=== PATIENT | female | born 1935 | race Caucasian/White ===

== ENCOUNTER → 2020-06-22 09:41 | Outpatient (BNVA) | payer MEDICARE, SELFPAY | PROVIDERS: PCP Internal Medicine; Referring Provider Internal Medicine; Visit Provider Internal Medicine Endocrinology, Diabetes & Metabolism | DX: E10.65 Type 1 diabetes mellitus with hyperglycemia (principal); E10.21 Type 1 diabetes mellitus with diabetic nephropathy; E10.44 Type 1 diabetes mellitus with diabetic amyotrophy; E11.3599 Type 2 diabetes mellitus with proliferative diabetic retinopathy without macular edema, unspecified eye; I10 Essential (primary) hypertension; E78.5 Hyperlipidemia, unspecified | CPT/HCPCS: Q3014 ==

== ENCOUNTER → 2020-06-29 13:36 | Outpatient (BNVA) | payer MEDICARE, SELFPAY | PROVIDERS: PCP Internal Medicine; Visit Provider Urology | DX: N81.4 Uterovaginal prolapse, unspecified (principal) | CPT/HCPCS: 99212 ==

== ENCOUNTER → 2020-08-03 10:18 | Outpatient (BNVA) | payer MEDICARE, SELFPAY | PROVIDERS: PCP Internal Medicine; Visit Provider Internal Medicine Endocrinology, Diabetes & Metabolism | DX: E10.65 Type 1 diabetes mellitus with hyperglycemia (principal); E10.21 Type 1 diabetes mellitus with diabetic nephropathy; E10.42 Type 1 diabetes mellitus with diabetic polyneuropathy; E11.3599 Type 2 diabetes mellitus with proliferative diabetic retinopathy without macular edema, unspecified eye; I10 Essential (primary) hypertension; E78.5 Hyperlipidemia, unspecified | CPT/HCPCS: 82947; 99212 ==

== ENCOUNTER → 2020-08-23 07:46 | Outpatient (BNVA) | payer MEDICARE, SELFPAY | PROVIDERS: PCP Internal Medicine; Visit Provider Internal Medicine Endocrinology, Diabetes & Metabolism | CPT/HCPCS: Q3014 ==

== ENCOUNTER → 2020-09-06 13:33 | Outpatient (BNVA) | payer MEDICARE, SELFPAY | PROVIDERS: PCP Internal Medicine; Visit Provider Nurse Practitioner Gerontology | DX: E10.65 Type 1 diabetes mellitus with hyperglycemia (principal) | CPT/HCPCS: 82947; 99212 ==

== ENCOUNTER 2020-11-12 21:40 | Emergency (ER) | payer MEDICARE, SELFPAY ==
--- NOTE | ~2020-11-12 | XR_ITS ---
EXAMINATION: XR HAND, LEFT CLINICAL INFORMATION: Pain after fall COMPARISON: Left wrist x-rays September 25, 2017 TECHNIQUE: PA, lateral, and oblique views of the left hand. FINDINGS: Diffuse osteopenia. Visualized portion of the distal radius and ulna demonstrate no fracture. Carpal rows are well-maintained without carpal bone fracture. No metacarpal or phalangeal fracture. No significant degenerative changes of the left hand. XR/XR hand LT 2V IMPRESSION: No acute fracture of the right hand.
--- NOTE | ~2020-11-12 | CT_ITS ---
EXAMINATION: CT HEAD WITHOUT CONTRAST CLINICAL INFORMATION: Status post fall COMPARISON: 10/03/2017 TECHNIQUE: Contiguous axial imaging was performed from the skull base to vertex without intravenous administration of contrast. This CT examination was performed using dose optimization techniques as appropriate, variously including the following: *Automated exposure control *Adjustment of mA and/or kV according to patient size (this includes techniques or standardized protocols for targeted exams where dose is matched to indication/reason for exam; i.e. extremities or head) *Use of iterative reconstruction technique DLP: 620 mGy-cm FINDINGS: There is no evidence of acute intracranial hemorrhage or territorial infarction. No abnormal mass effect or midline shift is seen. [place] to white matter differentiation is well preserved. No extra-axial fluid collections are identified. The ventricles are normal in size. There is mild periventricular white matter hypoattenuation consistent with chronic small vessel ischemic disease. Mild volume loss is noted. The osseous structures and soft tissues are normal. The mastoid air cells and visualized portions of the paranasal sinuses are well aerated. CT/CT head/brain wo con IMPRESSION: No acute intracranial pathology.
[2020-11-12 21:45] VITALS: BP 134/72; BP 142/60; PULSE 86; PULSE 90; RESP 16; TEMP 36.9; O2SAT 100; O2SAT 99; BMI 27.4
[2020-11-12 21:50] VITALS: BP 142/60; PULSE 86; RESP 16; TEMP 36.9; O2SAT 99
[2020-11-12 21:57] LABS: Glucose, Whole Blood 257 mg/dL (60-115)
--- NOTE | 2020-11-12 22:22 | ED_ITS ---
HPI - General Adult General Chief complaint: General Medical Stated complaint: hypoglycemia Time Seen by Provider: 11/12/20 22:22 Source: family Mode of arrival: EMS Limitations: no limitations History of Present Illness HPI narrative: Patient history of dementia diabetic daughter takes care of her patient blood sugar was 90 at 17:00 her daughter give her 10 units of Humalog but patient did not eat much at 21:00 when daughter went to see her in her room she found her on the floor in the bathroom with superficial abrasion to the left forehead POC was 52. patient was confused mumbling improved after D50 was given by EMS blood sugar improved to 273 and patient was back to baseline patient complaining of pain in the left hand no other injuries Related Data Home Medications Medication Instructions Recorded Confirmed furosemide 20 mg tablet 20 mg PO DAILY 07/17/20 09/06/20 Previous Rx's Medication Instructions Recorded pen needle, diabetic 32 gauge x #400 ea 03/28/20 valsartan 160 mg tablet 160 mg PO DAILY #90 tab 04/13/20 lancets #150 ea 04/20/20 amlodipine 5 mg tablet 5 mg PO DAILY #90 tab 05/25/20 insulin glargine U-300 conc 300 6 unit SUBCUT BEDTIME 90 Days #4.5 06/22/20 unit/mL (1.5 mL) subcutaneous pen ml flash glucose scanning reader #1 ea 08/23/20 flash glucose sensor #2 ea 08/23/20 lovastatin 40 mg tablet 40 mg PO QPM 90 Days #90 tab 08/29/20 insulin lispro 100 unit/mL See Rx Instructions SUBCUT .4 10/11/20 subcutaneous pen times a day 30 Days #15 ml polyethylene glycol 3350 17 17 g PO DAILY #510 g 10/15/20 gram/dose oral powder miscellaneous medical supply See Rx Instructions MISCELLANEOUS 10/19/20 .COMPLEX #1 ea meloxicam 7.5 mg tablet 7.5 mg PO DAILY #60 tab 11/12/20 Allergies Allergy/AdvReac Type Severity Reaction Status Date / Time brimonidine [From ALPHAGAN P] Allergy Unknown UNKNOWN Verified 09/21/20 10:50 alphagan Allergy Unknown allergy Uncoded 12/08/19 00:00 reaction Fluoxetine Allergy Unknown Unknown Uncoded 06/22/20 09:42 Review of Systems Review of Systems: Yes all other systems are reviewed and are negative PMFSH Past Medical History Medical History Diabetes mellitus Diabetes type 1, uncontrolled Diabetic nephropathy associated with type 1 diabetes mellitus Diabetic polyneuropathy associated with type 1 diabetes mellitus Dyslipidemia Hypertension Proliferative diabetic retinopathy Uterine prolapse Surgical History Hx of breast biopsy Hx of colonoscopy Family History Family History Daughter Diabetes Social History Social History Household Members: None Alcohol intake: never Patient Tobacco Use Status: Never used Tobacco Use of substances other than those prescribed or required for medical reasons: No Advance Directives: No Physical Exam Vital Signs: Vital Signs: Last Vital Signs Temp 98.4 F 11/12/20 21:50 Pulse 89 11/13/20 00:00 Resp 18 11/13/20 00:00 BP 140/60 H 11/13/20 00:00 Pulse Ox 99 11/13/20 00:00 Body Mass Index 27.4 Appearance: Alert. Oriented X2 No acute distress. Eyes: PERRLA, No Nystagmus ENT: Pharynx normal. Oral Mucosa moist Neck: Normal inspection. Neck supple. CVS: Normal heart rate and rhythm. Pulses normal. Respiratory: No respiratory distress. Equal air entry bilateral, no wheezing/rales/rhonchi Abdomen: Soft and nontender. Bowel sounds are present, no mass palpable, no CVA tenderness Skin: Skin warm and dry. Normal skin color. Normal skin turgor. Extremities: No lower extremity edema. No calf tenderness Neuro: Oriented X 2. No motor deficit. No sensory deficit.No cerebellar signs , cranial nerves II-XII intact Medical Decision Making MDM Narrative Medical decision making narrative: Patient's hypoglycemia secondary to insulin and not eating. Head CT is negative left hand is also negative for fracture. Blood sugar stays stable in the ER after dextrose blood sugar was 230 at time of discharge family aware of giving patient insulin after she eats meals as most of the time she does not want to eat meal after insulin given and is a high chance patient to go to hypoglycemia Lab Data Lab results reviewed: Yes I reviewed the patient's lab results. Labs: Lab Results 11/12/20 Range/Units 21:52 POC Glucose 257 H (60-115) mg/dL Discharge Plan Discharge Clinical Impression: Hypoglycemia associated with diabetes Patient Disposition: Home, Self-Care Instructions: Hypoglycemia in a Person with Diabetes (ED) Additional Instructions: Care as advised Give insulin after patient finish her meals , not before meals Prescriptions: No Action (DME) pen needle, diabetic [BD Pinky 2nd Gen Pen Needle] 32 gauge x 5/32 needle See Rx Instructions .MEDSUPPLY Qty: 400 RF: 4 valsartan 160 mg tablet 160 mg PO DAILY Qty: 90 RF: 8 (DME) lancets [Accu-Chek Fastclix Lancet Drum] Misc See Rx Instructions .ROUTE .MEDSUPPLY Qty: 150 RF: 6 amlodipine 5 mg tablet 5 mg PO DAILY Qty: 90 RF: 8 furosemide 20 mg tablet 20 mg PO DAILY RF: 0 lovastatin 40 mg tablet 40 mg PO QPM 90 Days Qty: 90 RF: 1 insulin lispro [Humalog KwikPen Insulin] 100 unit/mL insulin pen See Rx Instructions subcut .4 times a day 30 Days Qty: 15 RF: 6 polyethylene glycol 3350 [Gavilax] 17 gram/dose powder 17 g PO DAILY Qty: 510 RF: 5 miscellaneous medical supply Misc See Rx Instructions miscellaneous .COMPLEX Qty: 1 RF: 12 meloxicam 7.5 mg tablet 7.5 mg PO DAILY Qty: 60 RF: 5 Toujeo SoloStar U-300 Insulin 300 unit/mL (1.5 mL) insulin pen 6 unit subcut BEDTIME 90 Days Qty: 4.5 RF: 2 (DME) FreeStyle Aditya 2 [place] Misc See Rx Instructions .ROUTE .MEDSUPPLY Qty: 1 RF: 0 (DME) FreeStyle Aditya 2 Sensor Kit See Rx Instructions .ROUTE .MEDSUPPLY Qty: 2 RF: 11 Interventions: ED Discharge Assessment Last Done: 11/13/20 00:32 Discharge Date/Time: 11/13/20 00:56
[2020-11-13] VITALS: BP 140/60; PULSE 89; RESP 18; O2SAT 99
[2020-11-13 01:11] LABS: Glucose, Whole Blood 230 mg/dL (60-115)
== END 2020-11-13 00:56 | disposition home or self-care (01) ==
PROVIDERS: Emergency Provider Internal Medicine; PCP Internal Medicine
DX: E10.649 Type 1 diabetes mellitus with hypoglycemia without coma (principal); I10 Essential (primary) hypertension; M79.642 Pain in left hand; Z79.899 Other long term (current) drug therapy; Z91.81 History of falling
CPT/HCPCS: 70450; 73120; 82947; 99284

== ENCOUNTER 2020-11-29 07:59 | Outpatient (REF) | payer MEDICARE, MEDICAID, SELFPAY ==
[2020-11-29 10:31] LABS: Estimated Average Glucose 183 mg/dL
[2020-11-29 10:47] LABS: Creatinine Urine 33.24 mg/dL; Microalbum/Creatinine Ratio Ur 93.2 ug/mg cr
[2020-11-29 11:06] LABS: Alanine Aminotransferase 13 U/L (0-31); Albumin Level 4.3 g/dL (3.5-5.0); Alkaline Phosphatase 138 U/L (39-117); Anion Gap 11 (12-20); Aspartate Amino Transferase 20 U/L (5-31); Bilirubin Total 0.4 mg/dL (0.0-1.0); Blood Urea Nitrogen 20 mg/dL (9-16); Calcium 9.8 mg/dL (8.4-10.2); Carbon Dioxide 29 mmol/L (22-29); Chloride 102 mmol/L (96-108); Cholesterol 154 mg/dL; Estimated Glomerular Filt Rate 53; Glucose Fasting 213 mg/dL (60-99); HDL Cholesterol 59 mg/dL; LDL Cholesterol Calculated 76 mg/dl; Potassium 4.4 mmol/L (3.3-5.1); Sodium 138 mmol/L (135-145); Total Protein 7.2 g/dL (6.5-8.0); Triglycerides 97 mg/dL
[2020-11-29 11:27] LABS: Vitamin B12 835 pg/mL (200-900)
[2020-11-29 11:29] LABS: Free T4 (Free Thyroxine) 0.95 ng/dL (0.71-1.85); Thyroid Stimulating Hormone 3.78 uIU/mL (0.32-4.0)
[2020-11-30 06:57] LABS: LDL Cholesterol Direct 68 mg/dL (<100)
== END 2020-11-29 08:00 | disposition home or self-care (01) ==
LOC: HO.LAB 07:59
PROVIDERS: PCP Internal Medicine; Visit Provider Internal Medicine Endocrinology, Diabetes & Metabolism
DX: E10.65 Type 1 diabetes mellitus with hyperglycemia (principal)
CPT/HCPCS: 36415; 80053; 80061; 82043; 82607; 82947; 83036; 83721; 84439; 84443; 99212

== ENCOUNTER 2021-02-22 17:33 | Emergency (ER) | payer MEDICARE, MEDICAID, SELFPAY ==
--- NOTE | ~2021-02-22 | CT_ITS ---
EXAMINATION: CT ABDOMEN AND PELVIS WITHOUT CONTRAST CLINICAL INFORMATION: Upper abdominal pain. COMPARISON: CT scan abdomen pelvis December 30, 2019. Renal ultrasound January 30, 2020 TECHNIQUE: Multidetector volumetric imaging was performed from the superior aspect of the liver through the pubic symphysis. Sagittal and coronal reformatted images were obtained on the technologist's workstation. This CT examination was performed using dose optimization techniques as appropriate, variously including the following: *Automated exposure control *Adjustment of mA and/or kV according to patient size (this includes techniques or standardized protocols for targeted exams where dose is matched to indication/reason for exam; i.e. extremities or head) *Use of iterative reconstruction technique DLP: 420 mGy-cm FINDINGS: LUNG BASES: The visualized lung bases are unremarkable. LIVER, GALLBLADDER, AND BILIARY TREE: The liver is normal in size, shape, and attenuation. No focal hepatic lesion or biliary ductal dilatation is present. The gallbladder is unremarkable with no evidence of radiopaque gallstones, gallbladder wall thickening, or obvious pericholecystic inflammatory changes. PANCREAS: Unremarkable. SPLEEN: Unremarkable. ADRENAL GLANDS: Unremarkable. KIDNEYS AND URETERS: The kidneys are normal in size, shape, and attenuation. No hydronephrosis, hydroureter, or calculi seen. No perinephric stranding. There are multiple bilateral renal cysts. No follow-up imaging is recommended for simple renal cyst. BLADDER: Unremarkable. GASTROINTESTINAL TRACT: The small and large bowel are unremarkable. The appendix is unremarkable. MESENTERY: No free air or free fluid. No inflammation. No change of the cyst adjacent to the hepatic flexure at the left upper quadrant of the abdomen measuring 2.8 x 2.4 x 2 cm in size. ABDOMINAL WALL: No significant hernia is appreciated. LYMPH NODES: Normal. VASCULAR: Atherosclerotic vascular calcifications. No aneurysm of aorta. PELVIC VISCERA: Unremarkable. OSSEOUS STRUCTURES: Multilevel degenerative spondylosis spine. CT/CT abdomen pelvis wo con IMPRESSION: No acute abnormality CT scan abdomen pelvis.
[2021-02-22 19:30] VITALS: BP 180/80; PULSE 71; RESP 16; TEMP 36.6; O2SAT 98; BMI 23.8
[2021-02-22 19:55] LABS: MANUAL DIFF FLAG NO
[2021-02-22 20:01] LABS: Basophils Percent Auto 0.3 % (0-2); Eosinophils Absolute Auto 0.1 X10*3/uL (0.0-0.4); Eosinophils Percent Auto 0.5 % (0-4); Hematocrit 41.6 % (37-47); Hemoglobin 13.9 g/dl (12.0-16.0); Imm Gran Abs Auto 0.04 X10*3/uL (0.00-0.03); Imm Gran Pct Auto 0.3 % (0.0-0.4); Lymphocytes Absolute Auto 2.5 X10*3/uL (1.2-4.9); Lymphocytes Percent Auto 21.9 % (20-40); Mean Corpuscular HGB Conc 33.4 g/dl (31.0-35.0); Mean Corpuscular Hemoglobin 29.8 pg (27.0-33.0); Mean Corpuscular Volume 89.1 fL (80-98); Mean Platelet Volume 10.2 fL (9.4-12.3); Monocytes Absolute Auto 0.8 X10*3/uL (0.1-1.2); Monocytes Percent Auto 6.9 % (2-11); Neutrophils Absolute Auto 8.1 X10*3/uL (2.0-8.3); Neutrophils Percent Auto 70.1 % (45-73); Platelet Count 191 X10*3/uL (160-400); Red Blood Count 4.67 X10*6/uL (4.20-5.50); Red Cell Distribution Width 12.6 % (11.0-16.0); White Blood Count 11.6 X10*3/uL (4.8-10.8)
[2021-02-22 20:02] LABS: Appearance Urine CLEAR; Color Urine YELLOW; Glucose Urine UA NEG (NEG); Leukocyte Esterase Urine 1+ (NEG); Nitrite Urine NEG (NEG); UACC Culture Trigger YES; Urine Blood TRACE (NEG); Urine Ketones NEG (NEG); Urine Protein NEG (NEG-TRACE)
[2021-02-22 20:12] LABS: Alanine Aminotransferase 21 U/L (0-31); Albumin Level 4.6 g/dL (3.5-5.0); Alkaline Phosphatase 136 U/L (39-117); Anion Gap 15 (12-20); Aspartate Amino Transferase 28 U/L (5-31); Bilirubin Direct 0.2 mg/dL (0.0-0.5); Bilirubin Total 0.6 mg/dL (0.0-1.0); Blood Urea Nitrogen 21 mg/dL (9-16); Calcium 10.3 mg/dL (8.4-10.2); Carbon Dioxide 27 mmol/L (22-29); Chloride 98 mmol/L (96-108); Creatinine Clr Calc Pharmacy 29.5; Estimated Glomerular Filt Rate 46; Glucose Random 159 mg/dL (60-115); Lipase 35 U/L (8-78); Sodium 136 mmol/L (135-145); Total Protein 7.6 g/dL (6.5-8.0)
[2021-02-22 20:21] LABS: Squamous Epithelial Cell Urine TRACE /LPF
[2021-02-22 20:22] LABS: Bacteria Urine TRACE /LPF; WBC Clumps Urine NOTED
[2021-02-22 20:23] VITALS: BP 194/84; PULSE 69; RESP 16; O2SAT 100
--- NOTE | 2021-02-22 21:45 | ED.ABDPAIN ---
HPI - Abdominal Pain General Chief Complaint: Abdominal Pain Stated Complaint: upper abd pain Time Seen by Provider: 02/22/21 21:45 Source: patient Mode of arrival: ambulatory Limitations: no limitations History of Present Illness HPI narrative: Patient with diffuse abdominal pain off and on for last 3 weeks with nausea no vomiting no diarrhea no fever or chills no relation with food no urinary complaints patient unable to see PCP hence came to the ER ,Pt does have a history of constipation had normal bowel movements lately last bm was 2 days ago also patient complaining of heartburn taking Prilosec [id number] Related Data Previous Rx's Medication Instructions Recorded pen needle, diabetic 32 gauge x #400 ea 03/28/20 (BD Pinky 2nd Gen Pen Needle) valsartan 160 mg tablet 160 mg PO DAILY #90 tab 04/13/20 lancets (Accu-Chek Fastclix Lancet #150 ea 04/20/20 Drum) amlodipine 5 mg tablet 5 mg PO DAILY #90 tab 05/25/20 flash glucose scanning reader #1 ea 08/23/20 (FreeStyle Aditya 2 [place]) flash glucose sensor (FreeStyle #2 ea 08/23/20 Aditya 2 Sensor) polyethylene glycol 3350 17 17 g PO DAILY #510 g 10/15/20 gram/dose oral powder (Gavilax) miscellaneous medical supply See Rx Instructions MISCELLANEOUS 10/19/20 .COMPLEX #1 ea meloxicam 7.5 mg tablet 7.5 mg PO DAILY #60 tab 11/12/20 insulin glargine U-300 conc 300 8 unit SUBCUT BEDTIME 90 Days #4.5 11/29/20 unit/mL (1.5 mL) subcutaneous pen ml (Toujeo SoloStar U-300 Insulin) insulin lispro 100 unit/mL See Rx Instructions SUBCUT .4 11/29/20 subcutaneous pen (Humalog KwikPen times a day 90 Days #45 ml (U-100) Insulin) lovastatin 40 mg tablet 40 mg PO QPM #90 tab 12/03/20 furosemide 20 mg tablet 20 mg PO DAILY #90 tab 12/21/20 Accu-Chek Shamika Plus test strp #300 ea NS 01/22/21 (blood sugar diagnostic) omeprazole 40 mg capsule,delayed 40 mg PO DAILY #30 cap 02/22/21 release sucralfate 1 gram tablet 1 g PO BID #60 tab 02/22/21 Allergies Allergy/AdvReac Type Severity Reaction Status Date / Time brimonidine [From ALPHAGAN P] Allergy Unknown UNKNOWN Verified 12/21/20 13:33 alphagan Allergy Unknown allergy Uncoded 12/08/19 00:00 reaction Fluoxetine Allergy Unknown Unknown Uncoded 06/22/20 09:42 Review of Systems Review of Systems Yes all other systems are reviewed and are negative Physical Exam Vital Signs: Vital Signs: Last Vital Signs Temp 97.8 F 02/22/21 19:30 Pulse 69 02/22/21 20:23 Resp 16 02/22/21 20:23 BP 194/84 H 02/22/21 20:23 Pulse Ox 100 02/22/21 20:23 Body Mass Index 23.8 Appearance: Alert. Oriented X3. No acute distress. Eyes: No pallor or icterus ENT: Pharynx normal. Oral Mucosa moist Neck: Normal inspection. Neck supple. CVS: Normal heart rate and rhythm. Pulses normal. Respiratory: No respiratory distress. Equal air entry bilateral, no wheezing/rales/rhonchi Abdomen: Soft and mild upper abdominal tenderness no rebound tenderness or guarding Bowel sounds are present, no mass palpable, no CVA tenderness Skin: Skin warm and dry. Normal skin color. Normal skin turgor. Extremities: No lower extremity edema. No calf tenderness Neuro: Oriented X 3. No motor deficit. MDM - Abdominal Pain MDM Narrative Medical decision making narrative: Patient's CT scan abdomen is negative labs are stable denies any urinary complaints has some acid reflux will discharge patient on Prilosec Lab Data Attestation: I reviewed the patient's lab results. Result diagrams: 02/22/21 19:38 02/22/21 19:38 Labs: Lab Results 02/22/21 02/22/21 02/22/21 Range/Units 19:38 19:38 19:44 WBC 11.6 H (4.8-10.8) X10*3/uL RBC 4.67 (4.20-5.50) X10*6/uL Hgb 13.9 (12.0-16.0) g/dl Hct 41.6 (37-47) % MCV 89.1 (80-98) fL MCH 29.8 (27.0-33.0) pg MCHC 33.4 (31.0-35.0) g/dl RDW 12.6 (11.0-16.0) % Plt Count 191 (160-400) X10*3/uL MPV 10.2 (9.4-12.3) fL Immature Gran % (Auto) 0.3 (0.0-0.4) % Neut % (Auto) 70.1 (45-73) % Lymph % (Auto) 21.9 (20-40) % [place]yler % (Auto) 6.9 (2-11) % Eos % (Auto) 0.5 (0-4) % Baso % (Auto) 0.3 (0-2) % Lymph # (Auto) 2.5 (1.2-4.9) X10*3/uL [place] # (Auto) 0.8 (0.1-1.2) X10*3/uL Eos # (Auto) 0.1 (0.0-0.4) X10*3/uL Baso # (Auto) 0.0 (0.0-0.2) X10*3/uL Abs Immat Gran (auto) 0.04 H (0.00-0.03) X10*3/uL Absolute Neuts (auto) 8.1 (2.0-8.3) X10*3/uL Absolute Nucleated RBC 0.000 (0.0-0.012) X10*3/uL Nucleated RBC % (auto) 0.0 (0.0-0.2) /100WBC Sodium 136 (135-145) mmol/L Potassium 4.0 (3.3-5.1) mmol/L Chloride 98 (96-108) mmol/L Carbon Dioxide 27 (22-29) mmol/L Anion Gap 15 (12-20) BUN 21 H (9-16) mg/dL Creatinine 1.12 (0.5-1.4) mg/dL Estim Creat Clear Calc 29.5 Estimated GFR 46 Random Glucose 159 H (60-115) mg/dL Calcium 10.3 H (8.4-10.2) mg/dL Total Bilirubin 0.6 (0.0-1.0) mg/dL Direct Bilirubin 0.2 (0.0-0.5) mg/dL AST 28 (5-31) U/L ALT 21 (0-31) U/L Alkaline Phosphatase 136 H (39-117) U/L Total Protein 7.6 (6.5-8.0) g/dL Albumin 4.6 (3.5-5.0) g/dL Lipase 35 (8-78) U/L Urine Color YELLOW Urine Appearance CLEAR Urine pH 7.0 (5.0-8.0) Ur Specific [place] 1.010 (1.005-1.025) Urine Protein NEG (NEG-TRACE) MG/DL Urine Glucose (UA) NEG (NEG) MG/DL Urine Ketones NEG (NEG) MG/DL Urine Blood TRACE (NEG) Urine Nitrite NEG (NEG) Ur Leukocyte Esterase 1+ H (NEG) Urine RBC 10-14 H (0) /HPF Urine WBC 5-9 H (0-4) /HPF Urine WBC Clumps NOTED Ur Squamous Epith Cells TRACE /LPF Urine Bacteria TRACE /LPF Discharge Plan Discharge Clinical Impression: Abdominal pain Qualifiers: Abdominal location: epigastric Qualified Code(s): R10.13 - Epigastric pain Gastroesophageal reflux disease Qualifiers: Esophagitis presence: without esophagitis Qualified Code(s): K21.9 - Gastro-esophageal reflux disease without esophagitis Patient Disposition: Home, Self-Care Instructions: Gastroesophageal Reflux Disease (ED) Additional Instructions: Drink plenty of fluids avoid fried or spicy foods Medication for acid reflux as advised Prescriptions: New omeprazole 40 mg capsule,delayed release(DR/EC) 40 mg PO DAILY Qty: 30 RF: 0 sucralfate 1 gram tablet 1 g PO BID Qty: 60 RF: 0 No Action (DME) pen needle, diabetic [BD Pinky 2nd Gen Pen Needle] 32 gauge x 5/32 needle See Rx Instructions .MEDSUPPLY Qty: 400 RF: 4 valsartan 160 mg tablet 160 mg PO DAILY Qty: 90 RF: 8 (DME) lancets [Accu-Chek Fastclix Lancet Drum] Misc See Rx Instructions .ROUTE .MEDSUPPLY Qty: 150 RF: 6 amlodipine 5 mg tablet 5 mg PO DAILY Qty: 90 RF: 8 polyethylene glycol 3350 [Gavilax] 17 gram/dose powder 17 g PO DAILY Qty: 510 RF: 5 miscellaneous medical supply Misc See Rx Instructions miscellaneous .COMPLEX Qty: 1 RF: 12 meloxicam 7.5 mg tablet 7.5 mg PO DAILY Qty: 60 RF: 5 lovastatin 40 mg tablet 40 mg PO QPM Qty: 90 RF: 1 (DME) Accu-Chek Shamika Plus test strp Strip See Rx Instructions .MEDSUPPLY Qty: 300 RF: 2 furosemide 20 mg tablet 20 mg PO DAILY Qty: 90 RF: 8 (DME) FreeStyle Aditya 2 [place] Misc See Rx Instructions .ROUTE .MEDSUPPLY Qty: 1 RF: 0 (DME) FreeStyle Aditya 2 Sensor Kit See Rx Instructions .ROUTE .MEDSUPPLY Qty: 2 RF: 11 Toujeo SoloStar U-300 Insulin 300 unit/mL (1.5 mL) insulin pen 8 unit subcut BEDTIME 90 Days Qty: 4.5 RF: 2 insulin lispro [Humalog KwikPen Insulin] 100 unit/mL insulin pen See Rx Instructions subcut .4 times a day 90 Days Qty: 45 RF: 2 Interventions: ED Discharge Assessment Last Done: 02/23/21 00:29 Discharge Date/Time: 02/23/21 00:29 PENDING SALE TO [facility] Past Medical History Medical History Diabetes mellitus Diabetes type 1, uncontrolled Diabetic nephropathy associated with type 1 diabetes mellitus Diabetic polyneuropathy associated with type 1 diabetes mellitus Dyslipidemia Hypertension Proliferative diabetic retinopathy Uterine prolapse Surgical History Hx of breast biopsy Hx of colonoscopy Family History Family History Daughter Diabetes Social History Social History Household Members: None Housing: House Housing Other:: With Daughter. Alcohol intake: never Patient Tobacco Use Status: Never used Tobacco e-Cigarette/Vaping Use: Never Used Second Hand Smoke Exposure: No Use of substances other than those prescribed or required for medical reasons: No Advance Directives: No Advance Directives Information Provided: No service: No Current occupational status: disabled
== END 2021-02-23 00:29 | disposition home or self-care (01) ==
PROVIDERS: Emergency Provider Internal Medicine; PCP Internal Medicine
DX: K21.9 Gastro-esophageal reflux disease without esophagitis (principal); R10.13 Epigastric pain; Z79.899 Other long term (current) drug therapy
CPT/HCPCS: 36415; 74176; 80053; 81001; 81003; 82248; 83690; 85025; 87086; 99284

== ENCOUNTER → 2021-03-07 10:47 | Outpatient (BNVA) | payer MEDICARE, MEDICAID, SELFPAY | PROVIDERS: PCP Internal Medicine; Visit Provider Nurse Practitioner Gerontology | DX: E10.65 Type 1 diabetes mellitus with hyperglycemia (principal); E10.21 Type 1 diabetes mellitus with diabetic nephropathy; E10.42 Type 1 diabetes mellitus with diabetic polyneuropathy; E11.3599 Type 2 diabetes mellitus with proliferative diabetic retinopathy without macular edema, unspecified eye; I10 Essential (primary) hypertension; E78.5 Hyperlipidemia, unspecified | CPT/HCPCS: 82947; 83036; 99212 ==

== ENCOUNTER 2021-05-10 09:20 | Outpatient (REF) | payer MEDICARE, MEDICAID, SELFPAY ==
[2021-05-10 09:58] LABS: Basophils Percent Auto 0.3 % (0-2); Eosinophils Absolute Auto 0.1 X10*3/uL (0.0-0.4); Hematocrit 38.8 % (37.0-47.0); Hemoglobin 12.6 g/dl (12.0-16.0); Imm Gran Abs Auto 0.02 X10*3/uL (0.00-0.03); Imm Gran Pct Auto 0.3 % (0.0-0.4); Lymphocytes Absolute Auto 2.6 X10*3/uL (1.2-4.9); Lymphocytes Percent Auto 36.1 % (20-40); MANUAL DIFF FLAG NO; Mean Corpuscular HGB Conc 32.5 g/dl (31.0-35.0); Mean Corpuscular Hemoglobin 29.4 pg (27.0-33.0); Mean Corpuscular Volume 90.7 fL (80.0-98.0); Monocytes Absolute Auto 0.6 X10*3/uL (0.1-1.2); Monocytes Percent Auto 8.4 % (2-11); Neutrophils Absolute Auto 3.9 x10*3/uL (2.0-8.3); Neutrophils Percent Auto 53.9 % (45-73); Platelet Count 189 X10*3/uL (160-400); Red Blood Count 4.28 X10*6/uL (4.20-5.50); Red Cell Distribution Width 12.7 % (11.0-16.0); White Blood Count 7.2 X10*3/uL (4.8-10.8)
[2021-05-10 11:14] LABS: Anion Gap 14 (12-20); Blood Urea Nitrogen 22 mg/dL (9-16); Calcium 9.6 mg/dL (8.4-10.2); Carbon Dioxide 27 mmol/L (22-29); Chloride 102 mmol/L (96-108); Estimated Glomerular Filt Rate 41; Glucose Random 180 mg/dL (60-115); Potassium 4.5 mmol/L (3.3-5.1); Sodium 138 mmol/L (135-145)
== END 2021-05-10 09:21 | disposition home or self-care (01) ==
LOC: HO.LAB 09:20
PROVIDERS: PCP Internal Medicine; Visit Provider Internal Medicine
DX: Z00.00 Encounter for general adult medical examination without abnormal findings (principal); R51.9 Headache, unspecified
CPT/HCPCS: 36415; 80048; 85025

== ENCOUNTER 2021-06-11 11:48 | Outpatient (REF) | payer MEDICARE, MEDICAID, SELFPAY ==
[2021-06-11 14:34] LABS: C Reactive Protein 0.09 mg/dL (< or = 0.50)
[2021-06-14 06:57] LABS: Transglutaminase Ab IgG <1.0 U/mL; Transglutaminase IgA <1.0 U/mL
[2021-06-17 10:42] LABS: Vitamin D 25-OH, D2 <4 ng/mL; Vitamin D 25-OH, D3 32 ng/mL; Vitamin D 25-OH, Total 32 ng/mL (30-100)
== END 2021-06-11 11:49 | disposition home or self-care (01) ==
LOC: HO.LAB 11:48
PROVIDERS: PCP Internal Medicine; Referring Provider Internal Medicine; Visit Provider Nurse Practitioner Family
DX: R10.11 Right upper quadrant pain (principal); K58.1 Irritable bowel syndrome with constipation; K59.04 Chronic idiopathic constipation; R14.0 Abdominal distension (gaseous); K21.9 Gastro-esophageal reflux disease without esophagitis; I10 Essential (primary) hypertension; E11.40 Type 2 diabetes mellitus with diabetic neuropathy, unspecified; E78.5 Hyperlipidemia, unspecified; E55.9 Vitamin D deficiency, unspecified
CPT/HCPCS: 36415; 82306; 86140; 86364; 99202

== ENCOUNTER 2021-06-13 11:41 | Outpatient (REF) | payer MEDICARE, MEDICAID, SELFPAY ==
[2021-06-13 12:09] LABS: Appearance Urine CLEAR; Color Urine YELLOW; Glucose Urine UA NEG (NEG); Leukocyte Esterase Urine 3+ (NEG); Nitrite Urine NEG (NEG); Specific Gravity - Urine 1.015 (1.005-1.025); UACC Culture Trigger YES; Urine Blood TRACE (NEG); Urine Ketones NEG (NEG); Urine Protein NEG (NEG-TRACE)
[2021-06-13 12:28] LABS: Bacteria Urine 1+ /LPF; RBC Urine 0-2 /HPF (0); Renal Epithelial Cells Urine TRACE /LPF; Squamous Epithelial Cell Urine 1+ /LPF
== END 2021-06-13 11:42 | disposition home or self-care (01) ==
LOC: HO.LNP 11:41
PROVIDERS: Visit Provider Nurse Practitioner Family
DX: R10.9 Unspecified abdominal pain (principal)
CPT/HCPCS: 81001; 81003; 87086

== ENCOUNTER → 2021-07-17 09:10 | Outpatient (BNVA) | payer MEDICARE, MEDICAID, SELFPAY | PROVIDERS: PCP Internal Medicine; Visit Provider Nurse Practitioner Gerontology | DX: E10.65 Type 1 diabetes mellitus with hyperglycemia (principal); E10.21 Type 1 diabetes mellitus with diabetic nephropathy; E10.42 Type 1 diabetes mellitus with diabetic polyneuropathy; E11.3599 Type 2 diabetes mellitus with proliferative diabetic retinopathy without macular edema, unspecified eye; E78.5 Hyperlipidemia, unspecified; I10 Essential (primary) hypertension | CPT/HCPCS: Q3014 ==

== ENCOUNTER → 2021-07-22 10:52 | Outpatient (BNVA) | payer MEDICARE, MEDICAID, SELFPAY | PROVIDERS: PCP Internal Medicine; Referring Provider Internal Medicine; Visit Provider Nurse Practitioner Family | DX: Z13.89 Encounter for screening for other disorder (principal) ==

== ENCOUNTER 2021-07-22 12:19 | Outpatient (REF) | payer MEDICARE, MEDICAID, SELFPAY ==
[2021-07-22 14:13] LABS: Estimated Average Glucose 258 mg/dL; Hemoglobin A1c % 10.6 %
[2021-07-22 14:26] LABS: Blood Urea Nitrogen 19 mg/dL (9-16); Estimated Glomerular Filt Rate 46; Lipase 23 U/L (8-78)
[2021-07-22 14:49] LABS: TSH reflex Free T4 2.32 uIU/mL (0.32-4.0)
== END 2021-07-22 12:20 | disposition home or self-care (01) ==
LOC: HO.10HDL 12:19
PROVIDERS: Absent Provider Nurse Practitioner Gerontology; Visit Provider Nurse Practitioner Family
DX: R10.11 Right upper quadrant pain (principal); R19.7 Diarrhea, unspecified; E10.65 Type 1 diabetes mellitus with hyperglycemia
CPT/HCPCS: 36415; 82565; 83036; 83690; 84443; 84520

== ENCOUNTER 2021-08-14 11:38 | Outpatient (REF) | payer MEDICARE, MEDICAID, SELFPAY ==
[2021-08-14 13:37] LABS: Blood Urea Nitrogen 23 mg/dL (9-16); Estimated Glomerular Filt Rate 49
== END 2021-08-14 11:39 | disposition home or self-care (01) ==
LOC: HO.LAB 11:38
PROVIDERS: PCP Internal Medicine; Visit Provider Nurse Practitioner Family
DX: R10.32 Left lower quadrant pain (principal); R14.0 Abdominal distension (gaseous)
CPT/HCPCS: 36415; 82565; 84520

== ENCOUNTER 2021-08-16 09:47 | Outpatient (REF) | payer MEDICARE, MEDICAID, SELFPAY ==
--- NOTE | ~2021-08-16 | CT_ITS ---
EXAMINATION: CT ABDOMEN AND PELVIS WITH CONTRAST CLINICAL INFORMATION: Abdominal pain COMPARISON: Previous report from CT of the abdomen and pelvis December 2020. Images not available at this time. TECHNIQUE: Multidetector volumetric images were obtained from the superior aspect of the liver through the pubic symphysis following administration 85 mL of Omnipaque 350 intravenous contrast. Sagittal and coronal reformatted images were obtained on the technologist's workstation. Oral contrast: Yes This CT examination was performed using dose optimization techniques as appropriate, variously including the following: *Automated exposure control *Adjustment of mA and/or kV according to patient size (this includes techniques or standardized protocols for targeted exams where dose is matched to indication/reason for exam; i.e. extremities or head) *Use of iterative reconstruction technique DLP: 274 mGy-cm FINDINGS: LUNG BASES: The visualized lung bases are unremarkable. LIVER, GALLBLADDER, AND BILIARY TREE: The liver is normal in size, shape, and attenuation. No focal hepatic lesion. The gallbladder is unremarkable with no evidence of radiopaque gallstones, gallbladder wall thickening, or obvious pericholecystic inflammatory changes. There is no intrahepatic biliary duct dilatation. The common bile duct is dilated down to the head of the pancreas. The common bile duct measures up to 1.2 cm. There are duodenal direct to Kristen adjacent to the head of the pancreas. It is uncertain that this could be causing the common bile duct obstruction. PANCREAS: Pancreas is normal-appearing. The main pancreatic duct does not appear dilated. SPLEEN: Unremarkable. ADRENAL GLANDS: Unremarkable. KIDNEYS AND URETERS: There are bilateral renal simple cysts. No imaging follow-up is indicated. Kidneys are otherwise unremarkable. BLADDER: Unremarkable. GASTROINTESTINAL TRACT: There is stool throughout the colon suggestive of constipation. There is a stable 1 x 3 cm cystic structure adjacent to the splenic flexure The small and large bowel are otherwise unremarkable. The appendix is unremarkable. There may be a small esophageal hernia. ABDOMINAL WALL: No significant hernia is appreciated. LYMPH NODES: Normal. VASCULAR: Unremarkable. PELVIC VISCERA: Unremarkable. OSSEOUS STRUCTURES: There are degenerative changes of the spine. CT/CT abdomen pelvis w con IMPRESSION: Dilated common bile duct down to the head of the pancreas. No stone seen. There are duodenal diverticuli adjacent to the head of the pancreas and it is uncertain whether the bile duct obstruction could be related to this. Normal-appearing pancreas. No pancreatic duct dilatation seen. Constipation. 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 Bilateral renal cysts. Fleischner guidelines were followed.
[2021-08-16] MEDS: iohexoL 350 MG/ML 100 ML INFUS..BTL 85 ML IV (12:31)
== END 2021-08-16 09:48 | disposition home or self-care (01) ==
LOC: HO.CT 09:47
PROVIDERS: PCP Internal Medicine; Visit Provider Nurse Practitioner Family
DX: R10.9 Unspecified abdominal pain (principal); R10.32 Left lower quadrant pain; R14.0 Abdominal distension (gaseous); K21.9 Gastro-esophageal reflux disease without esophagitis; K59.04 Chronic idiopathic constipation
CPT/HCPCS: 74177; 99212; Q9967

== ENCOUNTER 2021-08-26 12:04 | Outpatient (REF) | payer MEDICARE, MEDICAID, SELFPAY ==
[2021-08-26 14:36] LABS: Alanine Aminotransferase 23 U/L (0-31); Albumin Level 4.5 g/dL (3.5-5.0); Alkaline Phosphatase 117 U/L (39-117); Aspartate Amino Transferase 27 U/L (5-31); Bilirubin Direct 0.3 mg/dL (0.0-0.5); Bilirubin Total 0.8 mg/dL (0.0-1.0); C Reactive Protein 0.12 mg/dL (< or = 0.50); Lipase 24 U/L (8-78); Total Protein 7.8 g/dL (6.5-8.0)
== END 2021-08-26 12:05 | disposition home or self-care (01) ==
LOC: HO.LAB 12:04
PROVIDERS: PCP Internal Medicine; Referring Provider Internal Medicine; Visit Provider Nurse Practitioner Family
DX: R10.10 Upper abdominal pain, unspecified (principal); K59.04 Chronic idiopathic constipation; K21.9 Gastro-esophageal reflux disease without esophagitis; R14.0 Abdominal distension (gaseous); K83.8 Other specified diseases of biliary tract; Z79.899 Other long term (current) drug therapy
CPT/HCPCS: 36415; 80076; 83690; 86140; 99212

== ENCOUNTER 2021-08-30 08:28 | Outpatient (REF) | payer MEDICARE, MEDICAID, SELFPAY ==
--- NOTE | ~2021-08-30 | MR_ITS ---
EXAMINATION: MR ABDOMEN WITHOUT CONTRAST CLINICAL INFORMATION: Other specified diseases of biliary tract. COMPARISON: Previous CT of the abdomen and pelvis most recent 08/16/2021 TECHNIQUE: MR abdomen is performed without gadolinium contrast. MRCP sequences were performed. FINDINGS: LUNG BASES: The visualized lung bases are unremarkable. LIVER, GALLBLADDER, AND BILIARY TREE: The liver is normal in size, smooth in contour, and normal in signal. No focal hepatic lesion or intrahepatic biliary ductal dilatation is present. The gallbladder is unremarkable with no evidence of gallbladder wall thickening, or obvious pericholecystic inflammatory changes. There is mild focal dilatation of the distal common bile duct measuring up to 1 cm. No common bile duct stone is seen. PANCREAS: Unremarkable. SPLEEN: Unremarkable. ADRENAL GLANDS: Unremarkable. KIDNEYS AND URETERS: There are bilateral renal cysts. The kidneys are normal in size and shape. No hydronephrosis. No perinephric stranding. GASTROINTESTINAL TRACT: There is a small left upper quadrant cyst under the left hemidiaphragm. This measures 1.5 x 2.3 cm. This abuts the hepatic flexure. This may represent an area of loculated ascitic fluid versus cyst. 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 There are duodenal diverticula. The visualized bowel is otherwise unremarkable. ABDOMINAL WALL: No significant hernia is appreciated. LYMPH NODES: No lymphadenopathy. VASCULAR: Unremarkable. OSSEOUS STRUCTURES: Marrow signal normal. MR/MR MRCP IMPRESSION: Mild dilatation of the distal common bile duct measuring up to 1 cm. No stone seen. Normal-appearing gallbladder. Bilateral renal cysts. Duodenal diverticula adjacent to the head of the pancreas. 1.5 x 2.3 cm cyst under the left hemidiaphragm. 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 Differential would include loculated ascitic fluid.
== END 2021-08-30 08:29 | disposition home or self-care (01) ==
LOC: HO.MRI 08:28
PROVIDERS: PCP Internal Medicine; Visit Provider Nurse Practitioner Family
DX: R10.9 Unspecified abdominal pain (principal); K83.8 Other specified diseases of biliary tract
CPT/HCPCS: 74181

== ENCOUNTER 2021-09-05 16:14 | Outpatient (REF) | payer MEDICARE, MEDICAID, SELFPAY ==
[2021-09-11 14:26] LABS: Pancreatic Elastase-1 329 mcg/g
== END 2021-09-05 16:15 | disposition home or self-care (01) ==
LOC: HO.LNP 16:14
PROVIDERS: Visit Provider Nurse Practitioner Family
DX: R10.10 Upper abdominal pain, unspecified (principal)
CPT/HCPCS: 82656

== ENCOUNTER → 2021-10-07 11:46 | Outpatient (BNVA) | payer MEDICARE, MEDICAID, SELFPAY | PROVIDERS: PCP Internal Medicine; Referring Provider Internal Medicine; Visit Provider Nurse Practitioner Family | DX: R10.10 Upper abdominal pain, unspecified (principal); K59.04 Chronic idiopathic constipation; R14.0 Abdominal distension (gaseous); R00.2 Palpitations; K21.9 Gastro-esophageal reflux disease without esophagitis; Z79.899 Other long term (current) drug therapy | CPT/HCPCS: 99212 ==

== ENCOUNTER → 2021-10-25 12:29 | Outpatient (BNVA) | payer MEDICARE, MEDICAID, SELFPAY | PROVIDERS: PCP Internal Medicine; Visit Provider Nurse Practitioner Gerontology | DX: E10.65 Type 1 diabetes mellitus with hyperglycemia (principal); E10.21 Type 1 diabetes mellitus with diabetic nephropathy; E10.42 Type 1 diabetes mellitus with diabetic polyneuropathy; E78.5 Hyperlipidemia, unspecified; E11.3599 Type 2 diabetes mellitus with proliferative diabetic retinopathy without macular edema, unspecified eye; I10 Essential (primary) hypertension; Z79.4 Long term (current) use of insulin | CPT/HCPCS: Q3014 ==

== ENCOUNTER 2021-11-26 14:44 | Outpatient (REF) | payer OTHER, SELFPAY ==
--- NOTE | ~2021-11-26 | XR_ITS ---
EXAMINATION: XR CHEST CLINICAL INFORMATION: Dyspnea COMPARISON: Previous chest x-ray September 2018 TECHNIQUE: 2 views of the chest were obtained. FINDINGS: The cardiac and mediastinal contours are stable. The lungs are clear. There is no pleural effusion or pneumothorax. There are degenerative changes of the spine. XR/XR chest 2V IMPRESSION: No evidence for acute disease in the chest.
[2021-11-26 14:58] LABS: MANUAL DIFF FLAG NO
--- NOTE | 2021-11-26 14:58 | ECG_ITS ---
Test Reason : HTN Blood Pressure : / mmHG Vent. Rate : 078 BPM Atrial Rate : 078 BPM P-R Int : 152 ms QRS Dur : 090 ms QT Int : 386 ms P-R-T Axes : 054 015 073 degrees QTc Int : 440 ms Normal sinus rhythm Normal ECG When compared with ECG of 23-SEP-2018 10:43, No significant change was found Referred By: Mateusz Ealm Electronically Signed By:DWAYNE AL MD
[2021-11-26 15:09] LABS: Basophils Percent Auto 0.4 % (0-2); Eosinophils Percent Auto 0.5 % (0-4); Hematocrit 39.7 % (37.0-47.0); Hemoglobin 12.8 g/dl (12.0-16.0); Imm Gran Abs Auto 0.02 X10*3/uL (0.00-0.03); Imm Gran Pct Auto 0.2 % (0.0-0.4); Lymphocytes Absolute Auto 2.3 X10*3/uL (1.2-4.9); Lymphocytes Percent Auto 28.3 % (20-40); Mean Corpuscular HGB Conc 32.2 g/dl (31.0-35.0); Mean Corpuscular Hemoglobin 28.6 pg (27.0-33.0); Mean Corpuscular Volume 88.8 fL (80.0-98.0); Mean Platelet Volume 9.8 fL (9.4-12.3); Monocytes Absolute Auto 0.6 X10*3/uL (0.1-1.2); Monocytes Percent Auto 7.3 % (2-11); Neutrophils Absolute Auto 5.2 x10*3/uL (2.0-8.3); Neutrophils Percent Auto 63.3 % (45-73); Platelet Count 208 X10*3/uL (160-400); Red Blood Count 4.47 X10*6/uL (4.20-5.50); Red Cell Distribution Width 12.4 % (11.0-16.0); White Blood Count 8.2 X10*3/uL (4.8-10.8)
[2021-11-26 16:16] LABS: Anion Gap 12 (12-20); Blood Urea Nitrogen 18 mg/dL (9-16); Calcium 9.9 mg/dL (8.4-10.2); Carbon Dioxide 28 mmol/L (22-29); Chloride 102 mmol/L (96-108); Estimated Glomerular Filt Rate 41; Glucose Random 172 mg/dL (60-115); Potassium 4.5 mmol/L (3.3-5.1); Sodium 137 mmol/L (135-145)
== END 2021-11-26 14:45 | disposition home or self-care (01) ==
LOC: HO.XRAY 14:44
PROVIDERS: Absent Provider Nurse Practitioner Gerontology; PCP Internal Medicine; Visit Provider Internal Medicine
DX: Z13.0 Encounter for screening for diseases of the blood and blood-forming organs and certain disorders involving the immune mechanism (principal); Z13.9 Encounter for screening, unspecified; R06.00 Dyspnea, unspecified; R51.9 Headache, unspecified
CPT/HCPCS: 36415; 71046; 80048; 85025; 93005

== ENCOUNTER 2022-05-03 11:30 | Emergency (ER) | payer OTHER, SELFPAY ==
--- NOTE | ~2022-05-03 | XR_ITS ---
EXAMINATION: XR FOOT, RIGHT CLINICAL INFORMATION: great toe pain/ nail discoloration, unknown injury COMPARISON: None TECHNIQUE: AP, lateral, and oblique views of the right foot. FINDINGS: Bones are osteopenic. No fracture or malalignment. Mild soft tissue swelling of the forefoot and midfoot. No subcutaneous gas. No focal osteolysis is identified. Moderate sized enthesopathic spur is present at the Achilles tendon insertion on the calcaneus. XR/XR foot RT min 3V IMPRESSION: Soft tissue swelling in the right foot. No acute osseous findings. No radiographic findings of osteomyelitis.
[2022-05-03 11:34] VITALS: BP 174/66; PULSE 62; RESP 18; TEMP 36.9; O2SAT 100; BMI 25.4
--- NOTE | 2022-05-03 11:35 | ED.EXTPRO ---
HPI - Extremity Problem General Chief complaint: Extremity Problem <Vivian Najera CNP - Last Filed: 05/03/22 11:39> Stated complaint: L great toe black and bleeding <Vivian Najera CNP - Last Filed: 05/03/22 11:39> Time Seen by Provider: 05/03/22 13:16 <Vivian Najera CNP - Last Filed: 05/03/22 11:39> Source: patient and family <RAUDEL Brito - Last Filed: 05/03/22 13:52> Mode of arrival: ambulatory <RAUDEL Brito Last Filed: 05/03/22 13:52> Limitations: no limitations <RAUDEL Brito Last Filed: 05/03/22 13:52> History of Present Illness HPI Narrative: 86-year-old female with history of diabetes, HTN, polyneuropathy, GERD who presents to the ER for evaluation of right great toe nail discoloration. Patient's daughter helps provide history. She noticed her mom's right great toe was black and in color under the toenail an at the proximal portion of the nail bed. She noticed it was swollen. The patient denied any injury to the area. She was denying any pain and is ambulating normally. Patient's daughter was worried about possible infection. There has been no redness, drainage, or pain of the area. Patient does have a history of diabetic neuropathy. <RAUDEL Brito - Last Filed: 05/03/22 13:52> MD Complaint: extremity swelling <RAUDEL Brito Last Filed: 05/03/22 13:52> Onset (ago): unknown <RAUDEL Brito Last Filed: 05/03/22 13:52> Pain Consistency: constant <RAUDEL Brito Last Filed: 05/03/22 13:52> Location: right and toe <RAUDEL Brito Last Filed: 05/03/22 13:52> Radiation: none <RAUDEL Brito Last Filed: 05/03/22 13:52> Relieving factors: nothing <RAUDEL Brito Last Filed: 05/03/22 13:52> Exacerbating factors: nothing <RAUDEL Brito - Last Filed: 05/03/22 13:52> Associated symptoms: denies other symptoms <RAUDEL Brito - Last Filed: 05/03/22 13:52> Related Data Home medications: Home Medications Medication Instructions Recorded Confirmed bimatoprost 0.01 % eye drops 0 drp ophthalmic (eye) 04/26/21 04/28/22 (Lumigan) timolol maleate 0.5 % eye drops 0 drp ophthalmic (eye) 04/26/21 04/28/22 Previous Rx's Medication Instructions Recorded lancets (Accu-Chek Fastclix Lancet #150 ea 04/20/20 Drum) flash glucose scanning reader #1 ea 08/23/20 (FreeStyle Aditya 2 [place]) flash glucose sensor (FreeStyle #2 ea 08/23/20 Aditya 2 Sensor kit) Accu-Chek Shamika Plus test strp #300 ea 01/22/21 (blood sugar diagnostic) valsartan 160 mg tablet 160 mg PO DAILY #90 tabs 04/18/21 pen needle, diabetic 32 gauge x #400 ea 05/29/21 5/32 (BD Pinky 2nd Gen Pen Needle) bisacodyl 5 mg tablet 10 mg PO BEDTIME #180 tabs 08/26/21 famotidine 40 mg tablet 40 mg PO BEDTIME #30 tabs 08/26/21 pantoprazole 40 mg tablet,delayed 40 mg PO DAILY #30 tabs 08/26/21 release simethicone 180 mg capsule (Gas 180 mg PO BID PRN abdominal 08/26/21 Relief (simethicone)) distention #60 caps linaclotide 145 mcg capsule 145 mcg PO DAILY #30 caps 10/07/21 (Linzess) kgjtkv-fmfrpkfk-risimjw 1 cap PO .qid ac #120 caps 10/07/21 6,000-19,000-30,000 unit capsule,delayed rel (Creon) insulin glargine U-300 conc 300 13 unit (0.0433 mL) subcut BEDTIME 10/25/21 unit/mL (1.5 mL) subcutaneous pen #4.5 mL (Toujeo SoloStar U-300 Insulin) insulin lispro 100 unit/mL See Rx Instructions subcut .4 10/25/21 subcutaneous pen (Humalog KwikPen times a day 90 days #45 mL (U-100) Insulin) polyethylene glycol 3350 17 17 g PO DAILY #510 grams 11/01/21 gram/dose oral powder (Gavilax) meloxicam 7.5 mg tablet 7.5 mg PO DAILY #60 tabs 11/21/21 atenolol 50 mg tablet 50 mg PO DAILY #30 tabs 11/28/21 lovastatin 40 mg tablet 40 mg PO QPM #90 tabs 12/02/21 furosemide 20 mg tablet 20 mg PO DAILY #90 tabs 01/13/22 walker #1 ea 04/28/22 <Vivian Najera CNP - Last Filed: 05/03/22 11:39> Allergies/Adverse reactions: Allergies Allergy/AdvReac Type Severity Reaction Status Date / Time brimonidine [From ALPHAGAN P] Allergy Unknown UNKNOWN Verified 04/28/22 10:52 alphagan Allergy Unknown allergy Uncoded 04/28/22 10:52 reaction Fluoxetine Allergy Unknown Unknown Uncoded 04/28/22 10:52 <Vivian Najera CNP - Last Filed: 05/03/22 11:39> Review of Systems Review of Systems: Constitutional: No Fever, No Chills Eyes: No vision changes Cardiovascular: No Chest Pain, No SOB Gastrointestinal: No Nausea, No Vomiting Musculoskeletal: No joint pain, No Myalgias, +Joint swelling Skin: No Skin Lesions, No rash Neuro: No Weakness, +Numbness Heme/Lymph: +Bruising, No Lymphadenopathy <RAUDEL Brito - Last Filed: 05/03/22 13:52> [facility] Past Medical History Medical History: Medical History Diabetes mellitus Diabetes type 1, uncontrolled Diabetic nephropathy associated with type 1 diabetes mellitus Diabetic polyneuropathy associated with type 1 diabetes mellitus Dyslipidemia Hypertension Proliferative diabetic retinopathy Uterine prolapse <Vivian Najera CNP - Last Filed: 05/03/22 11:39> Surgical History: Surgical History History of surgery Hx of breast biopsy Hx of colonoscopy <Vivian Najera CNP - Last Filed: 05/03/22 11:39> Family History Family History: Family History Daughter Diabetes <Vivian NajeraJEN - Last Filed: 05/03/22 11:39> Social History Social History: Social History Household Members: None Housing: House Housing Other:: With Daughter. Alcohol intake: never Patient Tobacco Use Status: Never used Tobacco e-Cigarette/Vaping Use: Never Used Second Hand Smoke Exposure: No Advance Directives: Yes Advance Directives Information Provided: No Advance Directives on File: No service: No Current occupational status: retired and disabled Cognitive needs: Yes (cane/walker) Hearing needs: No Vision needs: Yes (glasses) <Vivian NajeraJEN - Last Filed: 05/03/22 11:39> Physical Exam Vital Signs: Vital Signs: Last Vital Signs Temp 96.6 F L 05/03/22 13:34 Pulse 53 05/03/22 13:34 Resp 16 05/03/22 13:34 BP 189/85 H 05/03/22 13:34 Pulse Ox 98 05/03/22 13:34 O2 Del Method 05/03/22 13:34 BMI result Body Mass Index 25.4 <Vivian NajeraJEN - Last Filed: 05/03/22 11:39> Vital Signs: Last Vital Signs Temp 96.6 F L 05/03/22 13:34 Pulse 53 05/03/22 13:34 Resp 16 05/03/22 13:34 BP 189/85 H 05/03/22 13:34 Pulse Ox 98 05/03/22 13:34 O2 Del Method 05/03/22 13:34 BMI result Body Mass Index 25.4 <RAUDEL Brito - Last Filed: 05/03/22 13:52> Appearance: Alert. Oriented X3. No acute distress. HEENT: normal inspection CVS: Normal heart rate and rhythm. Pulses normal. Respiratory: No respiratory distress. Skin: Skin warm and dry. Normal skin color. Normal skin turgor. No rashes. Extremities: Right great toe with ecchymosis of the nail bed with palpable separation of the nail from the nail bed. The entire great toe is nontender, no erythema or warmth. No open wounds. Neuro: Oriented X 3. No motor deficit. No sensory deficit. Ambulates with steady gait and using a cane <RAUDEL Brito - Last Filed: 05/03/22 13:52> Course Course Course Narrative: RME: Patient is an 86-year-old female with pmhx diabetes, glaucoma, HTN who presents emergency department for evaluation of right great toe pain. Onset of pain approximately 2 weeks ago. No known injury, patient can be forgetful at times. Yesterday noted black discoloration to the base of the great toe. denies any numbness or tingling. PE: Right great toe nail bed appears erythematous, swollen, purulent drainage, blackened discoloration beneath the nail. Plan: XR to exclude fracture/ dislocation, presentation also concerning for mild paronychia <Vivian Najera CNP - Last Filed: 05/03/22 11:39> RME: Patient is an 86-year-old female with pmhx diabetes, glaucoma, HTN who presents emergency department for evaluation of right great toe pain. Onset of pain approximately 2 weeks ago. No known injury, patient can be forgetful at times. Yesterday noted black discoloration to the base of the great toe. denies any numbness or tingling. PE: Right great toe nail bed appears erythematous, swollen, blackened discoloration beneath the nail. Plan: XR to exclude fracture/ dislocation, presentation also concerning for ? paronychia <RAUDEL Brito - Last Filed: 05/03/22 13:52> Reevaluation(s) Reevaluation #1: X-ray is showing soft tissue swelling in the right foot without any osseous findings. Examination is not consistent with infection but rather ecchymosis and nail avulsion, unknown trauma. There is no evidence of infection requiring antibiotics today. She will follow-up with her PCP. Will refer to a training generalist given she is diabetic. Patient is stable for discharge. <RAUDEL Brito - Last Filed: 05/03/22 13:52> Discharge Plan Discharge Clinical Impression: Injury of nail bed of toe <Vivian Najera CNP - Last Filed: 05/03/22 11:39> Patient Disposition: Home, Self-Care <Vivian NajeraJEN - Last Filed: 05/03/22 11:39> Instructions: Nail Avulsion (ED) <Vivian Najera JEN - Last Filed: 05/03/22 11:39> Additional Instructions: Your x-ray today showed some mild soft tissue swelling but no abnormalities of any of the bones. On examination your nail has from the nail bed, most likely from some trauma. This will grow out eventually. You may end up losing her toenail. Recommend following up with training generalist - name & number below. Call for an appointment. Follow-up with primary care doctor as well. Your blood pressure was elevated today. Make sure you taking your blood pressure medication. Try to cut out salt from your diet. Monitor blood pressure at home. If you develop new or worsening symptoms call 911 or come back to the ER for further evaluation. <Vivian NajeraJEN - Last Filed: 05/03/22 11:39> Prescriptions: No Action (DME) lancets [Accu-Chek Fastclix Lancet Drum] Misc See Rx Instructions .ROUTE .MEDSUPPLY Qty: 150 6RF Rx Instructions: 4 times a day (DME) Accu-Chek Shamika Plus test strp Strip See Rx Instructions .MEDSUPPLY Qty: 300 2RF Rx Instructions: 3 times a day valsartan 160 mg tablet 160 mg PO DAILY Qty: 90 8RF (DME) pen needle, diabetic [BD Pinky 2nd Gen Pen Needle] 32 gauge x 5/32 needle See Rx Instructions .MEDSUPPLY Qty: 400 4RF Rx Instructions: 5 times a day polyethylene glycol 3350 [Gavilax] 17 gram/dose powder 17 g PO DAILY Qty: 510 5RF meloxicam 7.5 mg tablet 7.5 mg PO DAILY Qty: 60 5RF atenolol 50 mg tablet 50 mg PO DAILY Qty: 30 6RF lovastatin 40 mg tablet 40 mg PO QPM Qty: 90 1RF furosemide 20 mg tablet 20 mg PO DAILY Qty: 90 8RF (DME) walker Misc See Rx Instructions .Route Qty: 1 0RF Rx Instructions: As directed timolol maleate 0.5 % drops 0 drp ophthalmic (eye) Lumigan 0.01 % drops 0 drp ophthalmic (eye) (DME) FreeStyle Aditya 2 [place] Misc See Rx Instructions .ROUTE .MEDSUPPLY Qty: 1 0RF Rx Instructions: As directed (DME) FreeStyle Aditya 2 Sensor Kit See Rx Instructions .ROUTE .MEDSUPPLY Qty: 2 11RF Rx Instructions: Every 14 days Toujeo SoloStar U-300 Insulin 300 unit/mL (1.5 mL) insulin pen 13 unit subcut BEDTIME Qty: 4.5 2RF insulin lispro [Humalog KwikPen Insulin] 100 unit/mL insulin pen See Rx Instructions subcut .4 times a day 90 Days Qty: 45 1RF Rx Instructions: 6 units with breakfast , 6 units lunch lunch, 6-8 units with dinner and 2 units with snacks subcut .4 times a day; famotidine 40 mg tablet 40 mg PO BEDTIME Qty: 30 3RF pantoprazole 40 mg tablet,delayed release (DR/EC) 40 mg PO DAILY Qty: 30 2RF Rx Instructions: take one tablet half an hour before breakfast simethicone [Gas Relief (simethicone)] 180 mg capsule 180 mg PO BID PRN (Reason: abdominal distention) Qty: 60 1RF bisacodyl 5 mg tablet 10 mg PO BEDTIME Qty: 180 1RF Creon 6,000-19,000 -30,000 unit capsule,delayed release(DR/EC) 1 cap PO .qid ac Qty: 120 0RF Rx Instructions: do not exceed 10,000 unit/kg lipase per 24 hrs Linzess 145 mcg capsule 145 mcg PO DAILY Qty: 30 4RF <Vivian Najera CNP - Last Filed: 05/03/22 11:39> Referrals: Mateusz Elam MD [Primary Care Provider] - Girma Foster MD [Physician] - <Vivian Najera CNP - Last Filed: 05/03/22 11:39> Print Language: Bahraini <Vivian Najera CNP - Last Filed: 05/03/22 11:39>
[2022-05-03 13:34] VITALS: BP 189/85; PULSE 53; RESP 16; TEMP 35.9; O2SAT 98
== END 2022-05-03 14:21 | disposition home or self-care (01) ==
PROVIDERS: Emergency Provider Emergency Medicine; PCP Internal Medicine
DX: S99.921A Unspecified injury of right foot, initial encounter (principal); X58.XXXA Exposure to other specified factors, initial encounter; E10.9 Type 1 diabetes mellitus without complications; I10 Essential (primary) hypertension; E78.5 Hyperlipidemia, unspecified; Y93.9 Activity, unspecified; Y92.9 Unspecified place or not applicable; Y99.9 Unspecified external cause status; Z79.4 Long term (current) use of insulin
CPT/HCPCS: 73630; 99283

== ENCOUNTER 2022-05-06 09:37 | Outpatient (REF) | payer OTHER, SELFPAY ==
[2022-05-06 11:20] LABS: Thyroid Stimulating Hormone 3.77 uIU/mL (0.32-4.0)
[2022-05-06 11:24] LABS: Cholesterol 146 mg/dL; Glucose Fasting 156 mg/dL (60-99); HDL Cholesterol 52 mg/dL; LDL Cholesterol Calculated 79 mg/dl; Triglycerides 79 mg/dL
[2022-05-06 13:13] LABS: Estimated Average Glucose 214 mg/dL; Hemoglobin A1c % 9.1 %
== END 2022-05-06 09:38 | disposition home or self-care (01) ==
LOC: HO.10HDL 09:37
PROVIDERS: Visit Provider Internal Medicine
DX: E78.5 Hyperlipidemia, unspecified (principal); E03.9 Hypothyroidism, unspecified; E11.65 Type 2 diabetes mellitus with hyperglycemia
CPT/HCPCS: 36415; 80061; 82947; 83036; 84443

== ENCOUNTER 2022-05-25 10:53 | Inpatient (IN) | payer OTHER, SELFPAY ==
[2022-05-25] VITALS (7 sets, daily range): BP systolic 134–203; BP diastolic 63–92; PULSE 60–88; RESP 14–18; TEMP 36.7–37.2; O2SAT 95–98; BMI 25.8
--- NOTE | ~2022-05-25 | CT_ITS ---
EXAMINATION: CT CHEST, ABDOMEN AND PELVIS WITHOUT CONTRAST. CLINICAL INFORMATION: Confusion. Possible pneumonia. Colitis? . COMPARISON: No pertinent prior studies are available for comparison. TECHNIQUE: Multidetector volumetric imaging was performed from the thoracic inlet through the pubic symphysis without intravenous contrast. Sagittal and coronal reformatted images were obtained on the technologist workstation. This CT examination was performed using dose optimization techniques as appropriate, variously including the following: *Automated exposure control *Adjustment of mA and/or kV according to patient size (this includes techniques or standardized protocols for targeted exams where dose is matched to indication/reason for exam; i.e. extremities or head) *Use of iterative reconstruction technique Of note, the examination is significantly degraded by patient motion throughout much of the study DLP: 594.5 mGy-cm FINDINGS: CHEST: Lungs: Dependent airspace changes more likely due to atelectasis. Linear probable atelectasis or scarring along the lateral aspect of the left upper lobe as well. Mediastinum: Prominent vascular calcification. No bulky adenopathy. Coronary Artery Calcification: Present Pericardium/Pleura: No significant effusion. No pleural mass or thickening. Chest Wall/Axilla: Unremarkable. ABDOMEN/PELVIS: Peritoneal Space:No significant free air or free fluid identified. Liver, Gallbladder, Biliary Tree: The non contrast liver is normal in size, shape, and attenuation. No focal hepatic lesion or biliary ductal dilatation is present. The gallbladder is unremarkable with no evidence of radiopaque gallstones, gallbladder wall thickening, or obvious pericholecystic inflammatory changes. Pancreas: Atrophic Spleen: Unremarkable. Adrenal Glands: Unremarkable. Kidneys and Ureters: Low-attenuation cortical cysts suspected. Otherwise the kidneys are normal in size, shape, and attenuation. No hydronephrosis, hydroureter, or calculi seen. No perinephric stranding. Bladder: Unremarkable. Gastrointestinal Tract: Colon is redundant with a few scattered diverticula. No colonic wall thickening or pericolonic inflammatory change. Visualized small bowel unremarkable. Abdominal Wall: No significant hernia is appreciated. Lymphovascular Structures: Vascular calcification in the aorta iliac system.. Pelvic Viscera: Unremarkable. Osseus Structures: Not well assessed due to motion artifact CT/CT abdomen pelvis wo IV con IMPRESSION: Of note the examination is significantly limited by patient motion throughout the study. There is dependent airspace changes more likely due to atelectasis. No obvious consolidation. No acute intra-abdominal process.
--- NOTE | ~2022-05-25 | CT_ITS ---
EXAMINATION: CT HEAD WITHOUT CONTRAST CLINICAL INFORMATION: Confusion. COMPARISON: Head CT 11/12/2020. TECHNIQUE: Contiguous axial imaging was performed from the skull base to vertex without intravenous administration of contrast. The exam is moderately motion degraded. This CT examination was performed using dose optimization techniques as appropriate, variously including the following: *Automated exposure control *Adjustment of mA and/or kV according to patient size (this includes techniques or standardized protocols for targeted exams where dose is matched to indication/reason for exam; i.e. extremities or head) *Use of iterative reconstruction technique DLP: 1835 mGy-cm. FINDINGS: There is no intracranial hemorrhage, large infarction, or mass lesion. There is no extra-axial collection. The ventricles are normal in size and configuration without evidence of hydrocephalus. There is patchy hypoattenuation in the cerebral white matter, typical of chronic microangiopathy. There is mild degree of brain parenchymal volume loss. The visualized paranasal sinuses and mastoid air cells are clear. CT/CT head/brain wo IV con IMPRESSION: No acute intracranial abnormality. Background changes of chronic microangiopathy and mild brain parenchymal volume loss.
--- NOTE | 2022-05-25 11:21 | ED.GENADULT ---
HPI - General Adult General Chief complaint: Altered Mental Status <RAUDEL Irwin - Last Filed: 05/26/22 09:57> Stated complaint: confusion per EMS <RAUDEL Irwin - Last Filed: 05/26/22 09:57> Time Seen by Provider: 05/25/22 11:03 <RAUDEL Irwin - Last Filed: 05/26/22 09:57> Source: family (Daughter) <RAUDEL Irwin - Last Filed: 05/26/22 09:57> Mode of arrival: ambulatory <RAUDEL Irwin - Last Filed: 05/26/22 09:57> Limitations: no limitations <RAUDEL Irwin - Last Filed: 05/26/22 09:57> History of Present Illness HPI narrative: 86-year-old female history of dementia diabetes, and hypertension brought to the ED for altered mental status since yesterday as per daughter. She states patient's baseline dementia is she be aware of time and place but will forget. Patient last known well was Thursday when she came down to see her daughter from the 3rd floor. Daughter states since yesterday patient has been acting erratic such as talking and throwing her hands around making Part statements. He denies any recent trauma or fall. <RAUDEL Irwin - Last Filed: 05/26/22 09:57> Related Data Home medications: Home Medications Medication Instructions Recorded Confirmed bimatoprost 0.01 % eye drops 1 drp ophthalmic (eye) BEDTIME 04/26/21 05/25/22 (Lumigan) timolol maleate 0.5 % eye drops 1 drp ophthalmic (eye) DAILY 04/26/21 05/25/22 acetaminophen 325 mg tablet 650 mg PO Q6H PRN Pain 05/25/22 05/25/22 (Tylenol) bisacodyl 5 mg tablet 5 mg PO BEDTIME 05/25/22 05/25/22 ibuprofen 200 mg tablet 400 mg PO Q8H PRN Pain 05/25/22 05/25/22 [id number] 1 cap PO DAILY 05/25/22 05/25/22 6,000-19,000-30,000 unit capsule,delayed rel (Creon) lovastatin 40 mg tablet 40 mg PO BEDTIME 05/25/22 05/25/22 polyethylene glycol 3350 17 17 g PO DAILY PRN Constipation 05/25/22 05/25/22 gram/dose oral powder (Gavilax) Previous Rx's Medication Instructions Recorded lancets (Accu-Chek Fastclix Lancet #150 ea 04/20/20 Drum) flash glucose scanning reader #1 ea 08/23/20 (FreeStyle Aditya 2 Baltic) flash glucose sensor (FreeStyle #2 ea 08/23/20 Aditya 2 Sensor kit) Accu-Chek Shamika Plus test strp #300 ea 01/22/21 (blood sugar diagnostic) valsartan 160 mg tablet 160 mg PO DAILY #90 tabs 04/18/21 pen needle, diabetic 32 gauge x #400 ea 05/29/21 (BD Ipnky 2nd Gen Pen Needle) insulin glargine U-300 conc 300 13 unit (0.0433 mL) subcut BEDTIME 10/25/21 unit/mL (1.5 mL) subcutaneous pen #4.5 mL (Toucyndie SoloStar U-300 Insulin) insulin lispro 100 unit/mL See Rx Instructions subcut .4 10/25/21 subcutaneous pen (Humalog KwikPen times a day 90 days #45 mL (U-100) Insulin) meloxicam 7.5 mg tablet 7.5 mg PO DAILY #60 tabs 11/21/21 atenolol 50 mg tablet 50 mg PO DAILY #30 tabs 11/28/21 furosemide 20 mg tablet 20 mg PO DAILY #90 tabs 01/13/22 walker #1 ea 04/28/22 <RAUDEL Irwin - Last Filed: 05/26/22 09:57> Allergies/adverse reactions: Allergies Allergy/AdvReac Type Severity Reaction Status Date / Time brimonidine [From ALPHAGAN P] Allergy Unknown UNKNOWN Verified 05/25/22 11:06 alphagan Allergy Unknown allergy Uncoded 04/28/22 10:52 reaction Fluoxetine Allergy Unknown Unknown Uncoded 04/28/22 10:52 <RAUDEL Irwin - Last Filed: 05/26/22 09:57> Review of Systems Review of Systems: Altered mental status <RAUDEL Irwin Last Filed: 05/26/22 09:57> Yes all other systems are reviewed and are negative <RAUDEL Irwin - Last Filed: 05/26/22 09:57> Neurologic: Reports confusion <RAUDEL Irwin - Last Filed: 05/26/22 09:57> Psychiatric: Psychiatric: Reports confusion <RAUDEL Irwin - Last Filed: 05/26/22 09:57> [facility] Past Medical History Medical History: Medical History (Updated 05/25/22 @ 21:21 by Isaiah Mcqueen) Dementia Diabetes mellitus Diabetes type 1, uncontrolled Diabetic nephropathy associated with type 1 diabetes mellitus Diabetic polyneuropathy associated with type 1 diabetes mellitus Dyslipidemia Hypertension Proliferative diabetic retinopathy Uterine prolapse <RAUDEL Irwin - Last Filed: 05/26/22 09:57> Surgical History: Surgical History History of surgery Hx of breast biopsy Hx of colonoscopy <RAUDEL Irwin - Last Filed: 05/26/22 09:57> Family History Family History: Family History Daughter Diabetes <RAUDEL Iriwn - Last Filed: 05/26/22 09:57> Social History Social History: Social History Household Members: Family Housing: Apartment Housing Other:: With Daughter. Do you presently have visiting nurse or other home services: Yes Alcohol intake: never Patient Tobacco Use Status: Never used Tobacco e-Cigarette/Vaping Use: Never Used Second Hand Smoke Exposure: No service: No Current occupational status: retired and disabled Cognitive needs: Yes (cane/walker) Hearing needs: No Vision needs: Yes (glasses) <RAUDEL Irwin - Last Filed: 05/26/22 09:57> Physical Exam ED Vital Signs: Vital Signs - 24 hr 05/25/22 11:06 05/25/22 12:17 05/25/22 14:11 Temperature Pulse Rate 77 60 78 Respiratory Rate 18 16 14 Blood Pressure 203/86 H 182/67 H Pulse Oximetry 98 98 95 Oxygen Delivery Method Room Air Room Air Room Air 05/25/22 14:18 05/25/22 15:50 Temperature 98.8 F 99.0 F Pulse Rate 73 75 Respiratory Rate 16 16 Blood Pressure 143/92 H 151/86 H Pulse Oximetry 98 97 Oxygen Delivery Method Room Air Room Air BMI result Body Mass Index 25.8 <RAUDEL Irwin Last Filed: 05/26/22 09:57> Vital Signs - 24 hr 05/25/22 11:06 05/25/22 12:17 05/25/22 14:11 Temperature Pulse Rate 77 60 78 Respiratory Rate 18 16 14 Blood Pressure 203/86 H 182/67 H Pulse Oximetry 98 98 95 Oxygen Delivery Method Room Air Room Air Room Air 05/25/22 14:18 05/25/22 15:50 Temperature 98.8 F 99.0 F Pulse Rate 73 75 Respiratory Rate 16 16 Blood Pressure 143/92 H 151/86 H Pulse Oximetry 98 97 Oxygen Delivery Method Room Air Room Air BMI result Body Mass Index 25.8 <Hao Joyner MD - Last Filed: 05/25/22 15:33> Const General: alert, combative and confusion <RAUDEL Irwin Last Filed: 05/26/22 09:57> Orientation/consciousness: confusion <RAUDEL Irwin Last Filed: 05/26/22 09:57> [facility] Head: Yes normal to inspection, Yes No palpable skull fracture present, Yes normocephalic, Yes atraumatic and No abrasion <RAUDEL Irwin Last Filed: 05/26/22 09:57> Eyes General: appearance normal, both eyes and all related structures <RAUDEL Irwin Last Filed: 05/26/22 09:57> Neck Neck: Yes normal visual inspection, Yes full ROM, Yes no lymphadenopathy, Yes no meningeal signs, Yes trachea midline, Yes supple, No anterior neck swelling and No tender <RAUDEL Irwin Last Filed: 05/26/22 09:57> Chest Chest palpation & inspection: normal inspection of the chest and normal palpation of entire chest wall <RAUDEL Irwin Last Filed: 05/26/22 09:57> Resp Effort & Inspection: normal respiratory effort and able to speak in complete sentences <RAUDEL Irwin Last Filed: 05/26/22 09:57> Auscultation: clear to auscultation bilaterally <RAUDEL Irwin Last Filed: 05/26/22 09:57> Cardio Jugular venous distension: no JVD <RAUDEL Irwin Last Filed: 05/26/22 09:57> Heart sounds: S1 normal heart sound present and S2 normal heart sound present <RAUDEL Irwin Last Filed: 05/26/22 09:57> GI Inspection: Yes normal to inspection and No abdominal wall ecchymosis <RAUDEL Irwin Obed Last Filed: 05/26/22 09:57> Palpation (GI): Soft to palpation, not firm, nontender, no guarding and not rigid <RAUDEL Irwin Obed Last Filed: 05/26/22 09:57> General: No CVA tenderness and Yes no CVA tenderness <RAUDEL Irwin Obed Last Filed: 05/26/22 09:57> Back/Spine/Pelvis Back: no CVA tenderness, No CVA tenderness and No back tenderness <RAUDEL Irwin Obed Last Filed: 05/26/22 09:57> Skin General skin exam: no rashes or lesions noted and elasticity normal <RAUDEL Irwin Last Filed: 05/26/22 09:57> Neuro Other: Patient confused. Patient alert oriented times 0 as per daughter. Complete range of motion of all extremities. Negative for any obvious signs of neuro deficit. Whole-body evaluated negative for signs of trauma <RAUDEL Irwin Obed Last Filed: 05/26/22 09:57> General: no meningeal signs and confusion <RAUDEL Irwin Obed Last Filed: 05/26/22 09:57> Extrem General: Yes normal to inspection and Yes full ROM <RAUDEL Irwin Last Filed: 05/26/22 09:57> Psych Appearance: grossly normal, well kempt and not disheveled <RAUDEL Irwin Last Filed: 05/26/22 09:57> Course Course Course Narrative: Patient is confused. Patient very aggressive in competitive in confused will order Zyprexa to sedate patient so medical workup could be done. Labs EKG urine imaging ordered. Multiple readings of systolic blood pressure of 220's on the monitor. <RAUDEL Irwin Last Filed: 05/26/22 09:57> Reevaluation(s) Reevaluation #1: patient with worsening dementia and agitation, workup negative, BP 220 systolic treated with labetolol, will admit for hypertensive encephalopaty <Hao Joyner MD - Last Filed: 05/25/22 15:33> Time: 15:32 <Hao Joyner MD - Last Filed: 05/25/22 15:33> Reevaluation #2: Patient and CT UA chest CT done CT came back negative for source of infection. Not suspecting meningitis or encephalitis. Patient has accepted by Dr. Camacho for admission. Second daughter was in the room states actually patient has been altered with elevated blood pressure for more than 2 days. <RAUDEL Irwin - Last Filed: 05/26/22 09:57> Reevaluation #3: atient: Sunitha Campbell MR#: [id number] : 1935 Acct:[id number] Age/Sex: 86 / F ADM Date: 11/26/21 Loc: [facility] Attending Dr: Mateusz Elam MD Ordering Physician: Mateusz Elam MD Date of Service: 11/26/21 Procedure(s): ECG 12 lead EKG Accession Number(s): [id number] cc: Mateusz Elam MD~ Test Reason : HTN Blood Pressure : / mmHG Vent. Rate : 078 BPM ? ? Atrial Rate : 078 BPM ?? P-R Int : 152 ms? QRS Dur : 090 ms ? ? QT Int : 386 ms ? ? ? P-R-T Axes : 054 015 073 degrees ?? QTc Int : 440 ms ? Normal sinus rhythm Normal ECG When compared with ECG of 23-SEP-2018 10:43, No significant change was found ? Referred By: Mateusz Elam ? Electronically Signed By:DWAYNE AL MD <RAUDEL Irwin - Last Filed: 05/26/22 09:57> Medications Administered Generic Name Dose Route Start Last Admin Trade Name Freq PRN Reason Stop Dose Admin Atenolol 50 mg 05/26/22 09:00 05/26/22 08:43 Atenolol 50 Mg Tablet PO Not Given DAILY RADHA Protocol Enoxaparin Sodium 40 mg 05/25/22 17:00 05/25/22 19:22 Enoxaparin Sodium 40 Mg/0.4 Ml Syringe SUBCUT 40 mg Q24H RADHA Administration Furosemide 20 mg 05/26/22 09:00 05/26/22 08:43 Furosemide 20 Mg Tablet PO Not Given DAILY [facility] Protocol Dextrose/Lactated Ringer's 1,000 mls @ 80 mls/hr 05/25/22 21:00 05/26/22 08:19 D5lr IVCONT 80 mls/hr .[id number] RADHA Administration Insulin Glargine 9 unit 05/25/22 21:00 05/25/22 21:24 Insulin Glargine,Hum.Rec.Anlog 100 Unit/Ml 10 Ml Vial SUBCUT Not Given BEDTIME [facility] Insulin Human Lispro 0 unit 05/25/22 21:00 05/26/22 08:21 Insulin Lispro 100 Unit/Ml 3 Ml Vial SUBCUT 4 unit QIDACHS [facility] Administration Protocol Latanoprost 1 drop 05/25/22 21:00 05/25/22 23:05 Latanoprost 0.005 % Ophth Yamila 2.5 Ml Drops EYE-BOTH Not Given BEDTIME [facility] Pravastatin Sodium 40 mg 05/25/22 21:00 05/25/22 23:04 Pravastatin Sodium 40 Mg Tablet PO Not Given BEDTIME [facility] Sodium Chloride 3 ml 05/26/22 00:00 05/26/22 08:20 0.9 % Sodium Chloride Flush 3 Ml Syringe IVFLUSH Not Given QSHIFT [facility] Valsartan 160 mg 05/26/22 09:00 05/26/22 08:43 Valsartan 160 Mg Tablet PO Not Given DAILY [facility] Protocol Discontinued Medications Generic Name Dose Route Start Last Admin Trade Name Freq PRN Reason Stop Dose Admin Labetalol HCl 10 mg 05/25/22 14:01 05/25/22 14:13 Labetalol Hcl 100 Mg/20 Ml Vial IVPUSH 05/25/22 14:02 10 mg ONCE ONE Administration Lactulose 30 gm 05/25/22 16:47 05/25/22 18:47 Lactulose 20 Gm/30 Ml Solution PO 05/25/22 16:48 Not Given ONCE ONE Lactulose 30 gm 05/26/22 06:00 05/26/22 05:37 Lactulose 20 Gm/30 Ml Solution PO 05/26/22 06:01 Not Given ONCE ONE Lactulose 200 gm 05/25/22 18:31 05/25/22 23:11 Lactulose 320 Gm/480 Ml Solution AL 05/25/22 18:32 200 gm ONCE ONE Administration Olanzapine 10 mg 05/25/22 11:17 05/25/22 11:31 Olanzapine 10 Mg Vial IM 05/25/22 11:18 10 mg STAT STA Administration Quetiapine Fumarate 25 mg 05/25/22 16:43 05/25/22 18:47 Quetiapine Fumarate 25 Mg Tablet PO 05/25/22 16:44 Not Given ONCE ONE <RAUDEL Irwin - Last Filed: 05/26/22 09:57> Medications Administered Generic Name Dose Route Start Last Admin Trade Name Freq PRN Reason Stop Dose Admin Atenolol 50 mg 05/26/22 09:00 05/26/22 08:43 Atenolol 50 Mg Tablet PO Not Given DAILY [facility] Protocol Enoxaparin Sodium 40 mg 05/25/22 17:00 05/25/22 19:22 Enoxaparin Sodium 40 Mg/0.4 Ml Syringe SUBCUT 40 mg Q24H RADHA Administration Furosemide 20 mg 05/26/22 09:00 05/26/22 08:43 Furosemide 20 Mg Tablet PO Not Given DAILY [facility] Protocol Dextrose/Lactated Ringer's 1,000 mls @ 80 mls/hr 05/25/22 21:00 05/26/22 08:19 D5lr IVCONT 80 mls/hr .[id number] [facility] Administration Insulin Glargine 9 unit 05/25/22 21:00 05/25/22 21:24 Insulin Glargine,Hum.Rec.Anlog 100 Unit/Ml 10 Ml Vial SUBCUT Not Given BEDTIME [facility] Insulin Human Lispro 0 unit 05/25/22 21:00 05/26/22 08:21 Insulin Lispro 100 Unit/Ml 3 Ml Vial SUBCUT 4 unit QIDACHS [facility] Administration Protocol Latanoprost 1 drop 05/25/22 21:00 05/25/22 23:05 Latanoprost 0.005 % Ophth Yamila 2.5 Ml Drops EYE-BOTH Not Given BEDTIME [facility] Pravastatin Sodium 40 mg 05/25/22 21:00 05/25/22 23:04 Pravastatin Sodium 40 Mg Tablet PO Not Given BEDTIME [facility] Sodium Chloride 3 ml 05/26/22 00:00 05/26/22 08:20 0.9 % Sodium Chloride Flush 3 Ml Syringe IVFLUSH Not Given QSHIFT RADHA Valsartan 160 mg 05/26/22 09:00 05/26/22 08:43 Valsartan 160 Mg Tablet PO Not Given DAILY [facility] Protocol Discontinued Medications Generic Name Dose Route Start Last Admin Trade Name Freq PRN Reason Stop Dose Admin Labetalol HCl 10 mg 05/25/22 14:01 05/25/22 14:13 Labetalol Hcl 100 Mg/20 Ml Vial IVPUSH 05/25/22 14:02 10 mg ONCE ONE Administration Lactulose 30 gm 05/25/22 16:47 05/25/22 18:47 Lactulose 20 Gm/30 Ml Solution PO 05/25/22 16:48 Not Given ONCE ONE Lactulose 30 gm 05/26/22 06:00 05/26/22 05:37 Lactulose 20 Gm/30 Ml Solution PO 05/26/22 06:01 Not Given ONCE ONE Lactulose 200 gm 05/25/22 18:31 05/25/22 23:11 Lactulose 320 Gm/480 Ml Solution AL 05/25/22 18:32 200 gm ONCE ONE Administration Olanzapine 10 mg 05/25/22 11:17 05/25/22 11:31 Olanzapine 10 Mg Vial IM 05/25/22 11:18 10 mg STAT STA Administration Quetiapine Fumarate 25 mg 05/25/22 16:43 05/25/22 18:47 Quetiapine Fumarate 25 Mg Tablet PO 05/25/22 16:44 Not Given ONCE ONE <Hao Joyner MD - Last Filed: 05/25/22 15:33> Medical Decision Making Lab Data Result Diagrams: : 05/26/22 07:16 05/25/22 12:43 <RAUDEL Irwin - Last Filed: 05/26/22 09:57> Labs: Lab Results 05/25/22 05/25/22 05/25/22 Range/Units 12:43 12:43 12:43 WBC 8.7 (4.8-10.8) X10*3/uL RBC 5.04 (4.20-5.50) X10*6/uL Hgb 14.4 (12.0-16.0) g/dl Hct 44.1 (37.0-47.0) % MCV 87.5 (80.0-98.0) fL MCH 28.6 (27.0-33.0) pg MCHC 32.7 (31.0-35.0) g/dl RDW 12.5 (11.0-16.0) % Plt Count 155 L D (160-400) X10*3/uL MPV 10.8 (9.4-12.3) fL Immature Gran % (Auto) 0.3 (0.0-0.4) % Neut % (Auto) 77.2 H (45-73) % Lymph % (Auto) 16.5 L (20-40) % Will % (Auto) 5.5 (2-11) % Eos % (Auto) 0.2 (0-4) % Baso % (Auto) 0.3 (0-2) % Lymph # (Auto) 1.4 (1.2-4.9) X10*3/uL Will # (Auto) 0.5 (0.1-1.2) X10*3/uL Eos # (Auto) 0.0 (0.0-0.4) X10*3/uL Baso # (Auto) 0.0 (0.0-0.2) X10*3/uL Abs Immat Gran (auto) 0.03 (0.00-0.03) X10*3/uL Absolute Neuts (auto) 6.7 (2.0-8.3) x10*3/uL Absolute Nucleated RBC 0.000 (0.0-0.012) X10*3/uL Nucleated RBC % (auto) 0.0 (0.0-0.2) /100WBC Smear Tech's Comments VERIFIED Sodium 140 (135-145) mmol/L Potassium 3.7 (3.3-5.1) mmol/L Chloride 102 (96-108) mmol/L Carbon Dioxide 27 (22-29) mmol/L Anion Gap 15 (12-20) BUN 21 H (9-16) mg/dL Creatinine 1.14 (0.5-1.4) mg/dL Estim Creat Clear Calc 31.7 Estimated GFR 45 Random Glucose 112 (60-115) mg/dL Lactic Acid (0.5-2.0) mmol/L Calcium 10.1 (8.4-10.2) mg/dL Magnesium 1.7 (1.6-2.6) mg/dL Total Bilirubin 0.8 (0.0-1.0) mg/dL AST 23 (5-31) U/L ALT 17 (0-31) U/L Alkaline Phosphatase 121 H (39-117) U/L Ammonia 59 H (13-55) umol/L Troponin I High Sens (<3.5-17.0) ng/L Total Protein 7.3 (6.5-8.0) g/dL Albumin 4.4 (3.5-5.0) g/dL Lipase 14 (8-78) U/L Urine Color Urine Appearance Urine pH (5.0-9.0) Ur Specific [place] (1.005-1.025) Urine Protein (Neg-Trace) mg/dL Urine Glucose (UA) (Negative) mg/dL Urine Ketones (Negative) mg/dL Urine Blood (Negative) Urine Nitrite (Negative) Ur Leukocyte Esterase (Negative) Urine RBC (0-2) /HPF Urine WBC (0-5) /HPF Ur Squamous Epith Cells (0-2) /HPF Urine Bacteria (None Seen) Hyaline Casts (0-2) /LPF Urine Opiates Screen (Not Detect) Urine Fentanyl Screen (Not Detect) Ur Barbiturates Screen (Not Detect) Ur Phencyclidine Scrn (Not Detect) Ur Amphetamines Screen (Not Detect) U Benzodiazepines Scrn (Not Detect) Urine Cocaine Screen (Not Detect) U Marijuana (THC) Screen (Not Detect) 05/25/22 05/25/22 05/25/22 Range/Units 12:43 12:43 14:12 WBC (4.8-10.8) X10*3/uL RBC (4.20-5.50) X10*6/uL Hgb (12.0-16.0) g/dl Hct (37.0-47.0) % MCV (80.0-98.0) fL MCH (27.0-33.0) pg MCHC (31.0-35.0) g/dl RDW (11.0-16.0) % Plt Count (160-400) X10*3/uL MPV (9.4-12.3) fL Immature Gran % (Auto) (0.0-0.4) % Neut % (Auto) (45-73) % Lymph % (Auto) (20-40) % Will % (Auto) (2-11) % Eos % (Auto) (0-4) % Baso % (Auto) (0-2) % Lymph # (Auto) (1.2-4.9) X10*3/uL Will # (Auto) (0.1-1.2) X10*3/uL Eos # (Auto) (0.0-0.4) X10*3/uL Baso # (Auto) (0.0-0.2) X10*3/uL Abs Immat Gran (auto) (0.00-0.03) X10*3/uL Absolute Neuts (auto) (2.0-8.3) x10*3/uL Absolute Nucleated RBC (0.0-0.012) X10*3/uL Nucleated RBC % (auto) (0.0-0.2) /100WBC Smear Tech's Comments Sodium (135-145) mmol/L Potassium (3.3-5.1) mmol/L Chloride (96-108) mmol/L Carbon Dioxide (22-29) mmol/L Anion Gap (12-20) BUN (9-16) mg/dL Creatinine (0.5-1.4) mg/dL Estim Creat Clear Calc Estimated GFR Random Glucose (60-115) mg/dL Lactic Acid 1.6 (0.5-2.0) mmol/L Calcium (8.4-10.2) mg/dL Magnesium (1.6-2.6) mg/dL Total Bilirubin (0.0-1.0) mg/dL AST (5-31) U/L ALT (0-31) U/L Alkaline Phosphatase (39-117) U/L Ammonia (13-55) umol/L Troponin I High Sens 9.6 (<3.5-17.0) ng/L Total Protein (6.5-8.0) g/dL Albumin (3.5-5.0) g/dL Lipase (8-78) U/L Urine Color Yellow Urine Appearance Clear Urine pH 8.0 (5.0-9.0) Ur Specific [place] 1.010 (1.005-1.025) Urine Protein 30 (1+) H (Neg-Trace) mg/dL Urine Glucose (UA) Negative (Negative) mg/dL Urine Ketones Negative (Negative) mg/dL Urine Blood Trace H (Negative) Urine Nitrite Negative (Negative) Ur Leukocyte Esterase Negative (Negative) Urine RBC 3-5 H (0-2) /HPF Urine WBC 0-5 (0-5) /HPF Ur Squamous Epith Cells 0-2 (0-2) /HPF Urine Bacteria None Seen (None Seen) Hyaline Casts 0-2 (0-2) /LPF Urine Opiates Screen (Not Detect) Urine Fentanyl Screen (Not Detect) Ur Barbiturates Screen (Not Detect) Ur Phencyclidine Scrn (Not Detect) Ur Amphetamines Screen (Not Detect) U Benzodiazepines Scrn (Not Detect) Urine Cocaine Screen (Not Detect) U Marijuana (THC) Screen (Not Detect) 05/25/22 05/25/22 Range/Units 14:12 14:47 WBC (4.8-10.8) X10*3/uL RBC (4.20-5.50) X10*6/uL Hgb (12.0-16.0) g/dl Hct (37.0-47.0) % MCV (80.0-98.0) fL MCH (27.0-33.0) pg MCHC (31.0-35.0) g/dl RDW (11.0-16.0) % Plt Count (160-400) X10*3/uL MPV (9.4-12.3) fL Immature Gran % (Auto) (0.0-0.4) % Neut % (Auto) (45-73) % Lymph % (Auto) (20-40) % Will % (Auto) (2-11) % Eos % (Auto) (0-4) % Baso % (Auto) (0-2) % Lymph # (Auto) (1.2-4.9) X10*3/uL Will # (Auto) (0.1-1.2) X10*3/uL Eos # (Auto) (0.0-0.4) X10*3/uL Baso # (Auto) (0.0-0.2) X10*3/uL Abs Immat Gran (auto) (0.00-0.03) X10*3/uL Absolute Neuts (auto) (2.0-8.3) x10*3/uL Absolute Nucleated RBC (0.0-0.012) X10*3/uL Nucleated RBC % (auto) (0.0-0.2) /100WBC Smear Tech's Comments Sodium (135-145) mmol/L Potassium (3.3-5.1) mmol/L Chloride (96-108) mmol/L Carbon Dioxide (22-29) mmol/L Anion Gap (12-20) BUN (9-16) mg/dL Creatinine (0.5-1.4) mg/dL Estim Creat Clear Calc Estimated GFR Random Glucose (60-115) mg/dL Lactic Acid (0.5-2.0) mmol/L Calcium (8.4-10.2) mg/dL Magnesium (1.6-2.6) mg/dL Total Bilirubin (0.0-1.0) mg/dL AST (5-31) U/L ALT (0-31) U/L Alkaline Phosphatase (39-117) U/L Ammonia (13-55) umol/L Troponin I High Sens 10.2 (<3.5-17.0) ng/L Total Protein (6.5-8.0) g/dL Albumin (3.5-5.0) g/dL Lipase (8-78) U/L Urine Color Urine Appearance Urine pH (5.0-9.0) Ur Specific [place] (1.005-1.025) Urine Protein (Neg-Trace) mg/dL Urine Glucose (UA) (Negative) mg/dL Urine Ketones (Negative) mg/dL Urine Blood (Negative) Urine Nitrite (Negative) Ur Leukocyte Esterase (Negative) Urine RBC (0-2) /HPF Urine WBC (0-5) /HPF Ur Squamous Epith Cells (0-2) /HPF Urine Bacteria (None Seen) Hyaline Casts (0-2) /LPF Urine Opiates Screen Not Detected (Not Detect) Urine Fentanyl Screen Not Detected (Not Detect) Ur Barbiturates Screen Not Detected (Not Detect) Ur Phencyclidine Scrn Not Detected (Not Detect) Ur Amphetamines Screen Not Detected (Not Detect) U Benzodiazepines Scrn Not Detected (Not Detect) Urine Cocaine Screen Not Detected (Not Detect) U Marijuana (THC) Screen Not Detected (Not Detect) <RAUDEL Irwin - Last Filed: 05/26/22 09:57> Lab Results 05/25/22 05/25/22 05/25/22 Range/Units 12:43 12:43 12:43 WBC 8.7 (4.8-10.8) X10*3/uL RBC 5.04 (4.20-5.50) X10*6/uL Hgb 14.4 (12.0-16.0) g/dl Hct 44.1 (37.0-47.0) % MCV 87.5 (80.0-98.0) fL MCH 28.6 (27.0-33.0) pg MCHC 32.7 (31.0-35.0) g/dl RDW 12.5 (11.0-16.0) % Plt Count 155 L D (160-400) X10*3/uL MPV 10.8 (9.4-12.3) fL Immature Gran % (Auto) 0.3 (0.0-0.4) % Neut % (Auto) 77.2 H (45-73) % Lymph % (Auto) 16.5 L (20-40) % Will % (Auto) 5.5 (2-11) % Eos % (Auto) 0.2 (0-4) % Baso % (Auto) 0.3 (0-2) % Lymph # (Auto) 1.4 (1.2-4.9) X10*3/uL Will # (Auto) 0.5 (0.1-1.2) X10*3/uL Eos # (Auto) 0.0 (0.0-0.4) X10*3/uL Baso # (Auto) 0.0 (0.0-0.2) X10*3/uL Abs Immat Gran (auto) 0.03 (0.00-0.03) X10*3/uL Absolute Neuts (auto) 6.7 (2.0-8.3) x10*3/uL Absolute Nucleated RBC 0.000 (0.0-0.012) X10*3/uL Nucleated RBC % (auto) 0.0 (0.0-0.2) /100WBC Smear Tech's Comments VERIFIED Sodium 140 (135-145) mmol/L Potassium 3.7 (3.3-5.1) mmol/L Chloride 102 (96-108) mmol/L Carbon Dioxide 27 (22-29) mmol/L Anion Gap 15 (12-20) BUN 21 H (9-16) mg/dL Creatinine 1.14 (0.5-1.4) mg/dL Estim Creat Clear Calc 31.7 Estimated GFR 45 Random Glucose 112 (60-115) mg/dL Lactic Acid (0.5-2.0) mmol/L Calcium 10.1 (8.4-10.2) mg/dL Magnesium 1.7 (1.6-2.6) mg/dL Total Bilirubin 0.8 (0.0-1.0) mg/dL AST 23 (5-31) U/L ALT 17 (0-31) U/L Alkaline Phosphatase 121 H (39-117) U/L Ammonia 59 H (13-55) umol/L Troponin I High Sens (<3.5-17.0) ng/L Total Protein 7.3 (6.5-8.0) g/dL Albumin 4.4 (3.5-5.0) g/dL Lipase 14 (8-78) U/L Urine Color Urine Appearance Urine pH (5.0-9.0) Ur Specific [place] (1.005-1.025) Urine Protein (Neg-Trace) mg/dL Urine Glucose (UA) (Negative) mg/dL Urine Ketones (Negative) mg/dL Urine Blood (Negative) Urine Nitrite (Negative) Ur Leukocyte Esterase (Negative) Urine RBC (0-2) /HPF Urine WBC (0-5) /HPF Ur Squamous Epith Cells (0-2) /HPF Urine Bacteria (None Seen) Hyaline Casts (0-2) /LPF Urine Opiates Screen (Not Detect) Urine Fentanyl Screen (Not Detect) Ur Barbiturates Screen (Not Detect) Ur Phencyclidine Scrn (Not Detect) Ur Amphetamines Screen (Not Detect) U Benzodiazepines Scrn (Not Detect) Urine Cocaine Screen (Not Detect) U Marijuana (THC) Screen (Not Detect) 05/25/22 05/25/22 05/25/22 Range/Units 12:43 12:43 14:12 WBC (4.8-10.8) X10*3/uL RBC (4.20-5.50) X10*6/uL Hgb (12.0-16.0) g/dl Hct (37.0-47.0) % MCV (80.0-98.0) fL MCH (27.0-33.0) pg MCHC (31.0-35.0) g/dl RDW (11.0-16.0) % Plt Count (160-400) X10*3/uL MPV (9.4-12.3) fL Immature Gran % (Auto) (0.0-0.4) % Neut % (Auto) (45-73) % Lymph % (Auto) (20-40) % Will % (Auto) (2-11) % Eos % (Auto) (0-4) % Baso % (Auto) (0-2) % Lymph # (Auto) (1.2-4.9) X10*3/uL Will # (Auto) (0.1-1.2) X10*3/uL Eos # (Auto) (0.0-0.4) X10*3/uL Baso # (Auto) (0.0-0.2) X10*3/uL Abs Immat Gran (auto) (0.00-0.03) X10*3/uL Absolute Neuts (auto) (2.0-8.3) x10*3/uL Absolute Nucleated RBC (0.0-0.012) X10*3/uL Nucleated RBC % (auto) (0.0-0.2) /100WBC Smear Tech's Comments Sodium (135-145) mmol/L Potassium (3.3-5.1) mmol/L Chloride (96-108) mmol/L Carbon Dioxide (22-29) mmol/L Anion Gap (12-20) BUN (9-16) mg/dL Creatinine (0.5-1.4) mg/dL Estim Creat Clear Calc Estimated GFR Random Glucose (60-115) mg/dL Lactic Acid 1.6 (0.5-2.0) mmol/L Calcium (8.4-10.2) mg/dL Magnesium (1.6-2.6) mg/dL Total Bilirubin (0.0-1.0) mg/dL AST (5-31) U/L ALT (0-31) U/L Alkaline Phosphatase (39-117) U/L Ammonia (13-55) umol/L Troponin I High Sens 9.6 (<3.5-17.0) ng/L Total Protein (6.5-8.0) g/dL Albumin (3.5-5.0) g/dL Lipase (8-78) U/L Urine Color Yellow Urine Appearance Clear Urine pH 8.0 (5.0-9.0) Ur Specific [place] 1.010 (1.005-1.025) Urine Protein 30 (1+) H (Neg-Trace) mg/dL Urine Glucose (UA) Negative (Negative) mg/dL Urine Ketones Negative (Negative) mg/dL Urine Blood Trace H (Negative) Urine Nitrite Negative (Negative) Ur Leukocyte Esterase Negative (Negative) Urine RBC 3-5 H (0-2) /HPF Urine WBC 0-5 (0-5) /HPF Ur Squamous Epith Cells 0-2 (0-2) /HPF Urine Bacteria None Seen (None Seen) Hyaline Casts 0-2 (0-2) /LPF Urine Opiates Screen (Not Detect) Urine Fentanyl Screen (Not Detect) Ur Barbiturates Screen (Not Detect) Ur Phencyclidine Scrn (Not Detect) Ur Amphetamines Screen (Not Detect) U Benzodiazepines Scrn (Not Detect) Urine Cocaine Screen (Not Detect) U Marijuana (THC) Screen (Not Detect) 05/25/22 05/25/22 Range/Units 14:12 14:47 WBC (4.8-10.8) X10*3/uL RBC (4.20-5.50) X10*6/uL Hgb (12.0-16.0) g/dl Hct (37.0-47.0) % MCV (80.0-98.0) fL MCH (27.0-33.0) pg MCHC (31.0-35.0) g/dl RDW (11.0-16.0) % Plt Count (160-400) X10*3/uL MPV (9.4-12.3) fL Immature Gran % (Auto) (0.0-0.4) % Neut % (Auto) (45-73) % Lymph % (Auto) (20-40) % Will % (Auto) (2-11) % Eos % (Auto) (0-4) % Baso % (Auto) (0-2) % Lymph # (Auto) (1.2-4.9) X10*3/uL Will # (Auto) (0.1-1.2) X10*3/uL Eos # (Auto) (0.0-0.4) X10*3/uL Baso # (Auto) (0.0-0.2) X10*3/uL Abs Immat Gran (auto) (0.00-0.03) X10*3/uL Absolute Neuts (auto) (2.0-8.3) x10*3/uL Absolute Nucleated RBC (0.0-0.012) X10*3/uL Nucleated RBC % (auto) (0.0-0.2) /100WBC Smear Tech's Comments Sodium (135-145) mmol/L Potassium (3.3-5.1) mmol/L Chloride (96-108) mmol/L Carbon Dioxide (22-29) mmol/L Anion Gap (12-20) BUN (9-16) mg/dL Creatinine (0.5-1.4) mg/dL Estim Creat Clear Calc Estimated GFR Random Glucose (60-115) mg/dL Lactic Acid (0.5-2.0) mmol/L Calcium (8.4-10.2) mg/dL Magnesium (1.6-2.6) mg/dL Total Bilirubin (0.0-1.0) mg/dL AST (5-31) U/L ALT (0-31) U/L Alkaline Phosphatase (39-117) U/L Ammonia (13-55) umol/L Troponin I High Sens 10.2 (<3.5-17.0) ng/L Total Protein (6.5-8.0) g/dL Albumin (3.5-5.0) g/dL Lipase (8-78) U/L Urine Color Urine Appearance Urine pH (5.0-9.0) Ur Specific [place] (1.005-1.025) Urine Protein (Neg-Trace) mg/dL Urine Glucose (UA) (Negative) mg/dL Urine Ketones (Negative) mg/dL Urine Blood (Negative) Urine Nitrite (Negative) Ur Leukocyte Esterase (Negative) Urine RBC (0-2) /HPF Urine WBC (0-5) /HPF Ur Squamous Epith Cells (0-2) /HPF Urine Bacteria (None Seen) Hyaline Casts (0-2) /LPF Urine Opiates Screen Not Detected (Not Detect) Urine Fentanyl Screen Not Detected (Not Detect) Ur Barbiturates Screen Not Detected (Not Detect) Ur Phencyclidine Scrn Not Detected (Not Detect) Ur Amphetamines Screen Not Detected (Not Detect) U Benzodiazepines Scrn Not Detected (Not Detect) Urine Cocaine Screen Not Detected (Not Detect) U Marijuana (THC) Screen Not Detected (Not Detect) <Hao Joyner MD - Last Filed: 05/25/22 15:33> Discharge Plan Discharge Clinical Impression: Hypertension <RAUDEL Irwin - Last Filed: 05/26/22 09:57> Patient Disposition: Admitted As Inpatient <RAUDEL Irwin - Last Filed: 05/26/22 09:57> Interventions: Admission Worksheet (ED) Last Done: 05/25/22 21:21 <RAUDEL Irwin - Last Filed: 05/26/22 09:57> Discharge Date/Time: 05/25/22 21:22 <RAUDEL Irwin - Last Filed: 05/26/22 09:57>
[2022-05-25] MEDS: OLANZapine 10 MG VIAL IM (11:31)
[2022-05-25 12:57] LABS: Basophils Percent Auto 0.3 % (0-2); Eosinophils Percent Auto 0.2 % (0-4); Imm Gran Abs Auto 0.03 X10*3/uL (0.00-0.03); Imm Gran Pct Auto 0.3 % (0.0-0.4); MANUAL DIFF FLAG SCAN; PLT CLUMP 1; SCAN SMEAR FLAG 1
[2022-05-25 12:58] LABS: Hematocrit 44.1 % (37.0-47.0); Hemoglobin 14.4 g/dl (12.0-16.0); Lymphocytes Absolute Auto 1.4 X10*3/uL (1.2-4.9); Lymphocytes Percent Auto 16.5 % (20-40); Mean Corpuscular HGB Conc 32.7 g/dl (31.0-35.0); Mean Corpuscular Hemoglobin 28.6 pg (27.0-33.0); Mean Corpuscular Volume 87.5 fL (80.0-98.0); Mean Platelet Volume 10.8 fL (9.4-12.3); Monocytes Absolute Auto 0.5 X10*3/uL (0.1-1.2); Monocytes Percent Auto 5.5 % (2-11); Neutrophils Absolute Auto 6.7 x10*3/uL (2.0-8.3); Neutrophils Percent Auto 77.2 % (45-73); Red Blood Count 5.04 X10*6/uL (4.20-5.50); Red Cell Distribution Width 12.5 % (11.0-16.0)
[2022-05-25 13:02] LABS: Lactic Acid 1.6 mmol/L (0.5-2.0)
[2022-05-25 13:05] LABS: Alanine Aminotransferase 17 U/L (0-31); Albumin Level 4.4 g/dL (3.5-5.0); Alkaline Phosphatase 121 U/L (39-117); Anion Gap 15 (12-20); Aspartate Amino Transferase 23 U/L (5-31); Bilirubin Total 0.8 mg/dL (0.0-1.0); Blood Urea Nitrogen 21 mg/dL (9-16); Calcium 10.1 mg/dL (8.4-10.2); Carbon Dioxide 27 mmol/L (22-29); Chloride 102 mmol/L (96-108); Creatinine Clr Calc Pharmacy 31.7; Estimated Glomerular Filt Rate 45; Glucose Random 112 mg/dL (60-115); Lipase 14 U/L (8-78); Magnesium 1.7 mg/dL (1.6-2.6); Potassium 3.7 mmol/L (3.3-5.1); Sodium 140 mmol/L (135-145); Total Protein 7.3 g/dL (6.5-8.0)
--- NOTE | 2022-05-25 13:11 | PC.NURSE ---
pt disoriented, agitated, confused from baseline, hx dementia, pt medicated per provider order, labs obtained, 22G placed right forearm, pt to CT.
[2022-05-25 13:26] LABS: Ammonia 59 umol/L (13-55); Troponin-I High Sensitivity 9.6 ng/L (<3.5-17.0)
[2022-05-25 13:31] LABS: Platelet Count 155 X10*3/uL (160-400); White Blood Count 8.7 X10*3/uL (4.8-10.8)
[2022-05-25 13:32] LABS: SLIDE REVIEW VERIFIED
[2022-05-25] MEDS: Labetalol HCL 100 MG/20 ML VIAL 10 MG IVPUSH (14:13)
--- NOTE | 2022-05-25 14:14 | PC.NURSE ---
pt remains disoriented/confused from baseline, slightly reduced agitation after medicated, urine sample obtained via straight cath, per provider hold 2nd cultures for repeat trop/lactic due to pt being difficult IV stick due to movement.
[2022-05-25 14:24] LABS: Appearance Urine Clear; Color Urine Yellow; Glucose Urine UA Negative (Negative); Leukocyte Esterase Urine Negative (Negative); Nitrite Urine Negative (Negative); UMIC TRIGGER UACC YES; Urine Blood Trace (Negative); Urine Ketones Negative (Negative); Urine Protein 30 (1+) mg/dL (Neg-Trace)
[2022-05-25 14:33] LABS: Bacteria Urine None Seen (None Seen); Hyaline Casts Urine 0-2 /LPF (0-2); Squamous Epithelial Cell Urine 0-2 /HPF (0-2); WBC Urine 0-5 /HPF (0-5)
[2022-05-25 15:41] LABS: Troponin-I High Sensitivity 10.2 ng/L (<3.5-17.0)
--- NOTE | 2022-05-25 16:59 | P.HPHOSP_ITS ---
History of Present Illness Date of Service: 05/25/22 Attending physician on admission: Mark Camacho Chief Complaint: Altered mental status Pt is an 86-year-old female with a PMH significant for insulin-dependent DM2, dementia, HTN, and glaucoma who presents to the ED today for altered mental status x2 days. HPI is provided by the patient's daughter who is at her bedside. Pt apparently has mild dementia at baseline which primarily affects her short term memory. Pt lives on her own in an apartment, and is helped by her daughters who visit daily. Daughter states that the patient started displaying peculiar behavior yesterday, such as staring at the wall and talking about kids playing in the street and speaking to her sister who has been for years. By today the daughter noted that her mother could no longer even string two words together and was blabbering incomprehensibly. Daughter states she believes her mother has been adherent with her medications and has had no recent medication changes. Denies any know fall or headstrike. In the ED the pt was found to have an elevated BP of 203/86; she received IV labetalol which reduced it to 151/86. labs remarkable for a lack of leukocytosis, lytes WNL, alk phos mildly elevated at 121, and ammonia elevated at 59. UA clean for UTI. CT of head found no acute intracranial abnormality, in CT of chest abdomen and pelvis found no obvious no consolidation and no acute intra-abdominal process, however the examination was significantly limited by patient motion throughout the study. Patient was found to be significantly a gitated and was given Zyprexa. Pt will be admitted to the hospital for treatment and further workup for altered mental status. Review of Systems Review of Systems: Unable to obtain d/t pt's mental status. [facility] Medical History Diabetes mellitus Diabetes type 1, uncontrolled Diabetic nephropathy associated with type 1 diabetes mellitus Diabetic polyneuropathy associated with type 1 diabetes mellitus Dyslipidemia Hypertension Proliferative diabetic retinopathy Uterine prolapse Family History Daughter Diabetes Surgical History History of surgery Hx of breast biopsy Hx of colonoscopy Social History Household Members: None Housing: House Housing Other:: With Daughter. Alcohol intake: never Patient Tobacco Use Status: Never used Tobacco e-Cigarette/Vaping Use: Never Used Second Hand Smoke Exposure: No Advance Directives: No Advance Directives Information Provided: No service: No Current occupational status: retired and disabled Cognitive needs: Yes (cane/walker) Hearing needs: No Vision needs: Yes (glasses) Meds Allergies Allergy/AdvReac Type Severity Reaction Status Date / Time brimonidine [From ALPHAGAN P] Allergy Unknown UNKNOWN Verified 05/25/22 11:06 alphagan Allergy Unknown allergy Uncoded 04/28/22 10:52 reaction Fluoxetine Allergy Unknown Unknown Uncoded 04/28/22 10:52 Active Medications: Current Medications Acetaminophen (Acetaminophen 325 Mg Tablet) 650 mg PO Q6H PRN PRN Reason: Pain, Mild (Pain Scale 1-3) Enoxaparin Sodium (Enoxaparin Sodium 40 Mg/0.4 Ml Syringe) 40 mg SUBCUT Q24H RADHA Lactulose (Lactulose 20 Gm/30 Ml Solution) 30 gm PO ONCE ONE Stop: 05/26/22 06:01 Ondansetron HCl (Ondansetron Hcl 4 Mg/2 Ml Vial) 4 mg IVPUSH Q8H PRN PRN Reason: Nausea and Vomiting Sodium Chloride (0.9 % Sodium Chloride Flush 3 Ml Syringe) 3 ml IVFLUSH QSHIFT RADHA Home Medications Medication Instructions Recorded Confirmed Last Taken Type bimatoprost 0.01 % eye drops 1 drp ophthalmic (eye) 04/26/21 04/28/22 Unknown History (Lumigan) timolol maleate 0.5 % eye drops 1 drp ophthalmic (eye) 04/26/21 04/28/22 Unknown History acetaminophen 325 mg tablet 650 mg PO Q6H PRN Pain 05/25/22 05/25/22 Unknown History (Tylenol) bisacodyl 5 mg tablet 5 mg PO BEDTIME 05/25/22 Unknown History ibuprofen 200 mg tablet 400 mg PO Q8H PRN Pain 05/25/22 Unknown History njsxrs-uhgneroc-[id number] 1 cap PO DAILY 05/25/22 Unknown History 6,000-19,000-30,000 unit capsule,delayed rel (Creon) lovastatin 40 mg tablet 40 mg PO BEDTIME 05/25/22 Unknown History polyethylene glycol 3350 17 17 g PO DAILY PRN Constipation 05/25/22 Unknown History gram/dose oral powder (Gavilax) Physical Exam Vital Signs and Narrative: Vital Signs: Last Vital Signs Temp 99.0 F 05/25/22 15:50 Pulse 75 05/25/22 15:50 Resp 16 05/25/22 15:50 BP 151/86 H 05/25/22 15:50 Pulse Ox 97 05/25/22 15:50 O2 Del Method 05/25/22 15:50 BMI result Body Mass Index 25.8 Constitutional: Pt agitated, restless, with altered mental status. Currently nonverbal. Mental Status: Altered: not oriented to person, place and time. Eyes: Pupils are equal, round, and reactive to light. Ear, Nose, and Throat: Oropharynx clear, mucous membranes moist. Ears and nose without deformities. Trachea midline. Respiratory: Clear to auscultation bilaterally. No wheezing, rales, or rhonchi. Cardiovascular: S1, S2 regular. No murmurs, rubs, or gallops. Gastrointestinal: Abdomen soft, non-tender, non-distended. Normal bowel sounds. Neurologic: Cranial nerves II-XI are grossly intact. N focal neurological deficits. Moves all extremities spontaneously. Skin: No rashes of lesions. Musculoskeletal: No cyanosis or clubbing. Extremities: No edema. No signs of infection in right great toe. Psychiatric: Altered. Results Labs CBC and Chem 7: 05/25/22 12:43 05/25/22 12:43 Labs: Laboratory Results - last 24 hr 05/25/22 05/25/22 05/25/22 12:43 12:43 12:43 MCV 87.5 MCH 28.6 MCHC 32.7 RDW 12.5 Plt Count 155 L D MPV 10.8 Immature Gran % (Auto) 0.3 Neut % (Auto) 77.2 H Lymph % (Auto) 16.5 L [place] % (Auto) 5.5 Eos % (Auto) 0.2 Baso % (Auto) 0.3 Lymph # (Auto) 1.4 [place] # (Auto) 0.5 Eos # (Auto) 0.0 Baso # (Auto) 0.0 Abs Immat Gran (auto) 0.03 Absolute Neuts (auto) 6.7 Absolute Nucleated RBC 0.000 Nucleated RBC % (auto) 0.0 Smear Tech's Comments VERIFIED Anion Gap 15 Estim Creat Clear Calc 31.7 Estimated GFR 45 Random Glucose 112 Lactic Acid Calcium 10.1 Magnesium 1.7 Total Bilirubin 0.8 AST 23 ALT 17 Alkaline Phosphatase 121 H Ammonia 59 H Troponin I High Sens Total Protein 7.3 Albumin 4.4 Lipase 14 Urine Color Urine Appearance Urine pH Ur Specific [place] Urine Protein Urine Glucose (UA) Urine Ketones Urine Blood Urine Nitrite Ur Leukocyte Esterase Urine RBC Urine WBC Ur Squamous Epith Cells Urine Bacteria Hyaline Casts 05/25/22 05/25/22 05/25/22 12:43 12:43 14:12 MCV MCH MCHC RDW Plt Count MPV Immature Gran % (Auto) Neut % (Auto) Lymph % (Auto) [place] % (Auto) Eos % (Auto) Baso % (Auto) Lymph # (Auto) [place] # (Auto) Eos # (Auto) Baso # (Auto) Abs Immat Gran (auto) Absolute Neuts (auto) Absolute Nucleated RBC Nucleated RBC % (auto) Smear Tech's Comments Anion Gap Estim Creat Clear Calc Estimated GFR Random Glucose Lactic Acid 1.6 Calcium Magnesium Total Bilirubin AST ALT Alkaline Phosphatase Ammonia Troponin I High Sens 9.6 Total Protein Albumin Lipase Urine Color Yellow Urine Appearance Clear Urine pH 8.0 Ur Specific [place] 1.010 Urine Protein 30 (1+) H Urine Glucose (UA) Negative Urine Ketones Negative Urine Blood Trace H Urine Nitrite Negative Ur Leukocyte Esterase Negative Urine RBC 3-5 H Urine WBC 0-5 Ur Squamous Epith Cells 0-2 Urine Bacteria None Seen Hyaline Casts 0-2 05/25/22 14:47 MCV MCH MCHC RDW Plt Count MPV Immature Gran % (Auto) Neut % (Auto) Lymph % (Auto) [place] % (Auto) Eos % (Auto) Baso % (Auto) Lymph # (Auto) [place] # (Auto) Eos # (Auto) Baso # (Auto) Abs Immat Gran (auto) Absolute Neuts (auto) Absolute Nucleated RBC Nucleated RBC % (auto) Smear Tech's Comments Anion Gap Estim Creat Clear Calc Estimated GFR Random Glucose Lactic Acid Calcium Magnesium Total Bilirubin AST ALT Alkaline Phosphatase Ammonia Troponin I High Sens 10.2 Total Protein Albumin Lipase Urine Color Urine Appearance Urine pH Ur Specific [place] Urine Protein Urine Glucose (UA) Urine Ketones Urine Blood Urine Nitrite Ur Leukocyte Esterase Urine RBC Urine WBC Ur Squamous Epith Cells Urine Bacteria Hyaline Casts Imaging Radiologist's Impressions: Impressions Abdomen/Pelvis CT 05/25/22 13:48 IMPRESSION: Of note the examination is significantly limited by patient motion throughout the study. There is dependent airspace changes more likely due to atelectasis. No obvious consolidation. No acute intra-abdominal process. Chest CT 05/25/22 13:48 IMPRESSION: Of note the examination is significantly limited by patient motion throughout the study. There is dependent airspace changes more likely due to atelectasis. No obvious consolidation. No acute intra-abdominal process. Head CT 05/25/22 13:48 IMPRESSION: No acute intracranial abnormality. Background changes of chronic microangiopathy and mild brain parenchymal volume loss. Assessment and Plan (1) Altered mental status: Status: Acute (2) Agitation: Status: Acute (3) Hypertension: Status: Acute Plan Pt is an 86-year-old female with a PMH significant for insulin-dependent DM2, dementia, HTN, and glaucoma who presents to the ED today for altered mental status x2 days. Pt apparently has mild dementia at baseline, which primarily affects her short term memory, and she lives in an apartment on her own. Pt will be admitted to the hospital for treatment and further workup for altered mental status. # altered mental status -- etiology unclear, possibly due to elevated BP, ammonia levels, or meds -- received labetalol 10mg IV in ED, BP lowered to 151/86 -- lactulose 30gm now and again tomorrow am -- tox screen # agitation -- pt received olanzapine 10mg in ED -- quetiapine 25mg at bedtime -- consider additional doses of quetiapine if pt remains agitated tomorrow # insulin-dependent diabetes -- hold home meds -- ssi, lantus # HTN -- received labetalol 10mg in ED -- continue home meds #GERD -- continue home meds # pancreatic insufficiency -- continue [id number] # HLD -- continue home meds # glaucoma -- continue home meds Full code DVT Prophylaxis: Jw Attending: Dr. Camacho Pt will require a minimum hospitalization of 2 nights for treatment and evaluat ion of altered mental status. Time Spent With Patient Time: Total time managing care of this patient today ____ minutes. Quality Stroke Does the patient have a stroke diagnosis?: No VTE Prior VTE?: No VTE Risk Level:: Medical - moderate - high VTE Device Contraindication: Treatment Not Indicated VTE Drug Contraindication: N/A - Med Ordered
--- NOTE | 2022-05-25 17:23 | PHA.MEDREC ---
Pharmacy Consult ? Medication Reconciliation Pharmacy has completed the medication reconciliation. Called family member (Salena - [phone]) and confirmed patient's meds.
[2022-05-25 17:39] LABS: Amphetamine Screen Urine Not Detected (Not Detect); Barbiturates, Urine Not Detected (Not Detect); Benzodiazepines Screen Urine Not Detected (Not Detect); Cannabinoid Screen Urine Not Detected (Not Detect); Cocaine Screen Urine Not Detected (Not Detect); Fentanyl, urine Not Detected (Not Detect); Opiate Screen Urine Not Detected (Not Detect); Phencyclidine Screen Urine Not Detected (Not Detect)
--- NOTE | 2022-05-25 18:15 | PC.NURSE ---
attempted swallow eval w pt, pt unable to remain sitting upright due to restlessness, unable to cough or swallow on command, swallow eval failed, PO medications held, provider notified.
[2022-05-25 18:38] LABS: COVID-19 Test Negative (Negative); IDNOW Serial# 9DB6401D
--- NOTE | 2022-05-25 18:50 | PC.NURSE ---
attempted to call in RN-RN report, nurse to call back.
[2022-05-25] MEDS: Enoxaparin Sodium 40 MG/0.4 ML SYRINGE SUBCUT (19:22)
--- NOTE | 2022-05-25 19:40 | PC.NURSE ---
pt placed on bedpan, verbalizing need to urinate, pt appears slightly less disorganized/confused from initial arrival to ED, pt is able to answer questions and converse in [place] to daughter, but is still disoriented and per family off baseline.
--- NOTE | 2022-05-25 19:52 | PC.NURSE ---
RN-RN report called, RN aware that pt is due to lactulose AR - held for pt transport.
[2022-05-25 20:04] LABS: Glucose, Whole Blood 79 mg/dL (60-115)
[2022-05-25 20:49] LABS: Glucose, Whole Blood 71 mg/dL (60-115)
[2022-05-25] MEDS: Dextrose 5 % and Lactated Ring 1,000 ML 80 ML IVCONT (21:05)
[2022-05-25 22:14] LABS: Glucose, Whole Blood 115 mg/dL (60-115)
[2022-05-25] MEDS: Lactulose 320 GM/480 ML SOLUTION 200 GM PR (23:11)
[2022-05-26 03:33] VITALS: BP 168/70; PULSE 59; RESP 18; TEMP 36.4; O2SAT 97
--- NOTE | 2022-05-26 05:00 | ECG_ITS ---
Test Reason : baseline Blood Pressure : / mmHG Vent. Rate : 058 BPM Atrial Rate : 058 BPM P-R Int : 160 ms QRS Dur : 092 ms QT Int : 426 ms P-R-T Axes : 070 030 102 degrees QTc Int : 418 ms Sinus bradycardia Nonspecific ST and T wave abnormality Abnormal ECG When compared with ECG of 26-NOV-2021 15:00, Inverted T waves have replaced nonspecific T wave abnormality in Lateral leads Referred By: Freddy Barbosa Electronically Signed By:Froylan Sanchez
[2022-05-26 07:35] LABS: Glucose, Whole Blood 224 mg/dL (60-115)
[2022-05-26 07:40] VITALS: BP 147/87; PULSE 73; RESP 18; TEMP 36.5; O2SAT 97
[2022-05-26 07:43] LABS: Hematocrit 36.6 % (37.0-47.0); Hemoglobin 12.1 g/dl (12.0-16.0); Mean Corpuscular HGB Conc 33.1 g/dl (31.0-35.0); Mean Corpuscular Volume 87.8 fL (80.0-98.0); Mean Platelet Volume 10.5 fL (9.4-12.3); Platelet Count 157 X10*3/uL (160-400); Red Blood Count 4.17 X10*6/uL (4.20-5.50); Red Cell Distribution Width 12.8 % (11.0-16.0); White Blood Count 9.8 X10*3/uL (4.8-10.8)
[2022-05-26 07:56] LABS: Magnesium 1.6 mg/dL (1.6-2.6)
[2022-05-26] MEDS: Dextrose 5 % and Lactated Ring 1,000 ML 80 ML IVCONT ×2 (08:19→20:51)
[2022-05-26] MEDS: Insulin Lispro 100 UNIT/ML 3 ML VIAL SUBCUT ×3 (08:21→20:50)
--- NOTE | 2022-05-26 08:54 | MHC.CM.PN ---
IMM DELIVERED LIVES WITH DAUGHTER IN A 3 FAMILY HOME. DAUGHTER ARMAAN IS HCP/FIRE EXTINGUISHER REPAIRER INSPECTOR . DAUGHTER WILL BRING IN A COPY. PT USES [employer]LLAT[employer] AND CANE NEEDED. BR HAS GRAB BARS. + COVID VAX X2. PCP DR. GONZALEZ. DP: HOME, NO SERVICES ANTICIPATED. DAUGHTER WILL TRANSPORT ON DC.
--- NOTE | 2022-05-26 10:33 | HO.PM.IMPN ---
Subjective Subjective Date of Service: 05/26/22 Review of Systems Follow-up encephalopathy Baseline dementia Physical Exam Vital Signs: Vital Signs: Last Vital Signs Temp 97.7 F 05/26/22 07:40 Pulse 73 05/26/22 07:40 Resp 18 05/26/22 07:40 BP 147/87 H 05/26/22 07:40 Pulse Ox 97 05/26/22 07:40 O2 Del Method 05/26/22 07:40 BMI result Body Mass Index 25.8 Appearing in no acute distress lung sounds are clear to auscultation heart regular rate rhythm, clear S1, S2 positive bowel sounds, abdomen is soft, nontender neuro patient is alert, disoriented Objective Data Active Medications Acetaminophen (Acetaminophen 325 Mg Tablet) 650 mg PO Q6H PRN PRN Reason: Pain, Mild (Pain Scale 1-3) Atenolol (Atenolol 50 Mg Tablet) 50 mg PO DAILY RADHA; Protocol Last Admin: 05/26/22 08:43 Dose: Not Given Documented By: LAKESHA Non-Admin Reason: NPO Dextrose (Dextrose 50 % 25 Gm/50 Ml Syringe) 25 gm IVPUSH Q15M PRN; Protocol PRN Reason: per Hypoglycemia Standing Ord. Enoxaparin Sodium (Enoxaparin Sodium 40 Mg/0.4 Ml Syringe) 40 mg SUBCUT Q24H RADHA Last Admin: 05/25/22 19:22 Dose: 40 mg Documented By: CHICHI Furosemide (Furosemide 20 Mg Tablet) 20 mg PO DAILY RADHA; Protocol Last Admin: 05/26/22 08:43 Dose: Not Given Documented By: LAKESHA Non-Admin Reason: NPO Glucose (Glucose Gel 15 Gm Gel..Gram.) 15 gm PO Q15M PRN; Protocol PRN Reason: per Hypoglycemia Standing Ord. Dextrose/Lactated Ringer's (D5lr) 1,000 mls @ 80 mls/hr IVCONT .[id number] RADHA Last Admin: 05/26/22 08:19 Dose: 80 mls/hr Documented By: LAKESHA Insulin Glargine (Insulin Glargine,Hum.Rec.Anlog 100 Unit/Ml 10 Ml Vial) 9 unit SUBCUT BEDTIME RADHA Last Admin: 05/25/22 21:24 Dose: Not Given Documented By: ALFIE Non-Admin Reason: POC 71 PT NPO Insulin Human Lispro (Insulin Lispro 100 Unit/Ml 3 Ml Vial) 0 unit SUBCUT QIDACHS [facility]; Protocol Last Admin: 05/26/22 08:21 Dose: 4 unit Documented By: LAKESHA Latanoprost (Latanoprost 0.005 % Ophth Yamila 2.5 Ml Drops) 1 drop EYE-BOTH BEDTIME [facility] Last Admin: 05/25/22 23:05 Dose: Not Given Documented By: ALFIE Non-Admin Reason: Med Not Available Non-Formulary Medication (Obaarn-Lxrborol-Ueeamnw [Creon]) 1 cap PO DAILY [facility] Ondansetron HCl (Ondansetron Hcl 4 Mg/2 Ml Vial) 4 mg IVPUSH Q8H PRN PRN Reason: Nausea and Vomiting Pravastatin Sodium (Pravastatin Sodium 40 Mg Tablet) 40 mg PO BEDTIME [facility] Last Admin: 05/25/22 23:04 Dose: Not Given Documented By: ALFIE Non-Admin Reason: NPO Sodium Chloride (0.9 % Sodium Chloride Flush 3 Ml Syringe) 3 ml IVFLUSH QSHIFT [facility] Last Admin: 05/26/22 08:20 Dose: Not Given Documented By: LAKESHA Non-Admin Reason: IV Running Timolol Maleate (Timolol Maleate 0.5 % Oph Yamila 5 Ml Drbtl) 1 drop EYE-BOTH DAILY [facility] Valsartan (Valsartan 160 Mg Tablet) 160 mg PO DAILY [facility]; Protocol Last Admin: 05/26/22 08:43 Dose: Not Given Documented By: LAKESHA Non-Admin Reason: NPO Labs CBC & Chem 7: 05/26/22 07:16 05/25/22 12:43 Labs: Laboratory Results - last 24 hr 05/25/22 05/25/22 05/25/22 12:43 12:43 12:43 MCV 87.5 MCH 28.6 MCHC 32.7 RDW 12.5 Plt Count 155 L D MPV 10.8 Immature Gran % (Auto) 0.3 Neut % (Auto) 77.2 H Lymph % (Auto) 16.5 L [place] % (Auto) 5.5 Eos % (Auto) 0.2 Baso % (Auto) 0.3 Lymph # (Auto) 1.4 [place] # (Auto) 0.5 Eos # (Auto) 0.0 Baso # (Auto) 0.0 Abs Immat Gran (auto) 0.03 Absolute Neuts (auto) 6.7 Absolute Nucleated RBC 0.000 Nucleated RBC % (auto) 0.0 Smear Tech's Comments VERIFIED Anion Gap 15 Estim Creat Clear Calc 31.7 Estimated GFR 45 POC Glucose Random Glucose 112 Lactic Acid Calcium 10.1 Magnesium 1.7 Total Bilirubin 0.8 AST 23 ALT 17 Alkaline Phosphatase 121 H Ammonia 59 H Troponin I High Sens Total Protein 7.3 Albumin 4.4 Lipase 14 Urine Color Urine Appearance Urine pH Ur Specific [place] Urine Protein Urine Glucose (UA) Urine Ketones Urine Blood Urine Nitrite Ur Leukocyte Esterase Urine RBC Urine WBC Ur Squamous Epith Cells Urine Bacteria Hyaline Casts Urine Opiates Screen Urine Fentanyl Screen Ur Barbiturates Screen Ur Phencyclidine Scrn Ur Amphetamines Screen U Benzodiazepines Scrn Urine Cocaine Screen U Marijuana (THC) Screen COVID-19 (BASSAM) COVID-FFWD 05/25/22 05/25/22 05/25/22 12:43 12:43 14:12 MCV MCH MCHC RDW Plt Count MPV Immature Gran % (Auto) Neut % (Auto) Lymph % (Auto) [place] % (Auto) Eos % (Auto) Baso % (Auto) Lymph # (Auto) [place] # (Auto) Eos # (Auto) Baso # (Auto) Abs Immat Gran (auto) Absolute Neuts (auto) Absolute Nucleated RBC Nucleated RBC % (auto) Smear Tech's Comments Anion Gap Estim Creat Clear Calc Estimated GFR POC Glucose Random Glucose Lactic Acid 1.6 Calcium Magnesium Total Bilirubin AST ALT Alkaline Phosphatase Ammonia Troponin I High Sens 9.6 Total Protein Albumin Lipase Urine Color Yellow Urine Appearance Clear Urine pH 8.0 Ur Specific [place] 1.010 Urine Protein 30 (1+) H Urine Glucose (UA) Negative Urine Ketones Negative Urine Blood Trace H Urine Nitrite Negative Ur Leukocyte Esterase Negative Urine RBC 3-5 H Urine WBC 0-5 Ur Squamous Epith Cells 0-2 Urine Bacteria None Seen Hyaline Casts 0-2 Urine Opiates Screen Urine Fentanyl Screen Ur Barbiturates Screen Ur Phencyclidine Scrn Ur Amphetamines Screen U Benzodiazepines Scrn Urine Cocaine Screen U Marijuana (THC) Screen COVID-19 (BASSAM) COVID-19 [employer] 05/25/22 05/25/22 05/25/22 14:12 14:47 18:17 MCV MCH MCHC RDW Plt Count MPV Immature Gran % (Auto) Neut % (Auto) Lymph % (Auto) [place] % (Auto) Eos % (Auto) Baso % (Auto) Lymph # (Auto) [place] # (Auto) Eos # (Auto) Baso # (Auto) Abs Immat Gran (auto) Absolute Neuts (auto) Absolute Nucleated RBC Nucleated RBC % (auto) Smear Tech's Comments Anion Gap Estim Creat Clear Calc Estimated GFR POC Glucose Random Glucose Lactic Acid Calcium Magnesium Total Bilirubin AST ALT Alkaline Phosphatase Ammonia Troponin I High Sens 10.2 Total Protein Albumin Lipase Urine Color Urine Appearance Urine pH Ur Specific [place] Urine Protein Urine Glucose (UA) Urine Ketones Urine Blood Urine Nitrite Ur Leukocyte Esterase Urine RBC Urine WBC Ur Squamous Epith Cells Urine Bacteria Hyaline Casts Urine Opiates Screen Not Detected Urine Fentanyl Screen Not Detected Ur Barbiturates Screen Not Detected Ur Phencyclidine Scrn Not Detected Ur Amphetamines Screen Not Detected U Benzodiazepines Scrn Not Detected Urine Cocaine Screen Not Detected U Marijuana (THC) Screen Not Detected COVID-19 ([facility]ASSAM) Negative COVID-19 [employer] See Note 05/25/22 05/25/22 05/25/22 19:55 20:39 22:07 MCV MCH MCHC RDW Plt Count MPV Immature Gran % (Auto) Neut % (Auto) Lymph % (Auto) [place] % (Auto) Eos % (Auto) Baso % (Auto) Lymph # (Auto) [place] # (Auto) Eos # (Auto) Baso # (Auto) Abs Immat Gran (auto) Absolute Neuts (auto) Absolute Nucleated RBC Nucleated RBC % (auto) Smear Tech's Comments Anion Gap Estim Creat Clear Calc Estimated GFR POC Glucose 79 71 115 Random Glucose Lactic Acid Calcium Magnesium Total Bilirubin AST ALT Alkaline Phosphatase Ammonia Troponin I High Sens Total Protein Albumin Lipase Urine Color Urine Appearance Urine pH Ur Specific [place] Urine Protein Urine Glucose (UA) Urine Ketones Urine Blood Urine Nitrite Ur Leukocyte Esterase Urine RBC Urine WBC Ur Squamous Epith Cells Urine Bacteria Hyaline Casts Urine Opiates Screen Urine Fentanyl Screen Ur Barbiturates Screen Ur Phencyclidine Scrn Ur Amphetamines Screen U Benzodiazepines Scrn Urine Cocaine Screen U Marijuana (THC) Screen COVID-19 ([facility]ASSAM) COVID-19 VFA Com 05/26/22 05/26/22 05/26/22 07:16 07:16 07:22 MCV 87.8 MCH 29.0 MCHC 33.1 RDW 12.8 Plt Count 157 L MPV 10.5 Immature Gran % (Auto) Neut % (Auto) Lymph % (Auto) [place] % (Auto) Eos % (Auto) Baso % (Auto) Lymph # (Auto) [place] # (Auto) Eos # (Auto) Baso # (Auto) Abs Immat Gran (auto) Absolute Neuts (auto) Absolute Nucleated RBC 0.000 Nucleated RBC % (auto) 0.0 Smear Tech's Comments Anion Gap Estim Creat Clear Calc Estimated GFR POC Glucose 224 H Random Glucose Lactic Acid Calcium Magnesium 1.6 Total Bilirubin AST ALT Alkaline Phosphatase Ammonia Troponin I High Sens Total Protein Albumin Lipase Urine Color Urine Appearance Urine pH Ur Specific [place] Urine Protein Urine Glucose (UA) Urine Ketones Urine Blood Urine Nitrite Ur Leukocyte Esterase Urine RBC Urine WBC Ur Squamous Epith Cells Urine Bacteria Hyaline Casts Urine Opiates Screen Urine Fentanyl Screen Ur Barbiturates Screen Ur Phencyclidine Scrn Ur Amphetamines Screen U Benzodiazepines Scrn Urine Cocaine Screen U Marijuana (THC) Screen COVID-19 ([facility]ASSAM) COVID-19 Clin Com Assessment and Plan (1) Acute encephalopathy: Status: Acute Plan Pt is an 86-year-old female with a PMH significant for insulin-dependent DM2, dementia, HTN, and glaucoma who presents to the ED today for altered mental status x2 days. Pt apparently has mild dementia at baseline, which primarily affects her short term memory, and she lives in an apartment on her own. Pt will be admitted to the hospital for treatment and further workup for altered mental status. Encephalopathy, unclear etiology Initially admitted with elevated blood pressure and mildly elevated ammonia level of 59 with normal LFTs No infectious source found however blood cultures are still pending, tox screen negative Dementia with behavioral disturbances and agitation Received Zyprexa in the ED Consider adding Seroquel if behavioral disturbances continue Hypertension Blood pressure as high as 203/86, treated with labetalol in the ER stable on home medications including atenolol and valsartan Diabetes mellitus Sliding scale, ADA diet, Lantus GERD Continue PPI Pancreatic insufficiency continue home medications Hyperlipidemia Continue statin Glaucoma Continue drops DVT prophylaxis with Lovenox Attending Dr. Culver Full code Continue hospitalization for treatment of acute encephalopathy with no etiology with blood cultures pending to rule out bacteremia as a source Time Spent With Patient Time: Total time managing care of this patient today ____ minutes. Quality Stroke Does the patient have a stroke diagnosis?: No VTE Prior VTE?: No VTE Risk Level:: Medical - moderate - high VTE Device Contraindication: Treatment Not Indicated VTE Drug Contraindication: N/A - Med Ordered
[2022-05-26 11:30] LABS: Glucose, Whole Blood 128 mg/dL (60-115)
--- NOTE | 2022-05-26 11:31 | MHC.SL.SWA ---
Speech Pathologist Impression: Oropharyngeal dysphagia Risk of Aspiration Due to: Neurological Condition Reduced Cognition Dysphasia Diet Status: Upgrade Liquid Consistency and Strategies for Safe Swallow: Liquid Intake Recommendation: Thin Liquid Intake Strategies: Small Sips No Straws Solid Food Consistency: Dietary Recommendations: Pureed (NDD1) Additional Modifications to Solid Foods: Recommend UPGRADE from NPO and start on PUREED (NDD1) diet and THIN liquids (no straws), pills CRUSHED in PUREE. 1:1 assistance feeding and aspiration precautions d/t confusion. SHELL TRIM OPERATOR to continue to follow during hospitalization as needed to monitor tolerance and assess for possible advancement. SHELL TRIM OPERATOR updated MD, RN, RD of recommendations via [employer] Message. Oral Medication Intake: Crushed with Puree Please contact the pharmacy regarding appropriate crushable or liquid drug formulations that are available whenever modified delivery is recommended. Compensatory Strategies and Precautions to be Taken for Safe Swallow: Sitting Upright (90 deg) No Straw Small Bites and Sips Rate of Ingestion Change Oral Check Supervision While Eating and Drinking for Safe Swallow: Total Assistance (1:1) Swallowing Recommended Treatments: Compens. Strategy Educat. Recommendation for Speech: Inpatient Speech Therapy It Security Engineer Clinican/Clinical Fellow: No Supervisory Statement: I have reviewed and agree with the student/clinical fellow's documentation: N/A Speech Language Pathologist: Laila Thomas M.A., [facility]HELL TRIM OPERATOR
[2022-05-26 15:01] VITALS: BP 203/85; PULSE 58; RESP 17; TEMP 36.6; O2SAT 98
[2022-05-26] MEDS: Valsartan 160 MG TABLET PO (15:29)
[2022-05-26] MEDS: Enoxaparin Sodium 40 MG/0.4 ML SYRINGE SUBCUT (15:34)
[2022-05-26] MEDS: 0.9 % Sodium Chloride Flush 3 ML SYRINGE IVFLUSH (15:34)
[2022-05-26 16:03] LABS: Glucose, Whole Blood 226 mg/dL (60-115)
[2022-05-26 16:53] VITALS: BP 217/86
[2022-05-26 19:12] VITALS: BP 186/76; PULSE 60; RESP 16; TEMP 36.1; O2SAT 96
[2022-05-26 19:52] LABS: Glucose, Whole Blood 259 mg/dL (60-115)
[2022-05-26] MEDS: Pravastatin Sodium 40 MG TABLET PO (20:50)
[2022-05-26] MEDS: Insulin Glargine,Hum.rec.anlog 100 UNIT/ML 10 ML VIAL 9 UNIT SUBCUT (20:50)
[2022-05-26 22:58] LABS: Anion Gap 14 (12-20); Blood Urea Nitrogen 22 mg/dL (9-16); Calcium 9.1 mg/dL (8.4-10.2); Carbon Dioxide 26 mmol/L (22-29); Chloride 103 mmol/L (96-108); Creatinine Clr Calc Pharmacy 34.1; Estimated Glomerular Filt Rate 49; Glucose Random 236 mg/dL (60-115); Potassium 3.6 mmol/L (3.3-5.1); Sodium 139 mmol/L (135-145)
[2022-05-27] VITALS (9 sets, daily range): BP systolic 157–195; BP diastolic 72–92; PULSE 50–63; RESP 16–20; TEMP 36.2–37.3; O2SAT 93–98
[2022-05-27 07:41] LABS: Glucose, Whole Blood 237 mg/dL (60-115)
[2022-05-27] MEDS: Valsartan 160 MG TABLET PO (07:55)
[2022-05-27] MEDS: timoloL maleate 0.5 % Oph Sol 5 ML DRBTL 1 DROP EYE-BOTH (07:55)
[2022-05-27] MEDS: Insulin Lispro 100 UNIT/ML 3 ML VIAL SUBCUT ×4 (07:55→20:45)
[2022-05-27] MEDS: Furosemide 20 MG TABLET PO (07:55)
[2022-05-27] MEDS: atenoloL 50 MG TABLET PO (07:55)
--- NOTE | 2022-05-27 09:58 | PM.DS ---
DS: Providers Provider Date of Service: 05/28/22 Date of admission: 05/25/22 16:38 Primary care physician: Mateusz Elam MD Attending physician on discharge: Ravi Culver Discharging clinician: Christy Ospina DS: Diagnosis Discharge Diagnosis (1) Acute encephalopathy: Status: Acute DS: Summary Hospital Course Hospital Course: History and physical as per admitting provider Pt is an 86-year-old female with a PMH significant for insulin-dependent DM2, dementia, HTN, and glaucoma who presents to the ED today for altered mental status x2 days.? HPI is provided by the patient's daughter who is at her bedside. Pt apparently has mild dementia at baseline which primarily affects her short term memory. Pt lives on her own in an apartment, and is helped by her daughters who visit daily. Daughter states that the patient started displaying peculiar behavior yesterday, such as staring at the wall and talking about kids playing in the street and speaking to her sister who has been for years. By today the daughter noted that her mother could no longer even string two words together and was blabbering incomprehensibly. Daughter states she believes her mother has been adherent with her medications and has had no recent medication changes. Denies any know fall or headstrike. In the ED the pt was found to have an elevated BP of 203/86; she received IV labetalol which reduced it to 151/86.? labs remarkable for a lack of leukocytosis, lytes WNL, alk phos mildly elevated at 121, and ammonia elevated at 59.? UA clean for UTI.? CT of head found no acute intracranial abnormality,? in CT of chest abdomen and pelvis found no obvious no consolidation and no acute intra-abdominal process, however the examination was significantly limited by patient motion throughout the study. ? Patient was found to be significantly agitated and was given Zyprexa. Pt will be admitted to the hospital for treatment and further workup for altered mental status . Encephalopathy. Resolved. Unclear etiology, likely secondary to elevated blood pressure readings No source of infection found, negative blood cultures after 24 hours History of dementia but now more clear Dementia with behavioral disturbances and agitation Lives with daughter, supportive care Hypertension Blood pressure as high as 203/86, treated with labetalol in the ER Started on Norvasc 5 mg daily Valsartan increased to 160 mg twice daily Continue atenolol 50 mg daily Diabetes mellitus Sliding scale, ADA diet, Lantus GERD Continue PPI Pancreatic insufficiency continue home medications Hyperlipidemia Continue statin Glaucoma Continue drops Time Spent with Patient Time attestation: Total time managing care of this patient today ____ minutes. Discharge coordination time: Greater than 30 minutes Quality: Safe Use of Opioids Does Pt have an Active Cancer Diagnosis on the Problem List?: No Quality: Stroke Does the patient have a stroke diagnosis?: No Physical Exam Vital Signs: Vital Signs: Last Vital Signs Temp 99.1 F 05/27/22 08:00 Pulse 63 05/27/22 08:00 Resp 18 05/27/22 08:00 BP 180/85 H 05/27/22 08:00 Pulse Ox 95 05/27/22 08:00 O2 Del Method 05/27/22 08:00 BMI result Body Mass Index 25.8 Appearing in no acute distress head is normocephalic atraumatic eyes pupils are PERRLA sclera is anicteric mouth throat mucous membranes are intact and moist neck is supple no lymphadenopathy, no JVD noted lung sounds are clear to auscultation heart regular rate rhythm, clear S1, S2 positive bowel sounds, abdomen is soft, nontender neuro patient is alert, confused DS: Data Data Completed and Pending Labs on day of discharge: Laboratory Results - last 24 hr 05/26/22 05/26/22 05/26/22 07:16 11:25 15:13 Sodium 139 Potassium 3.6 Chloride 103 Carbon Dioxide 26 Anion Gap 14 BUN 22 H Creatinine 1.06 Estim Creat Clear Calc 34.1 Estimated GFR 49 POC Glucose 128 H 226 H Random Glucose 236 H Calcium 9.1 D 05/26/22 05/27/22 19:26 07:34 Sodium Potassium Chloride Carbon Dioxide Anion Gap BUN Creatinine Estim Creat Clear Calc Estimated GFR POC Glucose 259 H 237 H Random Glucose Calcium Preliminary micro results at discharge 05/25/22 14:47 Blood Culture - Preliminary Blood - Venous No growth after 24 hours. 05/25/22 12:43 Blood Culture - Preliminary Blood - Venous No growth after 24 hours. Discharge Plan Discharge Anticipated Discharge Date/Time: 05/28/22 09:21 Patient Disposition: Home Health Service Discharge Diagnosis: Acute encephalopathy Dementia with behavioral disturbances and agitation Referrals: Mateusz Elam MD [Primary Care Provider] - 1 Week Discharge Medications: New valsartan 160 mg Tablet 160 mg PO BIDWM Qty: 60 0RF Protocol: Hold for SBP< HOLD for SBP < : 90 amlodipine 5 mg tablet 5 mg PO DAILY Qty: 30 0RF Continued (DME) lancets [Accu-Chek Fastclix Lancet Drum] Mis See Rx Instructions .ROUTE .MEDSUPPLY Qty: 150 6RF Rx Instructions: 4 times a day (DME) Accu-Chek Shamika Plus test strp Strip See Rx Instructions .MEDSUPPLY Qty: 300 2RF Rx Instructions: 3 times a day (DME) pen needle, diabetic [BD Pinky 2nd Gen Pen Needle] 32 gauge x 5/32 needle See Rx Instructions .MEDSUPPLY Qty: 400 4RF Rx Instructions: 5 times a day meloxicam 7.5 mg tablet 7.5 mg PO DAILY Qty: 60 5RF atenolol 50 mg tablet 50 mg PO DAILY Qty: 30 6RF furosemide 20 mg tablet 20 mg PO DAILY Qty: 90 8RF (DME) walker Mis See Rx Instructions .Route Qty: 1 0RF Rx Instructions: As directed lovastatin 40 mg tablet 40 mg PO BEDTIME acetaminophen [Tylenol] 325 mg Tablet 650 mg PO Q6H PRN (Reason: Pain) ibuprofen 200 mg Tablet 400 mg PO Q8H PRN (Reason: Pain) polyethylene glycol 3350 [Gavilax] 17 gram/dose powder 17 g PO DAILY PRN (Reason: Constipation) bisacodyl 5 mg tablet 5 mg PO BEDTIME Creon 6,000-19,000 -30,000 unit capsule,delayed release(DR/EC) 1 cap PO DAILY Rx Instructions: do not exceed 10,000 unit/kg lipase per 24 hrs timolol maleate 0.5 % drops 1 drp ophthalmic (eye) DAILY Rx Instructions: instill in right eye Lumigan 0.01 % drops 1 drp ophthalmic (eye) BEDTIME Rx Instructions: instill 1 drop into both eyes (DME) [place]a [place] [facility] [place] Rx Instructions .ROUTE .MEDSUPPLY Qty: 1 0RF Rx Instructions: As directed (DME) FreeStyle Aditya 2 Sensor Kit See Rx Instructions .ROUTE .MEDSUPPLY Qty: 2 11RF Rx Instructions: Every 14 days Tougabrielleo SoloStar U-300 Insulin 300 unit/mL (1.5 mL) insulin pen 13 unit subcut BEDTIME Qty: 4.5 2RF insulin lispro [Humalog KwikPen Insulin] 100 unit/mL insulin pen See Rx Instructions subcut .4 times a day 90 Days Qty: 45 1RF Rx Instructions: 6 units with breakfast , 6 units lunch lunch, 6-8 units with dinner and 2 units with snacks subcut. 4 times a day SLIDING SCALE Discontinued valsartan 160 mg tablet 160 mg PO DAILY Qty: 90 8RF Discharge Orders: Discharge Order (Routine); Ordered 05/28/22 Ordered By: Christy Ospina Diet: Advance to usual diet Activity on Discharge: As tolerated Stand Alone Forms: Patient Portal Discharge page Care Plan Goals: Complete resolution of symptoms Health Concerns: Acute encephalopathy Dementia with behavioral disturbances and agitation Plan of Treatment: Follow-up with primary care provider as needed Take all medications as prescribed You have been started on a new medication called amlodipine, take 5 mg daily Your valsartan was increased to twice daily Continue the atenolol 50 mg daily Assessment: See discharge summary
--- NOTE | 2022-05-27 10:07 | MHC.CM.PN ---
Addendum entered by Valery Weiner 05/27/22 14:08: DC CANCELLED FOR ELEVATED BLOOD PRESSURE PER NURSING, CM WILL CONTINUE TO MONITOR. Original Note: DP: PT MEDICALLY CLEARED FOR DC HOME, NO SERVICES. RN AWARE. DAUGHTER ARMAAN WILL TRANSPORT.
[2022-05-27] MEDS: amLODIPine Besylate 5 MG TABLET PO (10:17)
--- NOTE | 2022-05-27 11:45 | P.F2F_ITS ---
Service Date Service Date: 05/27/22 Encounter Date of encounter: 05/27/22 Reasons for Services Signs and symptoms assessed: Encephalopathy and weakness Reason for physical therapy: home safety and mobility Homebound: Leaving the home is medically contraindicated at this time without the asist of a device and/or another person due th the listed conditions above and below. Reason homebound: unsteady gait / fall risk, cognitively impaired / unsafe and unable to drive Certification: Based on the above findings, I certify that this patient is confined to the home and needs intermittent long term care, physical therapy and/or speech therapy, or continues to need occupational therapy. The patient is under my care, and I have initiated the establishment of the plan of care. The patient will be followed by a physician who will periodically review the plan of care. Time Spent With Patient Time: Total time managing care of this patient today ____ minutes.
[2022-05-27 11:59] LABS: Glucose, Whole Blood 156 mg/dL (60-115)
--- NOTE | 2022-05-27 14:04 | P.PNIM_ITS ---
Subjective Subjective Date of Service: 05/27/22 Review of Systems Follow-up encephalopathy Baseline dementia BP still high Physical Exam Vital Signs: Vital Signs: Last Vital Signs Temp 99.1 F 05/27/22 08:00 Pulse 63 05/27/22 08:00 Resp 18 05/27/22 08:00 BP 180/72 H 05/27/22 13:00 Pulse Ox 95 05/27/22 08:00 O2 Del Method 05/27/22 08:00 BMI result Body Mass Index 25.8 Appearing in no acute distress lung sounds are clear to auscultation heart regular rate rhythm, clear S1, S2 positive bowel sounds, abdomen is soft, nontender neuro patient is alert, confused Objective Data Active Medications Acetaminophen (Acetaminophen 325 Mg Tablet) 650 mg PO Q6H PRN PRN Reason: Pain, Mild (Pain Scale 1-3) Amlodipine Besylate (Amlodipine Besylate 5 Mg Tablet) 5 mg PO DAILY [facility]; Protocol Last Admin: 05/27/22 10:17 Dose: 5 mg Documented By: LINSEY Atenolol (Atenolol 50 Mg Tablet) 50 mg PO DAILY [facility]; Protocol Last Admin: 05/27/22 07:55 Dose: 50 mg Documented By: LINSEY Dextrose (Dextrose 50 % 25 Gm/50 Ml Syringe) 25 gm IVPUSH Q15M PRN; Protocol PRN Reason: per Hypoglycemia Standing Ord. Enoxaparin Sodium (Enoxaparin Sodium 40 Mg/0.4 Ml Syringe) 40 mg SUBCUT Q24H [facility] Last Admin: 05/26/22 15:34 Dose: 40 mg Documented By: LAKESHA Furosemide (Furosemide 20 Mg Tablet) 20 mg PO DAILY [facility]; Protocol Last Admin: 05/27/22 07:55 Dose: 20 mg Documented By: LINSEY Glucose (Glucose Gel 15 Gm Gel..Gram.) 15 gm PO Q15M PRN; Protocol PRN Reason: per Hypoglycemia Standing Ord. Hydralazine HCl (Hydralazine Hcl 20 Mg/Ml Vial) 5 mg IVPUSH Q6H PRN; Protocol PRN Reason: SBP >180 Dextrose/Lactated Ringer's (D5lr) 1,000 mls @ 80 mls/hr IVCONT .[id number] [facility] Last Admin: 05/27/22 11:59 Dose: Not Given Documented By: LINSEY Non-Admin Reason: pt dischargee Insulin Glargine (Insulin Glargine,Hum.Rec.Anlog 100 Unit/Ml 10 Ml Vial) 9 unit SUBCUT BEDTIME [facility] Last Admin: 05/26/22 20:50 Dose: 9 unit Documented By: ROSINA Insulin Human Lispro (Insulin Lispro 100 Unit/Ml 3 Ml Vial) 0 unit SUBCUT QIDACHS [facility]; Protocol Last Admin: 05/27/22 11:57 Dose: 2 unit Documented By: LINSEY Latanoprost (Latanoprost 0.005 % Ophth Yamila 2.5 Ml Drops) 1 drop EYE-BOTH BEDTIME [facility] Last Admin: 05/26/22 20:50 Dose: Not Given Documented By: ROSINA Non-Admin Reason: Med Not Available Non-Formulary Medication (Mfwrow-Zryhjvrt-Cujydve [Creon]) 1 cap PO DAILY [facility] Ondansetron HCl (Ondansetron Hcl 4 Mg/2 Ml Vial) 4 mg IVPUSH Q8H PRN PRN Reason: Nausea and Vomiting Pravastatin Sodium (Pravastatin Sodium 40 Mg Tablet) 40 mg PO BEDTIME [facility] Last Admin: 05/26/22 20:50 Dose: 40 mg Documented By: ROSINA Sodium Chloride (0.9 % Sodium Chloride Flush 3 Ml Syringe) 3 ml IVFLUSH QSHIFT [facility] Last Admin: 05/27/22 14:01 Dose: Not Given Documented By: LINSEY Non-Admin Reason: IV Running Timolol Maleate (Timolol Maleate 0.5 % Oph Yamial 5 Ml Drbtl) 1 drop EYE-BOTH DAILY [facility] Last Admin: 05/27/22 07:55 Dose: 1 drop Documented By: LINSEY Valsartan (Valsartan 160 Mg Tablet) 160 mg PO DAILY [facility]; Protocol Last Admin: 05/27/22 07:55 Dose: 160 mg Documented By: LINSEY Labs CBC & Chem 7: 05/26/22 07:16 05/26/22 07:16 Labs: Laboratory Results - last 24 hr 05/26/22 05/26/22 05/26/22 07:16 15:13 19:26 Anion Gap 14 Estim Creat Clear Calc 34.1 Estimated GFR 49 POC Glucose 226 H 259 H Random Glucose 236 H Calcium 9.1 D 05/27/22 05/27/22 07:34 11:55 Anion Gap Estim Creat Clear Calc Estimated GFR POC Glucose 237 H 156 H Random Glucose Calcium Microbiology Microbiology Results: Microbiology 05/25/22 14:47 Blood Culture - Preliminary Blood - Venous No growth after 24 hours. 05/25/22 12:43 Blood Culture - Preliminary Blood - Venous No growth after 24 hours. Assessment and Plan (1) Acute encephalopathy: Status: Acute Plan Pt is an 86-year-old female with a PMH significant for insulin-dependent DM2, d ementia, HTN, and glaucoma who presents to the ED today for altered mental status x2 days. Pt apparently has mild dementia at baseline, which primarily affects her short term memory, and she lives in an apartment on her own. Pt will be admitted to the hospital for treatment and further workup for altered mental status. Hypertension Blood pressure as high as 203/86, treated with labetalol in the ER Continue atenolol, increase valsartan to 160 mg twice daily Added Norvasc 5 mg as needed hydralazine for SBP>180 Encephalopathy, unclear etiology. Likely from elevated blood pressure No infectious source found neg tox screen, neg blood cx after 24hrs Dementia with behavioral disturbances and agitation Received Zyprexa in the ED Consider adding Seroquel if behavioral disturbances continue Diabetes mellitus Sliding scale, ADA diet, Lantus GERD Continue PPI Pancreatic insufficiency continue home medications Hyperlipidemia Continue statin Glaucoma Continue drops DVT prophylaxis with Lovenox Attending Dr. Culver Full code Continue hospitalization for treatment of acute encephalopathy with no etiology with blood cultures pending to rule out bacteremia as a source Time Spent With Patient Time: Total time managing care of this patient today ____ minutes. Quality Stroke Does the patient have a stroke diagnosis?: No VTE Prior VTE?: No VTE Risk Level:: Medical - moderate - high VTE Device Contraindication: Treatment Not Indicated VTE Drug Contraindication: N/A - Med Ordered
[2022-05-27] MEDS: hydrALAZINE HCl 20 MG/ML VIAL 5 MG IVPUSH (14:11)
[2022-05-27 16:24] LABS: Glucose, Whole Blood 158 mg/dL (60-115)
[2022-05-27] MEDS: Enoxaparin Sodium 40 MG/0.4 ML SYRINGE SUBCUT (16:28)
--- NOTE | 2022-05-27 17:09 | MHC.SL.SWA ---
Speech Pathologist Impression: Risk of Aspiration Due to: Neurological Condition Reduced Cognition Dysphasia Diet Status: Recommend continue on current diet of PUREE with THIN liquids, pills crushed in puree. Liquid Consistency and Strategies for Safe Swallow: Liquid Intake Recommendation: Thin Liquid Intake Strategies: Small Sips No Straws Solid Food Consistency: Dietary Recommendations: Pureed (NDD1) Additional Modifications to Solid Foods: Recommend continue on PUREED (NDD1) diet and THIN liquids (no straws), pills CRUSHED in PUREE. 1:1 assistance feeding and aspiration precautions d/t confusion. CUSTOMER AGENT to continue to follow during hospitalization as needed to monitor tolerance and assess for possible advancement. Oral Medication Intake: Crushed with Puree Please contact the pharmacy regarding appropriate crushable or liquid drug formulations that are available whenever modified delivery is recommended. Compensatory Strategies and Precautions to be Taken for Safe Swallow: Sitting Upright (90 deg) No Straw Liquids from Cup Small Bites and Sips Alternate Liquids/Solids Supervision While Eating and Drinking for Safe Swallow: Intermittent Supervision Foods to Avoid: Mixed consistencies, sticky or congealed purees. Swallowing Recommended Treatments: Compens. Strategy Educat. Recommendation for Speech: Inpatient Speech Therapy Comment: Patient was seen during lunch with lunch tray present and she had begun independently to eat. Patient was very pleasant, wanting to know if she was going to be discharged soon and hoping to see her daughter. Patient was observed taking a couple of small bites of pureed carrots, but then stated she had enough. Patient was encouraged to eat some of the pureed chicken on tray, but stated that she couldn't because she was a vegetarian. Dining services was advised of patient's dietary need. Patient was observed taking sips of juice from cup, with no clinical signs of aspiration observed. Patient took bites of vanilla pudding, she commented that it was sweet and she was diabetic, was given assurance that pudding was sugar free. Patient ate very little from tray, was left with juices and pudding to finish. Recommend continue on current diet of PUREE with THIN liquids, pills crushed in puree. Frequency/Duration: Date Range for Service Req: Timeline to reassess: Physician Relations Specialist Clinican/Clinical Fellow: No Supervisory Statement: I have reviewed and agree with the student/clinical fellow's documentation: N/A Speech Language Pathologist: Anny Jackson M.A., CCC-CUSTOMER AGENT
[2022-05-27 20:31] LABS: Glucose, Whole Blood 155 mg/dL (60-115)
[2022-05-27] MEDS: Pravastatin Sodium 40 MG TABLET PO (20:44)
[2022-05-27] MEDS: Latanoprost 0.005 % Ophth Sol 2.5 ML DROPS 1 DROP EYE-BOTH (20:44)
[2022-05-27] MEDS: Insulin Glargine,Hum.rec.anlog 100 UNIT/ML 10 ML VIAL 9 UNIT SUBCUT (20:44)
[2022-05-27] MEDS: 0.9 % Sodium Chloride Flush 3 ML SYRINGE IVFLUSH (20:45)
[2022-05-28 04:00] VITALS: BP 170/78; PULSE 61; RESP 18; TEMP 36.7; O2SAT 98
[2022-05-28 07:51] LABS: Glucose, Whole Blood 114 mg/dL (60-115)
[2022-05-28 08:00] VITALS: BP 140/60; PULSE 59; RESP 19; TEMP 37.1; O2SAT 94
[2022-05-28] MEDS: Valsartan 160 MG TABLET PO (08:19)
[2022-05-28] MEDS: 0.9 % Sodium Chloride Flush 3 ML SYRINGE IVFLUSH (08:19)
[2022-05-28] MEDS: amLODIPine Besylate 10 MG TABLET PO (08:19)
[2022-05-28] MEDS: Furosemide 20 MG TABLET PO (08:19)
[2022-05-28] MEDS: atenoloL 50 MG TABLET PO (08:19)
[2022-05-28] MEDS: timoloL maleate 0.5 % Oph Sol 5 ML DRBTL 1 DROP EYE-BOTH (08:24)
--- NOTE | 2022-05-28 09:40 | MHC.CM.PN ---
DP: PT MEDICALLY CLEARED FOR DC HOME WITH NEW [facility] SERVICES FOR PT. RN AWARE. DAUGHTER [facility]MAAN WILL TRANSPORT HOME
== END 2022-05-28 10:12 | disposition home health service (06) | DRG 79 ==
LOC: HO.ED 11:15 → HO.EDOVER 16:57 → HO.S3 18:47
PROVIDERS: Physician Assistant; Admitting Provider Student in an Organized Health Care Education/Training Program; Emergency Provider Emergency Medicine; PCP Internal Medicine; Visit Provider Nurse Practitioner Acute Care
DX: I67.4 Hypertensive encephalopathy (principal); F03.90 Unspecified dementia, unspecified severity, without behavioral disturbance, psychotic disturbance, mood disturbance, and anxiety; E10.42 Type 1 diabetes mellitus with diabetic polyneuropathy; E78.5 Hyperlipidemia, unspecified; I10 Essential (primary) hypertension; E10.21 Type 1 diabetes mellitus with diabetic nephropathy; K21.9 Gastro-esophageal reflux disease without esophagitis; K86.89 Other specified diseases of pancreas; F06.8 Other specified mental disorders due to known physiological condition; Z20.822 Contact with and (suspected) exposure to COVID-19; Z88.8 Allergy status to other drugs, medicaments and biological substances; Z79.4 Long term (current) use of insulin; Z79.899 Other long term (current) drug therapy
CPT/HCPCS: 36415; 70450; 71250; 74176; 80048; 80053; 80307; 81001; 82140; 82947; 83605; 83690; 83735; 84484; 85025; 85027; 87040; 87635; 92526; 92610; 93005; 99285; J1650

== ENCOUNTER 2022-10-03 11:03 | Emergency (ER) | payer OTHER, SELFPAY ==
--- NOTE | ~2022-10-03 | XR_ITS ---
EXAMINATION: XR KNEE, LEFT CLINICAL INFORMATION: Fall, trauma, pain COMPARISON: Left lower leg radiographs 07/07/2019. TECHNIQUE: 5 views of the left knee. FINDINGS: Mild osteopenia. No fracture, dislocation, or destructive process. No focal joint narrowing or erosive change. Cross table lateral view shows no fat fluid level or definite effusion. There is some mild thickening of the distal quadriceps tendon with bulky spurring insertion patella. Bulky spurring present at the patellar tendon origin and insertion. Hoffa's fat pad appears normal. The deep infrapatellar recess is preserved. XR/XR knee LT 3V IMPRESSION: -No fracture, dislocation, or effusion. -Spurring extensor mechanism.
--- NOTE | ~2022-10-03 | XR_ITS ---
EXAMINATION: XR FINGER, LEFT CLINICAL INFORMATION: Trauma, pain COMPARISON: Pain, trauma TECHNIQUE: 2 views left fourth finger AP view left hand are obtained for 3 views. FINDINGS: There is no visible fracture. No dislocation or destructive process. XR/XR finger LT min 2V IMPRESSION: No fracture or dislocation.
--- NOTE | ~2022-10-03 | CT_ITS ---
EXAMINATION: CT brain and CT cervical spine without contrast. CLINICAL INDICATION: Fell out of bed. COMPARISON: CT brain 11/12/2020. TECHNIQUE: 5 mm thin axial and reformatted 2 mm thin sagittal and coronal images of brain were obtained. Subsequently axial 3 mm thin and reformatted 2 mm thin sagittal and coronal images of cervical spine were obtained. DLP 1014. FINDINGS: BRAIN: There is no acute intra-axial, extra-axial bleed, masses or midline shift. There is no acute infarction or in evolution. There is no edema. There is diffuse periventrical hypodensities in both several hemispheres without mass effect. The lateral ventricles are symmetrical but moderately enlarged. Bone windows reveal no calvarial abnormality. CERVICAL SPINE: On sagittal reconstructed images there is normal cervical lordosis. The vertebral heights and alignment is normal. There is mild loss of C5-C6 disc height with ventral and posterior spondylosis. Rest the disc heights are maintained normal. The craniovertebral junction and C1-C2 alignment is normal. There is no visible acute fracture, dislocation or subluxation. The prevertebral and paravertebral soft tissues are normal. The thyroid lobes are symmetrical and normal. The airways widely patent. Mild scarring is seen in both lung apices. CT/CT cervical spine wo IV con IMPRESSION: 1. No acute intracranial process seen. 2. Age-related moderate cerebral volume loss with chronic small vessel ischemic changes in both cerebral hemispheres. 3. There is no acute fracture, dislocation or subluxation in cervical spine. There are degenerative disc changes C5-C6 disc level with ventral and posterior spondylosis.
--- NOTE | ~2022-10-03 | CT_ITS ---
EXAMINATION: CT brain and CT cervical spine without contrast. CLINICAL INDICATION: Fell out of bed. COMPARISON: CT brain 11/12/2020. TECHNIQUE: 5 mm thin axial and reformatted 2 mm thin sagittal and coronal images of brain were obtained. Subsequently axial 3 mm thin and reformatted 2 mm thin sagittal and coronal images of cervical spine were obtained. DLP 1014. FINDINGS: BRAIN: There is no acute intra-axial, extra-axial bleed, masses or midline shift. There is no acute infarction or in evolution. There is no edema. There is diffuse periventrical hypodensities in both several hemispheres without mass effect. The lateral ventricles are symmetrical but moderately enlarged. Bone windows reveal no calvarial abnormality. CERVICAL SPINE: On sagittal reconstructed images there is normal cervical lordosis. The vertebral heights and alignment is normal. There is mild loss of C5-C6 disc height with ventral and posterior spondylosis. Rest the disc heights are maintained normal. The craniovertebral junction and C1-C2 alignment is normal. There is no visible acute fracture, dislocation or subluxation. The prevertebral and paravertebral soft tissues are normal. The thyroid lobes are symmetrical and normal. The airways widely patent. Mild scarring is seen in both lung apices. CT/CT head/brain wo IV con IMPRESSION: 1. No acute intracranial process seen. 2. Age-related moderate cerebral volume loss with chronic small vessel ischemic changes in both cerebral hemispheres. 3. There is no acute fracture, dislocation or subluxation in cervical spine. There are degenerative disc changes C5-C6 disc level with ventral and posterior spondylosis.
[2022-10-03 11:56] VITALS: BP 172/72; PULSE 62; RESP 18; TEMP 36.2; O2SAT 99; BMI 23.8
--- NOTE | 2022-10-03 11:57 | ED_ITS ---
HPI - Fall General Chief Complaint: Fall <RAUDEL Osorio - Last Filed: 10/03/22 12:04> Stated Complaint: Needs stiches on finger <RAUDEL Osorio - Last Filed: 10/03/22 12:04> Time Seen by Provider: 10/03/22 13:04 <RAUDEL Osorio - Last Filed: 10/03/22 12:04> Source: patient and family <Kameron Montes De Oca - Last Filed: 10/03/22 15:34> Limitations: language barrier <Kameron Montes De Oca - Last Filed: 10/03/22 15:34> History of Present Illness HPI Narrative: 86-year-old female presents to the ER after falling out of bed last night. Patient complaining of left 4th finger pain left knee pain. Patient family denies loss of consciousness or hitting her head. Patient has a longstanding history of diabetes, dyslipidemia, hypertension. Patient family unsure of tetanus status. Patient was seen by PCP sent into the ER for questions sutures to the 4th finger and imaging. Daughter and patient states she does not want sutures if she does not need him. Patient states she feels all right at this time. Patient denies any chest pain shortness of breath fever chills. <Kameron Montes De Oca - Last Filed: 10/03/22 15:34> Related Data Home Medications: Home Medications Medication Instructions Recorded Confirmed bimatoprost 0.01 % eye drops 1 drp ophthalmic (eye) BEDTIME 04/26/21 10/03/22 (Lumigan) timolol maleate 0.5 % eye drops 1 drp ophthalmic (eye) DAILY 04/26/21 10/03/22 acetaminophen 325 mg tablet 650 mg PO Q6H PRN Pain 05/25/22 10/03/22 (Tylenol) bisacodyl 5 mg tablet 5 mg PO BEDTIME 05/25/22 10/03/22 ibuprofen 200 mg tablet 400 mg PO Q8H PRN Pain 05/25/22 10/03/22 kutcyk-axmbfjsf-ctvliku 1 cap PO DAILY 05/25/22 10/03/22 6,000-19,000-30,000 unit capsule,delayed rel (Creon) polyethylene glycol 3350 17 17 g PO DAILY PRN Constipation 05/25/22 10/03/22 gram/dose oral powder (Gavilax) Previous Rx's Medication Instructions Recorded lancets (Accu-Chek Fastclix Lancet #150 ea 04/20/20 Drum) flash glucose scanning reader #1 ea 08/23/20 (FreeStyle Aditya 2 [place]) flash glucose sensor (FreeStyle #2 ea 08/23/20 Aditya 2 Sensor kit) Accu-Chek Shamika Plus test strp #300 ea 01/22/21 (blood sugar diagnostic) insulin glargine U-300 conc 300 13 unit (0.0433 mL) subcut BEDTIME 10/25/21 unit/mL (1.5 mL) subcutaneous pen #4.5 mL (Toujeo SoloStar U-300 Insulin) insulin lispro 100 unit/mL See Rx Instructions subcut .4 10/25/21 subcutaneous pen (Humalog KwikPen times a day 90 days #45 mL (U-100) Insulin) meloxicam 7.5 mg tablet 7.5 mg PO DAILY #60 tabs 11/21/21 furosemide 20 mg tablet 20 mg PO DAILY #90 tabs 01/13/22 trazodone 50 mg tablet 50 mg PO BEDTIME PRN sleep #90 tabs 06/06/22 lovastatin 40 mg tablet 40 mg PO BEDTIME #90 tabs 06/30/22 walker #1 ea 06/30/22 atenolol 50 mg tablet 50 mg PO DAILY #30 tabs 07/17/22 pen needle, diabetic 32 gauge x #400 ea 08/28/22 (BD Pinky 2nd Gen Pen Needle) amlodipine 5 mg tablet 5 mg PO DAILY #30 tabs 09/21/22 valsartan 160 mg tablet 160 mg PO BIDWM #60 tabs 09/21/22 <RAUDEL Osorio - Last Filed: 10/03/22 12:04> Allergies/Adverse Reactions: Allergies Allergy/AdvReac Type Severity Reaction Status Date / Time brimonidine [From ALPHAGAN P] Allergy Unknown UNKNOWN Verified 10/03/22 10:30 alphagan Allergy Unknown allergy Uncoded 07/21/22 10:42 reaction Fluoxetine Allergy Unknown Unknown Uncoded 07/21/22 10:42 <RAUDEL Osorio - Last Filed: 10/03/22 12:04> Review of Systems Review of Systems: General: No fever, no chills Ophthalmology: No vision changes, no discharge ENT: No sore throat, no ear pain Cardiovascular, no chest pain, no peripheral edema no shortness of breath Respiratory: No dyspnea, no sputum production, no cough Muscle skeletal: No malaise, no back pain, no neck pain, no extremity pain GI: No abdominal pain: No nausea vomiting, no diarrhea : No dysuria, no urgency, no frequency Psychiatric: No depression, no suicidal ideation, no homicidal ideation Skin: Left 4th finger small area of abrasion bleeding Neuro: Denies headache denies loss consciousness Immunology: No immunocompromised Hematology: Positive bleeding, no bruising <Kameron Montes De Oca - Last Filed: 10/03/22 15:34> [facility] Past Medical History Medical History: Medical History (Updated 10/03/22 @ 15:34 by Kameron Montes De Oca) Dementia Diabetes mellitus Diabetes type 1, uncontrolled Diabetic nephropathy associated with type 1 diabetes mellitus Diabetic polyneuropathy associated with type 1 diabetes mellitus Dyslipidemia Hypertension Proliferative diabetic retinopathy Uterine prolapse <RAUDEL Osorio - Last Filed: 10/03/22 12:04> Surgical History: Surgical History History of surgery Hx of breast biopsy Hx of colonoscopy <RAUDEL Osorio - Last Filed: 10/03/22 12:04> Family History Family History: Family History Daughter Diabetes <RAUDEL Osorio - Last Filed: 10/03/22 12:04> Social History Social History: Social History Household Members: Family Housing: Apartment Housing Other:: With Daughter. Do you presently have visiting nurse or other home services: Yes Alcohol intake: never Patient Tobacco Use Status: Never used Tobacco e-Cigarette/Vaping Use: Never Used Second Hand Smoke Exposure: No Advance Directives: Yes Advance Directives Information Provided: Yes Advance Directives on File: No service: No Current occupational status: retired and disabled Cognitive needs: Yes (cane/walker) Hearing needs: No Vision needs: Yes (glasses) <RAUDEL Osorio - Last Filed: 10/03/22 12:04> Physical Exam Vital Signs: Vital Signs: Last Vital Signs Temp 97.2 F 10/03/22 11:56 Pulse 62 10/03/22 11:56 Resp 18 10/03/22 11:56 BP 172/72 H 10/03/22 11:56 Pulse Ox 99 10/03/22 11:56 O2 Del Method Room Air 10/03/22 11:56 BMI result Body Mass Index 23.8 <RAUDEL Osorio - Last Filed: 10/03/22 12:04> Vital Signs: Last Vital Signs Temp 97.2 F 10/03/22 11:56 Pulse 62 10/03/22 11:56 Resp 18 10/03/22 11:56 BP 172/72 H 10/03/22 11:56 Pulse Ox 99 10/03/22 11:56 O2 Del Method Room Air 10/03/22 11:56 BMI result Body Mass Index 23.8 <Kameron Montes De Oca - Last Filed: 10/03/22 15:34> General appearance: Awake, alert, cooperative, in no acute distress Skin: Warm, dry, no rash, left 4th finger distal aspect there is a very superficial laceration is well approximated to the tip and lateral aspect. No obvious subungual hematoma at this time. Eyes: PERRL, EOMI, no icterus ENT: Oropharynx normal Neck: Soft supple full range of motion, no midline tenderness no paraspinal muscle tenderness Pulmonary: Breath sounds clear to auscultation bilaterally, no accessory muscle use Cardiovascular: Regular rate and rhythm no murmurs and rubs Abdomen: Soft nontender no rebound or guarding positive bowel sounds Extremities: Left knee minimal joint line tenderness no effusion noted full range of motion. Left 4th finger small laceration as noted in the skin section. Slight tenderness D IP joint no deformity Neuro: Alert oriented x3, no focal deficit, payroll manager is equal bilaterally Psych: Normal affect <Kameron Montes De Oca - Last Filed: 10/03/22 15:34> Course Course Course Narrative: RME: 86 yo F w/PMHx DM, GERD, HLD, c/o laceration to L 3rd digit & L knee pain s/p fall out of bed around 3AM. Patient doesnt remember incident, unknown head trauma or LOC, neighbor that lives on floor beneath her heard patient fall, went upstairs and found patient on floor awake. denies LOC or taking AC. Denies other complaints at present. tetanus unknown irregular laceration noted to L distal 3rd digit, bleeding controlled. +L knee ttp. Head/C-spine CT, knee XR & TDap ordered Full HPI, ROS and PE to be performed by primary ED provider. <RAUDEL Osorio - Last Filed: 10/03/22 12:04> Medications Administered Discontinued Medications Generic Name Dose Route Start Last Admin Trade Name Freq PRN Reason Stop Dose Admin Diphtheria/Tetanus/Acell Pertussis 0.5 ml 10/03/22 12:01 10/03/22 13:42 Diphth,Pertus(Acell),Tet Adult 0.5 Ml Syringe IM 10/03/22 12:02 0.5 ml .ONCE ONE Administration <RAUDEL Osorio - Last Filed: 10/03/22 12:04> Medications Administered Discontinued Medications Generic Name Dose Route Start Last Admin Trade Name Freq PRN Reason Stop Dose Admin Diphtheria/Tetanus/Acell Pertussis 0.5 ml 10/03/22 12:01 10/03/22 13:42 Diphth,Pertus(Acell),Tet Adult 0.5 Ml Syringe IM 10/03/22 12:02 0.5 ml .ONCE ONE Administration <Kameron Montes De Oca - Last Filed: 10/03/22 15:34> Medical Decision Making Medical Decision Making MDM Narrative: Cervical fracture Cervical strain Closed head injury Subarachnoid hemorrhage Concussion Left 4th finger laceration Left 4th finger fracture Left knee fracture Left knee contusion 86-year-old female who is well-appearing in no acute distress presents with daughter after falling out of bed last night. Patient has a superficial laceration noted to the 4th digit. Daughter and patient expressed a really do not want sutures to this digit. Patient could probably benefit from on suture but I do believe this will heal either way. At this time patient has no obvious signs of a subungual hematoma. Will get an x-ray of that left 4th digit. X- rays pending of the left knee and CT scan of the head neck is also pending. 15:31 will apply tube gauze dressing to the 4th left finger. Mild suture at this time at patient's request. X-rays of the 4th finger and left knee are negative for acute injuries. <Kameron Montes De Oca - Last Filed: 10/03/22 15:34> Radiology Impression Radiologist Impression: [facility] [place] [id number] ReportSigned Patient: Sunitha CampbellMR#: [id number]: 7Acct:[id number]/Sex: 86 / FADM Date: 10/03/22Loc: HO.EDAttending Dr: Ordering Physician: Fidelina Jeffery Date of Service: 10/03/22 Procedure(s): XR knee LT 3V Accession Number(s): [id number] cc: Fidelina Jeffery~ EXAMINATION: XR KNEE, LEFT CLINICAL INFORMATION: Fall, trauma, pain COMPARISON: Left lower leg radiographs 07/07/2019. TECHNIQUE: 5 views of the left knee. FINDINGS: Mild osteopenia. No fracture, dislocation, or destructive process. No focal joint narrowing or erosive change. Cross table lateral view shows no fat fluid level or definite effusion. There is some mild thickening of the distal quadriceps tendon with bulky spurring insertion patella. Bulky spurring present at the patellar tendon origin and insertion. Hoffa's fat pad appears normal. The deep infrapatellar recess is preserved. XR/XR knee LT 3V IMPRESSION: -No fracture, dislocation, or effusion. -Spurring extensor mechanism. [address] [place] [id number] ReportSigned Patient: Sunitha CampbellMR#: [id number]: [id number]:[id number]/Se x: 86 / FADM Date: 10/03/22Loc: HO.EDAttending Dr: Ordering Physician: Kameron Montes De Oca Date of Service: 10/03/22 Procedure(s): XR finger LT min 2V Accession Number(s): [id number] cc: Kameron Montes De Oca ~ EXAMINATION: XR FINGER, LEFT CLINICAL INFORMATION: Trauma, pain COMPARISON: Pain, trauma TECHNIQUE: 2 views left fourth finger AP view left hand are obtained for 3 views. FINDINGS: There is no visible fracture. No dislocation or destructive process. XR/XR finger LT min 2V IMPRESSION: No fracture or dislocation. [address] [id number] Scan ReportSigned Patient: Sunitha CampbellMR#: [id number]: [id number]:[id number]/Sex: 86 / FADM Date: 10/03/22Loc: HO.EDAttending Dr: Ordering Physician: Fidelina Jeffery Date of Service: 10/03/22 Procedure(s): CT cervical spine wo IV con Accession Number(s): [id number] cc: Fidelina Jeffery~ EXAMINATION: CT brain and CT cervical spine without contrast. CLINICAL INDICATION: Fell out of bed. COMPARISON: CT brain 11/12/2020. TECHNIQUE: 5 mm thin axial and reformatted 2 mm thin sagittal and coronal images of brain were obtained. Subsequently axial 3 mm thin and reformatted 2 mm thin sagittal and coronal images of cervical spine were obtained. DLP 1014. FINDINGS: BRAIN: There is no acute intra-axial, extra-axial bleed, masses or midline shift. There is no acute infarction or in evolution. There is no edema. There is diffuse periventrical hypodensities in both several hemispheres without mass effect. The lateral ventricles are symmetrical but moderately enlarged. Bone windows reveal no calvarial abnormality. CERVICAL SPINE: On sagittal reconstructed images there is normal cervical lordosis. The vertebral heights and alignment is normal. There is mild loss of C5-C6 disc height with ventral and posterior spondylosis. Rest the disc heights are maintained normal. The craniovertebral junction and C1-C2 alignment is normal. There is no visible acute fracture, dislocation or subluxation. The prevertebral and paravertebral soft tissues are normal. The thyroid lobes are symmetrical and normal. The airways widely patent. Mild scarring is seen in both lung apices. CT/CT cervical spine wo IV con IMPRESSION: 1. No acute intracranial process seen. 2. Age-related moderate cerebral volume loss with chronic small vessel ischemic changes in both cerebral hemispheres. 3. There is no acute fracture, dislocation or subluxation in cervical spine. There are degenerative disc changes C5-C6 disc level with ventral and posterior spondylosis. Dictated By:Dimitry Cervantes MDSigned By:<Electronically signed by Dimitry Cervantes MD in [facility]>10/03/22 1401 <Kameron Montes De Oca - Last Filed: 10/03/22 15:34> Discharge Plan Discharge Clinical Impression: Contusion, Finger abrasion <RAUDEL Osorio - Last Filed: 10/03/22 12:04> Patient Disposition: Home, Self-Care <RAUDEL Osorio Last Filed: 10/03/22 12:04> Instructions: Contusion in Adults (ED), Abrasion (ED) <RAUDEL Osorio Last Filed: 10/03/22 12:04> Additional Instructions: CT scan of the head and neck showed no acute injuries X-ray of the left hand 4th finger is negative for fracture Left knee x-ray is normal UR symptoms are secondary to falling out of bed contusions. [id number] Tylenol for pain follow-up with PCP Return if symptoms worsen Leave dressing on left 4th finger for 48 hours and then just use a Band-Aid <RAUDEL Osorio - Last Filed: 10/03/22 12:04> Prescriptions: No Action (DME) lancets [Accu-Chek Fastclix Lancet Drum] Misc See Rx Instructions .ROUTE .MEDSUPPLY Qty: 150 6RF Rx Instructions: 4 times a day (DME) Accu-Chek Shamika Plus test strp Strip See Rx Instructions .MEDSUPPLY Qty: 300 2RF Rx Instructions: 3 times a day meloxicam 7.5 mg tablet 7.5 mg PO DAILY Qty: 60 5RF furosemide 20 mg tablet 20 mg PO DAILY Qty: 90 8RF (DME) walker Misc See Rx Instructions .Route Qty: 1 0RF Rx Instructions: As directed lovastatin 40 mg tablet 40 mg PO BEDTIME Qty: 90 6RF atenolol 50 mg tablet 50 mg PO DAILY Qty: 30 6RF (DME) pen needle, diabetic [BD Pinky 2nd Gen Pen Needle] 32 gauge x 5/32 needle See Rx Instructions .MEDSUPPLY Qty: 400 4RF Rx Instructions: 5 times a day valsartan 160 mg tablet 160 mg PO BIDWM Qty: 60 0RF Protocol: Hold for SBP< HOLD for SBP < : 90 amlodipine 5 mg tablet 5 mg PO DAILY Qty: 30 0RF acetaminophen [Tylenol] 325 mg Tablet 650 mg PO Q6H PRN (Reason: Pain) ibuprofen 200 mg Tablet 400 mg PO Q8H PRN (Reason: Pain) polyethylene glycol 3350 [Gavilax] 17 gram/dose powder 17 g PO DAILY PRN (Reason: Constipation) bisacodyl 5 mg tablet 5 mg PO BEDTIME Creon 6,000-19,000 -30,000 unit capsule,delayed release(DR/EC) 1 cap PO DAILY Rx Instructions: do not exceed 10,000 unit/kg lipase per 24 hrs timolol maleate 0.5 % drops 1 drp ophthalmic (eye) DAILY Rx Instructions: instill in right eye Lumigan 0.01 % drops 1 drp ophthalmic (eye) BEDTIME Rx Instructions: instill 1 drop into both eyes trazodone 50 mg tablet 50 mg PO BEDTIME PRN (Reason: sleep) Qty: 90 4RF (DME) FreeStyle Aditya 2 [place] Misc See Rx Instructions .ROUTE .MEDSUPPLY Qty: 1 0RF Rx Instructions: As directed (DME) FreeStyle Aditya 2 Sensor Kit See Rx Instructions .ROUTE .MEDSUPPLY Qty: 2 11RF Rx Instructions: Every 14 days Toujeo SoloStar U-300 Insulin 300 unit/mL (1.5 mL) insulin pen 13 unit subcut BEDTIME Qty: 4.5 2RF insulin lispro [Humalog KwikPen Insulin] 100 unit/mL insulin pen See Rx Instructions subcut .4 times a day 90 Days Qty: 45 1RF Rx Instructions: 6 units with breakfast , 6 units lunch lunch, 6-8 units with dinner and 2 units with snacks subcut. 4 times a day SLIDING SCALE <RAUDEL Osorio - Last Filed: 10/03/22 12:04>
[2022-10-03] MEDS: Diphth,Pertus(ACell),Tet Adult 0.5 ML SYRINGE IM (13:42)
== END 2022-10-03 15:51 | disposition home or self-care (01) ==
PROVIDERS: Emergency Provider Emergency Medicine; PCP Internal Medicine
DX: S60.415A Abrasion of left ring finger, initial encounter (principal); S80.02XA Contusion of left knee, initial encounter; W06.XXXA Fall from bed, initial encounter; Y93.84 Activity, sleeping; Y92.032 Bedroom in apartment as the place of occurrence of the external cause; Y99.9 Unspecified external cause status
CPT/HCPCS: 70450; 72125; 73140; 73562; 90471; 90715; 99282; 99284

== ENCOUNTER 2022-12-01 08:15 | Outpatient (REF) | payer OTHER, SELFPAY ==
[2022-12-01 10:52] LABS: Cholesterol 148 mg/dL; Glucose Fasting 153 mg/dL (60-99); HDL Cholesterol 47 mg/dL; LDL Cholesterol Calculated 83 mg/dl; Triglycerides 91 mg/dL
[2022-12-01 11:16] LABS: Estimated Average Glucose 194 mg/dL; Hemoglobin A1c % 8.4 %
== END 2022-12-01 08:16 | disposition home or self-care (01) ==
LOC: HO.10HDL 08:15
PROVIDERS: Visit Provider Internal Medicine
DX: R73.9 Hyperglycemia, unspecified (principal); E78.5 Hyperlipidemia, unspecified
CPT/HCPCS: 36415; 80061; 82947; 83036

== ENCOUNTER 2023-04-29 10:42 | Outpatient (AMB) | payer OTHER, SELFPAY ==
[2023-04-29 10:46] VITALS: BP 146/60; PULSE 69; O2SAT 99; BMI 25.6
--- NOTE | 2023-04-29 10:46 | MHC.PC.OV ---
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: Yes Veterinary Laboratory Technician: Present Accompanied by: Self / Same As Patient Allergies brimonidine [From ALPHAGAN P] Allergy (Unknown, Verified 04/29/23 10:46) UNKNOWN alphagan Allergy (Unknown, Uncoded 04/29/23 10:46) allergy reaction Fluoxetine Allergy (Unknown, Uncoded 04/29/23 10:46) Unknown Medication List - Last Reconciled 04/29/23 by Mateusz Elam MD Accu-Chek Shamika Plus test strp (blood sugar diagnostic) 3 times a day NS acetaminophen (Tylenol) 650 mg PO Q6H PRN amlodipine 5 mg PO DAILY atenolol 50 mg PO DAILY bimatoprost 0.01% (Lumigan) 1 drp ophthalmic (eye) BEDTIME bisacodyl 5 mg PO BEDTIME flash glucose scanning reader (FreeStyle Aditya 2 Leary) As directed flash glucose sensor (FreeStyle Aditya 2 Sensor kit) Every 14 days furosemide 20 mg PO DAILY ibuprofen 400 mg PO Q8H PRN insulin glargine U-300 conc (Toujeo SoloStar U-300 Insulin) 13 units (0.0433 mL) subcut BEDTIME insulin lispro (Humalog KwikPen (U-100) Insulin) 6 units with breakfast , 6 units lunch lunch, 6-8 units with dinner and 2 units with snacks subcut. 4 times a day SLIDING SCALE 90 days lancets (Accu-Chek Fastclix Lancet Drum) 4 times a day [id number] 6,000-19,000 -30,000 unit (Creon) 1 cap PO DAILY lovastatin 40 mg PO BEDTIME meloxicam 7.5 mg PO DAILY pen needle, diabetic (BD Pinky 2nd Gen Pen Needle) 5 times a day polyethylene glycol 3350 (Gavilax) 17 grams PO DAILY PRN timolol maleate 0.5% 1 drp ophthalmic (eye) DAILY trazodone 50 mg PO BEDTIME PRN valsartan 160 mg See Protocol PO BIDWM walker As directed Tobacco use date assessed: 07/21/22 Fall risk assessment: No Falls in past year Last assessed Fall Risk: 04/29/23 Dental Screening Dental Screen Date: 04/29/23 Did you have a dental visit in the last 12 months?: Yes Did you have a dental problem in the last 6 months where you did not have access to dental care?: No Was dental information given to patient?: Patient has dentist HPI Annual Physical HPI Details HTN DM and hyperlipidemia on rx; stable; due for labs PFSH Medical History Dementia Diabetes mellitus Uterine prolapse Dyslipidemia Hypertension 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 Do you presently have visiting nurse or other home services: Yes Alcohol intake: never Patient Tobacco Use Status: Never used Tobacco e-Cigarette/Vaping Use: Never Used Second Hand Smoke Exposure: No service: No Current occupational status: retired and disabled Cognitive needs: Yes (cane/walker) Hearing needs: No Vision needs: Yes (glasses) Questionnaire PHQ-9 Over the last 2 weeks, how often have you been bothered by any of the following problems? 1. Little interest or pleasure in doing things: not at all 2. Feeling down, depressed, or hopeless: not at all 3. Trouble falling or staying asleep, or sleeping too much: not at all 4. Feeling tired or having little energy: not at all 5. Poor appetite or overeating: not at all 6. Feeling bad about yourself - or that you are a failure or have let yourself or your family down: not at all 7. Trouble concentrating on things, such as reading the newspaper or watching television: not at all 8. Moving or speaking so slowly that other people could have noticed. Or the opposite - being so fidgety or restless that you have been moving around a lot more than usual: not at all 9. Thoughts that you would be better off or of hurting yourself in some way: not at all Total score: 0 Depression Screening Interpretation: Negative Depression Screening Done: Yes 41716 - PHQ-9 Billing: Yes Source: Developed by Drs. Harris Puente, Breonna Galindo, Dank Chan and colleagues, with an educational madhav from [employer]. Thrive Questionnaire Date Thrive assessed: 07/21/22 AUDIT C Alcohol Use Questionnaire (AUDIT-C) 1. How often do you have a drink containing alcohol?: Never 3. How often do you have six or more drinks on one occasion?: Never Total Score: 0 Score Reviewed/Action Taken: Yes MARKOS-7 AMB Questionnaire MARKOS-7 Date MARKOS - 7 assessed: 07/21/22 Source: Developed by Drs. Harris Puente, Breonna Galindo, Dank Chan and colleagues, with an educational madhav from [employer]. Review of Systems Const Denies chills, Denies fatigue, Denies headache(s) and Denies weight loss Eyes Denies change in vision, Denies diplopia and Denies eye pain ENT Denies vertigo, Denies dizziness, Denies headache(s) and Denies nasal discharge Card Denies chest pain, Denies rapid heart rate and Denies dyspnea on exertion Resp Denies chest congestion, Denies cough, Denies pain with cough and Denies dyspnea on exertion GI Denies abdominal pain, Denies hematochezia and Denies change in bowel habits Musc Denies myalgias, Denies arthralgias and Denies joint swelling Skin/Breast Denies lesions and Denies unusual bruising Neuro Denies vertigo, Denies dizziness, Denies headache(s) and Denies focal weakness Endo Denies fatigue Physical exam (Primary Care) Vital Signs: Last Vital Signs Pulse 69 04/29/23 10:46 BP 146/60 H 04/29/23 10:46 Pulse Ox 99 04/29/23 10:46 Oxygen Delivery Method Room Air 04/29/23 10:46 BMI result Body Mass Index 25.6 Tobacco/Smoking Status: Tobacco use Status Tobacco use date assessed 07/21/22 04/29/23 10:47 Patient Tobacco Use Status Never used Tobacco 04/29/23 10:47 e-Cigarette/Vaping Use Never Used 04/29/23 10:47 PHQ-9: PHQ-9 Score PHQ-9: Total score 0 04/29/23 10:47 Depression Screening Interpretation: Negative Thrive Assessment: Date of Thrive Assessment Date Thrive assessed 07/21/22 04/29/23 10:47 Advance Care Planning discussion: On file, no changes Forms completed: Health Care Proxy Const General: cooperative, healthy appearing and no acute distress Orientation/consciousness: oriented to person, oriented to place and oriented to time HENMT Head: Yes normal to inspection, Yes normocephalic and Yes atraumatic Mouth: Normal oral and palatal mucosa present and tongue normal Throat: Yes posterior oropharynx normal and Yes uvula midline Eyes General: appearance normal, both eyes and all related structures Neck Neck: Yes normal visual inspection, Yes full ROM and Yes no lymphadenopathy Thyroid: Thyroid normal Carotids: normal carotid upstroke Chest Chest palpation & inspection: normal inspection of the chest Resp Effort & Inspection: normal respiratory effort and able to speak in complete sentences Auscultation: clear to auscultation bilaterally Cardio Jugular venous distension: no JVD Palpation: normal PMI Rate: regular rate Rhythm: regular rhythm Heart sounds: S1 normal heart sound present and S2 normal heart sound present GI Inspection: Yes normal to inspection Palpation (GI): Soft to palpation and No hepatosplenomegaly present Auscultation: normal bowel sounds General: Yes no CVA tenderness Back/Spine/Pelvis Back: no CVA tenderness Skin General skin exam: no rashes or lesions noted Neuro General: oriented to person, oriented to place and oriented to time Extrem General: Yes normal to inspection and Yes full ROM Assessment and Plan Assessment & Plan (1) Physical exam: Code(s): Z00.00 - Encounter for general adult medical examination without abnormal findings Plan: stable (2) Diabetes mellitus with coincident hypertension: Code(s): E11.9 - Type 2 diabetes mellitus without complications; I10 - Essential (primary) hypertension Plan: stable; do labs (3) Dyslipidemia: Code(s): E78.5 - Hyperlipidemia, unspecified Plan: stable; same rx Orders: Orders Lipid Panel Today E78.5 - Hyperlipidemia, unspecified Microalbumin, Random (w Creat) Today E11.69 - Type 2 diabetes mellitus with other specified complication, E66.01 - Morbid (severe) obesity due to excess calories Thyroid Stimulating Hormone Today E03.9 - Hypothyroidism, unspecified Complete Blood Count Auto Diff Today D64.9 - Anemia, unspecified Comprehensive [place]. Panel Fast Today N28.9 - Disorder of kidney and ureter, unspecified Hemoglobin A1c Today R73.9 - Hyperglycemia, unspecified Coding Level of Care Code Est Pt Prev Care >65y(89729) Diagnoses Physical exam Z00.00 Diabetes mellitus with coincident hypertension E11.9; I10 Dyslipidemia E78.5 Additional Codes Vital Signs *Quality* - Advance Care Planning discussion: On file, no changes ([id number])
== END 2023-04-29 11:11 | disposition home or self-care (01) ==
PROVIDERS: Visit Provider Internal Medicine
DX: Z00.00 Encounter for general adult medical examination without abnormal findings (principal); E11.9 Type 2 diabetes mellitus without complications; I10 Essential (primary) hypertension; E78.5 Hyperlipidemia, unspecified
CPT/HCPCS: 1123F; 99397

== ENCOUNTER 2023-05-19 09:32 | Outpatient (REF) | payer OTHER, SELFPAY ==
[2023-05-19 10:37] LABS: MANUAL DIFF FLAG NO
[2023-05-19 10:42] LABS: Basophils Percent Auto 0.5 % (0-2); Eosinophils Absolute Auto 0.1 X10*3/uL (0.0-0.4); Eosinophils Percent Auto 1.5 % (0-4); Hematocrit 37.8 % (37.0-47.0); Imm Gran Abs Auto 0.02 X10*3/uL (0.00-0.03); Imm Gran Pct Auto 0.2 % (0.0-0.4); Lymphocytes Absolute Auto 2.6 X10*3/uL (1.2-4.9); Lymphocytes Percent Auto 30.8 % (20-40); Mean Corpuscular HGB Conc 31.7 g/dl (31.0-35.0); Mean Corpuscular Hemoglobin 28.6 pg (27.0-33.0); Mean Corpuscular Volume 90.2 fL (80.0-98.0); Mean Platelet Volume 10.6 fL (9.4-12.3); Monocytes Absolute Auto 0.7 X10*3/uL (0.1-1.2); Monocytes Percent Auto 8.6 % (2-11); Neutrophils Absolute Auto 4.9 x10*3/uL (2.0-8.3); Neutrophils Percent Auto 58.4 % (45-73); Platelet Count 228 X10*3/uL (160-400); Red Blood Count 4.19 X10*6/uL (4.20-5.50); Red Cell Distribution Width 12.9 % (11.0-16.0); White Blood Count 8.5 X10*3/uL (4.8-10.8)
[2023-05-19 11:02] LABS: Estimated Average Glucose 223 mg/dL; Hemoglobin A1c % 9.4 % (<6.0)
[2023-05-19 11:03] LABS: Alanine Aminotransferase 45 U/L (0-31); Albumin Level 3.9 g/dL (3.5-5.0); Alkaline Phosphatase 490 U/L (39-117); Anion Gap 13 (12-20); Aspartate Amino Transferase 42 U/L (5-31); Bilirubin Total 0.6 mg/dL (0.0-1.0); Blood Urea Nitrogen 23 mg/dL (9-16); Calcium 9.8 mg/dL (8.4-10.2); Carbon Dioxide 29 mmol/L (22-29); Chloride 103 mmol/L (96-108); Cholesterol 161 mg/dL (<200); Estimated Glomerular Filt Rate 40; Glucose Fasting 160 mg/dL (60-99); HDL Cholesterol 59 mg/dL (>40); LDL Cholesterol Calculated 83 mg/dL (<100); Potassium 4.5 mmol/L (3.3-5.1); Sodium 140 mmol/L (135-145); Total Protein 7.2 g/dL (6.5-8.0); Triglycerides 99 mg/dL (<150)
[2023-05-19 11:20] LABS: Thyroid Stimulating Hormone 3.02 uIU/mL (0.32-4.0)
[2023-05-19 12:18] LABS: Creatinine Urine 164.06 mg/dL; Microalbum/Creatinine Ratio Ur 78.6 ug/mg cr (<30)
== END 2023-05-19 09:33 | disposition home or self-care (01) ==
LOC: HO.10HDL 09:32
PROVIDERS: Visit Provider Internal Medicine
DX: E03.9 Hypothyroidism, unspecified (principal); E11.69 Type 2 diabetes mellitus with other specified complication; E11.65 Type 2 diabetes mellitus with hyperglycemia; E66.01 Morbid (severe) obesity due to excess calories; E78.5 Hyperlipidemia, unspecified; N28.9 Disorder of kidney and ureter, unspecified; D64.9 Anemia, unspecified
CPT/HCPCS: 36415; 80053; 80061; 82043; 82570; 83036; 84443; 85025

== ENCOUNTER 2023-07-11 10:17 | Outpatient (REF) | payer OTHER, SELFPAY ==
[2023-07-11 10:27] LABS: Appearance Urine Clear; Color Urine Yellow; Glucose Urine UA Negative (Negative); Leukocyte Esterase Urine Moderate (2+) (Negative); Nitrite Urine Negative (Negative); PH 6.5 (5.0-9.0); Specific Gravity - Urine 1.015 (1.005-1.025); UMIC TRIGGER UACC YES; Urine Blood Negative (Negative); Urine Ketones Negative (Negative); Urine Protein Negative (Neg-Trace)
[2023-07-11 10:31] LABS: Bacteria Urine None Seen (None Seen); Hyaline Casts Urine 0-2 /LPF (0-2); RBC Urine 0-2 /HPF (0-2); Squamous Epithelial Cell Urine 0-2 /HPF (0-2); UACC Culture Trigger YES
== END 2023-07-11 10:18 | disposition home or self-care (01) ==
LOC: HO.LNP 10:17
PROVIDERS: Visit Provider Internal Medicine
DX: R39.9 Unspecified symptoms and signs involving the genitourinary system (principal)
CPT/HCPCS: 81001; 87086

== ENCOUNTER 2023-11-18 10:34 | Outpatient (AMB) | payer OTHER, SELFPAY ==
--- NOTE | 2023-11-18 10:37 | MHC.PC.OV ---
Vital Signs 11/18/23 10:42 Height 5 ft 2 in Weight 143 lb 11.862 oz BMI 26.3 BP 146/72 H Blood Pressure Location Lt brachial Position Sitting Pulse 62 Pulse Source Pulse Oximeter Pulse Oximetry (%) 98 Oxygen Delivery Method Room Air Intake Visit Reasons: 6 month f/u Intake Note: Patient is here to follow up on DM, Dyslipidemia. Orchestra Musician Required: Yes Orchestra Musician Language: [place] Information Interpreted: non-clinical & clinical Patient Services Technician: Present Allergies brimonidine [From ALPHAGAN P] Allergy (Unknown, Verified 11/18/23 10:39) UNKNOWN alphagan Allergy (Unknown, Uncoded 11/18/23 10:39) allergy reaction Fluoxetine Allergy (Unknown, Uncoded 11/18/23 10:39) Unknown Tobacco use date assessed: 11/18/23 Fall risk assessment: 1 Fall in past year Last assessed Fall Risk: 11/18/23 Dental Screening Dental Screen Date: 04/29/23 HPI 6 month f/u HPI Details HTN on Rx; doing well and [facility] Medical History Dementia Diabetes mellitus Uterine prolapse Dyslipidemia Hypertension 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 Do you presently have visiting nurse or other home services: Yes Alcohol intake: never Patient Tobacco Use Status: Never used Tobacco e-Cigarette/Vaping Use: Never Used Second Hand Smoke Exposure: No service: No Current occupational status: retired and disabled Cognitive needs: Yes (cane/walker) Hearing needs: No Vision needs: Yes (glasses) Questionnaire PHQ-9 Over the last 2 weeks, how often have you been bothered by any of the following problems? 1. Little interest or pleasure in doing things: not at all 2. Feeling down, depressed, or hopeless: not at all 3. Trouble falling or staying asleep, or sleeping too much: not at all 4. Feeling tired or having little energy: not at all 5. Poor appetite or overeating: not at all 6. Feeling bad about yourself - or that you are a failure or have let yourself or your family down: not at all 7. Trouble concentrating on things, such as reading the newspaper or watching television: not at all 8. Moving or speaking so slowly that other people could have noticed. Or the opposite - being so fidgety or restless that you have been moving around a lot more than usual: not at all 9. Thoughts that you would be better off or of hurting yourself in some way: not at all Total score: 0 Depression Screening Interpretation: Negative Depression Screening Done: Yes Source: Developed by Drs. Harris Puente, Breonna Galindo, Dank Chan and colleagues, with an educational madhav from [employer]. Thrive Questionnaire Date Thrive assessed: 11/18/23 I am a: Patient What is your living situation today?: I have a steady place to live Within the past 12 months, did the food you bought not last and you didn't have the money to get more?: Never true Within the past 12 months, did you worry whether your food would run out before you got money to buy more?: Never true Do you have trouble paying for medicines?: No Do you have trouble getting transportation to medical appointments?: No Do you have trouble paying your heating and electricity bill?: No Do you have trouble taking care of your child, family member or friend?: No Do you have trouble with day-to-day activities such as bathing, preparing meals, shopping, managing finances, etc.?: No Are you currently unemployed and looking for a job?: No Are you interested in more education?: No Currently or been in a relationship where the following occur: no concerns reported THRIVE Score: 0 AUDIT C Alcohol Use Questionnaire (AUDIT-C) 1. How often do you have a drink containing alcohol?: Never Total Score: 0 MARKOS-7 AMB Questionnaire MARKOS-7 Date MARKOS - 7 assessed: 11/18/23 Feeling nervous, anxious, or on edge: 0 = Not at all Not being able to stop or control worryin = Not at all Worrying too much about different things: 0 = Not at all Trouble relaxin = Not at all Being so restless that it is hard to sit still: 0 = Not at all Becoming easily annoyed or irritable: 0 = Not at all Feeling afraid as if something awful might happen: 0 = Not at all Total MARKOS-7 score (0-4 normal; 5-9 mild; 10-14 moderate; 15-21 severe): 0 Source: Developed by Drs. Harris Puente, Breonna Galindo, Dank Chan and colleagues, with an educational madhav from [employer]. Review of Systems Const Denies chills, Denies headache(s) and Denies weight loss ENT Denies headache(s) Card Denies chest pain, Denies syncope, Denies irregular heart rhythm and Denies dyspnea Resp Denies chest congestion, Denies cough and Denies dyspnea GI Denies abdominal pain, Denies change in stool character, Denies nausea and Denies vomiting Musc Denies deformity and Denies joint swelling Neuro Denies syncope and Denies headache(s) Physical exam (Primary Care) Vital Signs: Last Vital Signs Pulse 62 11/18/23 10:42 BP 146/72 H 11/18/23 10:42 Pulse Ox 98 11/18/23 10:42 Oxygen Delivery Method Room Air 11/18/23 10:42 BMI result Body Mass Index 26.3 Tobacco/Smoking Status: Tobacco use Status Tobacco use date assessed 11/18/23 11/18/23 10:39 Patient Tobacco Use Status Never used Tobacco 11/18/23 10:39 e-Cigarette/Vaping Use Never Used 11/18/23 10:39 PHQ-9: PHQ-9 Score PHQ-9: Total score 0 11/18/23 10:53 Depression Screening Interpretation: Negative Thrive Assessment: Date of Thrive Assessment Date Thrive assessed 11/18/23 11/18/23 10:39 Currently or been in a relationship where the following occur: no concerns reported Const General: cooperative, comfortable, no acute distress and alert Neck Neck: Yes no lymphadenopathy Thyroid: Thyroid normal Resp Effort & Inspection: normal respiratory effort Auscultation: clear to auscultation bilaterally Percussion: percussion normal Cardio Jugular venous distension: no JVD Palpation: normal PMI Rate: regular rate Rhythm: regular rhythm Heart sounds: S1 normal heart sound present and S2 normal heart sound present GI Inspection: Yes normal to inspection Palpation (GI): No hepatosplenomegaly present Skin General skin exam: no rashes or lesions noted Extrem General: Yes no clubbing, cyanosis or edema Results AMB Hemoglobin A1c AMB Hemoglobin A1c 9.7 % Last Edit by MARYCARMEN Thorpe on 11/18/23 10:53 Results Reviewed Results Reviewed: Laboratory Last Values Hgb A1c (Clinic) 9.7 % (4.0-6.0) H 11/18/23 09:21 Assessment and Plan Assessment & Plan (1) Hypertension: Code(s): I10 - Essential (primary) hypertension Plan: stable; same rx Orders: Orders AMB Hemoglobin A1c 11/18/23 E10.21 - Type 1 diabetes mellitus with diabetic nephropathy Complete Blood Count Auto Diff Today Z13.0 - Encounter for screening for diseases of the blood and blood-forming organs and certain disorders involving the immune mechanism Comprehensive [place]. Panel Fast Today Z13.9 - Encounter for screening, unspecified Hemoglobin A1c Today R73.9 - Hyperglycemia, unspecified Coding Level of Care Code Est Pt Level 3 (09226) Diagnoses Hypertension I10
[2023-11-18 10:42] VITALS: BP 146/72; PULSE 62; O2SAT 98; BMI 26.3
== END 2023-11-18 10:59 | disposition home or self-care (01) ==
PROVIDERS: PCP Internal Medicine; Visit Provider Internal Medicine
DX: E10.21 Type 1 diabetes mellitus with diabetic nephropathy (principal)
CPT/HCPCS: 83036; 99213

== ENCOUNTER 2023-12-24 10:11 | Outpatient (REF) | payer OTHER, SELFPAY ==
[2023-12-24 10:50] LABS: MANUAL DIFF FLAG NO
[2023-12-24 10:57] LABS: Basophils Percent Auto 0.4 % (0-2); Eosinophils Absolute Auto 0.2 X10*3/uL (0.0-0.4); Hematocrit 39.5 % (37.0-47.0); Hemoglobin 12.9 g/dl (12.0-16.0); Imm Gran Abs Auto 0.02 X10*3/uL (0.00-0.03); Imm Gran Pct Auto 0.3 % (0.0-0.4); Lymphocytes Absolute Auto 3.5 X10*3/uL (1.2-4.9); Lymphocytes Percent Auto 43.4 % (20-40); Mean Corpuscular HGB Conc 32.7 g/dl (31.0-35.0); Mean Corpuscular Hemoglobin 28.7 pg (27.0-33.0); Mean Platelet Volume 10.3 fL (9.4-12.3); Monocytes Absolute Auto 0.6 X10*3/uL (0.1-1.2); Monocytes Percent Auto 7.8 % (2-11); Neutrophils Absolute Auto 3.7 x10*3/uL (2.0-8.3); Neutrophils Percent Auto 46.1 % (45-73); Platelet Count 206 X10*3/uL (160-400); Red Blood Count 4.49 X10*6/uL (4.20-5.50)
[2023-12-24 11:02] LABS: Estimated Average Glucose 214 mg/dL; Hemoglobin A1c % 9.1 % (<6.0)
[2023-12-24 11:13] LABS: Alanine Aminotransferase 18 U/L (0-31); Albumin Level 4.1 g/dL (3.5-5.0); Alkaline Phosphatase 123 U/L (39-117); Anion Gap 13 (12-20); Aspartate Amino Transferase 29 U/L (5-31); Bilirubin Total 0.5 mg/dL (0.0-1.0); Blood Urea Nitrogen 17 mg/dL (9-16); Calcium 10.1 mg/dL (8.4-10.2); Carbon Dioxide 28 mmol/L (22-29); Chloride 104 mmol/L (96-108); Estimated Glomerular Filt Rate 33; Glucose Fasting 125 mg/dL (60-99); Potassium 4.1 mmol/L (3.3-5.1); Sodium 141 mmol/L (135-145); Total Protein 7.2 g/dL (6.5-8.0)
== END 2023-12-24 10:12 | disposition home or self-care (01) ==
LOC: HO.10HDL 10:11
PROVIDERS: Visit Provider Internal Medicine
DX: Z13.0 Encounter for screening for diseases of the blood and blood-forming organs and certain disorders involving the immune mechanism (principal); Z13.9 Encounter for screening, unspecified; R73.9 Hyperglycemia, unspecified
CPT/HCPCS: 36415; 80053; 83036; 85025

== ENCOUNTER 2024-05-04 09:59 | Outpatient (AMB) | payer OTHER, SELFPAY ==
--- NOTE | 2024-05-04 10:05 | A.OFFPC_ITS ---
Vital Signs 05/04/24 10:06 Height 5 ft 2 in Weight 137 lb BMI 25.1 BP 140/72 H Blood Pressure Location Lt brachial Position Sitting Pulse 60 Pulse Source Pulse Oximeter Pulse Oximetry (%) 97 Oxygen Delivery Method Room Air Intake Visit Reasons: Annual Physical - see comments Intake Note: Patient is here today for a physical. Car Construction Superintendent Required: No Accompanied by: Self / Same As Patient Allergies brimonidine [From ALPHAGAN P] Allergy (Unknown, Verified 05/04/24 10:08) UNKNOWN alphagan Allergy (Unknown, Uncoded 05/04/24 10:08) allergy reaction Fluoxetine Allergy (Unknown, Uncoded 05/04/24 10:08) Unknown Tobacco use date assessed: 11/18/23 Fall risk assessment: No Falls in past year Last assessed Fall Risk: 05/04/24 Dental Screening Dental Screen Date: 04/29/23 HPI Annual Physical - see comments HPI Details HTN and DM; stable; compliant with meds but does not eat well PFSH Medical History Dementia Diabetes mellitus Uterine prolapse Dyslipidemia Hypertension 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 Do you presently have visiting nurse or other home services: Yes Alcohol intake: never Patient Tobacco Use Status: Never used Tobacco e-Cigarette/Vaping Use: Never Used Second Hand Smoke Exposure: No service: No Current occupational status: retired and disabled Cognitive needs: Yes (cane/walker) Hearing needs: No Vision needs: Yes (glasses) Questionnaire PHQ-9 Over the last 2 weeks, how often have you been bothered by any of the following problems? 1. Little interest or pleasure in doing things: nearly every day 2. Feeling down, depressed, or hopeless: not at all 4. Feeling tired or having little energy: nearly every day 5. Poor appetite or overeating: not at all 6. Feeling bad about yourself - or that you are a failure or have let yourself or your family down: not at all 7. Trouble concentrating on things, such as reading the newspaper or watching television: nearly every day 8. Moving or speaking so slowly that other people could have noticed. Or the opposite - being so fidgety or restless that you have been moving around a lot more than usual: not at all 9. Thoughts that you would be better off or of hurting yourself in some way: not at all Depression Screening Interpretation: Negative Depression Screening Done: Yes 80006 - PHQ-9 Billing: Yes Source: Developed by Drs. Harris Puente, Dank Evans and colleagues, with an educational madhav from [employer]. Thrive Questionnaire Date Thrive assessed: 05/04/24 I am a: Parent/Caregiver What is your living situation today?: I have a steady place to live THRIVE Score: 0 AUDIT C Alcohol Use Questionnaire (AUDIT-C) 1. How often do you have a drink containing alcohol?: Never Total Score: 0 MARKOS-7 AMB Questionnaire MARKOS-7 Date MARKOS - 7 assessed: 05/04/24 Feeling nervous, anxious, or on edge: 0 = Not at all Not being able to stop or control worryin = Not at all Worrying too much about different things: 0 = Not at all Trouble relaxin = Not at all Being so restless that it is hard to sit still: 0 = Not at all Becoming easily annoyed or irritable: 0 = Not at all Feeling afraid as if something awful might happen: 0 = Not at all Total MARKOS-7 score (0-4 normal; 5-9 mild; 10-14 moderate; 15-21 severe): 0 Source: Developed by Drs. Harris Puente, Dank Evans and colleagues, with an educational madhav from [employer]. MARKOS-7 Assessment Billing MARKOS-7 Assessment Tool: MARKOS-7 Assessment 42722 Review of Systems Const Denies chills, Denies fatigue, Denies headache(s) and Denies weight loss Eyes Denies change in vision, Denies diplopia and Denies eye pain ENT Denies vertigo, Denies dizziness, Denies headache(s) and Denies nasal discharge Card Denies chest pain, Denies rapid heart rate and Denies dyspnea on exertion Resp Denies chest congestion, Denies cough, Denies pain with cough and Denies dyspnea on exertion GI Denies abdominal pain, Denies hematochezia and Denies change in bowel habits Musc Denies myalgias, Denies arthralgias and Denies joint swelling Skin/Breast Denies lesions and Denies unusual bruising Neuro Denies vertigo, Denies dizziness, Denies headache(s) and Denies focal weakness Endo Denies fatigue Physical exam (Primary Care) Vital Signs: Last Vital Signs Pulse 60 05/04/24 10:06 BP 140/72 H 05/04/24 10:06 Pulse Ox 97 05/04/24 10:06 Oxygen Delivery Method Room Air 05/04/24 10:06 BMI result Body Mass Index 25.1 Tobacco/Smoking Status: Tobacco use Status Tobacco use date assessed 11/18/23 05/04/24 10:12 Patient Tobacco Use Status Never used Tobacco 05/04/24 10:12 e-Cigarette/Vaping Use Never Used 05/04/24 10:12 Depression Screening Interpretation: Negative Thrive Assessment: Date of Thrive Assessment Date Thrive assessed 05/04/24 05/04/24 10:12 Const General: cooperative, healthy appearing and no acute distress Orientation/consciousness: oriented to person, oriented to place and oriented to time [facility] Head: Yes normal to inspection, Yes normocephalic and Yes atraumatic Mouth: Normal oral and palatal mucosa present and tongue normal Throat: Yes posterior oropharynx normal and Yes uvula midline Eyes General: appearance normal, both eyes and all related structures Neck Neck: Yes normal visual inspection, Yes full ROM and Yes no lymphadenopathy Thyroid: Thyroid normal Carotids: normal carotid upstroke Chest Chest palpation & inspection: normal inspection of the chest Resp Effort & Inspection: normal respiratory effort and able to speak in complete sentences Auscultation: clear to auscultation bilaterally Cardio Jugular venous distension: no JVD Palpation: normal PMI Rate: regular rate Rhythm: regular rhythm Heart sounds: S1 normal heart sound present and S2 normal heart sound present GI Inspection: Yes normal to inspection Palpation (GI): Soft to palpation and No hepatosplenomegaly present Auscultation: normal bowel sounds General: Yes no CVA tenderness Back/Spine/Pelvis Back: no CVA tenderness Skin General skin exam: no rashes or lesions noted Neuro General: oriented to person, oriented to place and oriented to time Extrem General: Yes normal to inspection and Yes full ROM Results AMB Hemoglobin A1c AMB Hemoglobin A1c 9.2 % Last Edit by MARYCARMEN Thorpe on 05/04/24 10:15 Results Reviewed Results Reviewed: Laboratory Last Values Hgb A1c (Clinic) 9.2 % (4.0-6.0) H 05/04/24 10:14 Coding Level of Care Code Est Pt Prev Care >65y(39425) Diagnoses Physical exam Z00.00 Diabetes mellitus with coincident hypertension E11.9; I10 Hypertension I10 Additional Codes PHQ-9 - 31423 - PHQ-9 Billing: Yes ([id number]) MARKOS-7 Assessment Billing - MARKOS-7 Assessment Tool: MARKOS-7 Assessment 73708 ([id number]) Assessment & Plan Assessment & Plan (1) Physical exam: Code(s): Z00.00 - Encounter for general adult medical examination without abnormal f indings Category: Medical Plan: stable; do labs (2) Diabetes mellitus with coincident hypertension: Code(s): E11.9 - Type 2 diabetes mellitus without complications; I10 - Essential (primary) hypertension Category: Medical Plan: stable; same rx (3) Hypertension: Code(s): I10 - Essential (primary) hypertension Category: Medical Plan: stable; same rx Orders: Orders AMB Hemoglobin A1c 05/04/24 E11.9 - Type 2 diabetes mellitus without complications
[2024-05-04 10:06] VITALS: BP 140/72; PULSE 60; O2SAT 97; BMI 25.1
== END 2024-05-04 10:22 | disposition home or self-care (01) ==
PROVIDERS: PCP Internal Medicine; Visit Provider Internal Medicine
DX: Z00.00 Encounter for general adult medical examination without abnormal findings (principal); E11.9 Type 2 diabetes mellitus without complications; I10 Essential (primary) hypertension

== ENCOUNTER → 2024-05-04 09:59 | Outpatient (BNVA) | payer OTHER, SELFPAY | PROVIDERS: PCP Internal Medicine; Visit Provider Internal Medicine | DX: Z00.00 Encounter for general adult medical examination without abnormal findings (principal); E11.9 Type 2 diabetes mellitus without complications; I10 Essential (primary) hypertension | CPT/HCPCS: 83036; 96127; 99397 ==

== ENCOUNTER 2024-08-05 11:34 | Outpatient (AMB) | payer OTHER, SELFPAY ==
--- NOTE | 2024-08-05 11:37 | A.OFFPC_ITS ---
Vital Signs 08/05/24 11:38 Height 5 ft 2 in Weight 139 lb BMI 25.4 BP 138/86 Blood Pressure Location Lt brachial Position Sitting Pulse 78 Pulse Source Pulse Oximeter Pulse Oximetry (%) 99 Oxygen Delivery Method Room Air Intake Visit Reasons: 3 month f/u Acoustical Tile Carpenters Supervisor Required: No Accompanied by: Self / Same As Patient Allergies brimonidine [From ALPHAGAN P] Allergy (Unknown, Verified 08/05/24 11:39) UNKNOWN alphagan Allergy (Unknown, Uncoded 08/05/24 11:39) allergy reaction Fluoxetine Allergy (Unknown, Uncoded 08/05/24 11:39) Unknown Medication List - Last Reconciled 08/08/24 by Mateusz Elam MD Accu-Chek Shamika Plus test strp (blood sugar diagnostic) 3 times a day NS acetaminophen (Tylenol) 650 mg PO Q6H PRN amlodipine 5 mg PO DAILY atenolol 50 mg PO DAILY bimatoprost 0.01% (Lumigan) 1 drp ophthalmic (eye) BEDTIME bisacodyl 5 mg PO BEDTIME flash glucose scanning reader (FreeStyle Aditya 2 Calmar) As directed flash glucose sensor (FreeStyle Aditya 2 Sensor kit) Every 14 days furosemide 20 mg PO DAILY ibuprofen 400 mg PO Q8H PRN insulin glargine U-300 conc (Toujeo SoloStar U-300 Insulin) 13 units (0.0433 mL) subcut BEDTIME insulin lispro (Humalog KwikPen (U-100) Insulin) 6 units with breakfast , 6 units lunch lunch, 6-8 units with dinner and 2 units with snacks subcut. 4 times a day SLIDING SCALE 90 days lancets (Accu-Chek Fastclix Lancet Drum) 4 times a day [id number] 6,000-19,000 -30,000 unit (Creon) 1 cap PO DAILY lovastatin 40 mg PO BEDTIME meloxicam 7.5 mg PO DAILY nystatin topical BID pen needle, diabetic (BD Pinky 2nd Gen Pen Needle) 5 times a day polyethylene glycol 3350 (Gavilax) 17 grams PO DAILY PRN timolol maleate 0.5% 1 drp ophthalmic (eye) DAILY trazodone 50 mg PO BEDTIME PRN valsartan 160 mg See Protocol PO BIDWM walker As directed Tobacco use date assessed: 08/05/24 Fall risk assessment: 2 + Falls in past year Last assessed Fall Risk: 08/05/24 Dental Screening Dental Screen Date: 08/05/24 Did you have a dental visit in the last 12 months?: No Did you have a dental problem in the last 6 months where you did not have access to dental care?: No Was dental information given to patient?: No HPI 3 month f/u HPI Details diabetes and hypertension; cognitive decline makes diet restrictions difficult but cared for 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 Do you presently have visiting nurse or other home services: Yes Alcohol intake: never Patient Tobacco Use Status: Never used Tobacco e-Cigarette/Vaping Use: Never Used Second Hand Smoke Exposure: No service: No Current occupational status: retired and disabled Cognitive needs: Yes (cane/walker) Hearing needs: No Vision needs: Yes (glasses) Questionnaire PHQ-9 Over the last 2 weeks, how often have you been bothered by any of the following problems? 1. Little interest or pleasure in doing things: nearly every day 2. Feeling down, depressed, or hopeless: not at all 4. Feeling tired or having little energy: nearly every day 5. Poor appetite or overeating: not at all 6. Feeling bad about yourself - or that you are a failure or have let yourself or your family down: not at all 7. Trouble concentrating on things, such as reading the newspaper or watching television: nearly every day 8. Moving or speaking so slowly that other people could have noticed. Or the opposite - being so fidgety or restless that you have been moving around a lot more than usual: not at all 9. Thoughts that you would be better off or of hurting yourself in some way: not at all Depression Screening Interpretation: Negative Depression Screening Done: Yes 10549 - PHQ-9 Billing: Yes Source: Developed by Drs. Harris Puente, Breonna Galindo, Dank Chan and colleagues, with an educational madhav from [employer]. Thrive Questionnaire Date Thrive assessed: 08/05/24 I am a: Parent/Caregiver What is your living situation today?: I have a steady place to live Within the past 12 months, did the food you bought not last and you didn't have the money to get more?: Never true Within the past 12 months, did you worry whether your food would run out before you got money to buy more?: Never true Do you have trouble paying for medicines?: No Do you have trouble getting transportation to medical appointments?: No Do you have trouble paying your heating and electricity bill?: No Do you have trouble taking care of your child, family member or friend?: No Do you have trouble with day-to-day activities such as bathing, preparing meals, shopping, managing finances, etc.?: No Are you currently unemployed and looking for a job?: No Are you interested in more education?: No Please select the resources that you would like help with: None Currently or been in a relationship where the following occur: No concerns reported THRIVE Score: 0 AUDIT C Alcohol Use Questionnaire (AUDIT-C) 1. How often do you have a drink containing alcohol?: Never 3. How often do you have six or more drinks on one occasion?: Never Total Score: 0 MARKOS-7 AMB Questionnaire MARKOS-7 Date MARKOS - 7 assessed: 08/05/24 Feeling nervous, anxious, or on edge: 0 = Not at all Not being able to stop or control worryin = Not at all Worrying too much about different things: 0 = Not at all Trouble relaxin = Not at all Being so restless that it is hard to sit still: 0 = Not at all Becoming easily annoyed or irritable: 0 = Not at all Feeling afraid as if something awful might happen: 0 = Not at all Total MARKOS-7 score (0-4 normal; 5-9 mild; 10-14 moderate; 15-21 severe): 0 Source: Developed by Drs. Harris Puente, Breonna Galindo, Dank Chan and colleagues, with an educational madhav from [employer]. MARKOS-7 Assessment Billing MARKOS-7 Assessment Tool: MARKOS-7 Assessment 72478 Review of Systems Const Denies chills, Denies headache(s) and Denies weight loss ENT Denies headache(s) Card Denies chest pain, Denies syncope, Denies irregular heart rhythm and Denies dyspnea Resp Denies chest congestion, Denies cough and Denies dyspnea GI Denies abdominal pain, Denies change in stool character, Denies nausea and Denies vomiting Musc Denies deformity and Denies joint swelling Neuro Denies syncope and Denies headache(s) Physical exam (Primary Care) Vital Signs: Last Vital Signs Pulse 78 08/05/24 11:38 BP 138/86 08/05/24 11:38 Pulse Ox 99 08/05/24 11:38 Oxygen Delivery Method Room Air 08/05/24 11:38 BMI result Body Mass Index 25.4 Tobacco/Smoking Status: Tobacco use Status Tobacco use date assessed 08/05/24 08/05/24 11:42 Patient Tobacco Use Status Never used Tobacco 08/05/24 11:42 e-Cigarette/Vaping Use Never Used 08/05/24 11:42 Depression Screening Interpretation: Negative Thrive Assessment: Date of Thrive Assessment Date Thrive assessed 08/05/24 08/05/24 11:42 Currently or been in a relationship where the following occur: No concerns reported Const General: cooperative, comfortable, no acute distress and alert Neck Neck: Yes no lymphadenopathy Thyroid: Thyroid normal Resp Effort & Inspection: normal respiratory effort Auscultation: clear to auscultation bilaterally Percussion: percussion normal Cardio Jugular venous distension: no JVD Palpation: normal PMI Rate: regular rate Rhythm: regular rhythm Heart sounds: S1 normal heart sound present and S2 normal heart sound present GI Inspection: Yes normal to inspection Palpation (GI): No hepatosplenomegaly present Skin General skin exam: no rashes or lesions noted Extrem General: Yes no clubbing, cyanosis or edema Coding Level of Care Code Est Pt Level 3 (14018) Diagnoses Diabetes mellitus with coincident hypertension E11.9; I10 Additional Codes MARKOS-7 Assessment Billing - MARKOS-7 Assessment Tool: MARKOS-7 Assessment 32590 ([id number]) PHQ-9 - 08147 - PHQ-9 Billing: Yes ([id number]) Assessment & Plan Assessment & Plan (1) Diabetes mellitus with coincident hypertension: Code(s): E11.9 - Type 2 diabetes mellitus without complications; I10 - Essential (primary) hypertension Category: Medical Plan: stable; same rx
[2024-08-05 11:38] VITALS: BP 138/86; PULSE 78; O2SAT 99; BMI 25.4
--- OUTSIDE RECORDS SUMMARY | 2024-08-05 13:53 | XMS_ITS ---
Author Organization [facility] Address [address] [place] [address] Care Team Providers Care Box Sealing Machine Catcher Name Role Phone Mateusz Elam MD Primary Care Provider Mendoza Pillai Unavailable [phone] REASON FOR VISIT 07/21/24 Encounters Encounter Location Date Provider Diagnosis [facility] [address] [place] [address] 07/19/2024 Mendoza Malik Plan Of Treatment Next Appt Details Provider Name:Mendoza Malik , 10/13/2024 11:30:00 AM, [address] [facility], [place] [address], [place], [address], Progress Notes * Sunitha DICKEYDOB:1935 (88 yo F)Acc No.[id number]:07/19/2024 Patient:?Minna DICKEYarita :1935???Age:88 Y???Sex:Female Address:[address] [place] [address] , [place], [address] * true * Date:? Generated for Unruly parr/Bernardo/eTransmitting on:?08/05/2024 01:53 PM EST
--- OUTSIDE RECORDS SUMMARY | 2024-08-05 13:53 | XMS_ITS ---
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) ACTIVE 09/29/2018 HYPO-OSMOLALITY AND HYPONATREMIA (E87.1 - ICD-10-CM) A CTIVE 09/29/2018 HYPERLIPIDEMIA, UNSPECIFIED (E78.5 - ICD-10-CM) ACTIVE 09/29/2018 ESSENTIAL (PRIMARY) HYPERTENSION (I10 - ICD-10-CM) ACT CALISTA 09/29/2018 TYPE 2 DIABETES MELLITUS WIT HOUT COMPLICATIONS (E11.9 - ICD-10-CM) ACTIVE 09/29/2018 METABOLIC ENCEPHALOPATHY (G93.41 - ICD-10-CM) ACTIVE 09/30/2018 MAJOR DEPRESSIVE DISORDER, R ECURRENT, UNSPECIFIED (F33.9 - ICD-10-CM) ACTIVE 09/30/2018 HALLUCINATIONS, UNSPECIFIED (R44.3 - ICD-10-CM) ACTIVE 09/30/2018 Encounters Encounter Performer Performer Role Encounter Diagnoses Location Date Discharge - Home - Private home/apt. with home health services [facility] 09/29/2018 03:06 pm EDT - 2018 11:00 am EDT Immunizations Vaccine Date Influenza TB 2 Step [facility] Skin Test 10/09/2018 1 2:00 am EDT TB 2 Step [place] Skin Test 10/07/2018 0 4:00 pm EDT TB 2 Step [place] Skin Test 09/30/2018 1 0:00 am EDT PPSV23 (Previous Pneumococcal Polysaccha ride)Vaccine Social History
--- OUTSIDE RECORDS SUMMARY | 2024-08-05 13:54 | XMS_ITS ---
[facility] Address [address] [place] [address] Care Team Providers Care Hand Sewer Shoes Name Role Phone Mateusz Elam MD Primary Care Provider Mendoza Pillai Unavailable [phone] Allergies Allergen (clinical drug ingredient) Drug/Non Drug Allergy documented on EMR Reaction Allergy Type Onset Date Status brimonidine Alphagan P Allergy Drug Allergy Acti ve brimonidine Brimonidine Unknown Drug Allergy Act nathan fluoxetine Fluoxetine Unknown Drug Allergy Activ e REASON FOR VISIT At Risk Footcare, Toe Irritation Medications Medication SIG (Take, Route, Frequency, Duration) Notes Start Date End Date Status Meloxicam 7.5 MG 1 tablet Orally Once a day for 30 day(s) Active Polyethylene Glycol 3350 Active Tylenol 325 MG as directed twice a day prn Active Timolol Maleate 0.5 % 1 drop into affect ed eye Active Toujeo SoloStar 13 units Acti ve Furosemide 20 MG 1 tablet Orally Once a day for 30 day(s) Active Ibuprofen prn Active Insulin Lispro 6-10 units Acti ve Lovastatin 40 MG 1 tablet with the evening meal Orally Once a day for 30 day(s) Active Lumigan 0.01 % 1 drop into affected eye in the evening Active traZODone HCl 50 MG 1 tablet at bedtime as needed Orally Once a day for 30 day(s) Not-Taking Creon 6000-28091 UNIT as directed Orally Not-Taking Bisacodyl 5 MG as directed Not -Taking amLODIPine Besylate 5 MG 1 tablet Orally Once a day for 30 day(s) Active Atenolol 50 MG 1 tablet Orally Once a day for 30 day(s) Active Extra Depth Orthopedic Shoes (1 Pair) with Customized Heat Molded Multidensity Innersoles (3 Pair) as directed Dx: IDDM/Polyneuropathy (E10.42), Hammertoe Foot Deformity (M20.41,M20.42), Preulcerative Skin Lesion(s) (L85.1) 01/14/2024 Active Walker Not-Taking Lancets Not-Taking Accu-Chek Shamika test strips No t-Taking Valsartan 160 MG 1 tablet Orally Once a day for 30 day(s) Active Social History Tobacco Use: Social History Observation Description Date Details (start date - stop date) Never Smoker NA - NA Tobacco Use/Smoking Question Answer Notes Are you a: nonsmoker Additional Findings: Tobacco Non-User Current no n-smoker Tobacco use other than smoking: Question Answer Notes Are you an other tobacco user? No Vital Signs Height 5ft 2in in 04/18/2024 Weight 135 lbs 04/18/2024 BMI 24.69 kg/m2 04/18/2024 Procedures Procedure Date Ordered Date Performed Result Body Sit e 84544-DAZXDZK NAIL, 6 OR MORE 04/18/2024 N/A 70096-XTYU SKIN LESIONS, OVER 4 04/18/2024 N/A Encounters Encounter Location Date Provider Diagnosis [facility] [address] [address] 04/18/2024 Mendoza Malik Type 1 diabetes mellitus with diabetic polyneuropathy E10.42 ; Tinea unguium B35.1 ; Other hammer toe(s) (acquired), right foot M20.41 and Other hammer toe(s) (acquired), left foot M20.42 Assessments Encounter Date Diagnosis (ICD Code) Assessment Notes Treatment Notes Treatment Clinical Notes Section Notes 04/18/2024 Type 1 diabetes mellitus with diabetic polyneuropathy (ICD-10 - E10.42) 04/18/2024 Tinea unguium (ICD-10 - B35.1) 04/18/2024 Other hammer toe(s) (acquired), right foot (ICD-10 - M20.41) Response to treatment,Impro vement 04/18/2024 Other hammer toe(s) (acquired), left foot (ICD-10 - M20.42) Response to treatment,Impro vement Plan Of Treatment Pending Test Test Name Order Date 15840-YWSNGLI NAIL, 6 OR MORE 04/18/2024 06444-YLWA SKIN LESIONS, OVER 4 04/18/20 24 Next Appt Details Follow Up: 3 Months, Reason: Provider Name:Mendoza Carnes King , 10/13/2024 11:30:00 AM, [address] [facility], [address], [place], [address], Procedure Notes * Category Sub-Category Detail Notes Debride Nail 6-10 Nail debridement Performance o f this nail treatment by a nonprofessional would put this patients foot and overall health at risk. Therefore, debridement to affected nail(s), as described in exam, was performed extensively to reduce/remove overall nail length, girth, thickness, subungual debris, and necrotic tissue, by manual and/or electrical means through the use of a nail nipper and/or dremel-type thread tool grinder set up operator, to a more viable healthy nail plate or bed tissue 6-10. Silver nitrate used for any petechial bleeding as necessary. Definitive antifungal treatment options have been reviewed and discussed with the patient. The patient chooses, no pharmaceutical tx - 89598 Keratoma Treatment Parring or Cutting o f Benign Hyperkeratotic Lesion(s) (-57) More than 4 Lesions - The Benign hyperkeratotic lesions, as described in exam, were pared, and/or cut utilizing a sterile 15 blade, tissue nippers, and/or dremel - 76359 Progress Notes * Sunitha DICKEYDOB:1935 (88 yo F)Acc No.[id number]:04/18/2024 Progress Note Patient:?Minna DICKEYarita Provider:?Mendoza Malik DPM :1935???Age:88 Y???Sex:Female D ate:04/18/2024 Address:[address] [place] [address] [place] Pcp:Mateusz Elam MD Subjective: * Chief Complaints: * ???At Risk FootcareToe Irrit ation * HPI: ???At Risk footcare:?Pt States Last PCP Visit:?Date?10/08/2023 ???Toe pain:?Treatments:?Rx shoes .? * ROS:?General/Constitutional:?Nausea?denies.?Vomiting?denies.?Hunger Thirst?denies.?Loss appetite?denies.?Chills?denies.?Fatigue?denies.?Fever?denies.?Night Sweats?denies.?Unexplained weight loss?denies.?Unexplained weight gain?denies.?HEENTM:?Dentures?denies.?Dizziness?denies.?Glasses/contacts?admits.?Retinopathy?de nies.?Blurred/double vision?denies.?TMJ?denies.?Discharge/drainage?denies.?Implants?denies.?Sore throat?denies.?Dental implants?admits.?Hard of hearing ?denies.?Difficulty chewing/swallowing/speaking?denies.?Nose bleeds?denies.?Sore mouth?denies.?Respiratory:?On Oxygen?denies.?Pneumonia/pleurisy?denies.?Bronchitis?denies.?Emphysema?denies.?C oughing?denies.?Cough blood?denies.?Shortness of breath?denies.?Wheezing?denies.?Cardiovascular:?Pacemaker?denies.?MVP?denies.?WPW?denies.?CHF?denies.?Heart attack?denies.?Septal defect?denies.?Rapid beat?denies.?Chest pain ?denies.?Atrial Fib.?denies.?Murmur/Palpitations?denies.?Gastrointestinal:?Hemorrhoids?denies.?Stomach/Abdominal pain?denies.?Dark blood stool?denies.?Irritable bowel ?denies.?Constipation?denies.?Diarrhea?denies.?Hematology:?Swelling?admits.?Clots?denies.?Varicose Veins?admits.?Bruising?denies.?Bleeding problem?denies.?Genitourinary:?Blood urine?denies.?Frequent/Painfu/urination/bladder control?denies.?Kidney stones?denies.?Infection (UTI)?denies.?Nephropathy?denies.?sex trans dis (STD)?denies.?Prostate?denies.?Musculoskeletal:?Hammertoes?admits.?Bunions?denies.?Back Pain?denies.?Muscle Cramps/ Resting?denies.?Muscle cramps / walking?admits.?Generalized aches and pains?admits.?Weakness?admits.?Integ.:?Lee?denies.?Scars?denies.?Corns/calluses?admits.?Ingrown nails?admits.?Painful nails?denies.?Open Sores?denies.?Rashes?denies.?Neurologic:?Difficulty sleeping?admits.?Brain disorder?denies.?Numbness?admits.?Balance trouble?admits.?Confusion?denies.?Fainting/blackouts?denies.?Tingling?admits, bilateral lower extremities.?Tremors?denies.? * Medical History:? * Surgical History:?breast bio psy colonoscopy * Hospitalization/Major Diagno stic Procedure:?Denies Past Hospitalization * Family History:?Mother: dece ased.?Father: .?Daughter(s): diagnosed with Diabetic - NIDDM.?Siblings: diagnosed with Diabetic - NIDDM.? * Social History:?Tobacco Use:?Tobacco Use/Smoking?Are you a:?nonsmoker ?Additional Findings: Tobacco Non-User?Current non-smoker ?Tobacco use other than smoking?Are you an other tobacco user??No * Medications:?TakingamLODIPin e Besylate 5 MG Tablet 1 tablet Orally Once a day Atenolol 50 MG Tablet 1 tablet Orally Once a day Furosemide 20 MG Tablet 1 tablet Orally Once a day Ibuprofen , Notes to Pharmacist: prnInsulin Lispro , Notes to Pharmacist: 6-10 unitsLovastatin 40 MG Tablet 1 tablet with the evening meal Orally Once a day Lumigan 0.01 % Solution 1 drop into affected eye in the evening Meloxicam 7.5 MG Tablet 1 tablet Orally Once a day Polyethylene Glycol 3350 Tylenol 325 MG Tablet as directed twice a day , Notes to Pharmacist: prnTimolol Maleate 0.5 % Solution 1 drop into affected eye Toucyndie Marcus , Notes to Pharmacist: 13 unitsValsartan 160 MG Tablet 1 tablet Orally Once a day Extra Depth Orthopedic Shoes (1 Pair) with Customized Heat Molded Multidensity Innersoles (3 Pair) as directed Dx: IDDM/Polyneuropathy (E10.42), Hammertoe Foot Deformity (M20.41,M20.42), Preulcerative Skin Lesion(s) (L85.1) Taking amLODIPine Besylate 5 MG Tablet 1 tablet Orally Once a day Taking Atenolol 50 MG Tablet 1 tablet Orally Once a day Taking Furosemide 20 MG Tablet 1 tablet Orally Once a day Taking Ibuprofen , Notes to Pharmacist: prnTaking Insulin Lispro , Notes to Pharmacist: 6-10 unitsTaking Lovastatin 40 MG Tablet 1 tablet with the evening meal Orally Once a day Taking Lumigan 0.01 % Solution 1 drop into affected eye in the evening Taking Meloxicam 7.5 MG Tablet 1 tablet Orally Once a day Taking Polyethylene Glycol 3350 Taking Tylenol 325 MG Tablet as directed twice a day , Notes to Pharmacist: prnTaking Timolol Maleate 0.5 % Solution 1 drop into affected eye Taking Peppero YamilaoStkaylee , Notes to Pharmacist: 13 unitsTaking Valsartan 160 MG Tablet 1 tablet Orally Once a day Taking Extra Depth Orthopedic Shoes (1 Pair) with Customized Heat Molded Multidensity Innersoles (3 Pair) as directed Dx: IDDM/Polyneuropathy (E10.42), Hammertoe Foot Deformity (M20.41,M20.42), Preulcerative Skin Lesion(s) (L85.1) Not-Taking/PRNWalker Lancets Accu-Chek Shamika , Notes to Pharmacist: test stripstraZODone HCl 50 MG Tablet 1 tablet at bedtime as needed Orally Once a day Creon 6000-56818 UNIT Capsule Delayed Release Particles as directed Orally Bisacodyl 5 MG Tablet Delayed Release as directed Medication List reviewed and reconciled with the patientNot-Taking/PRN Walker Not-Taking/PRN Lancets Not-Taking/PRN Accu-Kimmy Wick , Notes to Pharmacist: test stripsNot-Taking/PRN traZODone HCl 50 MG Tablet 1 tablet at bedtime as needed Orally Once a day Not-Taking/PRN Creon 6000-40966 UNIT Capsule Delayed Release Particles as directed Orally Not-Taking/PRN Bisacodyl 5 MG Tablet Delayed Release as directed Medication List reviewed and reconciled with the patient * Allergies:?BrimonidineAlphag an P: AllergyFluoxetineyes[Allergies Verified] Objective: * Vitals:?Ht: 5ft 2in, Wt: 135 , BMI: 24.69, Shoe size: 7, BS: 144, Wt-k.23 kg. * Examination: ???Neurological: ?SENSORY:? Neurological exam demonstrates, reduced light touch sensation, reduced sharp/dull pin prick discrimination , B/L, 5.07 monofilament test performed at plantar aspects of 5 varied sites per foot shows sensation, reduced , B/L.?Nails: ?NAILS are:?Elongated, overgrown, dystrophic, lytic, greater than 3mm thick, discolored and friable with crumbly malodorous subungual debris , 1-5 B/L.?Dermatologic: ?SKIN FINDINGS:?Skin exam reveals Keratotic lesion(s) located at , SUB MTH (s) , 1 , B/L , SUB MTH (s) , 5 , B/L , Heel(s) , B/L.?Orthopedic: ?DIGITAL DEFORMITIES:?Digital contracture, PIPJ, 2-5 B/L, incompl-reducible to push-up test, no over, nor underlapping, no longer, with evidence of shoe producing skin irritation.?FOOTWEAR:?good condition, exhibit proper fit and accommodation for pedal deformities. OT were inspected and noted to be worn, but in good condition giving proper support at the present time.? Assessment: * Assessment: 1.?Type 1 diabetes mellitus with diabetic polyneuropathy - E10.42 (Primary)???2.?Tinea unguium - B35.1???3.?Other hammer toe(s) (acquired), right foot - M20.41???Specify :Chronic problem, Stable (1=3,2=4)???Notes :Response to treatment,Improvement???4.?Other hammer toe(s) (acquired), left foot - M20.42???Specify :Chronic problem, Stable (1=3,2=4)???Notes :Response to treatment,Improvement??? Plan: * Treatment: * Procedures:?Debride Nail 6-10:?Nail debridement?Performance of this nail treatment by a nonprofessional would put this patients foot and overall health at risk. Therefore, debridement to affected nail(s), as described in exam, was performed extensively to reduce/remove overall nail length, girth, thickness, subungual debris, and necrotic tissue, by manual and/or electrical means through the use of a nail nipper and/or dremel-type thread tool grinder set up operator, to a more viable healthy nail plate or bed tissue 6-10. Silver nitrate used for any petechial bleeding as necessary. Definitive antifungal treatment options have been reviewed and discussed with the patient. The patient chooses, no pharmaceutical tx - 38447.?Keratoma Treatment:?Parring or Cutting of Benign Hyperkeratotic Lesion(s)?(-57) More than 4 Lesions - The Benign hyperkeratotic lesions, as described in exam, were pared, and/or cut utilizing a sterile 15 blade, tissue nippers, and/or dremel - 48306.? * Procedure Codes:?29833 DEBRI DE NAIL, 6 OR MORE, Modifiers: XS 76140 TRIM SKIN LESIONS, OVER 4, Modifiers: XS * Preventive Medicine:? ??Counseling:?Discussion:?-13: Office or other outpatient visit for the evaluation and management of an established patient, which required a medically appropriate history and/or examination and LOW level of DECISION MAKING for: 1 STABLE ACUTE UNCOMPLICATED PROBLEM, 2 OR MORE MINOR PROBLEMS, OR 1 STABLE CHRONIC PROBLEM, THAT POSE(S) A LOW RISK FOR MORBIDITY/MORTALITY. The visit on the day of the encounter encompassed interpreting the data and educating the patient as to the nature of their condition, treatment options available according to their individual PMH, meds, allergies, and overall health/living conditions, as well as any potential risks or complications that may occur from a failure to adhere to, and participate in, the recommended course of therapy. The discussion included a complete verbal, and/or written explanation of the examination results, any x-rays taken, the proposed diagnosis, and outline of the treatment plan. A schedule for future care needs was also explained. The patient verbalized an understanding of the instructions at this time and agreed to be an active participant in their treatment. If the patient should think of any questions or concerns after the visit, I have encouraged the patient to call the office.?Shoe Gear Counseling:?A thorough inspection of the patients Rxed shoegear and inserts was performed and findings communicated. We reviewed the many important medical advantages for adhering to regularly wearing these shoe and insert accomidative devices daily as well as reviewed the fact that a failure in accepting these recommedations may be deleterious, unable to prevent, and disadvantagely result in, many pedal complications such as skin irritation, skin ulceration, infection, and even loss of toe/foot/leg/or even their life. Time was also spent reviewing the proper footcare techniques including daily skin moisturization, daily foot inspection for any interruption in skin integrity, open lesions, or sign of infection such as redness/malodor/drainage/swelling as well as daily shoe inspection for the presence of internal foreign bodies and shoe as well as insert wear. Patient questions re: shoes, inserts, and self foot inspections were answered to their satisfaction as the patient verbally confirmed a full understanding of the above information.? * Follow Up:?3 Months * * Sign off status: Completed true * Provider:?Mendoza Malik DPM Date:?2023 Generated for Unruly parr/Bernardo/eTransmitting on:?08/05/2024 01:53 PM EST History and Physical Notes * HPI (History of Present Illness) Category Sub-Category Detail Notes Category Not es Toe pain Treatments: Rx shoes At Risk footcare Pt States Last PCP Visit: Date: 4 Examination Category Sub-Category Detail Notes Category Not es Neurological SENSORY: Neurological exa m demonstrates, reduced light touch sensation, reduced sharp/dull pin prick discrimination , B/L, 5.07 monofilament test performed at plantar aspects of 5 varied sites per foot shows sensation, reduced , B/L Dermatologic SKIN FINDINGS: Skin exam reveal s Keratotic lesion(s) located at , SUB MTH (s) , 1 , B/L , SUB MTH (s) , 5 , B/L , Heel(s) , B/L Orthopedic FOOTWEAR: good condition, exhibit proper fit and accommodation for pedal deformities. OT were inspected and noted to be worn, but in good condition giving proper support at the present time DIGITAL DEFORMITIES: Digital contracture , PIPJ, 2-5 B/L, incompl-reducible to push-up test, no over, nor underlapping, no longer, with evidence of shoe producing skin irritation Nails NAILS are: Elongated, overg rown, dystrophic, lytic, greater than 3mm thick, discolored and friable with crumbly malodorous subungual debris , 1-5 B/L
--- OUTSIDE RECORDS SUMMARY | 2024-08-05 13:54 | XMS_ITS | Patient Health Record ---
Author Organization [facility] Address [address] [facility] [place] [address] Care Team Providers Care Historiography Professor Name Role Phone Papa HOLCOMB, Mateusz Primary Care Provider Mendoza Pillai Unavailable [phone] Andrea Foster Unavailable [phone] Allergies Allergen (clinical drug ingredient) Drug/Non Drug Allergy documented on EMR Reaction Allergy Type Onset Date Status brimonidine Alphagan P Allergy Drug Allergy Acti ve brimonidine Brimonidine Unknown Drug Allergy Act nathan fluoxetine Fluoxetine Unknown Drug Allergy Activ e Reason For Referral No Information Medications Medication SIG (Take, Route, Frequency, Duration) Notes Start Date End Date Status traZODone HCl 50 MG 1 tablet at bedtime as needed Orally Once a day for 30 day(s) Not-Taking Meloxicam 7.5 MG 1 tablet Orally Once a day for 30 day(s) Active Creon 6000-75454 UNIT as directed Orally Not-Taking Polyethylene Glycol 3350 Active Bisacodyl 5 MG as directed Not -Taking Tylenol 325 MG as directed twice a day prn Active Timolol Maleate 0.5 % 1 drop into affect ed eye Active amLODIPine Besylate 5 MG 1 tablet Orally Once a day for 30 day(s) Active Toujeo SoloStar 13 units Acti ve Atenolol 50 MG 1 tablet Orally Once a day for 30 day(s) Active Valsartan 160 MG 1 tablet Orally Once a day for 30 day(s) Active Furosemide 20 MG 1 tablet Orally Once a day for 30 day(s) Active Extra Depth Orthopedic Shoes (1 Pair) with Customized Heat Molded Multidensity Innersoles (3 Pair) as directed Dx: IDDM/Polyneuropathy (E10.42), Hammertoe Foot Deformity (M20.41,M20.42), Preulcerative Skin Lesion(s) (L85.1) 01/14/2024 Active Ibuprofen prn Active Walker Not-Taking Insulin Lispro 6-10 units Acti ve Lancets Not-Taking Lovastatin 40 MG 1 tablet with the evening meal Orally Once a day for 30 day(s) Active Accu-Chek Shamika test strips No t-Taking Lumigan 0.01 % 1 drop into affected eye in the evening Active Social History Tobacco Use: Social History Observation Description Date Details (start date - stop date) Never Smoker NA - NA Tobacco Use/Smoking Question Answer Notes Are you a: nonsmoker Additional Findings: Tobacco Non-User Current no n-smoker Alcohol Screen Question Answer Notes Did you have a drink containing alcohol in the p ast year? No Points 0 Interpretation Negative Tobacco use other than smoking: Question Answer Notes Are you an other tobacco user? No Problems Problem Type SNOMED Code ICD Code Onset Dates Problem Status W/U Status Risk Notes Problem Acquired hammer toe of right foot (2670801858495203 ) Other hammer toe(s) (acquired), right foot (M20.41) Active confirmed Response to treatment, Improvemen t Problem Acquired hammer toe of left foot (5122996718131575 ) Other hammer toe(s) (acquired), left foot (M20.42) Active confirmed Response to treatment, Improvemen t Problem Polyneuropathy due to diabetes mellitus type I (536681221) Type 1 diabetes mellitus with diabetic polyneuropathy (E10.42) Active confirmed Vital Signs Height 5ft 2in in 04/18/2024 Weight 135 lbs 04/18/2024 BMI 24.69 kg/m2 04/18/2024 Procedures Procedure Date Ordered Date Performed Result Body Sit e 89922-DRJERRW NAIL, 6 OR MORE 01/14/2024 N/A 89599-UOUF SKIN LESIONS, OVER 4 01/14/2024 N/A 83271-QXPKZUN NAIL, 6 OR MORE 04/18/2024 N/A 03145-FOKG SKIN LESIONS, OVER 4 04/18/2024 N/A Encounters Encounter Location Date Provider Diagnosis [facility] [address] [address] 01/14/2024 Mendoza Malik Type 1 diabetes mellitus with diabetic polyneuropathy E10.42 ; Tinea unguium B35.1 ; Other hammer toe(s) (acquired), right foot M20.41 and Other hammer toe(s) (acquired), left foot M20.42 [facility] [address] [place] [address] 04/18/2024 Mendoza Malik Type 1 diabetes mellitus with diabetic polyneuropathy E10.42 ; Tinea unguium B35.1 ; Other hammer toe(s) (acquired), right foot M20.41 and Other hammer toe(s) (acquired), left foot M20.[address] [address] 11/20/[address] [address] 07/19/2024 Mendoza Malik Assessments Encounter Date Diagnosis (ICD Code) Assessment Notes Treatment Notes Treatment Clinical Notes Section Notes 01/14/2024 Type 1 diabetes mellitus with diabetic polyneuropathy (ICD-10 - E10.42) 01/14/2024 Tinea unguium (ICD-10 - B35.1) 04/18/2024 Type 1 diabetes mellitus with diabetic polyneuropathy (ICD-10 - E10.42) 04/18/2024 Tinea unguium (ICD-10 - B35.1) 04/18/2024 Other hammer toe(s) (acquired), right foot (ICD-10 - M20.41) Response to treatment,Impro vement 01/14/2024 Other hammer toe(s) (acquired), right foot (ICD-10 - M20.41) Patient Educated with: DIABETIC FOOT CARE INSTRUCTIONS. pdf (DIABETIC FOOT CARE INSTRUCTIONS. pdf) 01/14/2024 Other hammer toe(s) (acquired), left foot (ICD-10 - M20.42) 04/18/2024 Other hammer toe(s) (acquired), left foot (ICD-10 - M20.42) Response to treatment,Impro vement Plan Of Treatment Pending Test Test Name Order Date 45570-WRPILKD NAIL, 6 OR MORE 01/14/2024 29281-WAMFFVE NAIL, 6 OR MORE 04/18/2024 26894-MKHV SKIN LESIONS, OVER 4 04/18/20 24 85535-DVIC SKIN LESIONS, OVER 4 01/14/20 24 86539-CPUD SKIN LESIONS, 2 TO 4 02/28/20 23 04695-SSUI SKIN LESIONS, 2 TO 4 07/28/19 24 Next Appt Details Provider Name:Mendoza Malik , 10/13/2024 11:30:00 AM, [address] [facility] [facility] [address], [place], [address], Insurance Providers Payer Name Payer Address Payer Phone Subscriber Number Group Number Insured Name Patient Relationship to Insured Coverage Start Date Coverage End Date [facility] [address] [address] [place] [address] [id number] Sunitha Ledesma Self - patient is the insured Medical (General) History Medical History History ICD Code Back,Hip,and Knee pain Dementia Diabetic type 1 Glaucoma High blood pressure Chicken pox Fall Risk Dyslipidemia Uterine Prolaspse Diabetic retinopathy Surgical History Surgery Date(Month/Year) breast biopsy colonoscopy
--- OUTSIDE RECORDS SUMMARY | 2024-08-05 13:54 | XMS_ITS ---
Author Name Jacob SHANAE, MS. Florecita Fiore Address [address] [place] [id number] Phone [phone] [facility] Care Team Providers Care Allergy And Immunology Chief Name Role Phone Florecita James Unavailable [phone] Unavailable Unavailable Unavailable Mateusz Elam Unavailable [phone] Reason for Referral Not Available Allergies, adverse reactions, alerts Allergen Type Reaction Severity Status Onset Date Alphagan Allergy to substance (disorder) Unknown Active N/A Fluoxetine Allergy to substance (disorder) Unknown Active N/A History of medication use Medication Class Instructions Start Date End Date Meloxicam 7.5 mg Tab TAKE 1 TABLET BY MO UT EVERY DAY 2020-11-12 No Data Available [facility] Gas Relief Ultra Strength 180 mg Cap TAKE 1 CAPSULE BY MOUTH TWICE A DAY NEEDED FOR ABDOMINAL DISTENTION 2021-08-26 No Data Available Furosemide 20 mg Tab TAKE 1 TABLET BY MO UTH EVERY DAY 2020-12-21 No Data Available Creon [id number] UNIT Cap delayed rel TAKE 1 CAPSULE BY MOUTH 4 TIMES A DAY BEFORE MEALS DO NOT EXCEED 10,000 UNIT/KG LIPASE PER 24 HRS 2021-10-07 2023-06-23 Timolol Maleate 0.5 % Solution INSTILL 1 DROP IN RIGHT EYE EVERY MORNING 2021-07-26 No Data Available Valsartan 160 mg Tab TAKE 1 TABLET BY MO UTH TWICE A DAY 2021-04-18 No Data Available amLODIPine Besylate 5 mg Tab TAKE 1 TABL ET BY MOUTH EVERY DAY 2021-05-30 2022-03-21 BD JEWELS 2 GEN PEN NDL [id number] USE 5 TIMES A DAY 2021-05-29 No Data Available Insulin Lispro (1 Unit Dial) 100 UNIT/ML Solution Pen-injector Subcutaneous 8U in A.M, 8U IN THE AFTERNOON, 8U AT BEDTIME, THEN 12 Units at bedtime 2021-10-21 No Data Available GaviLAX 17 GM/SCOOP Powder TAKE 17 GRAMS BY MOUTH DAILY MIXED WITH 8 OUNCES OF FLUID 2021-11-01 No Data Available Bisacodyl EC 5 mg Tab delayed rel TAKE 2 TABLETS BY MOUTH AT BEDTIME 2021-08-26 2024-07-01 Atenolol 50 mg Tab TAKE 1 TABLET BY MICHAELA TH EVERY DAY 2021-11-28 No Data Available Lovastatin 40 mg Tab TAKE 1 TABLET BY MO UTH EVERY DAY IN THE EVENING 2021-12-02 No Data Available Lumigan 0.01 % Solution INSTILL 1 DROP I NTO BOTH EYES AT BEDTIME 2021-07-26 No Data Available Tougabrielleo SoloStar 300 UNIT/ML Solution Pen-injector Subcutaneous INJECT 15 UNITS SUBCUTANEOUSLY EVERY DAY AT BEDTIME 2021-10-25 No Data Available Meloxicam 7.5 mg Tab 1 tablet orally daily 2022-03-21 No Data Available FreeStyle Aditya 2 Sensor Miscellaneous USE DIRECTED EVERY 14 DAYS 2022-12-04 No Data Available amLODIPine Besylate 5 mg Tab TAKE 1 TABL ET BY MOUTH EVERY DAY 2022-12-07 No Data Available BD JEWELS 2 GEN PEN NDL 32G 4MM USE DIRECTED 5 TIMES DAILY 2022-08-28 No Data Available traZODone 50 mg Tab TAKE 1 TABLET BY MICHAELA TH AT BEDTIME NEEDED FOR SLEEP 2022-06-06 2023-06-23 Aspirin 81 mg Tab delayed rel take 1 tablet orally once daily 2023-06-23 No Data Available Nystatin 032725 UNIT/GM Powder APPLY TO AFFECTED AREA TWICE A DAY AFTER ALLOWING SKIN FOLDS TO AIR DRY 2023-07-23 No Data Available traZODone 50 mg Tab TAKE 1 TABLET BY MICHAELA TH EVERY DAY AT BEDTIME NEEDED FOR SLEEP 2023-08-17 No Data Available Vitamin D3 50 MCG (1999) Cap 1 capsules PO QD 2024-07-01 No Data Available Problem List Problem Status Onset Date Resolved Date Bilateral lower extremity edema Resolved 2022-03-08 4 2023-06-23 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, without long-term current use of insulin, glaucoma Active 2022-03-21 N/A Dementia Active 2022-03-21 N/A Chronic pancreatitis Active 2022-03-19 N/A Hypertension Active 2022-03-21 N/A Diabetes mellitus with compl icationHyperlipidemia associated with type 2 diabetes mellitus Active 2022-03-21 N/A Other problems related to sc dical facilities and other health care Active 2023-08-13 N/A Osteoarthritis of both knees Active 2022-03-21 N/A Major depressive disorder, recurrent, mild Active 2024-07-01 N/A Encounters Encounters Type Facility Date of Service Diagnosis/Co mplaint Pain Assessment - NO pain present (1126F) [facility] [place] Pain Assessment - NO pain present (1126F) [facility] [place] Pain Assessment - NO pain present (1126F) [facility] [place] Pain Assessment - NO pain present (1126F) [facility] [place] Pain Assessment - NO pain present (1126F) [facility] [place] Pain Assessment - NO pain present (1126F) [facility] [place] Pain Assessment - NO pain present (1126F) [facility] [place]20[place] Type 2 diabetes mellitus wit h unspecified complicationsOther chronic pancreatitisType 2 diabetes mellitus with other circulatory complicationsHypertension secondary to endocrine disordersType 2 diabetes mellitus with other specified complicationHyperlipidemia, unspecifiedUnspecified dementia without behavioral disturbanceEpigastric painOther specified diabetes mellitus with proliferative diabetic retinopathy without macular edema, unspecified eyeOth diabetes mellitus w oth diabetic ophthalmic complicationGlaucoma in diseases classified elsewhereBilateral primary osteoarthritis of kneeLocalized edema Pain Assessment - NO pain present (1126F) [facility] [place] Pain Assessment - NO pain present (1126F) [facility] [place] Pain Assessment - NO pain present (1126F) [facility] [place] Estab. patient 30-39min; chronic exacerbation, 2 stable chronic or 1 acute illness add add modifier 95 for video, (do not use for phone, instead use [id number]) [facility] [place] 02[place]2023 Other chronic pancreatitisTy pe 2 diabetes mellitus with other specified complicationHyperlipidemia, unspecifiedUnspecified dementia without behavioral disturbanceEpigastric painType 2 diabetes mellitus with proliferative diabetic retinopathy without macular edema, unspecified eyeType 2 diabetes mellitus with other diabetic ophthalmic complicationGlaucoma in diseases classified elsewhereBilateral primary osteoarthritis of kneeLocalized edemaEssential (primary) hypertension Estab. patient 30-39min; chronic exacerbation, 2 stable chronic or 1 acute illness add add modifier 95 for video, (do not use for phone, instead use 98258-69) [facility], [place] 02[place]18/20[place] Estab. patient 30-39min; chronic exacerbation, 2 stable chronic or 1 acute illness add add modifier 95 for video, (do not use for phone, instead use 42435-68) [facility] [place] 02[place]18/20[place] Estab. patient 30-39min; chronic exacerbation, 2 stable chronic or 1 acute illness add add modifier 95 for video, (do not use for phone, instead use 71324-72) [facility] [place] 02[place]18/20[place] Estab. patient 30-39min; chronic exacerbation, 2 stable chronic or 1 acute illness add add modifier 95 for video, (do not use for phone, instead use 24601-00) [facility] [place] 02[place]18/20[place] Estab. patient 30-39min; chronic exacerbation, 2 stable chronic or 1 acute illness add add modifier 95 for video, (do not use for phone, instead use [id number]) [facility] [place] 02[place]18[place]20[place] Estab. patient 30-39min; chronic exacerbation, 2 stable chronic or 1 acute illness add add modifier 95 for video, (do not use for phone, instead use 57109-21) [facility] [place] 02/18/2023 Estab. patient 30-39min; chronic exacerbation, 2 stable chronic or 1 acute illness add add modifier 95 for video, (do not use for phone, instead use 41967-61) [facility] [place] 02/18/2023 No Data Available [facility] [place] 05/31/2023 Type 2 diabetes mellitus wit h other specified complicationHyperlipidemia, unspecified No Data Available [facility] [place] 05[place]/20[place] Estab. patient 30-39min; chronic exacerbation, 2 stable chronic or 1 acute illness add add modifier 95 for video, (do not use for phone, instead use 07626-35) [facility] [place]2023 Other chronic pancreatitisEssential (primary) hypertensionType 2 diabetes mellitus with other specified complicationHyperlipidemia, unspecifiedUnspecified dementia without behavioral disturbanceMajor depressive disorder, recurrent, unspecifiedBilateral primary osteoarthritis of knee Estab. patient 30-39min; chronic exacerbation, 2 stable chronic or 1 acute illness add add modifier 95 for video, (do not use for phone, instead use 82244-39) [facility] [place] Estab. patient 30-39min; chronic exacerbation, 2 stable chronic or 1 acute illness add add modifier 95 for video, (do not use for phone, instead use 29285-01) [facility] [place]20[place] Estab. patient 30-39min; chronic exacerbation, 2 stable chronic or 1 acute illness add add modifier 95 for video, (do not use for phone, instead use 12488-71) [facility] [place]20[place] Estab. patient 30-39min; chronic exacerbation, 2 stable chronic or 1 acute illness add add modifier 95 for video, (do not use for phone, instead use 65141-08) [facility] [place]20[place] Estab. patient 30-39min; chronic exacerbation, 2 stable chronic or 1 acute illness add add modifier 95 for video, (do not use for phone, instead use 48660-66) [facility] [place]20[place] Estab. patient 30-39min; chronic exacerbation, 2 stable chronic or 1 acute illness add add modifier 95 for video, (do not use for phone, instead use 23685-34) [facility] [place]20[place] Estab. patient 30-39min; chronic exacerbation, 2 stable chronic or 1 acute illness add add modifier 95 for video, (do not use for phone, instead use 94851-68) [facility] [place]20[place] Estab. patient 30-39min; chronic exacerbation, 2 stable chronic or 1 acute illness add add modifier 95 for video, (do not use for phone, instead use 26860-76) [facility] [place] 06[place]20[place] Estab. patient 30-39min; chronic exacerbation, 2 stable chronic or 1 acute illness add add modifier 95 for video, (do not use for phone, instead use 84745-84) [facility] [place]20[place] Estab. patient 20-29min; 1 stable chronic or 2 minor; add add modifier 95 for video, modifier 93 for phone [facility] [place] 07[place]/2024 Other chronic pancreatitisEssential (primary) hypertensionType 2 diabetes mellitus with other specified complicationHyperlipidemia, unspecifiedUnspecified dementia without behavioral disturbanceUnspecified glaucomaType 2 diabetes mellitus with mild nonproliferative diabetic retinopathy with macular edema, right eyeBilateral primary osteoarthritis of kneeMajor depressive disorder, recurrent, mildOther problems related to medical facilities and other health care Estab. patient 20-29min; 1 stable chronic or 2 minor; add add modifier 95 for video, modifier 93 for phone [facility] [place] Estab. patient 20-29min; 1 stable chronic or 2 minor; add add modifier 95 for video, modifier 93 for phone [facility] [place] 07[place]01/20[place] Estab. patient 20-29min; 1 stable chronic or 2 minor; add add modifier 95 for video, modifier 93 for phone [facility] [place] 07[place]/20[place] Estab. patient 20-29min; 1 stable chronic or 2 minor; add add modifier 95 for video, modifier 93 for phone [facility] [place] 07/01/20[place] Estab. patient 20-29min; 1 stable chronic or 2 minor; add add modifier 95 for video, modifier 93 for phone [facility] [place] 07/01/20[place] Estab. patient 20-29min; 1 stable chronic or 2 minor; add add modifier 95 for video, modifier 93 for phone [facility] [place] 07/01/2024 Estab. patient 20-29min; 1 stable chronic or 2 minor; add add modifier 95 for video, modifier 93 for phone [facility] Estab. patient 20-29min; 1 stable chronic or 2 minor; add add modifier 95 for video, modifier 93 for phone [facility] 07/01/[facility]24 Vital Signs Date of Collection Vitals 2022-03-21 07:38:58 Height - 157.48 cmWe ight - 58.97 kgBody Mass Index (BMI) - 23.78 kg/m2BP Diastolic - 75.0 mm[Hg]BP Systolic - 131.0 mm[Hg] 2023-02-18 06:21:20 Weight - 58.97 kgBod y Mass Index (BMI) - 23.78 kg/m2BP Diastolic - 80.0 mm[Hg]BP Systolic - 130.0 mm[Hg] 2023-06-23 08:21:23 Height - 157.48 cmWe ight - 63.5 kgBody Mass Index (BMI) - 25.61 kg/m2BP Diastolic - 76.0 mm[Hg]BP Systolic - 128.0 mm[Hg]Pain Scale - 0.0 {score} 2024-07-01 04:37:36 Height - 157.48 cmWe ight - 65.32 kgBody Mass Index (BMI) - 26.34 kg/m2BP Diastolic - 60.0 mm[Hg]BP Systolic - 137.0 mm[Hg]Pain Scale - 8.0 {score} Social History Social History Social History Observation Description Effec tive Time Current Smoking Status Never smoker 2024-07-10 9 Sex Female History of Procedures Procedures Service Procedure code Service date Servicing provider Phone# Pain Assessment - NO pain present (1126F) 1126F 2022-03-21 No Data Available No Data A vailable Medication List Documented (1159F) 1159F 2022-03-21 No Data Available No Data Luna ilable Medication Review by prescribing provider or pharmacist documented (1160F) 1160F 2022-03-21 No Data Available No Data Luna ilable Functional Status Assessed (1170F) 1170F 2022-03-21 No Data Available No Data Avail able Advance Care Directive Advance care planning discussion documented in the medical record (1158F) 1158F 2022-03-21 No Data Available No Data Availa ble BMI obtained (3008F) 3008F 2022-03-21 No Data Availab le No Data Available New patient,40-59min; chronic exacerbation, 2 stable chronic or 1 acute illness add add modifier 95 for video (do not use for phone, instead use [id number]) 99560 2022-03-21 No Data Available No Data Availa ble Most recent A1c (HbA1c) or GMI level 8-9% (3052F) 3052F 2022-03-21 No Data Available No Data Availa ble SBP 130-139 (3075F) 3075F 2022-03-21 No Data Availabl e No Data Available DBP <80 (3078F) 3078F 2022-03-21 No Data Available No Data Available Estab. patient 30-39min; chronic exacerbation, 2 stable chronic or 1 acute illness add add modifier 95 for video, (do not use for phone, instead use 83564-87) 03452 2023-02-18 No Data Available No Data Availa ble Functional Status Assessed (1170F) 1170F 2023-02-18 No Data Available No Data Avail able Medication List Documented (1159F) 1159F 2023-02-18 No Data Available No Data Luna ilable Medication Review by prescribing provider or pharmacist documented (1160F) 1160F 2023-02-18 No Data Available No Data Luna ilable BMI obtained (3008F) 3008F 2023-02-18 No Data Availab le No Data Available Advance Care Directive Advance care planning discussion documented in the medical record (1158F) 1158F 2023-02-18 No Data Available No Data Availa ble SBP 130-139 (3075F) 3075F 2023-02-18 No Data Availabl e No Data Available DBP 80-89 (3079F) 3079F 2023-02-18 No Data Available No Data Available No Data Available 34872 2023-05-31 No Data Available No Data Available Medication List Documented (1159F) 1159F 2023-05-31 No Data Available No Data Luna ilable Estab. patient 30-39min; chronic exacerbation, 2 stable chronic or 1 acute illness add add modifier 95 for video, (do not use for phone, instead use 07316-04) 61319 2023-06-23 No Data Available No Data Availa ble Medication List Documented (1159F) 1159F 2023-06-23 No Data Available No Data Luna ilable Medication Review by prescribing provider or pharmacist documented (1160F) 1160F 2023-06-23 No Data Available No Data Luna ilable Pain Assessment - NO pain present (1126F) 1126F 2023-06-23 No Data Available No Data A vailable BMI obtained (3008F) 3008F 2023-06-23 No Data Availab le No Data Available Advance Care Directive Advance care planning discussion documented in the medical record (1158F) 1158F 2023-06-23 No Data Available No Data Availa ble Advance care planning discussed and documented ? advance care plan or surrogate decision-maker was documented in the medical record. (1123F) 1123F 2023-06-23 No Data Available No Data Availa ble SBP < 130 (3074F) 3074F 2023-06-23 No Data Available No Data Available DBP <80 (3078F) 3078F 2023-06-23 No Data Available No Data Available Functional Status Assessed (1170F) 1170F 2023-06-23 No Data Available No Data Avail able Estab. patient 20-29min; 1 stable chronic or 2 minor; add add modifier 95 for video, modifier 93 for phone 34650 2024-07-01 No Data Available No Data Availa ble Medication List Documented (1159F) 1159F 2024-07-01 No Data Available No Data Luna ilable Medication Review by prescribing provider or pharmacist documented (1160F) 1160F 2024-07-01 No Data Available No Data Luna ilable Functional Status Assessed (1170F) 1170F 2024-07-01 No Data Available No Data Avail able Advance Care Directive Advance care planning discussion documented in the medical record (1158F) 1158F 2024-07-01 No Data Available No Data Availa ble Advance care planning discussed and documented ? advance care plan or surrogate decision-maker was documented in the medical record. (1123F) 1123F 2024-07-01 No Data Available No Data Availa ble Pain Assessment - Pain Documented on a Pain Scale (1125F) 1125F 2024-07-01 No Data Available No Data Luna ilable SBP 130-139 (3075F) 3075F 2024-07-01 No Data Availabl e No Data Available DBP <80 (3078F) 3078F 2024-07-01 No Data Available No Data Available Functional Status Functional Category Effective Dates IADL SHOPPING: Total assist; HOUSEKEEPING: Total assist; MEAL PREP: Total assist; MEDICATIONS MANAGEMENT: Some assist 2022-03-21 ADL EATING: INDEPENDENT; AMB ULATION: WALKER/CANE ; DRESSING: Some assistance; BATHING: Some assistance; TOILETING: INDEPENDENT 2022-03-21 FALLS IN LAST 6 MONTHS:- no 2023-06-23 walks with walker 2023-06-23 executive housekeeper 2023-06-23 Mental Status Status Date coax2 2023-06-23 COGNITION STATUS: ORIENTED TO PERSON, PL CASSANDRA AND TIME 2024-07-01 Assessments Date of Service Assessments 2022-03-21 07:38:58 Type 2 diabetes isac itus with complicationsChronic pancreatitisHypertension associated with type 2 diabetes mellitusHyperlipidemia associated with type 2 diabetes mellitusUnspecified dementia, unspecified severity, without behavioral disturbance, psychotic disturbance, mood disturbance, and anxietyAbdominal discomfort, epigastricGlaucoma due to secondary diabetes, without macular edema, with proliferative retinopathyOsteoarthritis of both kneesBilateral lower extremity edema 2023-02-18 06:21:20 Type 2 diabetes isac itus with complicationsChronic pancreatitisHypertension associated with type 2 diabetes mellitusHyperlipidemia associated with type 2 diabetes mellitusUnspecified dementia, unspecified severity, without behavioral disturbance, psychotic disturbance, mood disturbance, and anxietyAbdominal discomfort, epigastricGlaucoma due to secondary diabetes, without macular edema, with proliferative retinopathyOsteoarthritis of both kneesBilateral lower extremity edema 2023-05-31 07:41:13 Follow up plan for a isidoroe symptoms: MonitorHyperlipidemia associated with type 2 diabetes mellitus 2023-06-23 08:21:23 Chronic pancreatitis HypertensionHyperlipidemia associated with type 2 diabetes mellitusUnspecified dementia, unspecified severity, without behavioral disturbance, psychotic disturbance, mood disturbance, and anxiety, recurrent depressive disorderType 2 diabetes mellitus with right eye affected by mild nonproliferative retinopathy and macular edema, without long-term current use of insulin, glaucomaOsteoarthritis of both knees 2024-07-01 04:37:36 Chronic pancreatitis HypertensionDiabetes mellitus with complicationHyperlipidemia associated with type 2 diabetes mellitusDementiaType 2 diabetes mellitus with right eye affected by mild nonproliferative retinopathy and macular edema, without long-term current use of insulin, glaucomaOsteoarthritis of both kneesMajor depressive disorder, recurrent, mildOther problems related to medical facilities and other health care Plan of Care Date of Service Plans 2022-03-21 07:38:58 Pain Assessment - NO pain documented (1126F)Medication Review by prescribing provider or pharmacist documented (1160F)Medication List Documented (1159F)Functional Status Assessed (1170F)Advance Care Directive Advance care planning discussion documented in the medical record (1158F)BMI obtained (3008F)Most recent hemoglobin A1c (HbA1c) level 8-9% (3052F)Televideo new patient,40-59min; chronic exacerbation, 2 stable chronic or 1 acute illness add modifier 95SBP 130-139 (3075F)DBP <80 (3078F)Continue to see PCP. Follow-up with [facility] as needed for any acute or disease education needs that may arise.On ToujeoLisproDaily FS.183- this A.MLast a1c- 9%Pt has a f/u appt with PCP next month. Will recheck g1dGoblxswf CG/PT that the a1c is <7%Encouraged regular exerciseCG reports that pt. likes to eat rice, bread and tortillas. Encouraged pt to limit intake of processed grains. Provided alternate choices.Limit unhealthy foods and eat healthy mealsDiscussed health risksOn CreonOn AmlodipineAtenololValsartanOn LovastatinPt. is taking any meds.F/u appt with PCP on 05/04/22.On GavilaxGas Relief UltraBisacodylOn LumiganTimololOn MeloxicamOn FurosemideDenies any swelling at this time. Has not experience any swelling for over 4 months.Encouraged pt. to elevate feetLimit salt intake 2023-02-18 06:21:20 Medication Review by prescribing provider or pharmacist documented (1160F)Medication List Documented (1159F)Functional Status Assessed (1170F)Advance Care Directive Advance care planning discussion documented in the medical record (1158F)BMI obtained (3008F)SBP 130-139 (3075F)DBP 80-89 (3079F)Televideo 30-39min; chronic exacerbation, 2 stable chronic or 1 acute illness add modifier 95Advance care planning discussed and documented ? advance care plan or surrogate decision-maker was documented in the medical record. (1123F)Advance care planning discussed and documented in the medical record ? beneficiary/patient did not wish to or was unable to provide an advance care plan or name a surrogate decision-maker. (1124F)Pain Assessment - NO pain documented (1126F)Continue to see PCP. Follow-up with [facility] as needed for any acute or disease education needs that may arise.On ToujeoLisproDaily FS.183- this A.MLast a1c- 9%Pt has a f/u appt with PCP next month. Will recheck h2mNqhaaofz CG/PT that the a1c goal is <7%Encouraged regular exerciseCG reports that pt. likes to eat rice, bread and tortillas. Encouraged pt to limit intake of processed grains. Provided alternate choices.Limit unhealthy foods and eat healthy mealsDiscussed health risks..23 bs fluctuate, no outside care notes recently, dtr unaware of a1cOn CreonOn AmlodipineAtenololValsartanOn LovastatinPt. is taking any meds.F/u appt with PCP on 05/04/22.9.13.23 stable, no medsOn GavilaxGas Relief UltraBisacodylOn LumiganTimololOn MeloxicamOn FurosemideDenies any swelling at this time. Has not experience any swelling for over 4 months.Encouraged pt. to elevate feetLimit salt intake 2023-05-31 07:41:13 Phone (patient, pare nt, or guardian); 5-10 minutes of medical discussion (no modifier 95)Continue to see PCP. Follow-up with [facility] as needed for any acute or disease education needs that may arise 29/12.On LovastatinOn ToujeoLisproDaily FS.183- this A.MLast a1c- 9%Pt has a f/u appt with PCP next month. Will recheck t2pUzyrpnqa CG/PT that the a1c goal is <7%Encouraged regular exerciseCG reports that pt. likes to eat rice, bread and tortillas. Encouraged pt to limit intake of processed grains. Provided alternate choices.Limit unhealthy foods and eat healthy mealsDiscussed health risks9.13.23 bs fluctuate, no outside care notes recently, dtr unaware of a1c05/31/23: Per daughter PCP has instructed her to give member more than 6 U QID of Lispro, she has been giving 8-12 U QID. BGL is currently 222 with no insulin available as pharmacy stated she is not eligible until 06/17/23 for a refill. Adjusted Lispro Rx from 6 U to 8 U TID and sliding scale at HS - sent to local pharmacy. 2023-06-23 08:21:23 Medication Review by prescribing provider or pharmacist documented (1160F)Medication List Documented (1159F)Functional Status Assessed (1170F)Advance Care Directive Advance care planning discussion documented in the medical record (1158F)BMI obtained (3008F)SBP < 130 (3074F)DBP <80 (3078F)Televideo 30-39min; chronic exacerbation, 2 s table chronic or 1 acute illness add modifier 95Advance care planning discussed and documented ? advance care plan or surrogate decision-maker was documented i n the medical record. (1123F)Pain Assessment - NO pain documented (1126F)Continue to see PCP. [facility] or disease [facility] needs that may arise.Was on Creon, now off medicationNo abd pain relayed Follow up with Rose AmlodipineAtenololValsartanLast BP 128/76Recommend DASH diet. Increase exercise to 30-45 min q day. Eat a healthy diet: try to eat whole foods, green leafy vegetables and whole grains. Decrease fast foods and processed foods. Decrease sugary drinks, stop soda intake. Limit ETOH intake. If you smoke, quit smoking. Decrease caffeine intake. Decrease stress by: meditating, deep breathing, laughing, going for walks. Monitor BP at home: keep a BP journal. Record you BP's in the AM and after dinner; bring your log in next visit.On LovastatinOn ToujeoLisproDaily FS.183- this A.MLast a1c- 9%Pt has a f/u appt with PCP next month. Will recheck u5yFatgszwy CG/PT that the a1c goal is <7%Encouraged regular exerciseCG reports that pt. likes to eat rice, bread and tortillas. Encouraged pt to limit intake of processed grains. Provided alternate choices.Limit unhealthy foods and eat healthy mealsDiscussed health risks9.23 bs fluctuate, no outside care notes recently, dtr unaware of a1c05/31/23: Per daughter PCP has instructed her to give member more than 6 U QID of Lispro, she has been giving 8-12 U QID. BGL is currently 222 with no insulin available as pharmacy stated she is not eligible until 06/17/23 for a refill. Adjusted Lispro Rx from 6 U to 8 U TID and sliding scale at HS - sent to local pharmacy. 06/23/23: BS 194 today, continue current treatment, followed up Apr 2023 and next in . is taking any meds.F/u appt with PCP on 05/04/22.stable, no medsDepression tips: Spend time with family and friends, practice mindfulness and meditation, deep breathing, journaling, exercise if able, get outdoors, eat a balanced diet, and get regular sleep. Advised to take medications as prescribed. If you begin to have suicidal or homicidal thoughts discontinue medication and call office or 911. Call provider if adverse effects occur. Follow up with PCP.On LumiganTimololOn MeloxicamFollow up pcp 2024-07-01 04:37:36 Functional Status As sessed (1170F)Advance Care Directive Advance care planning discussion documented in the medical record (1158F)Advance care planning discussed and documented ? advance care plan or surrogate decision-maker was documented in the medical record. (1123F)SBP 130-139 (3075F)DBP <80 (3078F)Estab. patient 20-29min; 1 stable chronic or 2 minor; add add modifier 95 for video, modifier 93 for phoneMedication List Documented (1159F)Medication Review by prescribing provider or pharmacist documented (1160F)Pain Assessment - Pain Documented (1125F)Continue to see PCP. Follow-up with [facility] as needed for any acute or disease education needs that may arise.ECCA 07/01/24Was on Creon, now off medicationCurrently c/o of abdominal bloating and gas but pt had constipation yesterday and took Miralax and that gave her some loose stools, which left her feeling weak and gassy. No looses stools today. Pt advised Gax-X, bland diet today, plenty of fluids including Pedialyte. Follow up with GI recommended at least annually.ECCA 07/01/24On Amlodipine, Atenolol, Valsartan, furosemideControlledRecommend DASH diet. Increase exercise to 30-45 min q day. Eat a healthy diet: try to eat whole foods, green leafy vegetables and whole grains. Decrease fast foods and processed foods. Decrease sugary drinks, stop soda intake. Limit ETOH intake. If you smoke, quit smoking. Decrease caffeine intake. Decrease stress by: meditating, deep breathing, laughing, going for walks. Monitor BP at home: keep a BP journal. Record you BP's in the AM and after dinner; bring your log in next visit.ECCA 07/01/24HLD Rx LovastatinDM rx Toujeshon, LisproDaily FS.183- this A.MLast a1c- 9% Pending updated labs (missed labs in April) but overall improved after insulin adjustment. Typically FBS within goal of 80-140. Pt has a f/u appt with PCP next month. Will recheck f3vFiuegppe CG/PT that the a1c goal is <8%Encouraged regular exerciseCG reports that pt. likes to eat rice, bread and tortillas. Encouraged pt to limit intake of processed grains. Provided alternate choices.Limit unhealthy foods and eat healthy mealsDiscussed health risksECCA 07/01/24Pt. isnt taking any meds.Relatively mild. Has intermittent lapses of memory per daughter. Stable overall Has Life Alert at all times POA/guardian/Advance Directives- daughter is proxyLives with daughter Safety precautions reviewed with patient and caregiver.No driving motor vehicleTake medications as prescribedKeep medications and guns and other dangerous equipment/objects under lock and vogt for safety reasonsECCA 07/01/24On Lumfoster TimololAlso on regular injectables (Q6 mos) during doctor's visits- daughters does not have name Under ophthalmology careHas f/u 08/10/24StableECCA 07/01/24On Meloxicam PRNControlled Continue current managementFollow up PCP as scheduledECCA 07/01/24Pt does endorses episodes of feeling down, had been previously on medication but did not tolerate. Stable and adamantly declines mediation, behavioral health referral. Prefers to cope with activities that bring her comfort and ady. Pt spends a lot of time with family, watches TV frequently and this also helps her feel good.HYPERTENSION CONTINGENCY PLANLast updated: 07/01/2024Member to call for the following symptoms: BP >180/100??/ HeadachePlanned intervention: Assess for signs of end organ damage (headache, vision changes, chest pain)/ Shift Production Supervisor on proper BP monitoring technique and reassess/ Increase current medication dose: Amlodipine 7.5mg (1.5 tabs of 5mg) ONLY if BP persistently elevated with proper adherence / Encourage low sodium diet/ Discuss breathing exercises/ Encourage medication adherenceAt least 50% of time spent counseling patient, discussing diagnosis, treatment plan, complicance, and coordinating follow up care. Goals Date Goal 2022-03-21 Remember to 2022-03-21 Call me if 2022-03-21 Keep it up 2024-07-01 Continue taking medi cations as directed and keep all follow up appointments with established PCP and Specialist. Health Concerns Date Concern 2024-07-01 Visit completed brit walker audio/video.Patient/Guardian agreed to visit via telehealth. Today, patient has chief complaint of: follow up care and comprehensive review.Reviewed Allergies, Medications, Active Medical conditions, past medical/surgical history, Social history. 2024-07-01 Informed verbal cons ent was obtained from this patient to communicate and provide care using virtual and other telecommunications tools. This patient has been explained the risks, if any, related to the encounter. I explained that care provided through video or audio communication cannot replace the need for physical examination or an in-person visit for some disorders or urgent problems.Assisted by; Salena Mckeon, daughter 2024-07-01 Most recent hospital stay(s) or ER visit(s) and precipitating factors: none
--- OUTSIDE RECORDS SUMMARY | 2024-08-05 13:54 | XMS_ITS ---
Author Organization [facility] Address [address] [place] [address] Care Team Providers Care Imaging System Administrator Name Role Phone Papa HOLCOMB, Mateusz Primary Care Provider Mendoza Pillai Unavailable [phone] Encounters Encounter Location Date Provider Diagnosis [address] [address] 07/21/2024 Mendoza Malik Plan Of Treatment Next Appt Details Provider Name:Mendoza Malik , 10/13/2024 11:30:00 AM, [address], [address], Progress Notes * DICKEY, SunithaDOB:1935 (88 yo F)Acc No.[id number]:07/21/2024 Progress Note Patient:?Minna DICKEYarita Provider:?Mendoza Malik DPM :1935???Age:88 Y???Sex:Female D ate:07/21/2024 Address:[address] [place] [address] Pcp:Mateusz Elam MD Subjective: * Chief Complaints: * ??? * Medical History:? Objective: * Vitals:? Assessment: Plan: * Treatment: * Images: * The named appointment provid er may or may not be the originator of this progress note, and it is not deemed complete until electronically signed by the appointment provider. Sign off status: Pending * Provider:?Mendoza Malik DPM Date:?2024 Generated for Unruly parr/Bernardo/Sissy on:?08/05/2024 01:53 PM EST
== END 2024-08-05 11:59 | disposition home or self-care (01) ==
PROVIDERS: PCP Internal Medicine; Visit Provider Internal Medicine
DX: E11.9 Type 2 diabetes mellitus without complications (principal); I10 Essential (primary) hypertension

== ENCOUNTER → 2024-08-05 11:34 | Outpatient (BNVA) | payer OTHER, SELFPAY | PROVIDERS: PCP Internal Medicine; Visit Provider Internal Medicine | DX: E11.9 Type 2 diabetes mellitus without complications (principal); I10 Essential (primary) hypertension | CPT/HCPCS: 96127; 99212 ==

== ENCOUNTER 2024-11-02 10:14 | Outpatient (AMB) | payer OTHER, SELFPAY ==
--- NOTE | 2024-11-02 10:30 | MHC.PC.OV ---
Vital Signs 11/02/24 10:31 Height 5 ft 2 in Weight 136 lb 4 oz BMI 24.9 BP 120/66 Blood Pressure Location Lt brachial Position Sitting Pulse 54 Pulse Source Pulse Oximeter Temp 97.1 F Temp Source Temporal Artery Scan Pulse Oximetry (%) 97 Oxygen Delivery Method Room Air Intake Visit Reasons: Transfer Care from Dr. Elam 4mth f/u Intake Note: Patient is here today for CLAY from Dr Elam and DM f/u Human Resources Consultant Required: Yes Human Resources Consultant Language: First Beater Name: Salena (daughter) Information Interpreted: non-clinical & clinical (pt decline photonics engineering technologist service prefer daughter to translate for her) Administrative Resources Associate: Present Accompanied by: Daughter Allergies brimonidine [From ALPHAGAN P] Allergy (Unknown, Verified 11/02/24 10:43) UNKNOWN alphagan Allergy (Unknown, Uncoded 11/02/24 10:43) allergy reaction Fluoxetine Allergy (Unknown, Uncoded 11/02/24 10:43) Unknown Medication List - Last Reconciled 11/02/24 by Christel Green PA-C Accu-Chek Shamika Plus test strp (blood sugar diagnostic) 3 times a day NS acetaminophen (Tylenol) 650 mg PO Q6H PRN amlodipine 5 mg PO DAILY atenolol 50 mg PO DAILY bimatoprost 0.01% (Lumigan) 1 drp ophthalmic (eye) BEDTIME bisacodyl 5 mg PO BEDTIME flash glucose scanning reader (FreeStyle Aditya 2 [place]) As directed flash glucose sensor (FreeStyle Aditya 2 Sensor kit) Every 14 days furosemide 20 mg PO DAILY ibuprofen 400 mg PO Q8H PRN insulin glargine U-300 conc (Toujeo SoloStar U-300 Insulin) 13 units (0.0433 mL) subcut BEDTIME insulin lispro (Humalog KwikPen (U-100) Insulin) 6 units with breakfast , 6 units lunch lunch, 6-8 units with dinner and 2 units with snacks subcut. 4 times a day SLIDING SCALE 90 days lancets (Accu-Chek Fastclix Lancet Drum) 4 times a day iagsfj-ywirvcum-hovvhau 6,000-19,000 -30,000 unit (Creon) 1 cap PO DAILY lovastatin 40 mg PO BEDTIME meloxicam 7.5 mg PO DAILY nystatin topical BID pen needle, diabetic 5 times a day polyethylene glycol 3350 (Gavilax) 17 grams PO DAILY PRN timolol maleate 0.5% 1 drp ophthalmic (eye) DAILY trazodone 50 mg PO BEDTIME PRN valsartan 160 mg See Protocol PO BIDWM walker As directed Tobacco use date assessed: 11/02/24 Fall risk assessment: 1 Fall in past year Last assessed Fall Risk: 11/02/24 Dental Screening Dental Screen Date: 08/05/24 [facility] f/u HPI Details 89-year-old female with past medical history of type 1 diabetes uncontrolled with retinopathy and polyneuropathy, GERD and hypertension last seen by Dr. Elam 07/2024 coming in for transfer of care. Presenting with Type 1 Diabetes Mellitus and Hypertension. She experiences fluctuations in blood glucose levels, with recent readings indicating lows in the 80s and a hemoglobin A1c of 9.4%. Insulin administration includes 15 units of Tujayo at bedtime and variable dosing of Humalog around meals. Hypertension has been managed with valsartan, taken once daily, with a recent reading of 136/56 mmHg. The patient reports retinopathy and neuropathy, with non-compliance to retina specialist visits due to aversion to injections. Joint pain, particularly in the shoulder and back, is attributed to arthritis. Constipation persists, with the patient opting out of previous prescriptions due to prior dissatisfaction with care. 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 Do you presently have visiting nurse or other home services: Yes Alcohol intake: never Patient Tobacco Use Status: Never used Tobacco e-Cigarette/Vaping Use: Never Used Second Hand Smoke Exposure: No service: No Current occupational status: retired and disabled Cognitive needs: Yes (cane/walker) Hearing needs: No Vision needs: Yes (glasses) Questionnaire Thrive Questionnaire Date Thrive assessed: 08/05/24 MARKOS-7 AMB Questionnaire MARKOS-7 Date MARKOS - 7 assessed: 08/05/24 Source: Developed by Drs. Harris Puente, Breonna Galindo, Dank Chan and colleagues, with an educational madhav from [employer]. Review of Systems Const Denies body aches, Denies chills, Denies fever(s), Denies headache(s) and Denies poor appetite Eyes Reports no additional complaints ENT Denies dysphagia, Denies dizziness, Denies headache(s) and Denies odynophagia Card Denies chest pain, Denies syncope, Denies edema, Denies irregular heart rhythm, Denies lightheadedness and Denies dyspnea Resp Denies cough and Denies dyspnea GI Denies abdominal pain, Denies constipation, Denies dysphagia, Denies diarrhea, Denies nausea, Denies odynophagia and Denies vomiting Reports no additional complaints Musc Reports no additional complaints and Denies abnormal gait Skin/Breast Reports system reviewed and no additional complaints, except as documented Neuro Denies abnormal gait, Denies dizziness, Denies syncope and Denies headache(s) Psych Reports no additional complaints Physical exam (Primary Care) Vital Signs: Last Vital Signs Temp 97.1 F 11/02/24 10:31 Pulse 54 11/02/24 10:31 BP 120/66 11/02/24 10:31 Pulse Ox 97 11/02/24 10:31 Oxygen Delivery Method Room Air 11/02/24 10:31 BMI result Body Mass Index 24.9 Tobacco/Smoking Status: Tobacco use Status Tobacco use date assessed 11/02/24 11/02/24 10:42 Patient Tobacco Use Status Never used Tobacco 11/02/24 10:31 e-Cigarette/Vaping Use Never Used 11/02/24 10:31 Thrive Assessment: Date of Thrive Assessment Date Thrive assessed 08/05/24 11/02/24 10:31 Const General: cooperative, healthy appearing, comfortable and no acute distress Orientation/consciousness: patient oriented x3 HENMT Head: Yes normocephalic Ears: hearing grossly normal bilaterally General nose exam: Normal external nose present Eyes General: appearance normal, both eyes and all related structures Conjunctivae: conjunctivae normal Neck Neck: Yes full ROM and Yes no lymphadenopathy Resp Effort & Inspection: normal respiratory effort Auscultation: clear to auscultation bilaterally, no crackles, no rales, no rhonchi and no wheezes Cardio Rate: regular rate Rhythm: regular rhythm Skin General skin exam: no rashes or lesions noted Neuro General: patient oriented x3 Gait exam (Neuro): Normal gait present Extrem Other: Tenderness to palpation over left shoulder General: Yes normal to inspection, Yes full ROM and No edema Psych Affect: normal affect Attitude: cooperative Insight: Good insight present (Psych) Judgement: Good judgement present (Psych) Results AMB Hemoglobin A1c AMB Hemoglobin A1c 9.4 % Last Edit by MARYCARMEN Ricketts on 11/02/24 10:47 Results Reviewed Results Reviewed: Laboratory Last Values Hgb A1c (Clinic) 9.4 % (4.0-6.0) H 11/02/24 10:29 Coding Level of Care Code Est Pt Level 4 (60370) Diagnoses Diabetes type 1, uncontrolled E10.65 Hypertension I10 Gastroesophageal reflux disease, unspecified whether esophagitis present K21.9 Esophagitis presence: esophagitis presence not specified Dyslipidemia E78.5 Diabetic 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 Although fruits are generally healthy they should be eaten in moderation as they are still high in sugar. Hemoglobin A1c goal of less than 7%. A1c today 9.4% in the office. Patient is having low blood sugars primarily in the morning we will not increase due to mcc at this time I did reinforce dietary modification. Patient was previously being seen by endocrinology and I placed a referral for patient to return back to endocrinology I feel that this is the best plan for her. Patient is in agreement (2) Hypertension: Code(s): I10 - Essential (primary) hypertension Category: Medical Plan: Continue on current blood pressure medication. Avoid salt intake and encourage healthy diet and regular exercise. Per the patient's daughter she has been giving her mother valsartan only once a day and blood pressures at home have been normal. Plan to dropped dosing from twice daily to once daily of valsartan and follow up in 6 weeks. Daughter to continue to take blood pressures at home and bring log to next visit advised to reach out if blood pressures exceed 140/90 (3) Gastroesophageal reflux disease: Code(s): K21.9 - Gastro-esophageal reflux disease without esophagitis Category: Medical Qualifiers: Esophagitis presence: esophagitis presence not specified Qualified Code(s): K21.9 - Gastro-esophageal reflux disease without esophagitis Plan: Avoid trigger foods such as citrus, tomato products, soda, caffeine, spicy foods and other foods that may be irritating to your stomach. Avoid laying flat 3-4 hours after eating and elevate the head of the bed 30 degrees to prevent acid from moving into the esophagus. (4) Dyslipidemia: Code(s): E78.5 - Hyperlipidemia, unspecified Category: Medical Plan: Avoid foods that are high in cholesterol such as red meat, fried foods, eggs and baked goods. Triglyceride goal of less than 150 and LDL goal of less than 100. Continue on lovastatin 40. Ordered for repeat blood work (5) Diabetic polyneuropathy associated with type 1 diabetes mellitus: Code(s): E10.42 - Type 1 diabetes mellitus with diabetic polyneuropathy Category: Medical Plan: Patient does have polyneuropathy related to her diabetes she is not interested in medication at this time. Continue to work on glucose control. (6) Diabetic nephropathy associated with type 1 diabetes mellitus: Code(s): E10.21 - Type 1 diabetes mellitus with diabetic nephropathy Category: Medical Plan: Advised patient to stay well hydrated and avoid kidney irritants such as NSAIDs. (7) Proliferative diabetic retinopathy: Code(s): E11.3599 - Type 2 diabetes mellitus with proliferative diabetic retinopathy without macular edema, unspecified eye Category: Medical Plan: She follows with the retina specialist and has been refusing to go to her appointments. She also follows with Dr. Steele and will be seeing him later today. Advised patient to reach out to retina specialist to reschedule appointment at least for consultation and evaluation. (8) Left shoulder pain: Code(s): M25.512 - Pain in left shoulder Category: Medical Plan: Patient complaining of left shoulder pain that has been ongoing for several years. Plan to obtain shoulder x-ray for further evaluation. Patient may use lidocaine patch, Tylenol and heating pad as needed for pain. (9) Constipation: Code(s): K59.00 - Constipation, unspecified Category: Medical Plan: Discussed with the patient 3 rows of constipation; stay well hydrated, increase fiber intake and exercise as tolerated. She was previously being seen by Gastroenterology and was on Linzess without good relief. I did discuss with the patient the possibility of returning to GI for further evaluation she is not interested at this time. Continue on current bowel regimen. Plan The management of the patient's Type 1 Diabetes Mellitus will involve a referral to endocrinology for specialized care, considering the current challenges in glucose control. Hypertension will be monitored with valsartan reduced to once daily and daily blood pressure readings. Retinopathy management requires resuming retina specialist visits for necessary injections. Joint pain will be addressed with meloxicam and lidocaine patches, while constipation will be managed through dietary changes and heating pad use. Orders for fasting blood work are in place, and an x-ray of the shoulder is recommended. Follow-up is scheduled in six weeks to review progress and adjust care as needed. This note was constructed using voice recognition software. While every effort has been made to ensure accuracy and molding line operator, still areas may have been included sometimes these areas may affect the content or meeting of the given symptoms. Total time spent caring for the patient today was 30 minutes. This includes time spent before the visit reviewing the chart, time spent during the visit, and time spent after the visit and documentation. Patient was informed and verbally consented to the use of an ambient scribe for clinic note documentation during this visit. Orders: Orders Comprehensive Met. Panel Today E10.65 - Type 1 diabetes mellitus with hyperglycemia, Z00.00 - Encounter for general adult medical examination without abnormal findings Lipid Panel Today E10.65 - Type 1 diabetes mellitus with hyperglycemia, E78.00 - Pure hypercholesterolemia, unspecified Vitamin D 25-OH Total Today E10.65 - Type 1 diabetes mellitus with hyperglycemia, Z00.00 - Encounter for general adult medical examination without abnormal findings TSH reflex Free T4 Today E10.65 - Type 1 diabetes mellitus with hyperglycemia, Z00.00 - Encounter for general adult medical examination without abnormal findings XR shoulder LT min 2V Today M25.512 - Pain in left shoulder AMB Hemoglobin A1c Today E11.9 - Type 2 diabetes mellitus without complications, I10 - Essential (primary) hypertension Complete Blood Count Auto Diff Today E10.65 - Type 1 diabetes mellitus with hyperglycemia, Z00.00 - Encounter for general adult medical examination without abnormal findings Vitamin B12 and Folate Today E10.65 - Type 1 diabetes mellitus with hyperglycemia, Z13.21 - Encounter for screening for nutritional disorder Free T4 (Free Thyroxine) Today E10.65 - Type 1 diabetes mellitus with hyperglycemia, Z00.00 - Encounter for general adult medical examination without abnormal findings Referrals Endocrinology Referral E10.65 - Type 1 diabetes mellitus with hyperglycemia Medications: New [transfer chair] As directed 1 ea 0RF E10.42 - Type 1 diabetes mellitus with diabetic polyneuropathy lidocaine 5% leave on most painful area for up to 12 hrs 1 patch topical DAILY 30 ea 0RF Changed From valsartan 160 mg See Protocol PO BIDWM 180 tabs 1RF I10 - Essential (primary) hypertension To valsartan 160 mg See Protocol PO DAILY 180 tabs 1RF I10 - Essential (primary) hypertension From nystatin topical BID To nystatin 1 appl topical BID 30 grams 0RF From insulin glargine U-300 conc (Toujeo SoloStar U-300 Insulin) 13 units (0.0433 mL) subcut BEDTIME 4.5 mL 2RF E10.65 - Type 1 diabetes mellitus with hyperglycemia To insulin glargine U-300 conc (Toujeo SoloStar U-300 Insulin) 15 units (0.05 mL) subcut BEDTIME 4.5 mL 2RF E10.65 - Type 1 diabetes mellitus with hyperglycemia Discontinued lancets (Accu-Chek Fastclix Lancet Drum) Discontinued Reason: Patient no longer taking 4 times a day 150 ea 6RF E11.9 - Type 2 diabetes mellitus without complications Accu-Chek Shamika Plus test strp (blood sugar diagnostic) Discontinued Reason: Patient no longer taking 3 times a day 300 ea 2RF NS E11.65 - Type 2 diabetes mellitus with hyperglycemia
[2024-11-02 10:31] VITALS: BP 120/66; PULSE 54; TEMP 36.2; O2SAT 97; BMI 24.9
--- OUTSIDE RECORDS SUMMARY | 2024-11-02 11:13 | XMS_ITS ---
Author Organization [facility] Care Team Providers Care Multicultural Services Librarian Name Role Phone Braden Adair Unavailable Unavailable Allergies and adverse reactions Code CodeSystem Substance Reaction Severity StartDate Concern Status 130034 RXNORM Brimonidine Itching of skin (code- 807102841, SNOMED CT) Moderate 09/29/2018 active Care Team Name Role Address Phone Organization Dates Braden Adair PCP [address] [facility] [address], [place], [address], [place] (Office): : [facility] 09/29/2018 - 2018 Immunizations Immunization Status Vaccine Details Vaccine Code CodeSystem Date Notes Influenza cancelled Influenza, split virus, trivalent, injectable, contains preservative 141 CVX created date: 09/30/2018 consent date: 09/30/2018 TB 2 Step Mantoux Skin Test completed tuberculin skin test; unspecified formulation Step 2 of Multi-step with next step required 98 CVX created date: 10/09/2018 consent date: 10/09/2018 administer ed date: 10/09/2018 ppd read, negative TB 2 Step Mantoux Skin Test completed tuberculin skin test; unspecified formulation lotNumber: [id number] expiry: 03/07/2020 Mfg: [employer] cc Given 0.1 ml Right Forearm intradermally Step 1 of Multi-step with next step required 98 CVX created date: 10/07/2018 consent date: 10/07/2018 administer ed date: 10/07/2018 TB 2 Step Mantoux Skin Test completed tuberculin skin test; unspecified formulation lotNumber: [id number] expiry: 03/07/2020 Mfg: [employer] [place], [place] Given 0.1 ml Left Forearm intradermally Step 1 of Multi-step 98 CVX created date: 09/30/2018 consent date: 09/30/2018 administer ed date: 09/30/2018 PPSV23 (Previous Pneumococcal Polysaccharide) Vaccine cancelled pneumococcal polysaccharide vaccine, 23 valent 33 CVX created date: 09/30/2018 consent date: 09/30/2018 Mental Status Section Date Assessment Total Score Description 2018 BIMS 13 cognitively int act CAM 0 No delirium ind icated PHQ-9 00 10/12/2018 BIMS 13 cognitively int act CAM 0 No delirium ind icated PHQ-9 00 Problems Problem # Description Date of onset Resolved Date Code CodeSystem Concern Status 1 HALLUCINATIONS, UNSPECIFIED 09/30/[address] active 2 MAJOR DEPRESSIVE DISORDER, RECURRENT, UNSPECIFIED 09/30/[address] active 3 METABOLIC ENCEPHALOPATHY 09/30/[address] active 4 ESSENTIAL (PRIMARY) HYPERTENSION 09/29/[address] active 5 HYPERLIPIDEMIA, UNSPECIFIED 09/29/[address] active 6 HYPO-OSMOLALITY AND HYPONATREMIA 09/29/[address] active 7 NEUROCOGNITIVE DISORDER WITH LEWY BODIES 09/29/[address] active 8 OTHER ABNORMALITIES OF GAIT AND MOBILITY 09/29/[address] active 9 OTHER LACK OF COORDINATION 09/29/[address] active 10 PAIN IN UNSPECIFIED KNEE 09/29/[address] active 11 TYPE 2 DIABETES MELLITUS WITHOUT COMPLICATIONS 09/29/[address] active 12 WEAKNESS 09/29/[address] active Reason for Referral No Reasons for Referral Entered Social History Social History Observation Description Start Date End Date Code Code System Current Smoking Status Tobacco smoking consumption unknown 015042332 SNOMED CT Sex Assigned At Female 1935 10531-0 [facility] Gender Identity Vital Signs Code Code System Vitals Name Values and Units Timing Information 54625-2 [facility] Pain Level Value=0.0 2018 2339-0 [facility] Blood Sugar Rtlvn=595.0 Units=mg/dL 2018 06969-6 [facility] Weight Asdus=829.0 Units=Lbs 9279-1 [facility] Respiratory Rate Value=18.0 Units=/m in 10/21/2018 8462-4 [facility] Blood Pressure-Diastolic Value=58 Un its=mmHg 10/21/2018 8480-6 [facility] Blood Pressure-Systolic Ekgsq=729 Un its=mmHg 10/21/2018 8310-5 [facility] Body Temperature Value=97.0 Units=?? F 10/21/2018 8867-4 [facility] Heart rate Value=78.0 Units=/min 35617-2 [facility] O2 % BldC Oximetry Value=96.0 Units= % 10/21/2018 8302-2 [facility] Height Value=62.0 Units=Inches 09/29/2018
== END 2024-11-02 11:17 | disposition home or self-care (01) ==
LOC: HO.HMCH 10:15
DX: E11.69 Type 2 diabetes mellitus with other specified complication (principal); E11.3599 Type 2 diabetes mellitus with proliferative diabetic retinopathy without macular edema, unspecified eye; I10 Essential (primary) hypertension; K21.9 Gastro-esophageal reflux disease without esophagitis; E78.5 Hyperlipidemia, unspecified; M25.512 Pain in left shoulder; K59.00 Constipation, unspecified

== ENCOUNTER → 2024-11-02 10:14 | Outpatient (BNVA) | payer OTHER, SELFPAY | PROVIDERS: PCP Internal Medicine | DX: E10.65 Type 1 diabetes mellitus with hyperglycemia (principal); I10 Essential (primary) hypertension; E78.5 Hyperlipidemia, unspecified; K21.9 Gastro-esophageal reflux disease without esophagitis; E10.42 Type 1 diabetes mellitus with diabetic polyneuropathy; E10.21 Type 1 diabetes mellitus with diabetic nephropathy; K59.00 Constipation, unspecified; M25.512 Pain in left shoulder | CPT/HCPCS: 83036; 99212 ==

== ENCOUNTER 2024-11-14 09:52 | Outpatient (REF) | payer OTHER, SELFPAY ==
--- NOTE | ~2024-11-14 | XR_ITS ---
EXAMINATION: XR SHOULDER 2 OR MORE VIEWS LEFT HISTORY: M25.512 - Pain in left shoulder COMPARISON: There are no prior studies available for comparison. FINDINGS: Two views of the left shoulder are submitted. Osseous mineralization is normal. There is no fracture or dislocation. The glenohumeral joint is maintained. There is mild to moderate narrowing of the AC joint. The soft tissues are unremarkable. XR/XR shoulder LT min 2V IMPRESSION: Mild to moderate narrowing of the AC joint. Electronically signed by: Harris Baker MD 11/14/2024 12:48 PM EDT
[2024-11-14 10:04] LABS: MANUAL DIFF FLAG NO
--- OUTSIDE RECORDS SUMMARY | 2024-11-14 10:42 | XMS_ITS ---
Author Organization [facility] Address [address] [place] [address] Care Team Providers Care Relationship Specialist Name Role Phone Papa HOLCOMB, Mateusz Primary Care Provider Mendoza Pillai Unavailable [phone] Encounters Encounter Location Date Provider Diagnosis [address] [address] 07/21/2024 Mendoza Malik Plan Of Treatment Next Appt Details Provider Name:Mendoza Malik , 01/16/2025 11:30:00 AM, [address], [address], Progress Notes * DICKEYMinna IGNACIOizaDOB:1935 (89 yo F)Acc No.[id number]:07/21/2024 Progress Note Patient:?Sunitha DICKEY Provider:?Mendoza Malik DPM :1935???Age:88 Y???Sex:Female D ate:07/21/2024 Address:[address] [place] [address] Pcp:Mateusz Elam MD Subjective: * Chief Complaints: [...] Malik DPM Date:?2024 Generated for Unruly parr/Bernardo/Sissy on:?11/14/2024 10:42 AM EDT
[2024-11-14 10:48] LABS: Basophils Percent Auto 0.4 % (0-2); Eosinophils Absolute Auto 0.2 X10*3/uL (0.0-0.4); Eosinophils Percent Auto 1.8 % (0-4); Hematocrit 37.2 % (37.0-47.0); Hemoglobin 11.8 g/dl (12.0-16.0); Imm Gran Abs Auto 0.03 X10*3/uL (0.00-0.03); Imm Gran Pct Auto 0.4 % (0.0-0.4); Lymphocytes Absolute Auto 2.6 X10*3/uL (1.2-4.9); Lymphocytes Percent Auto 31.3 % (20-40); Mean Corpuscular HGB Conc 31.7 g/dl (31.0-35.0); Mean Corpuscular Hemoglobin 28.5 pg (27.0-33.0); Mean Corpuscular Volume 89.9 fL (80.0-98.0); Mean Platelet Volume 10.4 fL (9.4-12.3); Monocytes Absolute Auto 0.8 X10*3/uL (0.1-1.2); Neutrophils Absolute Auto 4.7 x10*3/uL (2.0-8.3); Neutrophils Percent Auto 56.1 % (45-73); Platelet Count 201 X10*3/uL (160-400); Red Blood Count 4.14 X10*6/uL (4.20-5.50); Red Cell Distribution Width 13.2 % (11.0-16.0); White Blood Count 8.4 X10*3/uL (4.8-10.8)
[2024-11-14 11:23] LABS: Alanine Aminotransferase 14 U/L (0-31); Albumin Level 4.1 g/dL (3.5-5.0); Alkaline Phosphatase 103 U/L (39-117); Anion Gap 11 (12-20); Aspartate Amino Transferase 21 U/L (5-31); Bilirubin Total 0.5 mg/dL (0.0-1.0); Blood Urea Nitrogen 25 mg/dL (9-16); Calcium 9.8 mg/dL (8.4-10.2); Carbon Dioxide 32 mmol/L (22-29); Chloride 104 mmol/L (96-108); Cholesterol 155 mg/dL (<200); Estimated Glomerular Filt Rate 35; Glucose Random 107 mg/dL (60-115); HDL Cholesterol 48 mg/dL (>40); LDL Cholesterol Calculated 86 mg/dL (<100); Potassium 4.6 mmol/L (3.3-5.1); Sodium 142 mmol/L (135-145); Total Protein 6.9 g/dL (6.5-8.0); Triglycerides 109 mg/dL (<150)
[2024-11-14 11:46] LABS: Free T4 (Free Thyroxine) 0.99 ng/dL (0.71-1.85); TSH reflex Free T4 3.02 uIU/mL (0.32-4.0); Vitamin D 25-OH Total 56.8 ng/mL (>30)
[2024-11-14 11:47] LABS: Folate 13.4 ng/mL (> or = 4.0); Vitamin B12 464 pg/mL (200-900)
== END 2024-11-14 09:53 | disposition home or self-care (01) ==
LOC: HO.XRAY 09:52
DX: Z00.00 Encounter for general adult medical examination without abnormal findings (principal); E78.00 Pure hypercholesterolemia, unspecified; M25.512 Pain in left shoulder; Z13.21 Encounter for screening for nutritional disorder; E10.65 Type 1 diabetes mellitus with hyperglycemia
CPT/HCPCS: 36415; 73030; 80053; 80061; 82306; 82607; 82746; 84439; 84443; 85025

== ENCOUNTER → 2024-11-14 10:07 | Outpatient (BNV) | payer OTHER, SELFPAY | PROVIDERS: Visit Provider Radiology Diagnostic Radiology | DX: M25.512 Pain in left shoulder (principal) | CPT/HCPCS: 73030 ==

== ENCOUNTER 2024-12-06 12:55 | Outpatient (AMB) | payer OTHER, SELFPAY ==
--- OUTSIDE RECORDS SUMMARY | 2024-07-21 07:30 | XMS_ITS ---
[facility] Address [address] [place] [address] Care Team Providers Care Neon Sign Mechanic Name Role Phone Mateusz Elam MD Primary Care Provider Mendoza Pillai Unavailable [phone] Encounters Encounter Location Date [facility] [address] [place] [address] 07/21/2024 Mendoza Malik Plan Of Treatment Next Appt Details Provider Name:Mendoza Malik , 01/16/2025 11:30:00 AM, [address], [address], Progress Notes * Sunitha DICKEYDOB:1935 (89 yo F)Acc No.[id number]:07/21/2024 Progress Note Patient: Sunitha MCCORMICK Provider: Shelly Malik DPM :1935 A ge:88 Y S ex:Female Date:07/21/2024 Address:[address] [place] [address] [id number] Pcp:Mateusz Elam MD Subjective: * Chief Complaints: [...] 07/21/2024 Generated for Unruly parr/Bernardo/Sissy on: 0 12/06/2024 01:48 PM EDT
[2024-12-06 12:58] VITALS: BP 134/58; PULSE 56; O2SAT 96; BMI 25.3
--- NOTE | 2024-12-06 12:58 | MHC.OFFVIS ---
Vital Signs 12/06/24 12:58 Height 5 ft 2 in Weight 138 lb 3.677 oz BMI 25.3 BP 134/58 L Blood Pressure Location Rt brachial Position Sitting Pulse 56 Pulse Source Pulse Oximeter Pulse Oximetry (%) 96 Oxygen Delivery Method Room Air Intake Visit Reasons: Type 1 diabetes mellitus with hyperglycemia Intake Note: New patient internally referred by PCP to establish care for T1DM. Patient daughter reports she has an OTC glucometer and testing supplies for when she has to fingerstick. Patient receives Aditya 2 supplies: [facility] Last Diabetic Eye exam: December 03, 2024 Last Podiatry Visit: approx 2 months Random Glucose: 54 mg/dl 1:12 pm, 83 mg/dl 1:45 pm. HgA1C: 9.4% 11/02/2024 Director Of Corporate Responsibility Required: Yes Director Of Corporate Responsibility Language: Dental Hygiene Instructor Services: Director Of Corporate Responsibility Present Director Of Corporate Responsibility Name: [facility] [place] Information Interpreted: non-clinical & clinical Accompanied by: Daughter Allergies brimonidine (From ALPHAGAN P) Allergy (Unknown, Verified 12/06/24 13:05) UNKNOWN alphagan Allergy (Unknown, Uncoded 12/06/24 13:05) allergy reaction Fluoxetine Allergy (Unknown, Uncoded 12/06/24 13:05) Unknown HPI Comments Details: Patient is an 89-year-old female with DM type 1 diagnosed the age of 41 who presents for management of diabetes Patient was last seen 2by Marj Katz NP . . Past medical history: DM1, Raynaud's syndrome, hypertension, hyperlipidemia, Micro and macrovascular complications: proliferative retinopathy, nephropathy, Diabetes medications: Toujeo 15 units and Humalog 6 units for breakfast, 6-8 units for lunch and 10 with dinner, 2-3 units with snack. Plus Correction scale starting 100-200 6 units 200-299 mg/dL 1 unit 300-399 mg/dL 2 units 400+ mg/dL 3 units Symptoms reported: Cramping at night in lower extremities Hypoglycemia: in AM Hyperglycemia: denies urinary frequency, occassional nocturia, polydypsia Blood glucose monitoring: Aditya 2 download show the sensor is active 72% of the time. Average glucose is 184 with G mi of 7.7% and variability 36.6%. 49% range with 32% hyperglycemia and 17% very hyperglycemia and 2% hypoglycemia which is occurring primarily overnight. Blood sugars tend to trend downward overnight and 10 to rise after 09:00 Lathmaker - CDE education: several years ago. Steel Detailer: denies Dental exam: long time ago Ophthalmology evaluation: last wk Laboratory Tests 03/07/21 05/10/21 11:24 Unknown Creatinine 1.24 Estimated GFR 41 Hgb A1c (Clinic) 9.3 H 11/29/20 11/29/20 11/29/20 08:46 08:46 08:46 Creatinine Estimated GFR Hgb A1c (Clinic) Hemoglobin A1c % 8.0 Triglycerides 97 Cholesterol 154 LDL Cholesterol Direct 68 LDL Cholesterol, Calc 76 HDL Cholesterol 59 TSH 3.78 Free T4 0.95 Microalb/Creat Ratio 11/29/20 11/29/20 02/22/21 08:46 08:49 19:38 Creatinine 1.12 Estimated GFR 46 Hgb A1c (Clinic) 7.8 H Hemoglobin A1c % Triglycerides Cholesterol LDL Cholesterol Direct LDL Cholesterol, Calc HDL Cholesterol TSH Free T4 Microalb/Creat Ratio 93.2 PFS Medical History Dementia Uterine prolapse Dyslipidemia Hypertension 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 Do you presently have visiting nurse or other home services: Yes Alcohol intake: never Patient Tobacco Use Status: Never used Tobacco e-Cigarette/Vaping Use: Never Used Second Hand Smoke Exposure: No service: No Current occupational status: retired and disabled Cognitive needs: Yes (cane/walker) Hearing needs: No Vision needs: Yes (glasses) Physical Exam Vital Signs: Last Vital Signs Pulse 56 12/06/24 12:58 BP 134/58 L 12/06/24 12:58 Pulse Ox 96 12/06/24 12:58 Oxygen Delivery Method Room Air 12/06/24 12:58 BMI result Body Mass Index 25.3 Absence of Cushingoid features. Absence of acromegalic features. Neck exam reveals nl size thyroid about 15 gms. No thyroid nodules palpable. No carotid bruits present. Lungs CTA. Heart S1 S2, Reg R/R. No M/R/ G. Skin exam reveals absence of vitiligo or acanthosis nigricans. Abdominal exam reveals Soft NT/ND with NA BS. No organomegaly present. Extrem Other: Visual exam of foot performed. No ulcerations or open lesions. No onchomycosis, no callouses.Pulses 2 + distally. Sensation intact to monofilament exam. Vibratory sensation sensed 10 seconds in right, 10 seconds in left with 128 Hz tuning fork Results Reviewed Results Reviewed: Laboratory Last Values Glucose (Clinic) 83 mg/dL (60-115) 12/06/24 13:45 Assessment & Plan Assessment & Plan (1) Diabetes type 1, uncontrolled: Code(s): E10.65 - Type 1 diabetes mellitus with hyperglycemia Category: Medical Plan: This 89-year-old female with a history of longstanding type 1 diabetes being treated with basal-bolus insulin with glycemic control and known microvascular complications namely neuropathy, nephropathy and retinopathy. Goal hemoglobin A1c should be up at 8.5% considering patient's age and comorbidities Plan is to decrease the Toujeo to 12 units and to 10 units if continued hypoglycemia Stressed pt's humalog prebreakfast 5-15 minutes before meal . Use more gentle correction starting at POC 200-250 We will check microalbumin to creatinine ratio. F/u with CDE in 2 mos and with me in 4 mos Orders: Orders Microalbumin, Random (w Creat) Today E10.65 - Type 1 diabetes mellitus with hyperglycemia Referrals Diabetes Education Referral E10.65 - Type 1 diabetes mellitus with hyperglycemia Medications: New glucagon 3 mg/actuation (Baqsimi) 3 mg intranasal ONCE 2 ea 5RF blood-glucose sensor (FreeStyle Aditya 3 Plus Sensor device) As directed change every 14 days 2 ea 5RF blood-glucose,chief dispatcher service,cont (FreeStyle Aditya 3 Manor) As directed 1 ea 0RF Discontinued flash glucose scanning reader (FreeStyle Aditya 2 Manor) Discontinued Reason: Doctor's Order As directed 1 ea 0RF E10.65 - Type 1 diabetes mellitus with hyperglycemia flash glucose sensor (FreeStyle Aditya 2 Sensor kit) Discontinued Reason: Doctor's Order Every 14 days 2 ea 11RF E10.65 - Type 1 diabetes mellitus with hyperglycemia Coding Level of Care Code Est Pt Level 4 (15203) Diagnoses Diabetes type 1, uncontrolled E10.65
[2024-12-06 13:18] LABS: Glucose, Whole Blood 54 mg/dL (60-115)
--- OUTSIDE RECORDS SUMMARY | 2024-12-06 13:48 | XMS_ITS ---
Author Name Jacob SARA, MS. Florecita Fiore Address [address] [place] [id number] Phone [phone] [facility] Care Team Providers Care Assessment Nurse Practitioner Name Role Phone Florecita James Unavailable [phone] MehranMateusz augustin Unavailable [phone] Reason for Referral Not Available Allergies, adverse reactions, alerts Allergen Type Reaction Severity Status Onset Date Alphagan Allergy to substance (disorder) Unknown Active N/A Fluoxetine Allergy to substance (disorder) Unknown Active N/A History of medication use Medication Class Instructions Start Date End Date Meloxicam 7.5 mg Tab TAKE 1 TABLET BY MO UTH EVERY DAY 2020-11-12 No Data Available [facility] Gas Relief Ultra Strength 180 mg Cap TAKE 1 CAPSULE BY MOUTH TWICE A DAY NEEDED FOR ABDOMINAL DISTENTION 2021-08-26 No Data Available Furosemide 20 mg Tab TAKE 1 TABLET BY MO UTH EVERY DAY 2020-12-21 No Data Available Creon [id number] UNIT Cap delayed rel TAKE 1 CAPSULE [...] 2022-03-21 BD JEWELS 2 GEN PEN NDL [id number] USE 5 TIMES A DAY 2021-05-29 No [...] 1 TABLET BY MO UT EVERY DAY IN THE EVENING 2021-12-02 No [...] once daily 2023-06-23 No Data Available Nystatin [id number] UNIT/GM Powder APPLY TO AFFECTED AREA TWICE A DAY AFTER ALLOWING SKIN FOLDS TO AIR DRY 2023-07-23 No Data Available traZODone 50 mg Tab TAKE 1 TABLET BY MICHAELA TH EVERY DAY AT BEDTIME NEEDED FOR SLEEP 2023-08-17 No Data Available Vitamin D3 50 MCG (1999) Cap 1 capsules PO QD 2024-07-01 No Data Available Problem List Problem Status Onset Date Resolved Date Synopsis Bilateral lower extremity edema Resolved 2022-032023-06-23 On FurosemideDenies any swelling at this time. Has not experience any swelling for over 4 months.Encouraged pt. 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 isnt taking any meds.Relatively mild. Has intermittent lapses of memory per daughter. Stable overall Has Life Alert at all times POA/guardian/Advance Directives- daughter is proxyLives with daughter Safety precautions reviewed with patient and caregiver.No driving motor vehicleTake medications as prescribedKeep medications and guns and other dangerous equipment/objects under lock and vogt for safety reasons Chronic pancreatitis Active 2022-03 N/A [facility] 07/01/24Was on Creon, no w off medicationCurrently c/o of abdominal bloating and gas but pt had constipation yesterday and took Miralax and that gave her some loose stools, which left her feeling weak and gassy. No looses stools today. Pt advised Gax-X, bland diet today, plenty of fluids including Pedialyte. Follow up with GI recommended at least annually. Hypertension Active 2022-03 N/A [facility] 07/01/24On Amlodipine, Atenolol, Valsartan, furosemideControlledRecommend DASH diet. [...] after dinner; bring your log in next visit. Diabetes mellitus with complicationHyperlipidemia associated with type 2 diabetes mellitus Active 2022-03 N/A [facility] 07/01/24HLD Rx Lovastati nDM rx Toujeo, LisproDaily FS.183- this A.MLast a1c- 9% Pending updated labs (missed labs in April) but overall improved after insulin adjustment. Typically FBS within goal of 80-140. Pt has a f/u appt with PCP next month. Will recheck a7iWeallfrh CG/PT that the a1c goal is <8%Encouraged regular exerciseCG reports that pt. likes to eat rice, bread and tortillas. Encouraged pt to limit intake of processed grains. Provided alternate choices.Limit unhealthy foods and eat healthy mealsDiscussed health risks Other problems related to medical facilities and other health care Active 2023-08 N/A [facility]ANLast updated: 07/01/2024Member to call for the following symptoms: BP >180/100 / HeadachePlanned intervention: Assess for signs of end organ damage (headache, vision changes, chest pain)/ Manager Water on proper BP monitoring technique and reassess/ Increase current medication dose: Amlodipine 7.5mg (1.5 tabs of 5mg) ONLY if BP persistently elevated with proper adherence / Encourage low sodium diet/ Discuss breathing exercises/ Encourage medication adherence Osteoarthritis of both knees Active 07-18 N/A [facility] 07/01/24On Meloxicam PRNControlled Continue current managementFollow up PCP as scheduled Major depressive disorder, recurrent, mild Active 2024-06 N/A [facility] 07/01/24Pt does endorses episodes of feeling down, had been previously on medication but did not tolerate. Stable and adamantly declines mediation, behavioral health referral. Prefers to cope with activities that bring her comfort and ady. Pt spends a lot of time with family, watches TV frequently and this also helps her feel good. Encounters Encounters Type Facility Date of Service Diagnosis/Co mplaint Pain Assessment - NO pain present (1126F) [facility] [place] Pain Assessment - NO pain present (1126F) [facility] [place] Pain Assessment - NO pain present (1126F) [facility] [place] Pain Assessment - NO pain present (1126F) [facility] [place] Pain Assessment - NO pain present (1126F) [facility] [place] Pain Assessment - NO pain present (1126F) [facility] [place] Pain Assessment - NO pain present (1126F) [facility] [place] Type 2 diabetes mellitus wit [...] Pain Assessment - NO pain present (1126F) [facility] [place] Pain Assessment - NO pain present (1126F) [facility] [place] Pain Assessment - NO pain present (1126F) [facility] [place] Estab. patient 30-39min; chronic exacerbation, 2 stable chronic or 1 acute illness add add modifier 95 for video, (do not use for phone, instead use 39598-09) [facility] [place]2023 Other chronic pancreatitisTy pe 2 [...] (do not use for phone, instead use 34259-62) [facility] [place] Estab. patient 30-39min; chronic exacerbation, 2 stable chronic or 1 acute illness add add modifier 95 for video, (do not use for phone, instead use 18312-91) [facility] [place] Estab. patient 30-39min; chronic exacerbation, 2 stable chronic or 1 acute illness add add modifier 95 for video, (do not use for phone, instead use 15035-90) [facility] ([place]) 02/18/20[place] Estab. patient 30-39min; chronic exacerbation, 2 stable chronic or 1 acute illness add add modifier 95 for video, (do not use for phone, instead use 20084-33) [facility] [place] Estab. patient 30-39min; chronic exacerbation, 2 stable chronic or 1 acute illness add add modifier 95 for video, (do not use for phone, instead use 10358-62) [facility] [place] Estab. patient 30-39min; chronic exacerbation, 2 stable chronic or 1 acute illness add add modifier 95 for video, (do not use for phone, instead use 42477-21) [facility] [place] Estab. patient 30-39min; chronic exacerbation, 2 stable chronic or 1 acute illness add add modifier 95 for video, (do not use for phone, instead use 18735-86) [facility] [place]2023 No Data Available [facility] [place]2023 Type 2 diabetes mellitus wit h other specified complicationHyperlipidemia, unspecified No Data Available [facility] [place]20[place] Estab. patient 30-39min; chronic exacerbation, 2 stable chronic or 1 acute illness add add modifier 95 for video, (do not use for phone, instead use 48179-40) [facility] [place] 06[place]2023 Other chronic pancreatitisEssential (primary) hypertensionType 2 diabetes mellitus with other specified complicationHyperlipidemia, unspecifiedUnspecified dementia without behavioral disturbanceMajor depressive disorder, recurrent, unspecifiedBilateral primary osteoarthritis of knee Estab. patient 30-39min; chronic exacerbation, 2 stable chronic or 1 acute illness add add modifier 95 for video, (do not use for phone, instead use 70108-51) [facility] [place] Estab. patient 30-39min; chronic exacerbation, 2 stable chronic or 1 acute illness add add modifier 95 for video, (do not use for phone, instead use 06329-86) [facility] [place] Estab. patient 30-39min; chronic exacerbation, 2 stable chronic or 1 acute illness add add modifier 95 for video, (do not use for phone, instead use 32082-94) [facility] ([place] 06/23/20[place] Estab. patient 30-39min; chronic exacerbation, 2 stable chronic or 1 acute illness add add modifier 95 for video, (do not use for phone, instead use 73644-13) [facility] [place] Estab. patient 30-39min; chronic exacerbation, 2 stable chronic or 1 acute illness add add modifier 95 for video, (do not use for phone, instead use 34102-87) [facility] [place] Estab. patient 30-39min; chronic exacerbation, 2 stable chronic or 1 acute illness add add modifier 95 for video, (do not use for phone, instead use 38393-15) [facility] [place] Estab. patient 30-39min; chronic exacerbation, 2 stable chronic or 1 acute illness add add modifier 95 for video, (do not use for phone, instead use 55749-00) [facility] [place] Estab. patient 30-39min; chronic exacerbation, 2 stable chronic or 1 acute illness add add modifier 95 for video, (do not use for phone, instead use 01785-19) [facility] [place] Estab. patient 30-39min; chronic exacerbation, 2 stable chronic or 1 acute illness add add modifier 95 for video, (do not use for phone, instead use 12871-23) [facility] [place] Estab. patient 20-29min; 1 stable chronic or 2 minor; add add modifier 95 for video, modifier 93 for phone [facility] [place]2024 Other chronic pancreatitisEssential (primary) hypertensionType 2 [...] 95 for video, modifier 93 for phone [facility] [place] Estab. patient 20-29min; 1 stable chronic or 2 minor; add add modifier 95 for video, modifier 93 for phone [facility] [place] Estab. patient 20-29min; 1 stable chronic or 2 minor; add add modifier 95 for video, modifier 93 for phone [facility] [place] Estab. patient 20-29min; 1 stable chronic or 2 minor; add add modifier 95 for video, modifier 93 for phone [facility] [place] Estab. patient 20-29min; 1 stable chronic or 2 minor; add add modifier 95 for video, modifier 93 for phone [facility] [place] Estab. patient 20-29min; 1 stable chronic or 2 minor; add add modifier 95 for video, modifier 93 for phone [facility] [place] Estab. patient 20-29min; 1 stable chronic or 2 minor; add add modifier 95 for video, modifier 93 for phone [facility] [place] Estab. patient 20-29min; 1 stable chronic or 2 minor; add add modifier 95 for video, modifier 93 for phone [facility] [place]2024 Vital Signs Date of Collection Vitals [...] tive Time Current Smoking Status Never smoker 1 Sex Female History of Procedures Procedures Service [...] (do not use for phone, instead use 08779-67) [id number] 2022-03-21 No Data Available No Data Availa [...] (do not use for phone, instead use 17407-21) [id number] 2023-02-18 No Data Available No Data Availa [...] Available No Data Available No Data Available [id number] 2023-05-31 No Data Available No Data Available Medication List Documented (1159F) [id number] 2023-05-31 No Data Available No Data Luna ilable Estab. patient 30-39min; chronic exacerbation, 2 stable chronic or 1 acute illness add add modifier 95 for video, (do not use for phone, instead use 41053-32) [id number] 2023-06-23 No Data Available No Data Availa [...] ble Advance care planning discussed and documented advance care plan or surrogate decision-maker was [...] 95 for video, modifier 93 for phone [id number] 2024-07-01 No Data Available No Data Availa [...] ble Advance care planning discussed and documented advance care plan or surrogate decision-maker was [...] MONTHS:- no 2023-06-23 walks with walker 2023-06-23 program aide group work 2023-06-23 Mental Status Status Date coax2 2023-06-23 [...] edema 2023-05-31 07:41:13 Follow up plan for homa wood symptoms: MonitorHyperlipidemia associated with type 2 diabetes [...] <80 (3078F)Continue to see PCP. Follow-up with [facility] as needed for any acute or disease education needs that may arise.On ToujeAnivalproDaily FS.183- this A.MLast a1c- 9%Pt has a f/u appt with PCP next month. Will recheck [id number] CG/PT that the a1c is <7%Encouraged regular [...] modifier 95Advance care planning discussed and documented advance care plan or surrogate decision-maker was documented in the medical record. (1123F)Advance care planning discussed and documented in the medical record beneficiary/patient did not wish to or was unable to provide an advance care plan or name a surrogate decision-maker. (1124F)Pain Assessment - NO pain documented (1126F)Continue to see PCP. Follow-up with [facility] as needed for any acute or disease education needs that may arise.On ToujeoLisproDaily FS.183- this A.MLast a1c- 9%Pt has a f/u appt with PCP next month. Will recheck [id number] CG/PT that the a1c goal is <7%Encouraged [...] appt with PCP next month. Will recheck a6cUbwzolfu CG/PT that the a1c goal is <7%Encouraged regular exerciseCG reports that pt. likes to eat rice, bread and tortillas. Encouraged pt to limit intake of processed grains. Provided alternate choices.Limit unhealthy foods and eat healthy mealsDiscussed health risks9.. bs fluctuate, no outside care notes recently, [...] modifier 95Advance care planning discussed and documented advance care plan or surrogate decision-maker was [...] appt with PCP next month. Will recheck [id number] CG/PT that the a1c goal is <7%Encouraged [...] record (1158F)Advance care planning discussed and documented advance care plan or surrogate decision-maker was [...] in next visit.[facility] 07/01/24H[facility] Rx LovastatinDM rx Toujeo, LisproDaily FS.183- this A.MLast a1c- 9% Pending updated labs (missed labs in April) but overall improved after insulin adjustment. Typically FBS within goal of 80-140. Pt has a f/u appt with PCP next month. Will recheck c6iGbztnsrx CG/PT that the a1c goal is <8%Encouraged [...] to call for the following symptoms: BP >180/100 / HeadachePlanned intervention: Assess for signs of end organ damage (headache, vision changes, chest pain)/ Manager Water on proper BP monitoring technique and reassess/ [...]
[2024-12-06 13:49] LABS: Glucose, Whole Blood 83 mg/dL (60-115)
== END 2024-12-06 13:51 | disposition home or self-care (01) ==
LOC: HO.ENCR 12:55
PROVIDERS: Visit Provider Internal Medicine Endocrinology, Diabetes & Metabolism
DX: E10.65 Type 1 diabetes mellitus with hyperglycemia (principal)
CPT/HCPCS: 99214

== ENCOUNTER → 2024-12-06 12:55 | Outpatient (BNVA) | payer OTHER, SELFPAY | PROVIDERS: Visit Provider Internal Medicine Endocrinology, Diabetes & Metabolism | DX: E10.65 Type 1 diabetes mellitus with hyperglycemia (principal); E10.21 Type 1 diabetes mellitus with diabetic nephropathy; E10.319 Type 1 diabetes mellitus with unspecified diabetic retinopathy without macular edema; I10 Essential (primary) hypertension; E78.5 Hyperlipidemia, unspecified; Z79.4 Long term (current) use of insulin | CPT/HCPCS: 82947; 99212 ==

== ENCOUNTER 2024-12-23 10:41 | Outpatient (AMB) | payer OTHER, SELFPAY ==
--- OUTSIDE RECORDS SUMMARY | 2024-07-21 07:30 | XMS_ITS ---
Author [facility] Address [address] [place] [address] Care Team Providers Care Sand Molder Name Role Phone Mateusz Elam MD Primary Care Provider Mendoza Pillai Unavailable [phone] Encounters Encounter Location Date [facility] [address] [place] [address] 07/21/2024 Mendoza Malik Plan Of Treatment Next Appt Details Provider Name:Mendoza Malik , 01/16/2025 11:30:00 AM, [address], [address], Progress Notes * Sunitha DICKEYDOB:1935 (89 yo F)Acc No.[id number]:07/21/2024 Progress Note Patient: Sunitha MCCORMICK Provider: Shelly Malik DPM :1935 A ge:88 Y S ex:Female Date:07/21/2024 Address:[address] [place] [address] [id number] Pcp:Mateusz Elam MD Subjective: * Chief Complaints: [...] 07/21/2024 Generated for Unruly parr/Bernardo/Sissy on: 0 12/23/2024 11:12 AM EDT
--- NOTE | 2024-12-22 14:32 | MHC.PC.OV ---
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 Do you presently have visiting nurse or other home services: Yes Alcohol intake: never Patient Tobacco Use Status: Never used Tobacco e-Cigarette/Vaping Use: Never Used Second Hand Smoke Exposure: No service: No Current occupational status: retired and disabled Cognitive needs: Yes (cane/walker) Hearing needs: No Vision needs: Yes (glasses) Questionnaire Thrive Questionnaire Date Thrive assessed: 08/05/24 MARKOS-7 AMB Questionnaire MARKOS-7 Date MARKOS - 7 assessed: 08/05/24 Source: Developed by Drs. Harris Puente, Breonna Galindo, Dank Chan and colleagues, with an educational madhav from [employer]. Physical exam (Primary Care) Tobacco/Smoking Status: Tobacco use Status Tobacco use date assessed 11/02/24 11/02/24 10:42 Patient Tobacco Use Status Never used Tobacco 11/02/24 10:31 e-Cigarette/Vaping Use Never Used 11/02/24 10:31 Thrive Assessment: Date of Thrive Assessment Date Thrive assessed 08/05/24 11/02/24 10:31 Coding
--- NOTE | 2024-12-23 10:48 | MHC.PC.OV ---
Vital Signs 12/23/24 10:50 Height 5 ft 2 in Weight 138 lb 7.205 oz BMI 25.3 Blood Pressure Location Lt brachial Position Sitting Temp 97.3 F Temp Source Temporal Artery Scan Oxygen Delivery Method Room Air Intake Visit Reasons: f/u HTN Physician Assistant Surgery Required: No Accompanied by: Self / Same As Patient Allergies brimonidine (From ALPHAGAN P) Allergy (Unknown, Verified 12/23/24 11:21) UNKNOWN alphagan Allergy (Unknown, Uncoded 12/23/24 11:21) allergy reaction Fluoxetine Allergy (Unknown, Uncoded 12/23/24 11:21) Unknown Medication List - Last Reconciled 12/23/24 by Christel Green PA-C acetaminophen (Tylenol) 650 mg PO Q6H PRN amlodipine 5 mg PO DAILY atenolol 50 mg PO DAILY blood-glucose sensor ([employer] Aditya 3 Plus Sensor device) As directed change every 14 days blood-glucose,ladler,cont (FreeStyle Aditya 3 [place]) As directed furosemide 20 mg PO DAILY glucagon 3 mg/actuation (Baqsimi) 3 mg intranasal ONCE insulin glargine U-300 conc (Toujeo SoloStar U-300 Insulin) 15 units (0.05 mL) subcut BEDTIME insulin lispro (Humalog KwikPen (U-100) Insulin) 6 units with breakfast , 6 units lunch lunch, 6-8 units with dinner and 2 units with snacks subcut. 4 times a day SLIDING SCALE 90 days lidocaine 5% 1 patch topical DAILY [id number]-[id number]-ukmttko 6,000-19,000 -30,000 unit (Creon) 1 cap PO DAILY lovastatin 40 mg PO BEDTIME meloxicam 7.5 mg PO DAILY nystatin 1 appl topical BID pen needle, diabetic 5 times a day polyethylene glycol 3350 (Gavilax) 17 grams PO DAILY PRN timolol maleate 0.5% 1 drp ophthalmic (eye) DAILY [transfer chair As directed] trazodone 50 mg PO BEDTIME PRN valsartan 160 mg See Protocol PO DAILY walker As directed Tobacco use date assessed: 12/23/24 Fall risk assessment: No Falls in past year Last assessed Fall Risk: 12/23/24 Dental Screening Dental Screen Date: 12/23/24 Did you have a dental visit in the last 12 months?: No Did you have a dental problem in the last 6 months where you did not have access to dental care?: No Was dental information given to patient?: No HPI f/u HTN HPI Details 89-year-old female with past medical history of 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 Her A1c in the office last time was 9.4% and referral was placed to endocrinology her valsartan was decreased to once daily due to hypotension. In review of the notes, patient was seen by endocrinology 12/06/2024 decreased Toujeo 12 units and we discussed diabetic education follow up in 4 months. Presenting with diabetes mellitus and hypertension management. The patient is under the care of an gas blender for insulin adjustment. Blood sugar levels are being monitored regularly. The patient is on multiple antihypertensive medications, including valsartan, atenolol, and amlodipine. Valsartan dosage was reduced to once daily. Home blood pressure readings are being taken, with recent values showing good control. The patient experiences visual hallucinations, likely related to dementia. No recent neurological evaluations have been conducted. Lab results suggest dehydration, possibly exacerbated by furosemide use. The patient is advised to increase fluid intake. The patient reports mild leg swelling, not significantly exacerbated. Furosemide has been held to reassess kidney function. The patient reports frequent episodes of rapid heart rate, occurring almost daily. A Holter monitor is planned to assess cardiac rhythm. 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 Do you presently have visiting nurse or other home services: Yes Alcohol intake: never Patient Tobacco Use Status: Never used Tobacco e-Cigarette/Vaping Use: Never Used Second Hand Smoke Exposure: No service: No Current occupational status: retired and disabled Cognitive needs: Yes (cane/walker) Hearing needs: No Vision needs: Yes (glasses) Questionnaire Thrive Questionnaire Date Thrive assessed: 12/23/24 MARKOS-7 AMB Questionnaire MARKOS-7 Date MARKOS - 7 assessed: 12/23/24 Source: Developed by Drs. Harris Puente, Breonna Galindo, Dank Chan and colleagues, with an educational madhav from [employer]. Review of Systems Const Denies body aches, Denies chills, Denies fever(s), Denies headache(s) and Denies poor appetite Eyes Reports no additional complaints ENT Denies dizziness and Denies headache(s) Card Denies chest pain, Denies syncope, Denies edema, Reports irregular heart rhythm, Denies lightheadedness and Denies dyspnea Resp Denies dyspnea GI Denies abdominal pain, Denies nausea and Denies vomiting Reports no additional complaints Musc Reports no additional complaints and Denies abnormal gait Skin/Breast Reports system reviewed and no additional complaints, except as documented Neuro Denies abnormal gait, Denies dizziness, Denies syncope and Denies headache(s) Psych Reports no additional complaints Physical exam (Primary Care) Vital Signs: Last Vital Signs Temp 97.3 F 12/23/24 10:50 Oxygen Delivery Method Room Air 12/23/24 10:50 BMI result Body Mass Index 25.3 Tobacco/Smoking Status: Tobacco use Status Tobacco use date assessed 12/23/24 12/23/24 10:57 Patient Tobacco Use Status Never used Tobacco 12/23/24 10:57 e-Cigarette/Vaping Use Never Used 12/23/24 10:57 Thrive Assessment: Date of Thrive Assessment Date Thrive assessed 12/23/24 12/23/24 10:57 Const General: cooperative, healthy appearing, comfortable and no acute distress Orientation/consciousness: patient oriented x3 HENMT Head: Yes normocephalic Ears: hearing grossly normal bilaterally General nose exam: Normal external nose present Eyes General: appearance normal, both eyes and all related structures Conjunctivae: conjunctivae normal Neck Neck: Yes full ROM and Yes no lymphadenopathy Resp Effort & Inspection: normal respiratory effort Auscultation: clear to auscultation bilaterally, no crackles, no rales, no rhonchi and no wheezes Cardio Rate: regular rate Rhythm: regular rhythm Skin General skin exam: no rashes or lesions noted Neuro General: patient oriented x3 Gait exam (Neuro): Normal gait present Extrem General: Yes normal to inspection, Yes full ROM and No edema Psych Affect: normal affect Attitude: cooperative Insight: Good insight present (Psych) Judgement: Good judgement present (Psych) Coding Level of Care Code Est Pt Level 4 (23202) Diagnoses Hypertension I10 Dyslipidemia E78.5 Diabetes type 1, uncontrolled E10.65 Gastroesophageal reflux disease, unspecified whether esophagitis present K21.9 Esophagitis presence: esophagitis presence not specified Palpitations R00.2 Elevated serum creatinine R79.89 Assessment & Plan Assessment & Plan (1) Hypertension: Code(s): I10 - Essential (primary) hypertension Category: Medical Plan: Continue on current blood pressure medication. Avoid salt intake and encourage healthy diet and regular exercise. Recent decreased from valsartan twice daily to once daily and blood pressure has maintained in the 110-130 systolic and 60-70 diastolic. Plan to continue at current regimen and consider decrease and if amlodipine going further (2) Dyslipidemia: Code(s): E78.5 - Hyperlipidemia, unspecified Category: Medical Plan: Avoid foods that are high in cholesterol such as red meat, fried foods, eggs and baked goods. Triglyceride goal of less than 150 and LDL goal of less than 100. Last LDL within normal limits (3) Diabetes type 1, uncontrolled: Code(s): E10.65 - Type 1 diabetes mellitus with hyperglycemia Category: Medical Plan: Decrease the amount of carbohydrates such as pasta, bread, rice, and potatoes and limit the amount of sweets. Although fruits are generally healthy they should be eaten in moderation as they are still high in sugar. Hemoglobin A1c goal of less than 7%. Continue to follow with endocrinology (4) Gastroesophageal reflux disease: Code(s): K21.9 - Gastro-esophageal reflux disease without esophagitis Category: Medical Qualifiers: Esophagitis presence: esophagitis presence not specified Qualified Code(s): K21.9 - Gastro-esophageal reflux disease without esophagitis Plan: Avoid trigger foods such as citrus, tomato products, soda, caffeine, spicy foods and other foods that may be irritating to your stomach. Avoid laying flat 3-4 hours after eating and elevate the head of the bed 30 degrees to prevent acid from moving into the esophagus. (5) Palpitations: Code(s): R00.2 - Palpitations Category: Medical Plan: Reporting intermittent palpitations that occur daily without any known triggers typically self resolve and no symptoms associated with the palpitations. Plan to order for EKG and Holter monitor for further evaluation. (6) Elevated serum creatinine: Code(s): R79.89 - Other specified abnormal findings of blood chemistry Category: Medical Plan: Patient has elevated creatinine and significant dehydration noted on last blood work. She is unclear why she is on this medication, has no peripheral edema and no history of heart failure. Plan to hold furosemide for 2 weeks and repeat labs at that time. Encouraged oral hydration. Discussed with patient develops chest pain, shortness of breath, orthopnea or worsening leg swelling to reach out to the office. Plan The management plan includes continuing the current diabetes regimen with endocrinology oversight and monitoring blood sugar levels regularly. For hypertension, the patient will maintain the current antihypertensive regimen, with valsartan reduced to once daily and amlodipine adjusted to 2.5 mg if needed. Home blood pressure monitoring will continue, and adjustments will be made if readings exceed 140/90 mmHg. Anemia will be monitored, with no immediate intervention required. Dehydration management involves increasing fluid intake, and furosemide will be held to reassess kidney function. The patient is advised to elevate legs to manage swelling. A Holter monitor will be used to evaluate tachycardia, and an EKG will be performed during the next lab visit. This note was constructed using voice recognition software. While every effort has been made to ensure accuracy and help desk intern, still areas may have been included sometimes these areas may affect the content or meeting of the given symptoms. Total time spent caring for the patient today was 30 minutes. This includes time spent before the visit reviewing the chart, time spent during the visit, and time spent after the visit and documentation. Patient was informed and verbally consented to the use of an ambient scribe for clinic note documentation during this visit. Orders: Orders Comprehensive Met. Panel Today E10.65 - Type 1 diabetes mellitus with hyperglycemia ECG 12 lead EKG Today R00.2 - Palpitations ECG 3 day holter monitor Today R00.2 - Palpitations Medications: Refilled amlodipine 5 mg PO DAILY 90 tabs 1RF Discontinued amlodipine Discontinued Reason: Patient no longer taking 5 mg PO DAILY 90 tabs 1RF On Hold furosemide Hold Comment: Doctor's Order 20 mg PO DAILY 90 tabs 3RF
[2024-12-23 10:50] VITALS: TEMP 36.3; BMI 25.3
--- OUTSIDE RECORDS SUMMARY | 2024-12-23 11:12 | XMS_ITS ---
Author Name Jacob SARA, MS. Florecita Fiore Address [address] [place] [id number] Phone [phone] [facility] Care Team Providers Care Business Operations Manager Name Role Phone Florecita James Unavailable [phone] MehranMateusz augustin Unavailable [phone] Reason for Referral Not Available Allergies, adverse [...] EVERY DAY 2020-12-21 No Data Available Creon [id number] UNIT Cap delayed rel TAKE 1 CAPSULE [...] 2022-03-21 BD JEWELS 2 GEN PEN NDL [id number] USE 5 TIMES A DAY 2021-05-29 No [...] once daily 2023-06-23 No Data Available Nystatin [id number] UNIT/GM Powder APPLY TO AFFECTED AREA TWICE [...] use of insulin, glaucoma Active 2022-03 N/A [facility] 07/01/24On Helene Arevalo on regular injectables (Q6 mos) during doctor's visits- daughters does not have name Under ophthalmology careHas f/u 08/10/24Stable Dementia Active 2022-03 N/A [facility] 07/01/24Pt. isnt taking any meds.Relatively mild. Has intermittent lapses of memory per daughter. Stable overall Has Life Alert at all times POA/guardian/Advance Directives- daughter is proxyLives with daughter Safety precautions reviewed with patient and caregiver.No driving motor vehicleTake medications as prescribedKeep medications and guns and other dangerous equipment/objects under lock and vogt for safety reasons Chronic pancreatitis Active 2022-03 N/A [facility] 07/01/24Was on Creon, no w off medicationCurrently c/o of abdominal bloating and gas but pt had constipation yesterday and took Miralax and that gave her some loose stools, which left her feeling weak and gassy. No looses stools today. Pt advised Gax-X, bland diet today, plenty of fluids including Pedialyte. Follow up with GI recommended at least annually. Hypertension Active 2022-03 N/A [facility] 07/01/24On Amlodipine, Atenolol, Valsartan, furosemideControlledRecommend DASH diet. [...] type 2 diabetes mellitus Active 2022-03 N/A [facility] 07/01/24HLD Rx Lovastati nDM rx Toujeo, LisproDaily FS.183- this A.MLast a1c- 9% Pending updated labs (missed labs in April) but overall improved after insulin adjustment. Typically FBS within goal of 80-140. Pt has a f/u appt with PCP next month. Will recheck [id number] CG/PT that the a1c goal is <8%Encouraged [...] organ damage (headache, vision changes, chest pain)/ Teletype Technician on proper BP monitoring technique and reassess/ [...] Pain Assessment - NO pain present (1126F) [facility] [place]20[place] Pain Assessment - NO pain present (1126F) [facility] [place] Pain Assessment - NO pain present (1126F) [facility] [place] Pain Assessment - NO pain present (1126F) [facility] [place] 03[place]20[place] Pain Assessment - NO pain present (1126F) [facility] [place] 03[place] Pain Assessment - NO pain present (1126F) [facility] [place] 03[place] Pain Assessment - NO pain present (1126F) [facility] [place] 03[place]2022 Type 2 diabetes mellitus wit [...] Pain Assessment - NO pain present (1126F) [facility] [place] 03[place]2022 Pain Assessment - NO pain present (1126F) [facility] [place] 03/[place]2022 Pain Assessment - NO pain present (1126F) [facility] [place] 03[place]2022 Estab. patient 30-39min; chronic exacerbation, 2 stable chronic or 1 acute illness add add modifier 95 for video, (do not use for phone, instead use 46984-10) [facility] [place] 02/18[place]2023 Other chronic pancreatitisTy pe 2 [...] (do not use for phone, instead use 92907-70) [facility] [place] 02/18[place]2023 Estab. patient 30-39min; chronic exacerbation, 2 stable chronic or 1 acute illness add add modifier 95 for video, (do not use for phone, instead use 96009-68) [facility] [place] 02[place]18[place]2023 Estab. patient 30-39min; chronic exacerbation, 2 stable chronic or 1 acute illness add add modifier 95 for video, (do not use for phone, instead use 44907-65) [facility] [place] 02/18/2023 Estab. patient 30-39min; chronic exacerbation, 2 stable chronic or 1 acute illness add add modifier 95 for video, (do not use for phone, instead use 51482-83) [facility] [place] 02[place]18[place]2023 Estab. patient 30-39min; chronic exacerbation, 2 stable chronic or 1 acute illness add add modifier 95 for video, (do not use for phone, instead use 74751-59) [facility] [place] 02[place]18[place]2023 Estab. patient 30-39min; chronic exacerbation, 2 stable chronic or 1 acute illness add add modifier 95 for video, (do not use for phone, instead use 45474-74) [facility] [place] 02/18/2023 Estab. patient 30-39min; chronic exacerbation, 2 stable chronic or 1 acute illness add add modifier 95 for video, (do not use for phone, instead use 51400-26) [facility] [place] 02/18/2023 No Data Available [facility] [place] 05/[place]/2023 Type 2 diabetes mellitus wit h other specified complicationHyperlipidemia, unspecified No Data Available [facility] [place] 05/31/2023 Estab. patient 30-39min; chronic exacerbation, 2 stable chronic or 1 acute illness add add modifier 95 for video, (do not use for phone, instead use 44694-55) [facility] [place] 06[place]2023 Other chronic pancreatitisEssential (primary) hypertensionType 2 diabetes mellitus with other specified complicationHyperlipidemia, unspecifiedUnspecified dementia without behavioral disturbanceMajor depressive disorder, recurrent, unspecifiedBilateral primary osteoarthritis of knee Estab. patient 30-39min; chronic exacerbation, 2 stable chronic or 1 acute illness add add modifier 95 for video, (do not use for phone, instead use 18134-54) [facility] [place] 06[place]23/2023 Estab. patient 30-39min; chronic exacerbation, 2 stable chronic or 1 acute illness add add modifier 95 for video, (do not use for phone, instead use 21194-69) [facility] [place] 06/23/2023 Estab. patient 30-39min; chronic exacerbation, 2 stable chronic or 1 acute illness add add modifier 95 for video, (do not use for phone, instead use 73961-83) [facility] ([place] 06/23/2023 Estab. patient 30-39min; chronic exacerbation, 2 stable chronic or 1 acute illness add add modifier 95 for video, (do not use for phone, instead use 50093-66) [facility] [place] 06/23/2023 Estab. patient 30-39min; chronic exacerbation, 2 stable chronic or 1 acute illness add add modifier 95 for video, (do not use for phone, instead use 78243-89) [facility] [place] 06/23/2023 Estab. patient 30-39min; chronic exacerbation, 2 stable chronic or 1 acute illness add add modifier 95 for video, (do not use for phone, instead use 58026-47) [facility] [place] 06/23/2023 Estab. patient 30-39min; chronic exacerbation, 2 stable chronic or 1 acute illness add add modifier 95 for video, (do not use for phone, instead use 54237-44) [facility] [place] 06/23/2023 Estab. patient 30-39min; chronic exacerbation, 2 stable chronic or 1 acute illness add add modifier 95 for video, (do not use for phone, instead use 58379-98) [facility] [place] 06/23/2023 Estab. patient 30-39min; chronic exacerbation, 2 stable chronic or 1 acute illness add add modifier 95 for video, (do not use for phone, instead use 83163-76) [facility] [place] 06/23/2023 Estab. patient 20-29min; 1 stable chronic or 2 minor; add add modifier 95 for video, modifier 93 for phone [facility] [place] 07/[place]/2024 Other chronic pancreatitisEssential (primary) hypertensionType 2 [...] tive Time Current Smoking Status Never smoker 2024-12-06 9 Sex Female History of Procedures Procedures [...] (do not use for phone, instead use 84328-56) 17234 2022-03-21 No Data Available No Data Availa [...] (do not use for phone, instead use 02593-35) 25484 2023-02-18 No Data Available No Data Availa [...] Available No Data Available No Data Available [id number] 2023-05-31 No Data Available No Data Available Medication List Documented (1159F) 1159F 2023-05-31 No Data Available No Data Luna ilable Estab. 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 Will recheck [id number] CG/PT that the a1c is <7%Encouraged regular [...] appt with PCP next month. Will recheck [id number] CG/PT that the a1c goal is <7%Encouraged [...] appt with PCP next month. Will recheck [id number] CG/PT that the a1c goal is <7%Encouraged [...] appt with PCP next month. Will recheck [id number] CG/PT that the a1c goal is <7%Encouraged [...] appt with PCP next month. Will recheck [id number] CG/PT that the a1c goal is <8%Encouraged [...] organ damage (headache, vision changes, chest pain)/ Teletype Technician on proper BP monitoring technique and reassess/ [...]
== END 2024-12-23 11:45 | disposition home or self-care (01) ==
LOC: HO.HMCH 10:42
PROVIDERS: PCP Internal Medicine
DX: I10 Essential (primary) hypertension (principal); E78.5 Hyperlipidemia, unspecified; E10.65 Type 1 diabetes mellitus with hyperglycemia; K21.9 Gastro-esophageal reflux disease without esophagitis; R00.2 Palpitations; R79.89 Other specified abnormal findings of blood chemistry

== ENCOUNTER → 2024-12-23 10:41 | Outpatient (BNVA) | payer OTHER, SELFPAY | PROVIDERS: PCP Internal Medicine | DX: I10 Essential (primary) hypertension (principal); E78.5 Hyperlipidemia, unspecified; E10.65 Type 1 diabetes mellitus with hyperglycemia; K21.9 Gastro-esophageal reflux disease without esophagitis; R00.2 Palpitations; R79.89 Other specified abnormal findings of blood chemistry | CPT/HCPCS: 99212 ==

== ENCOUNTER 2025-01-03 14:21 | Outpatient (AMB) | payer OTHER, SELFPAY ==
--- OUTSIDE RECORDS SUMMARY | 2024-07-21 07:30 | XMS_ITS ---
Author [facility] Address [address] [place] [address] Care Team Providers Care Healthcare Or Medical Name Role Phone Mateusz Elam MD Primary Care Provider Mendoza Pillai Unavailable [phone] Encounters Encounter Location Date Provider [facility] [address] [place] [phone] 07/21/2024 Mendoza Malik Plan Of Treatment Next Appt Details Provider Name:Mendoza Malik , 01/16/2025 11:30:00 AM, [address], [address], Progress Notes * Sunitha DICKEYDOB:1935 (89 yo F)Acc No.[id number]:07/21/2024 Progress Note Patient: Sunitha MCCORMICK Provider: Shelly Malik DPM :1935 A ge:88 Y S ex:Female Date:07/21/2024 Address:[address] [place] [address] [id number] Pcp:Mateusz Elam MD Subjective: * Chief Complaints: [...] 07/21/2024 Generated for Unruly parr/Bernardo/Sissy on: 0 01/03/2025 02:59 PM EDT
--- OUTSIDE RECORDS SUMMARY | 2025-01-03 14:59 | XMS_ITS ---
Author Name Jacob SARA, MS. Florecita Fiore Address [address] [place] [id number] Phone [phone] [facility] Care Team Providers Care Manager Of Corporate Name Role Phone Florecita James Unavailable [phone] MehranMateusz augustin Unavailable [phone] Reason for Referral Not Available Allergies, adverse [...] EVERY DAY 2020-12-21 No Data Available Creon [id number] UNIT Cap delayed rel TAKE 1 CAPSULE [...] 2022-03-21 BD JEWELS 2 GEN PEN NDL [id number] USE 5 TIMES A DAY 2021-05-29 No [...] once daily 2023-06-23 No Data Available Nystatin [id number] UNIT/GM Powder APPLY TO AFFECTED AREA TWICE [...] use of insulin, glaucoma Active 2022-03 N/A [facility] 07/01/24On Helene Arevalo on regular injectables (Q6 mos) during doctor's visits- daughters does not have name Under ophthalmology careHas f/u 08/10/24Stable Dementia Active 2022-03 N/A [facility] 07/01/24Pt. isnt taking any meds.Relatively mild. Has intermittent lapses of memory per daughter. Stable overall Has Life Alert at all times POA/guardian/Advance Directives- daughter is proxyLives with daughter Safety precautions reviewed with patient and caregiver.No driving motor vehicleTake medications as prescribedKeep medications and guns and other dangerous equipment/objects under lock and vogt for safety reasons Chronic pancreatitis Active 2022-03 N/A [facility] 07/01/24Was on Creon, no w off medicationCurrently c/o of abdominal bloating and gas but pt had constipation yesterday and took Miralax and that gave her some loose stools, which left her feeling weak and gassy. No looses stools today. Pt advised Gax-X, bland diet today, plenty of fluids including Pedialyte. Follow up with GI recommended at least annually. Hypertension Active 2022-03 N/A [facility] 07/01/24On Amlodipine, Atenolol, Valsartan, furosemideControlledRecommend DASH [...] type 2 diabetes mellitus Active 2022-03 N/A [facility] 07/01/24HLD Rx Lovastati nDM rx Toujeo, LisproDaily FS.183- this A.MLast a1c- 9% Pending updated labs (missed labs in April) but overall improved after insulin adjustment. Typically FBS within goal of 80-140. Pt has a f/u appt with PCP next month. Will recheck [id number] CG/PT that the a1c goal is <8%Encouraged [...] organ damage (headache, vision changes, chest pain)/ Nurse Charge Rn on proper BP monitoring technique and reassess/ [...] Pain Assessment - NO pain present (1126F) [facility] [place] Pain Assessment - NO pain present (1126F) [facility] [place] Pain Assessment - NO pain present (1126F) [facility] [place] Pain Assessment - NO pain present (1126F) [facility] [place] Pain Assessment - NO pain present (1126F) [facility] [place] Pain Assessment - NO pain present (1126F) [facility] [place] Pain Assessment - NO pain present (1126F) [facility] Type 2 diabetes mellitus wit [...] Pain Assessment - NO pain present (1126F) [facility] [place] Pain Assessment - NO pain present (1126F) [facility] [place] Pain Assessment - NO pain present (1126F) [facility] Estab. patient 30-39min; chronic exacerbation, 2 stable chronic or 1 acute illness add add modifier 95 for video, (do not use for phone, instead use 15920-46) [facility] Other chronic pancreatitisTy pe 2 [...] (do not use for phone, instead use 69365-29) [facility] Estab. patient 30-39min; chronic exacerbation, 2 stable chronic or 1 acute illness add add modifier 95 for video, (do not use for phone, instead use 46659-54) [facility] [place] Estab. patient 30-39min; chronic exacerbation, 2 stable chronic or 1 acute illness add add modifier 95 for video, (do not use for phone, instead use 00087-84) [facility] [place] Estab. patient 30-39min; chronic exacerbation, 2 stable chronic or 1 acute illness add add modifier 95 for video, (do not use for phone, instead use 92327-49) [facility] Estab. patient 30-39min; chronic exacerbation, 2 stable chronic or 1 acute illness add add modifier 95 for video, (do not use for phone, instead use 02543-80) [facility] Estab. patient 30-39min; chronic exacerbation, 2 stable chronic or 1 acute illness add add modifier 95 for video, (do not use for phone, instead use 01295-74) [facility] Estab. patient 30-39min; chronic exacerbation, 2 stable chronic or 1 acute illness add add modifier 95 for video, (do not use for phone, instead use 37542-45) [facility] No Data Available [facility] [place]20[place] Type 2 diabetes mellitus wit h other specified complicationHyperlipidemia, unspecified No Data Available [facility] [place] Estab. patient 30-39min; chronic exacerbation, 2 stable chronic or 1 acute illness add add modifier 95 for video, (do not use for phone, instead use 32013-28) [facility] [place] Other chronic pancreatitisEssential (primary) hypertensionType 2 diabetes mellitus with other specified complicationHyperlipidemia, unspecifiedUnspecified dementia without behavioral disturbanceMajor depressive disorder, recurrent, unspecifiedBilateral primary osteoarthritis of knee Estab. patient 30-39min; chronic exacerbation, 2 stable chronic or 1 acute illness add add modifier 95 for video, (do not use for phone, instead use 22219-14) [facility] [place] Estab. patient 30-39min; chronic exacerbation, 2 stable chronic or 1 acute illness add add modifier 95 for video, (do not use for phone, instead use 90974-32) [facility] [place] Estab. patient 30-39min; chronic exacerbation, 2 stable chronic or 1 acute illness add add modifier 95 for video, (do not use for phone, instead use 30208-47) [facility] [place] Estab. patient 30-39min; chronic exacerbation, 2 stable chronic or 1 acute illness add add modifier 95 for video, (do not use for phone, instead use 05597-47) [facility] [place] Estab. patient 30-39min; chronic exacerbation, 2 stable chronic or 1 acute illness add add modifier 95 for video, (do not use for phone, instead use 79951-35) [facility] [place] 06[place] Estab. patient 30-39min; chronic exacerbation, 2 stable chronic or 1 acute illness add add modifier 95 for video, (do not use for phone, instead use 92252-97) [facility] [place] Estab. patient 30-39min; chronic exacerbation, 2 stable chronic or 1 acute illness add add modifier 95 for video, (do not use for phone, instead use 24066-02) [facility] [place] Estab. patient 30-39min; chronic exacerbation, 2 stable chronic or 1 acute illness add add modifier 95 for video, (do not use for phone, instead use 45625-43) [facility] [place] 06[place] Estab. patient 30-39min; chronic exacerbation, 2 stable chronic or 1 acute illness add add modifier 95 for video, (do not use for phone, instead use 72964-25) [facility] [place] Estab. patient 20-29min; 1 stable chronic or 2 minor; add add modifier 95 for video, modifier 93 for phone [facility] [place]2024 Other chronic pancreatitisEssential (primary) hypertensionType 2 [...] tive Time Current Smoking Status Never smoker 2024-12-07 10 Sex Female History of Procedures Procedures Service [...] (do not use for phone, instead use 82281-52) [id number] 2022-03-21 No Data Available No Data Availa [...] (do not use for phone, instead use 09976-25) 35167 2023-02-18 No Data Available No Data Availa [...] Available No Data Available No Data Available [id number] 2023-05-31 No Data Available No Data Available Medication List Documented (1159F) [id number] 2023-05-31 No Data Available No Data Luna ilable Estab. 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 Will recheck [id number] CG/PT that the a1c is <7%Encouraged regular [...] appt with PCP next month. Will recheck a6bHhfeozrf CG/PT that the a1c goal is <7%Encouraged [...] appt with PCP next month. Will recheck d5kCtlpitxp CG/PT that the a1c goal is <7%Encouraged [...] appt with PCP next month. Will recheck [id number] CG/PT that the a1c goal is <7%Encouraged [...] appt with PCP next month. Will recheck [id number] CG/PT that the a1c goal is <8%Encouraged [...] organ damage (headache, vision changes, chest pain)/ Nurse Charge Rn on proper BP monitoring technique and reassess/ [...]
--- NOTE | 2025-01-03 15:11 | A.OFFVIS_ITS ---
Intake Intake Visit Reasons: T1DM Global Sales Manager Required: Yes Global Sales Manager Language: Volunteer Firefighter Name: Pt's Daughter Accompanied by: Daughter Allergies brimonidine (From ALPHAGAN P) Allergy (Unknown, Verified 12/23/24 11:21) UNKNOWN alphagan Allergy (Unknown, Uncoded 12/23/24 11:21) allergy reaction Fluoxetine Allergy (Unknown, Uncoded 12/23/24 11:21) Unknown HPI Comprehensive Diabetes Asmnt Most Recent Diabetes Results: Cholesterol, (<200) 155 mg/dL 11/14/24 HDL Cholesterol, (>40) 48 mg/dL 11/14/24 Triglycerides, (<150) 109 mg/dL 11/14/24 Creatinine, (0.5-1.4) 1.42 mg/dL H 11/14/24 BUN, (9-16) 25 mg/dL H 11/14/24 Sodium, (135-145) 142 mmol/L 11/14/24 Potassium, (3.3-5.1) 4.6 mmol/L 11/14/24 Chloride, (96-108) 104 mmol/L 11/14/24 Carbon Dioxide, (22-29) 32 mmol/L H 11/14/24 Calcium, (8.4-10.2) 9.8 mg/dL 11/14/24 AST, (5-31) 21 U/L 11/14/24 ALT, (0-31) 14 U/L 11/14/24 Total Protein, (6.5-8.0) 6.9 g/dL 11/14/24 Albumin, (3.5-5.0) 4.1 g/dL 11/14/24 [facility] Medical History Dementia Uterine prolapse Dyslipidemia Hypertension 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 Do you presently have visiting nurse or other home services: Yes Alcohol intake: never Patient Tobacco Use Status: Never used Tobacco e-Cigarette/Vaping Use: Never Used Second Hand Smoke Exposure: No service: No Current occupational status: retired and disabled Cognitive needs: Yes (cane/walker) Hearing needs: No Vision needs: Yes (glasses) Assessment & Plan Assessment & Plan (1) Diabetes type 1, uncontrolled: Code(s): E10.65 - Type 1 diabetes mellitus with hyperglycemia Plan: Learning objectives: The patient was provided with verbal and written education on the following topics as outlined below. Assess patient education level/literacy/barriers, patient's daughter reports patient was diagnosed with diabetes in her 50s. Patient's daughter is primary reimbursement counselor, administers her insulin changes for sensor. Patient will be upgrading to Aditya 3+ sensor after the last expiration of her last Aditya 2 sensor. Patient's daughter agreed to drop Aditya 3 reader off for set up, she will also drop off Aditya 2 reader for download since they did not bring it to today's visit. Patient's daughter reported that this morning patient was given 6 units of Humalog, she drank coffee but did not eat her breakfast. Glucose level after breakfast was 89 mg/dL. Patient's daughter reports that patient will frequently not eat meals. We discussed switching pre meal insulin to right after to prevent risk of hypoglycemia if patient decides not to eat or finish meal Reported to Dr. Hawkins change in timing of mealtime insulin, and clarification of patient's sliding scale New sliding scale given to patient The patient met all learning objectives and was able to verbalize understanding and provide teach back of education topics discussed . The patient was provided with the opportunity to ask questions and all questions were answered. Topics covered in today?s session included: Insulin/Injectables (If applicable) * Storage/care of insulin?? * Injection sites? * Site rotation? * Onset, peak, duration * Drawing up insulin? * Injecting insulin/other injectables? * Sharps disposal Continuous blood glucose monitoring (if applicable) Hypoglycemia and Hyperglycemia * Signs and symptoms? * Causes?? * Treatment? * Preventing hypoglycemia? * When to seek medical attention Target Goals: * Blood glucose targets and how you feel when your blood glucose is in and out of your target ranges. * Monitoring and knowing your A1C. * What can make blood glucose go up and down and preventing high and low blood glucose. * Review of blood sugar targets in expected goal range and outside of expected goal range. * Problem solving and preventing hyper/hypoglycemia. ?Patient was receptive to information provided and participated in the discussion. Asked?appropriate questions and demonstrated good understanding of the topics discussed.? ? Patient Response to instructions: Comprehension of Instructions: Fair Readiness to make changes:? Contemplation How confident they feel about making changes: Fair Portions of this note were created using voice recognition software, please excuse any words or phrases that may have been misinterpreted. Patient Instructions: Sliding Scale for meals 80-150 mg/dL 6 units 151-249 mg/dL 8 units 250-299 mg/dL 9 unit 300-399 mg/dL 10 units 400+ mg/dL 11 units Without food Correction scale ? 250-299 mg/dL 1 unit 300-399 mg/dL 2 units 400+ mg/dL 3 units Coding Level of Care Code Est Pt Level 1 (76485) Diagnoses Diabetes type 1, uncontrolled E10.65
== END 2025-01-03 15:25 | disposition home or self-care (01) ==
LOC: HO.ENCR 14:22
PROVIDERS: Visit Provider Registered Nurse Diabetes Educator
DX: E10.65 Type 1 diabetes mellitus with hyperglycemia (principal)

== ENCOUNTER → 2025-01-03 14:21 | Outpatient (BNVA) | payer OTHER, SELFPAY | PROVIDERS: Visit Provider Registered Nurse Diabetes Educator | DX: E10.65 Type 1 diabetes mellitus with hyperglycemia (principal); Z79.4 Long term (current) use of insulin | CPT/HCPCS: 99211 ==

== ENCOUNTER → 2025-01-05 12:46 | Outpatient (REF) | payer OTHER, SELFPAY ==
--- OUTSIDE RECORDS SUMMARY | 2024-07-21 07:30 | XMS_ITS ---
Author [facility] Address [address] [place] [address] Care Team Providers Care Histological Illustrator Name Role Phone Mateusz Elam MD Primary Care Provider Mendoza Pillai Unavailable [phone] Encounters Encounter Location Date Provider [facility] [address] [place] [address] 07/21/2024 Mendoza Malik Plan Of Treatment Next Appt Details Provider Name:Mendoza Malik , 01/16/2025 11:30:00 AM, [address], [address], Progress Notes * Sunitha DICKEYDOB:1935 (89 yo F)Acc No.[id number]:07/21/2024 Progress Note Patient: Sunitha MCCORMICK Provider: Shelly Malik DPM :1935 A ge:88 Y S ex:Female Date:07/21/2024 Address:[address] [place] [address] [place] Pcp:Mateusz Elam MD Subjective: * Chief Complaints: [...] 07/21/2024 Generated for Unruly parr/Bernardo/Sissy on: 0 01/05/2025 12:56 PM EDT
--- NOTE | 2025-01-05 12:56 | ECG_ITS ---
Test Reason : PALPITATIONS Blood Pressure : */* mmHG Vent. Rate : 59 BPM Atrial Rate : 59 BPM P-R Int : 162 ms QRS Dur : 90 ms QT Int : 420 ms P-R-T Axes : 68 32 78 degrees QTcB Int : 415 ms Sinus bradycardia with sinus arrhythmia Otherwise normal ECG When compared with ECG of 26-May-2022 09:59, Nonspecific T wave abnormality, improved in Lateral leads Referred By: Christel Green Electronically Signed By: DWAYNE AL MD
--- NOTE | 2025-01-05 12:56 | HM_ITS ---
Conclusion: 1. Patient was monitored for total period of 2 days and 21 hours 2. Baseline was normal sinus rhythm with average heart of 53 beats per minute 3. Frequent sinus bradycardia noted with 85% of time heart rate below 60 beats per minute 4. One pause of 3.12 seconds noted at 15:24 5. No significant arrhythmias noted 6. No patient reported events MTDD
--- OUTSIDE RECORDS SUMMARY | 2025-01-05 12:56 | XMS_ITS ---
Author Name Jacob SARA, MS. Florecita Fiore Address [address] [place] [address] Phone [phone] [facility] Care Team Providers Care Acid Crane Operator Name Role Phone Florecita James Unavailable [phone] MehranMateusz augustin Unavailable [phone] Reason for Referral Not Available Allergies, adverse [...] EVERY DAY 2020-12-21 No Data Available Creon [id number] UNIT Cap delayed rel TAKE 1 CAPSULE [...] 2022-03-21 BD JEWELS 2 GEN PEN NDL [id number] USE 5 TIMES A DAY 2021-05-29 No [...] once daily 2023-06-23 No Data Available Nystatin [id number] UNIT/GM Powder APPLY TO AFFECTED AREA TWICE [...] use of insulin, glaucoma Active 2022-03 N/A [facility] 07/01/24On Helene Arevalo on regular injectables (Q6 mos) during doctor's visits- daughters does not have name Under ophthalmology careHas f/u 08/10/24Stable Dementia Active 2022-03 N/A [facility] 07/01/24Pt. isnt taking any meds.Relatively mild. Has intermittent lapses of memory per daughter. Stable overall Has Life Alert at all times POA/guardian/Advance Directives- daughter is proxyLives with daughter Safety precautions reviewed with patient and caregiver.No driving motor vehicleTake medications as prescribedKeep medications and guns and other dangerous equipment/objects under lock and vogt for safety reasons Chronic pancreatitis Active 2022-03 N/A [facility] 07/01/24Was on Creon, no w [...] at least annually. Hypertension Active 2022-03 N/A [facility] 07/01/24On Amlodipine, Atenolol, Valsartan, furosemideControlledRecommend [...] type 2 diabetes mellitus Active 2022-03 N/A [facility] 07/01/24HLD Rx Lovastati nDM rx Toujeo, LisproDaily FS.183- this A.MLast a1c- 9% Pending updated labs (missed labs in April) but overall improved after insulin adjustment. Typically FBS within goal of 80-140. Pt has a f/u appt with PCP next month. Will recheck [id number] CG/PT that the a1c goal is <8%Encouraged [...] organ damage (headache, vision changes, chest pain)/ Postulant on proper BP monitoring technique and reassess/ [...] Pain Assessment - NO pain present (1126F) [facility] [place] Pain Assessment - NO pain present (1126F) [facility] [place] Pain Assessment - NO pain present (1126F) [facility] [place] Pain Assessment - NO pain present (1126F) [facility] [place] Pain Assessment - NO pain present (1126F) [facility] [place] Pain Assessment - NO pain present (1126F) [facility] [place] Pain Assessment - NO pain present (1126F) [facility] [place] Type 2 diabetes mellitus [...] Pain Assessment - NO pain present (1126F) [facility] [place] Pain Assessment - NO pain present (1126F) [facility] [place] Pain Assessment - NO pain present (1126F) [facility] [place] Estab. patient 30-39min; chronic exacerbation, 2 stable chronic or 1 acute illness add add modifier 95 for video, (do not use for phone, instead use 98452-56) [facility] [place] Other chronic pancreatitisTy pe [...] (do not use for phone, instead use 50932-13) [facility] [place] Estab. patient 30-39min; chronic exacerbation, 2 stable chronic or 1 acute illness add add modifier 95 for video, (do not use for phone, instead use 70790-04) [facility] [place] Estab. patient 30-39min; chronic exacerbation, 2 stable chronic or 1 acute illness add add modifier 95 for video, (do not use for phone, instead use 16101-62) [facility] [place] 02[place]18/20[place] Estab. patient 30-39min; chronic exacerbation, 2 stable chronic or 1 acute illness add add modifier 95 for video, (do not use for phone, instead use 76436-94) [facility] [place] Estab. patient 30-39min; chronic exacerbation, 2 stable chronic or 1 acute illness add add modifier 95 for video, (do not use for phone, instead use 24797-50) [facility] [place] Estab. patient 30-39min; chronic exacerbation, 2 stable chronic or 1 acute illness add add modifier 95 for video, (do not use for phone, instead use 89040-83) [facility] [place] Estab. patient 30-39min; chronic exacerbation, 2 stable chronic or 1 acute illness add add modifier 95 for video, (do not use for phone, instead use 71188-30) [facility] [place] [facility] [place] Type 2 diabetes mellitus wit h other specified complicationHyperlipidemia, unspecified No Data Available [facility] [place] Estab. patient 30-39min; chronic exacerbation, 2 stable chronic or 1 acute illness add add modifier 95 for video, (do not use for phone, instead use 94686-40) [facility] [place]20[place] Other chronic pancreatitisEssential (primary) hypertensionType 2 diabetes mellitus with other specified complicationHyperlipidemia, unspecifiedUnspecified dementia without behavioral disturbanceMajor depressive disorder, recurrent, unspecifiedBilateral primary osteoarthritis of knee Estab. patient 30-39min; chronic exacerbation, 2 stable chronic or 1 acute illness add add modifier 95 for video, (do not use for phone, instead use 94444-10) [facility] [place] Estab. patient 30-39min; chronic exacerbation, 2 stable chronic or 1 acute illness add add modifier 95 for video, (do not use for phone, instead use 58138-15) [facility] [place] Estab. patient 30-39min; chronic exacerbation, 2 stable chronic or 1 acute illness add add modifier 95 for video, (do not use for phone, instead use 89322-29) [facility] [place] Estab. patient 30-39min; chronic exacerbation, 2 stable chronic or 1 acute illness add add modifier 95 for video, (do not use for phone, instead use 58792-51) [facility] [place] Estab. patient 30-39min; chronic exacerbation, 2 stable chronic or 1 acute illness add add modifier 95 for video, (do not use for phone, instead use 07516-81) [facility] [place]20[place] Estab. patient 30-39min; chronic exacerbation, 2 stable chronic or 1 acute illness add add modifier 95 for video, (do not use for phone, instead use 26418-84) [facility] [place] Estab. patient 30-39min; chronic exacerbation, 2 stable chronic or 1 acute illness add add modifier 95 for video, (do not use for phone, instead use 90880-61) [facility] [place] Estab. patient 30-39min; chronic exacerbation, 2 stable chronic or 1 acute illness add add modifier 95 for video, (do not use for phone, instead use 23454-38) [facility] [place] Estab. patient 30-39min; chronic exacerbation, 2 stable chronic or 1 acute illness add add modifier 95 for video, (do not use for phone, instead use 09163-49) [facility] [place]20[place] Estab. patient 20-29min; 1 stable chronic or 2 minor; add add modifier 95 for video, modifier [address] [facility] [place]20[place] Other chronic pancreatitisEssential (primary) hypertensionType 2 [...] tive Time Current Smoking Status Never smoker 2024-12-08 1 Sex Female History of Procedures Procedures [...] (do not use for phone, instead use 50205-62) 66201 2022-03-21 No Data Available No Data Availa [...] (do not use for phone, instead use 17171-28) 99336 2023-02-18 No Data Available No Data Availa [...] Available No Data Available No Data Available [id number] 2023-05-31 No Data Available No Data Available Medication List Documented (1159F) [id number] 2023-05-31 No Data Available No Data Luna ilable Estab. 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 Will recheck [id number] CG/PT that the a1c is <7%Encouraged regular [...] appt with PCP next month. Will recheck [id number] CG/PT that the a1c goal is <7%Encouraged [...] appt with PCP next month. Will recheck l5hTngxnhpl CG/PT that the a1c goal is <7%Encouraged [...] appt with PCP next month. Will recheck k5zMsppzxmc CG/PT that the a1c goal is <7%Encouraged [...] appt with PCP next month. Will recheck b9dFtuwjxpr CG/PT that the a1c goal is <8%Encouraged [...] organ damage (headache, vision changes, chest pain)/ Postulant on proper BP monitoring technique and reassess/ [...]
[2025-01-05 13:54] LABS: Alanine Aminotransferase 12 U/L (0-31); Albumin Level 4.2 g/dL (3.5-5.0); Alkaline Phosphatase 127 U/L (39-117); Anion Gap 12 (12-20); Aspartate Amino Transferase 22 U/L (5-31); Blood Urea Nitrogen 18 mg/dL (9-16); Calcium 9.6 mg/dL (8.4-10.2); Carbon Dioxide 24 mmol/L (22-29); Chloride 107 mmol/L (96-108); Estimated Glomerular Filt Rate 45; Potassium 4.4 mmol/L (3.3-5.1); Sodium 139 mmol/L (135-145); Total Protein 6.9 g/dL (6.5-8.0)
== END ==
LOC: HO.CARD 12:46
DX: E10.65 Type 1 diabetes mellitus with hyperglycemia (principal); R00.2 Palpitations
CPT/HCPCS: 36415; 80053; 93005; 93242

== ENCOUNTER → 2025-01-05 12:56 | Outpatient (BNV) | payer OTHER, SELFPAY | PROVIDERS: Visit Provider Internal Medicine Cardiovascular Disease | DX: I49.9 Cardiac arrhythmia, unspecified (principal); R00.1 Bradycardia, unspecified | CPT/HCPCS: 93010 ==

== ENCOUNTER 2025-01-06 11:05 | Outpatient (REF) | payer OTHER, SELFPAY ==
--- OUTSIDE RECORDS SUMMARY | 2024-07-21 07:30 | XMS_ITS ---
Author Organization [facility] Address [address] [place] [address] Care Team Providers Care Bottle House Cleaners Supervisor Name Role Phone Mateusz Elam MD Primary Care Provider Mendoza Pillai Unavailable [phone] Encounters Encounter Location Date Provider [facility] [address] [place] [phone] 07/21/2024 Mendoza Malik Plan Of Treatment Next Appt Details Provider Name:Mendoza Malik , 01/16/2025 11:30:00 AM, [address], [address], Progress Notes * Sunitha DICKEYDOB:1935 (89 yo F)Acc No.[id number]:07/21/2024 Progress Note Patient: Sunitha MCCORMICK Provider: Shelly Malik DPM :1935 A ge:88 Y S ex:Female Date:07/21/2024 Address:[address] [place] [address] [id number] Pcp:Mateusz Elam MD Subjective: * Chief Complaints: * * Medical History: Objective: * Vitals: Assessment: Plan: * Treatment: * Images: * The named appointment provid er may or may not be the originator of this progress note, and it is not deemed complete until electronically signed by the appointment provider. Sign off status: Pending * Provider: Shelly Malik DPM Date: 0 07/21/2024 Generated for Unruly parr/Bernardo/Sissy on: 0 01/06/2025 11:14 AM EDT
--- OUTSIDE RECORDS SUMMARY | 2025-01-06 11:14 | XMS_ITS ---
Author Name Jacob SARA, MS. Florecita Fiore Address [address] [place] [id number] Phone [phone] [facility] Care Team Providers Care Field Account Director Name Role Phone Florecita James Unavailable [phone] MehranMateusz augustin Unavailable [phone] Reason for Referral Not Available Allergies, adverse [...] EVERY DAY 2020-12-21 No Data Available Creon [id number] UNIT Cap delayed rel TAKE 1 CAPSULE [...] 2022-03-21 BD JEWELS 2 GEN PEN NDL [id number] USE 5 TIMES A DAY 2021-05-29 No [...] once daily 2023-06-23 No Data Available Nystatin 549104 UNIT/GM Powder APPLY TO AFFECTED AREA TWICE [...] use of insulin, glaucoma Active 2022-03 N/A [facility] 07/01/24On Helene Arevalo on regular injectables (Q6 mos) during doctor's visits- daughters does not have name Under ophthalmology careHas f/u 08/10/24Stable Dementia Active 2022-03 N/A [facility] 07/01/24Pt. isnt taking any meds.Relatively mild. Has intermittent lapses of memory per daughter. Stable overall Has Life Alert at all times POA/guardian/Advance Directives- daughter is proxyLives with daughter Safety precautions reviewed with patient and caregiver.No driving motor vehicleTake medications as prescribedKeep medications and guns and other dangerous equipment/objects under lock and vogt for safety reasons Chronic pancreatitis Active 2022-03 N/A [facility] 07/01/24Was on Creon, no w off medicationCurrently c/o of abdominal bloating and gas but pt had constipation yesterday and took Miralax and that gave her some loose stools, which left her feeling weak and gassy. No looses stools today. Pt advised Gax-X, bland diet today, plenty of fluids including Pedialyte. Follow up with GI recommended at least annually. Hypertension Active 2022-03 N/A [facility] 07/01/24On Amlodipine, Atenolol, Valsartan, furosemideControlledRecommend DASH [...] type 2 diabetes mellitus Active 2022-03 N/A [facility] 07/01/24HLD Rx Lovastati nDM rx Toujeo, LisproDaily FS.183- this A.MLast a1c- 9% Pending updated labs (missed labs in April) but overall improved after insulin adjustment. Typically FBS within goal of 80-140. Pt has a f/u appt with PCP next month. Will recheck [id number] CG/PT that the a1c goal is <8%Encouraged [...] organ damage (headache, vision changes, chest pain)/ Well Driller on proper BP monitoring technique and reassess/ [...] Pain Assessment - NO pain present (1126F) [facility] [place] Pain Assessment - NO pain present (1126F) [facility] [place] Pain Assessment - NO pain present (1126F) [facility] [place] Pain Assessment - NO pain present (1126F) [facility] [place] Pain Assessment - NO pain present (1126F) [facility] [place] Pain Assessment - NO pain present (1126F) [facility] [place] Pain Assessment - NO pain present (1126F) [facility] [place] Type 2 diabetes mellitus [...] Pain Assessment - NO pain present (1126F) [facility] [place] Pain Assessment - NO pain present (1126F) [facility] [place] Pain Assessment - NO pain present (1126F) [facility] [place] Estab. patient 30-39min; chronic exacerbation, 2 stable chronic or 1 acute illness add add modifier 95 for video, (do not use for phone, instead use 66104-28) [facility] [place]2023 Other chronic pancreatitisTy pe [...] (do not use for phone, instead use 05137-05) [facility] [place] Estab. patient 30-39min; chronic exacerbation, 2 stable chronic or 1 acute illness add add modifier 95 for video, (do not use for phone, instead use 56129-10) [facility] [place] Estab. patient 30-39min; chronic exacerbation, 2 stable chronic or 1 acute illness add add modifier 95 for video, (do not use for phone, instead use 24108-71) [facility] [place]18/20[place] Estab. patient 30-39min; chronic exacerbation, 2 stable chronic or 1 acute illness add add modifier 95 for video, (do not use for phone, instead use 33468-63) [facility] [place] Estab. patient 30-39min; chronic exacerbation, 2 stable chronic or 1 acute illness add add modifier 95 for video, (do not use for phone, instead use 33170-50) [facility] [place] Estab. patient 30-39min; chronic exacerbation, 2 stable chronic or 1 acute illness add add modifier 95 for video, (do not use for phone, instead use 64758-48) [facility] [place] Estab. patient 30-39min; chronic exacerbation, 2 stable chronic or 1 acute illness add add modifier 95 for video, (do not use for phone, instead use 05065-91) [facility] [place]2023 No Data Available [facility] [place]2023 Type 2 diabetes mellitus wit h other specified complicationHyperlipidemia, unspecified No Data Available [facility] [place]20[place] Estab. patient 30-39min; chronic exacerbation, 2 stable chronic or 1 acute illness add add modifier 95 for video, (do not use for phone, instead use 61225-15) [facility] [place]2023 Other chronic pancreatitisEssential (primary) hypertensionType 2 diabetes mellitus with other specified complicationHyperlipidemia, unspecifiedUnspecified dementia without behavioral disturbanceMajor depressive disorder, recurrent, unspecifiedBilateral primary osteoarthritis of knee Estab. patient 30-39min; chronic exacerbation, 2 stable chronic or 1 acute illness add add modifier 95 for video, (do not use for phone, instead use 02144-03) [facility] [place] Estab. patient 30-39min; chronic exacerbation, 2 stable chronic or 1 acute illness add add modifier 95 for video, (do not use for phone, instead use 09692-73) [facility] [place] 06[place]20[place] Estab. patient 30-39min; chronic exacerbation, 2 stable chronic or 1 acute illness add add modifier 95 for video, (do not use for phone, instead use 80159-53) [facility] [place] 06[place]23/2023 Estab. patient 30-39min; chronic exacerbation, 2 stable chronic or 1 acute illness add add modifier 95 for video, (do not use for phone, instead use 99323-76) [facility] [place] 06[place]23/2023 Estab. patient 30-39min; chronic exacerbation, 2 stable chronic or 1 acute illness add add modifier 95 for video, (do not use for phone, instead use 60189-83) [facility] [place] 06[place]23/2023 Estab. patient 30-39min; chronic exacerbation, 2 stable chronic or 1 acute illness add add modifier 95 for video, (do not use for phone, instead use 86075-66) [facility] [place] 06[place]23/2023 Estab. patient 30-39min; chronic exacerbation, 2 stable chronic or 1 acute illness add add modifier 95 for video, (do not use for phone, instead use 85000-56) [facility] [place] 06[place]23/2023 Estab. patient 30-39min; chronic exacerbation, 2 stable chronic or 1 acute illness add add modifier 95 for video, (do not use for phone, instead use 32964-47) [facility] [place] 06/23/2023 Estab. patient 30-39min; chronic exacerbation, 2 stable chronic or 1 acute illness add add modifier 95 for video, (do not use for phone, instead use 02423-32) [facility] [place] 06[place]23/2023 Estab. patient 20-29min; 1 stable chronic or 2 minor; add add modifier 95 for video, modifier 93 for phone [facility] [place] 07/[place]/2024 Other chronic pancreatitisEssential (primary) hypertensionType 2 [...] (do not use for phone, instead use 22799-62) 65230 2022-03-21 No Data Available No Data Availa [...] (do not use for phone, instead use 88646-93) 15165 2023-02-18 No Data Available No Data Availa [...] Available No Data Available No Data Available [id number] 2023-05-31 No Data Available No Data Available Medication List Documented (1159F) 1159F 2023-05-31 No Data Available No Data Luna ilable Estab. 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 Will recheck [id number] CG/PT that the a1c is <7%Encouraged regular [...] appt with PCP next month. Will recheck [id number] CG/PT that the a1c goal is <7%Encouraged [...] appt with PCP next month. Will recheck [id number] CG/PT that the a1c goal is <7%Encouraged [...] appt with PCP next month. Will recheck [id number] CG/PT that the a1c goal is <7%Encouraged [...] appt with PCP next month. Will recheck [id number] CG/PT that the a1c goal is <8%Encouraged [...] organ damage (headache, vision changes, chest pain)/ Well Driller on proper BP monitoring technique and reassess/ [...]
[2025-01-06 12:00] LABS: Microalbum/Creatinine Ratio Ur 94.8 ug/mg cr (<30)
== END 2025-01-06 11:06 | disposition home or self-care (01) ==
LOC: HO.LNP 11:05
PROVIDERS: Visit Provider Internal Medicine Endocrinology, Diabetes & Metabolism
DX: E10.65 Type 1 diabetes mellitus with hyperglycemia (principal)
CPT/HCPCS: 82043; 82570

== ENCOUNTER 2025-02-16 11:21 | Outpatient (AMB) | payer OTHER, SELFPAY ==
--- OUTSIDE RECORDS SUMMARY | 2024-07-21 07:30 | XMS_ITS ---
Author Organization [facility] Address [address] [place] [address] Care Team Providers Care Transition Specialist Name Role Phone Christel Green Primary Care Provider Unavailab Mendoza Rizzo Unavailable [phone] Encounters Encounter Location Date [facility] [address] 07/21/2024 Mendoza Malik Plan Of Treatment Next Appt Details Provider Name:Mendoza Malik , 05/03/2025 10:45:00 AM, [address], [address], Progress Notes * Minna DICKEYasterjoslynDOB:1935 (89 yo F)Acc No.[id number]:07/21/2024 Progress Note Patient: Sunitha MCCORMICK Provider: Shelly Malik DPM :1935 A ge:88 Y S ex:Female Date:07/21/2024 Address:[address] [place] [address] Pcp:Christel Green Subjective: * Chief Complaints: * [...] 07/21/2024 Generated for Unruly parr/Bernardo/Sissy on: 0 02/16/2025 03:39 PM EDT
[2025-02-16 11:33] VITALS: BP 190/78; PULSE 57; O2SAT 98; BMI 24.1
--- NOTE | 2025-02-16 11:33 | HO.NEPHOV_ITS ---
Vital Signs 3 02/16/25 11:33 Height 5 ft 2 in Weight 132 lb BMI 24.1 BP 190/78 H Blood Pressure Location Rt brachial Position Sitting Pulse 57 Pulse Source Pulse Oximeter Pulse Oximetry (%) 98 Oxygen Delivery Method Room Air Intake Visit Reasons: INP: Type 1 DM with diabetic nephropathy Counter Maker Required: No Accompanied by: Daughter Allergies brimonidine (From ALPHAGAN P) Allergy (Unknown, Verified 02/16/25 11:36) UNKNOWN alphagan Allergy (Unknown, Uncoded 12/23/24 11:21) allergy reaction Fluoxetine Allergy (Unknown, Uncoded 12/23/24 11:21) Unknown Medication List - Last Reconciled 02/16/25 by Caden Ledbetter MD acetaminophen (Tylenol) 650 mg PO Q6H PRN aspirin 81 mg PO DAILY atenolol 25 mg PO DAILY blood-glucose sensor (ividenceStyle Aditya 3 Plus Sensor device) As directed change every 14 days blood-glucose,stripper apprentice,cont (FreeStyle Aditya 3 [place]) As directed furosemide 20 mg PO DAILY insulin glargine U-300 conc (Toujeo SoloStar U-300 Insulin) 12 units subcut BEDTIME insulin lispro (Humalog KwikPen (U-100) Insulin) 6 units with breakfast , 6 units lunch lunch, 6-8 units with dinner and 2 units with snacks subcut. 4 times a day SLIDING SCALE 90 days lidocaine 5% 1 patch topical DAILY lovastatin 40 mg PO BEDTIME meloxicam 7.5 mg PO DAILY nystatin 1 appl topical BID pen needle, diabetic 5 times a day polyethylene glycol 3350 (Gavilax) 17 grams PO DAILY PRN timolol maleate 0.5% 1 drp ophthalmic (eye) DAILY [transfer chair As directed] trazodone 50 mg PO BEDTIME PRN valsartan 160 mg See Protocol PO DAILY walker As directed HPI Comments Details: The patient is an 89-year-old female presenting with chronic kidney disease. Kidney function is between 40% and 50%, with efforts to prevent further decline. Diabetes mellitus is long-standing and sub optimally controlled,per daughter, with high blood glucose levels. Hypertension is treated and reportedly controlled, though not checked today. Polyuria is noted, with frequent urination, especially outside the home. h/o uterine prolapse Peripheral edema led to the resumption of furosemide after previous discontinuation. 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 Do you presently have visiting nurse or other home services: Yes Alcohol intake: never Patient Tobacco Use Status: Never used Tobacco e-Cigarette/Vaping Use: Never Used Second Hand Smoke Exposure: No service: No Current occupational status: retired and disabled Cognitive needs: Yes (cane/walker) Hearing needs: No Vision needs: Yes (glasses) Review of Systems Const Denies anorexia, Denies fever(s) and Denies weakness Eyes Denies blurry vision Card Denies no additional complaints and Denies dyspnea Resp Reports no additional complaints, Reports cough and Denies dyspnea GI Denies melena and Denies diarrhea Denies hematuria Musc Denies tingling Skin/Breast Denies rash Neuro Denies focal weakness, Denies tingling, Denies tremor(s) and Denies weakness Physical Exam Vital Signs: Last Vital Signs Pulse 57 02/16/25 11:33 BP 190/78 H 02/16/25 11:33 Pulse Ox 98 02/16/25 11:33 Oxygen Delivery Method Room Air 02/16/25 11:33 BMI result Body Mass Index 24.1 Comfortable Neck supple no JVD. Lungs entry equal no rales. Heart S1-S2 heard no gallop or rub. Abdomen soft nontender. Neuro alert awake oriented. No asterixis. Extremities no edema. Results Reviewed Nephrology Results: 2 Hgb, (12.0-16.0) 11.8 g/dl L 11/14/24 WBC, (4.8-10.8) 8.4 X10*3/uL 11/14/24 Plt Count, (160-400) 201 X10*3/uL 11/14/24 Sodium, (135-145) 139 mmol/L 01/05/25 Potassium, (3.3-5.1) 4.4 mmol/L 01/05/25 Chloride, (96-108) 107 mmol/L 01/05/25 Carbon Dioxide, (22-29) 24 mmol/L 01/05/25 BUN, (9-16) 18 mg/dL H 01/05/25 Creatinine, (0.5-1.4) 1.13 mg/dL 01/05/25 Calcium, (8.4-10.2) 9.6 mg/dL 01/05/25 Urine Creatinine 29.51 mg/dL 01/06/25 Assessment & Plan Assessment & Plan (1) CKD (chronic kidney disease): Code(s): N18.9 - Chronic kidney disease, unspecified Category: Medical Plan 1. Chronic Kidney Disease Most likely due to hypertensive diabetic kidney disease Miloxicam induced hypoperfusion in combination with ARB is likely Need to consider obstruction - Ultrasound, blood, and urine tests planned. - Stop meloxicam Recheck chem 7 in 2 weeks - Increase water intake, reduce salt. 2. Diabetes Mellitus - Monitor glucose levels. Main ewelina A1C < 7% 3. Hypertension - Continue valsartan. Low salt diet BP is elevated today- ? White coat effect Recheck BP at home today ( usually well controlled at home as per family) Watch BP at home Further work up will be based on above investigation Orders: Orders 2 Basic Metabolic Panel 2 Weeks Caden Ledbetter MD N18.9 - Chronic kidney disease, unspecified Creatinine Urine 2 Weeks Caden Ledbetter MD N18.9 - Chronic kidney disease, unspecified Total Protein Urine Random 2 Weeks Caden Ledbetter MD N18.9 - Chronic kidney disease, unspecified Complete Blood Count no Diff 2 Weeks Caden Ledbetter MD N18.9 - Chronic kidney disease, unspecified UA and rflx microscopic 2 Weeks Caden Ledbetter MD N18.9 - Chronic kidney disease, unspecified US renal BI Today Caden Ledbetter MD N18.9 - Chronic kidney disease, unspecified Medications: Changed 2 From insulin glargine U-300 conc (Toujeo SoloStar U-300 Insulin) 15 units (0.05 mL) subcut BEDTIME 4.5 mL 2RF E10.65 - Type 1 diabetes mellitus with hyperglycemia To insulin glargine U-300 conc (Toujeo SoloStar U-300 Insulin) 12 units subcut BEDTIME E10.65 - Type 1 diabetes mellitus with hyperglycemia Christel Green PA-C Discontinued 2 meloxicam Discontinued Reason: Doctor's Order 7.5 mg PO DAILY 60 tabs 2RF Coding Level of Care Code New Pt Level 4 (28403) Diagnoses CKD (chronic kidney disease) N18.9
--- OUTSIDE RECORDS SUMMARY | 2025-02-16 15:39 | XMS_ITS ---
Author Name Jacob SARA, MS. Florecita Fiore Address [address] [place] [address] Phone [phone] [facility] Care Team Providers Care Refrigeration Supervisor Name Role Phone Florecita James Unavailable [phone] MehranMateusz augustin Unavailable [phone] Reason for Referral Not Available Allergies, adverse [...] EVERY DAY 2020-12-21 No Data Available Creon [id number] UNIT Cap delayed rel TAKE 1 CAPSULE [...] 2022-03-21 BD JEWELS 2 GEN PEN NDL [id number] USE 5 TIMES A DAY 2021-05-29 No [...] once daily 2023-06-23 No Data Available Nystatin 304889 UNIT/GM Powder APPLY TO AFFECTED AREA TWICE [...] use of insulin, glaucoma Active 2022-03 N/A [facility] 07/01/24On Helene Arevalo on regular injectables (Q6 mos) during doctor's visits- daughters does not have name Under ophthalmology careHas f/u 08/10/24Stable Dementia Active 2022-03 N/A [facility] 07/01/24Pt. isnt taking any meds.Relatively mild. Has intermittent lapses of memory per daughter. Stable overall Has Life Alert at all times POA/guardian/Advance Directives- daughter is proxyLives with daughter Safety precautions reviewed with patient and caregiver.No driving motor vehicleTake medications as prescribedKeep medications and guns and other dangerous equipment/objects under lock and vogt for safety reasons Chronic pancreatitis Active 2022-03 N/A [facility] 07/01/24Was on Creon, no w off medicationCurrently c/o of abdominal bloating and gas but pt had constipation yesterday and took Miralax and that gave her some loose stools, which left her feeling weak and gassy. No looses stools today. Pt advised Gax-X, bland diet today, plenty of fluids including Pedialyte. Follow up with GI recommended at least annually. Hypertension Active 2022-03 N/A [facility] 07/01/24On Amlodipine, Atenolol, Valsartan, furosemideControlledRecommend DASH [...] type 2 diabetes mellitus Active 2022-03 N/A [facility] 07/01/24HLD Rx Lovastati nDM rx Toujeo, LisproDaily FS.183- this A.MLast a1c- 9% Pending updated labs (missed labs in April) but overall improved after insulin adjustment. Typically FBS within goal of 80-140. Pt has a f/u appt with PCP next month. Will recheck r5tDrevwqom CG/PT that the a1c goal is <8%Encouraged [...] organ damage (headache, vision changes, chest pain)/ Business Analyst Project Manager on proper BP monitoring technique and reassess/ [...] Pain Assessment - NO pain present (1126F) [facility] [place] Pain Assessment - NO pain present (1126F) [facility] [place] Pain Assessment - NO pain present (1126F) [facility] [place] Pain Assessment - NO pain present (1126F) [facility] [place] Pain Assessment - NO pain present (1126F) [facility] [place] Pain Assessment - NO pain present (1126F) [facility] [place] Pain Assessment - NO pain present (1126F) [facility] [place]20[place] Type 2 diabetes mellitus wit [...] Pain Assessment - NO pain present (1126F) [facility] [place] Pain Assessment - NO pain present (1126F) [facility] [place] Pain Assessment - NO pain present (1126F) [facility] [place] Estab. patient 30-39min; chronic exacerbation, 2 stable chronic or 1 acute illness add add modifier 95 for video, (do not use for phone, instead use 24197-68) [facility] [place]2023 Other chronic pancreatitisTy pe 2 [...] (do not use for phone, instead use 53189-42) [facility] [place] Estab. patient 30-39min; chronic exacerbation, 2 stable chronic or 1 acute illness add add modifier 95 for video, (do not use for phone, instead use 89859-93) [facility] [place] Estab. patient 30-39min; chronic exacerbation, 2 stable chronic or 1 acute illness add add modifier 95 for video, (do not use for phone, instead use 91805-60) [facility] [place] Estab. patient 30-39min; chronic exacerbation, 2 stable chronic or 1 acute illness add add modifier 95 for video, (do not use for phone, instead use 98709-17) [facility] [place] Estab. patient 30-39min; chronic exacerbation, 2 stable chronic or 1 acute illness add add modifier 95 for video, (do not use for phone, instead use 77198-30) [facility] [place] Estab. patient 30-39min; chronic exacerbation, 2 stable chronic or 1 acute illness add add modifier 95 for video, (do not use for phone, instead use 79102-45) [facility] [place] Estab. patient 30-39min; chronic exacerbation, 2 stable chronic or 1 acute illness add add modifier 95 for video, (do not use for phone, instead use 15211-01) [facility] [place]2023 No Data Available [facility] [place]2023 Type 2 diabetes mellitus wit h other specified complicationHyperlipidemia, unspecified No Data Available [facility] [place]20[place] Estab. patient 30-39min; chronic exacerbation, 2 stable chronic or 1 acute illness add add modifier 95 for video, (do not use for phone, instead use 96676-51) [facility] [place]2023 Other chronic pancreatitisEssential (primary) hypertensionType 2 diabetes mellitus with other specified complicationHyperlipidemia, unspecifiedUnspecified dementia without behavioral disturbanceMajor depressive disorder, recurrent, unspecifiedBilateral primary osteoarthritis of knee Estab. patient 30-39min; chronic exacerbation, 2 stable chronic or 1 acute illness add add modifier 95 for video, (do not use for phone, instead use 03521-31) [facility] [place] Estab. patient 30-39min; chronic exacerbation, 2 stable chronic or 1 acute illness add add modifier 95 for video, (do not use for phone, instead use 00820-79) [facility] [place] Estab. patient 30-39min; chronic exacerbation, 2 stable chronic or 1 acute illness add add modifier 95 for video, (do not use for phone, instead use 89664-10) [facility] [place] Estab. patient 30-39min; chronic exacerbation, 2 stable chronic or 1 acute illness add add modifier 95 for video, (do not use for phone, instead use 28834-39) [facility] [place] Estab. patient 30-39min; chronic exacerbation, 2 stable chronic or 1 acute illness add add modifier 95 for video, (do not use for phone, instead use 32314-47) [facility] [place]2023 Estab. patient 30-39min; chronic exacerbation, 2 stable chronic or 1 acute illness add add modifier 95 for video, (do not use for phone, instead use 55755-85) [facility] [place] Estab. patient 30-39min; chronic exacerbation, 2 stable chronic or 1 acute illness add add modifier 95 for video, (do not use for phone, instead use 98575-98) [facility] [place] Estab. patient 30-39min; chronic exacerbation, 2 stable chronic or 1 acute illness add add modifier 95 for video, (do not use for phone, instead use 88793-73) [facility] [place]20[place] Estab. patient 30-39min; chronic exacerbation, 2 stable chronic or 1 acute illness add add modifier 95 for video, (do not use for phone, instead use 44000-24) [facility] [place] Estab. patient 20-29min; 1 stable chronic or 2 minor; add add modifier 95 for video, modifier 93 for phone [facility] [place]2024 Other chronic pancreatitisEssential (primary) hypertensionType 2 [...] tive Time Current Smoking Status Never smoker 2025-02-06 1 Sex Female History of Procedures Procedures [...] (do not use for phone, instead use 95062-26) 33911 2022-03-21 No Data Available No Data Availa [...] (do not use for phone, instead use 78834-23) 84000 2023-02-18 No Data Available No Data Availa [...] Available No Data Available No Data Available 67117 2023-05-31 No Data Available No Data Available Medication List Documented (1159F) 1159F 2023-05-31 No Data Available No Data Luna ilable Estab. 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 Will recheck g8cHeiujlbw CG/PT that the a1c is <7%Encouraged regular [...] appt with PCP next month. Will recheck l4aOozuioje CG/PT that the a1c goal is <7%Encouraged [...] appt with PCP next month. Will recheck v2oXmkannjl CG/PT that the a1c goal is <7%Encouraged [...] appt with PCP next month. Will recheck v6lJwmnpxqb CG/PT that the a1c goal is <7%Encouraged [...] appt with PCP next month. Will recheck c9xGughjxhq CG/PT that the a1c goal is <8%Encouraged [...] organ damage (headache, vision changes, chest pain)/ Business Analyst Project Manager on proper BP monitoring technique and reassess/ [...]
--- OUTSIDE RECORDS SUMMARY | 2025-02-16 15:40 | XMS_ITS | Patient Health Record ---
[facility] Organization [facility] Address [address] [place] [address] Care Team Providers Care Instrumental Music Teacher Name Role Phone Christel Green Primary Care Provider Unavailab Mendoza Rizzo Unavailable [phone] Allergies Allergen (clinical drug ingredient) Drug/Non Drug Allergy documented on EMR Reaction Allergy Type Onset Date Status brimonidine Alphagan P Allergy Drug Allergy Acti ve brimonidine Brimonidine Unknown Drug Allergy Act nathan fluoxetine Fluoxetine Unknown Drug Allergy Activ e Results Component Value Reference Range Notes HEMOGLOBIN A1C (GLYCOHEMOGLO BIN) Reviewed date:10/13/2024 11:43:28 AM Interpretation: Performing Lab: Notes/Report: HEMOGLOBIN A1C % (HH) 9 HEMOGLOBIN A1C (GLYCOHEMOGLO BIN) Reviewed date:01/16/2025 11:31:14 AM Interpretation: Performing Lab: Notes/Report: HEMOGLOBIN A1C % (HH) 9.0 Reason For Referral No Information Medications Medication SIG (Take, Route, Frequency, Duration) Notes Start Date End Date Status Lumigan 0.01 % 1 drop into affected eye in the evening Active Accu-Chek Shamika test strips No t-Taking Lancets Not-Taking Ibuprofen prn Active Ammonium Lactate 12 % 1 application Externally to affected areas of dry skin to feet except for between the toes Twice a day; Duration: 30 days Active Furosemide 20 MG 1 tablet Orally Once a day; Duration: 30 day(s) Active Extra Depth Orthopedic Shoes (1 Pair) with Customized Heat Molded Multidensity Innersoles (3 Pair) as directed Dx: IDDM/Polyneuropathy (E10.42), Hammertoe Foot Deformity (M20.41,M20.42), Preulcerative Skin Lesion(s) (L85.1) 01/14/2024 Active Atenolol 50 MG 1 tablet Orally Once a day; Duration: 30 day(s) Active Valsartan 160 MG 1 tablet Orally Once a day; Duration: 30 day(s) Active amLODIPine Besylate 5 MG 1 tablet Orally Once a day; Duration: 30 day(s) Active Toujeo SoloStar 13 units Acti ve Timolol Maleate 0.5 % 1 drop into affect ed eye Active Tylenol 325 MG as directed twice a day prn Active Bisacodyl 5 MG as directed Not -Taking Polyethylene Glycol 3350 Active Creon 6000-33297 UNIT as directed Orally Not-Taking Meloxicam 7.5 MG 1 tablet Orally Once a day; Duration: 30 day(s) Active traZODone HCl 50 MG 1 tablet at bedtime as needed Orally Once a day; Duration: 30 day(s) Not-Taking Lovastatin 40 MG 1 tablet with the evening meal Orally Once a day; Duration: 30 day(s) Active Insulin Lispro 6-10 units Acti ve Walker Not-Taking Immunizations Vaccine Route Administration Date Status Comme nts Influenza Unknown 01/16/2025 Refused Social History Tobacco Use: Social History Observation Description Date Details (start date - stop date) Never Smoker NA - NA Tobacco use other than smoking: Question Answer Notes Are you an other tobacco user? No Tobacco Control (Standard) Question Answer Notes Tobacco use: Nonsmoker Additional Findings: Tobacco non-user Current no nsmoker AUDIT-C (Standard) Question Answer Notes Did you have a drink containing alcohol in the p ast year? No Points 0 Interpretation Negative Problems Problem Type SNOMED Code ICD Code Onset Dates Problem Status W/U Status Risk Notes Problem Acquired hammer toe of right foot (5932148166893881 ) Other hammer toe(s) (acquired), right foot (M20.41) Active confirmed Response to treatment, Improvemen t Problem Acquired hammer toe of left foot (6939771772974764 ) Other hammer toe(s) (acquired), left foot (M20.42) Active confirmed Response to treatment, Improvemen t Problem Polyneuropathy due to diabetes mellitus type I (874357661) Type 1 diabetes mellitus with diabetic polyneuropathy (E10.42) Active confirmed Vital Signs Heart Rate 52 /min 10/13/2024 Blood pressure diastolic 81 mm Hg 01/16/2025 Height 5ft 2in in 01/16/2025 Blood pressure systolic 142 mm Hg 01/16/2025 Weight 137 lbs 01/16/2025 BMI 25.05 kg/m2 01/16/2025 Procedures Procedure Date Ordered Date Performed Result Body Sit e 86531-JJFIZVA NAIL, 6 OR MORE 04/18/2024 N/A 91039-NZVJ SKIN LESIONS, OVER 4 04/18/2024 N/A 88268-FXVSPVU NAIL, 6 OR MORE 10/13/2024 N/A 16096-WRJF SKIN LESIONS, OVER 4 10/13/2024 N/A 57650-BUBAFLA NAIL, 6 OR MORE 01/16/2025 N/A 56822-BXID SKIN LESIONS, OVER 4 01/16/2025 N/A Encounters Encounter Location Date Provider Diagnosis [address] [address] 04/18/2024 Mendoza Malik Type 1 diabetes mellitus with diabetic polyneuropathy E10.42 ; Tinea unguium B35.1 ; Other hammer toe(s) (acquired), right foot M20.41 and Other hammer toe(s) (acquired), left foot M20.[address] [address] 10/13/2024 Mendoza Malik Type 1 diabetes mellitus with diabetic polyneuropathy E10.42 ; Tinea unguium B35.1 and Xerosis of skin L85.[address] [address] 01/16/2025 Mendoza Malik Type 1 diabetes mellitus with diabetic polyneuropathy E10.42 ; Tinea unguium B35.1 and Xerosis of skin L85.3 [facility] [address] [place] [address] 07/19/2024 Mendoza Malik Assessments Encounter Date Diagnosis (ICD Code) Assessment Notes Treatment Notes Treatment Clinical Notes Section Notes 04/18/2024 Type 1 diabetes mellitus with diabetic polyneuropathy (ICD-10 - E10.42) 04/18/2024 Tinea unguium (ICD-10 - B35.1) 10/13/2024 Type 1 diabetes mellitus with diabetic polyneuropathy (ICD-10 - E10.42) 10/13/2024 Tinea unguium (ICD-10 - B35.1) 01/16/2025 Type 1 diabetes mellitus with diabetic polyneuropathy (ICD-10 - E10.42) 01/16/2025 Tinea unguium (ICD-10 - B35.1) 01/16/2025 Xerosis of skin (ICD-10 - L85.3) 04/18/2024 Other hammer toe(s) (acquired), right foot (ICD-10 - M20.41) Response to treatment,Impro vement 04/18/2024 Other hammer toe(s) (acquired), left foot (ICD-10 - M20.42) Response to treatment,Impro vement 10/13/2024 Xerosis of skin (ICD-10 - L85.3) Plan Of Treatment Pending Test Test Name Order Date 17076-UBVNVMV NAIL, 6 OR MORE 01/14/2024 47757-NXSAPVQ NAIL, 6 OR MORE 04/18/2024 77957-DNZNOQU NAIL, 6 OR MORE 10/13/2024 29704-BEIKZSV NAIL, 6 OR MORE 01/16/2025 14217-EGEP SKIN LESIONS, OVER 4 01/17/20 25 34373-WXGL SKIN LESIONS, OVER 4 10/14/19 25 44003-FKDG SKIN LESIONS, OVER 4 04/18/20 24 54673-UXBW SKIN LESIONS, OVER 4 01/14/20 24 87985-VVZK SKIN LESIONS, 2 TO 4 02/28/20 23 33247-XUDC SKIN LESIONS, 2 TO 4 07/28/19 24 Next Appt Details Provider Name:Mendoza Carnes King , 05/03/2025 10:45:00 AM, [address] [facility] [address], [place], [address], Insurance Providers Payer Name Payer Address Payer Phone Subscriber Number Group Number Insured Name Patient Relationship to Insured Coverage Start Date Coverage End Date [facility] [address] [address] [place] [address] [id number] Sunitha Ledesma Self - patient is the insured Medical (General) History Medical History History ICD Code Back,Hip,and Knee pain Dementia Diabetic type 1 Glaucoma High blood pressure Chicken pox Fall Risk Dyslipidemia Uterine Prolaspse Diabetic retinopathy Surgical History Surgery Date(Month/Year) breast biopsy colonoscopy
--- OUTSIDE RECORDS SUMMARY | 2025-02-16 15:40 | XMS_ITS ---
Author Organization [facility] Care Team Providers Care Coping Machine Assembler Name Role Phone Braden Adair Unavailable Unavailable Allergies and adverse reactions Code CodeSystem Substance Reaction Severity StartDate Concern Status 843554 RXNORM Brimonidine Itching of skin (code- 233839481, SNOMED CT) Moderate 09/29/2018 active Care Team Name Role Address Phone Organization Dates Braden Adair PCP [address] [facility] [address], [place], [address], [place] (Office): : [facility] 09/29/2018 - 2018 Immunizations Immunization Status Vaccine [...] completed tuberculin skin test; unspecified formulation lotNumber: [id number] expiry: 03/07/2020 Mfg: [employer] cc Given 0.1 ml Right Forearm intradermally Step 1 of Multi-step with next step required 98 CVX created date: 10/07/2018 consent date: 10/07/2018 administer ed date: 10/07/2018 TB 2 Step Mantoux Skin Test completed tuberculin skin test; unspecified formulation lotNumber: [id number] expiry: 03/07/2020 Mfg: [employer] [place], [place] Given 0.1 ml Left Forearm intradermally [...] CodeSystem Concern Status 1 HALLUCINATIONS, UNSPECIFIED 09/30/[address] active 2 MAJOR DEPRESSIVE DISORDER, RECURRENT, UNSPECIFIED 09/30/[address] active 3 METABOLIC ENCEPHALOPATHY 09/30/[address] active 4 ESSENTIAL (PRIMARY) HYPERTENSION 09/29/[address] active 5 HYPERLIPIDEMIA, UNSPECIFIED 09/29/[address] active 6 HYPO-OSMOLALITY AND HYPONATREMIA 09/29/[address] active 7 NEUROCOGNITIVE DISORDER WITH LEWY BODIES 09/29/[address] active 8 OTHER ABNORMALITIES OF GAIT AND MOBILITY 09/29/[address] active 9 OTHER LACK OF COORDINATION 09/29/[address] active 10 PAIN IN UNSPECIFIED KNEE 09/29/[address] active 11 TYPE 2 DIABETES MELLITUS WITHOUT COMPLICATIONS 09/29/[address] active 12 WEAKNESS 09/29/[address] active Reason for Referral No Reasons for Referral Entered Social History Social History Observation Description Start Date End Date Code Code System Current Smoking Status Tobacco smoking consumption unknown 713527841 SNOMED CT Sex Assigned At Female 1935 08001-3 [facility] Gender Identity Sexual Orientation Vital Signs Code Code System Vitals Name Values and Units Timing Information 29953-4 [facility] Pain Level Value=0.0 2018 2339-0 [facility] Blood Sugar Clalc=351.0 Units=mg/dL 2018 56498-5 [facility] Weight Upzzb=543.0 Units=Lbs 9279-1 [facility] Respiratory Rate Value=18.0 Units=/m in 10/21/2018 8462-4 [facility] Blood Pressure-Diastolic Value=58 Un its=mmHg 10/21/2018 8480-6 [facility] Blood Pressure-Systolic Szamc=061 Un its=mmHg 10/21/2018 8310-5 [facility] Body Temperature Value=97.0 Units= F 10/21/2018 8867-4 [facility] Heart rate Value=78.0 Units=/min 21360-7 [facility] O2 % BldC Oximetry Value=96.0 Units= % 10/21/2018 8302-2 [facility] Height Value=62.0 Units=Inches 09/29/2018
== END 2025-02-16 11:51 | disposition home or self-care (01) ==
LOC: HO.HKA 11:21
PROVIDERS: Visit Provider Internal Medicine Hypertension Specialist
DX: N18.9 Chronic kidney disease, unspecified (principal)
CPT/HCPCS: 99204

== ENCOUNTER → 2025-02-16 11:21 | Outpatient (BNVA) | payer OTHER, SELFPAY | PROVIDERS: Visit Provider Internal Medicine Hypertension Specialist | DX: E10.22 Type 1 diabetes mellitus with diabetic chronic kidney disease (principal); E10.65 Type 1 diabetes mellitus with hyperglycemia; I12.9 Hypertensive chronic kidney disease with stage 1 through stage 4 chronic kidney disease, or unspecified chronic kidney disease; N18.9 Chronic kidney disease, unspecified; Z79.4 Long term (current) use of insulin | CPT/HCPCS: 99202 ==

== ENCOUNTER 2025-03-01 09:44 | Outpatient (AMB) | payer OTHER, SELFPAY ==
--- OUTSIDE RECORDS SUMMARY | 2024-07-21 07:30 | XMS_ITS ---
Author Organization [facility] Address [address] [place] [address] Care Team Providers Care Cutter Apprentice Hand Name Role Phone Christel Green Primary Care Provider Unavailab Mendoza Rizzo Unavailable [phone] Encounters Encounter Location Date [facility] [address] 07/21/2024 Mendoza Malik Plan Of Treatment Next Appt Details Provider Name:Mendoza Malik , 05/03/2025 10:45:00 AM, [address], [address], Progress Notes * Minna DICKEYasterjoslynDOB:1935 (89 yo F)Acc No.[id number]:07/21/2024 Progress Note Patient: Sunitha MCCORMICK Provider: Shelly Malik DPM :1935 A ge:88 Y S ex:Female Date:07/21/2024 Address:[address] [place] [address] Pcp:Christel Green Subjective: * Chief Complaints: * [...] 07/21/2024 Generated for Unruly parr/Bernardo/Sissy on: 0 03/01/2025 11:48 AM EDT
[2025-03-01 09:52] VITALS: BP 124/62; PULSE 54; BMI 23.0
--- NOTE | 2025-03-01 09:52 | MHC.OFFVIS ---
Vital Signs 03/01/25 09:52 Height 5 ft 2 in Weight 125 lb 10.616 oz BMI 23.0 BP 124/62 Blood Pressure Location Lt brachial Position Sitting Pulse 54 Pulse Source Pulse Oximeter Intake Visit Reasons: MP/ Christel Green/ heart block/ palpitations Knapsack Sprayer Required: Yes Knapsack Sprayer Services: Knapsack Sprayer Offered & Declined Accompanied by: Daughter Allergies brimonidine (From ALPHAGAN P) Allergy (Unknown, Verified 02/16/25 11:36) UNKNOWN alphagan Allergy (Unknown, Uncoded 12/23/24 11:21) allergy reaction Fluoxetine Allergy (Unknown, Uncoded 12/23/24 11:21) Unknown Medication List - Last Reconciled 03/01/25 by Flex Jovel MD acetaminophen (Tylenol) 650 mg PO Q6H PRN aspirin 81 mg PO DAILY atenolol 25 mg PO DAILY blood-glucose sensor (JoboolStyle Aditya 3 Plus Sensor device) As directed change every 14 days blood-glucose,pharmaceutical plant operator,cont (FreeStyle Aditya 3 [place]) As directed furosemide 20 mg PO DAILY insulin glargine U-300 conc (Toujeo SoloStar U-300 Insulin) 12 units subcut BEDTIME insulin lispro (Humalog KwikPen (U-100) Insulin) 6 units with breakfast , 6 units lunch lunch, 6-8 units with dinner and 2 units with snacks subcut. 4 times a day SLIDING SCALE 90 days lidocaine 5% 1 patch topical DAILY lovastatin 40 mg PO BEDTIME nystatin 1 appl topical BID pen needle, diabetic 5 times a day polyethylene glycol 3350 (Gavilax) 17 grams PO DAILY PRN timolol maleate 0.5% 1 drp ophthalmic (eye) DAILY [transfer chair As directed] trazodone 50 mg PO BEDTIME PRN valsartan 160 mg See Protocol PO DAILY walker As directed HPI Comments Details: Sunitha is here for evaluation of palpitations. Daughter is helping with translation. She states that patient frequently complaints of palpitations and heart pounding extra. It can happen any time. She does not have any clear exertional angina but can get short of breath with activity. No clear presyncope or syncope. No previously diagnosed coronary disease or myocardial infarction or cardiomyopathy. 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 Mother No problems noted. Social History Household Members: Family Housing: Apartment Housing Other:: With Daughter. Do you presently have visiting nurse or other home services: Yes Alcohol intake: never Patient Tobacco Use Status: Never used Tobacco e-Cigarette/Vaping Use: Never Used Second Hand Smoke Exposure: No service: No Current occupational status: retired and disabled Cognitive needs: Yes (cane/walker) Hearing needs: No Vision needs: Yes (glasses) Review of Systems Const Reports fatigue and Denies weakness ENT Reports dizziness Card Denies chest pain, Denies chest pain with activity, Denies syncope, Denies rapid heart rate, Denies pedal edema, Denies edema, Denies leg edema, Denies lightheadedness, Reports palpitations, Denies dyspnea, Denies dyspnea on exertion and Denies orthopnea Resp Denies cough, Denies dyspnea and Denies dyspnea on exertion GI Denies hematochezia and Denies change in stool character Musc Denies abnormal gait, Reports myalgias, Denies muscle cramps, Denies muscle weakness, Denies numbness, Denies radiating pain into limb and Denies tingling Neuro Denies abnormal gait, Reports dizziness, Denies syncope, Denies numbness, Denies tingling and Denies weakness Endo Reports fatigue and Reports palpitations Physical Exam Vital Signs: Last Vital Signs Pulse 54 03/01/25 09:52 BP 124/62 03/01/25 09:52 BMI result Body Mass Index 23.0 Const General: comfortable and no acute distress Orientation/consciousness: patient oriented x3 HEENT Other: Unremarkable Head: Yes normal to inspection Neck Neck: Yes normal visual inspection Chest Chest palpation & inspection: normal inspection of the chest Resp Auscultation: clear to auscultation bilaterally Cardio Palpation: normal PMI Heart sounds: S1 normal heart sound present, S2 normal heart sound present, no gallops, no murmurs and no rubs GI Palpation (GI): Soft to palpation Back/Spine/Pelvis Other: unremarkable Skin General skin exam: no rashes or lesions noted Neuro General: patient oriented x3 Extrem General: Yes normal to inspection Psych Mental Status: mental status grossly normal Assessment & Plan Assessment & Plan (1) Sinus pause: Comment: 3.1 seconds on Holter unknown time Code(s): I45.5 - Other specified heart block Category: Medical (2) Bradycardia: Code(s): R00.1 - Bradycardia, unspecified Category: Medical (3) Palpitations: Code(s): R00.2 - Palpitations Category: Medical Plan EKG shows sinus rhythm at 59/Min with sinus arrhythmia. In the Holter monitor, underlying rhythm is sinus with an average rate of 53/Min. Frequent sinus bradycardia about 85% of the time. One pause of 3.1 seconds at 15:24. No reported patient events. Overall, there is no clear tachyarrhythmia to explain the palpitations. Wonder if the bradycardia is making her feel the palpitations if there is a high stroke volume. We can stop the atenolol and see how she feels. We will obtain echocardiogram. Repeat Holter off Atenolol. Follow up in a few weeks' time. Orders: Orders CA echo transthoracic complete Today I45.5 - Other specified heart block, R00.2 - Palpitations ECG 3 day holter monitor Today I45.5 - Other specified heart block, R00.2 - Palpitations Coding Level of Care Code New Pt Level 4 (49090) Diagnoses Sinus pause I45.5 Bradycardia R00.1 Palpitations R00.2
--- OUTSIDE RECORDS SUMMARY | 2025-03-01 11:49 | XMS_ITS | Patient Health Record ---
[facility] Address [address] [place] [address] Care Team Providers Care Doubling Machine Operator Name Role Phone Christel Green Primary Care Provider Unavailab Mendoza Rizzo Unavailable [phone] Allergies Allergen (clinical drug ingredient) Drug/Non Drug [...] Not -Taking Polyethylene Glycol 3350 Active Creon 6000-63623 UNIT as directed Orally Not-Taking Meloxicam 7.5 [...] Problem Acquired hammer toe of right foot (3021892222036245 ) Other hammer toe(s) (acquired), right foot (M20.41) Active confirmed Response to treatment, Improvemen t Problem Acquired hammer toe of left foot (3886034311270080 ) Other hammer toe(s) (acquired), left foot (M20.42) Active confirmed Response to treatment, Improvemen t Problem Polyneuropathy due to diabetes mellitus type I (297091775) Type 1 diabetes mellitus with diabetic polyneuropathy (E10.42) Active confirmed Vital Signs Heart Rate 52 /min 10/13/2024 Blood pressure diastolic 81 mm Hg 01/16/2025 Height 5ft 2in in 01/16/2025 Blood pressure systolic 142 mm Hg 01/16/2025 Weight 137 lbs 01/16/2025 BMI 25.05 kg/m2 01/16/2025 Procedures Procedure Date Ordered Date Performed Result Body Sit e 69128-PMZKSLB NAIL, 6 OR MORE 04/18/2024 N/A 43864-TIIA SKIN LESIONS, OVER 4 04/18/2024 N/A 61996-PXKIEPA NAIL, 6 OR MORE 10/13/2024 N/A 88751-FULZ SKIN LESIONS, OVER 4 10/13/2024 N/A 99207-AYUETJU NAIL, 6 OR MORE 01/16/2025 N/A 72991-JTMC SKIN LESIONS, OVER 4 01/16/2025 N/A Encounters Encounter Location Date Provider Diagnosis [address] [address] 04/18/2024 Mendoza Malik Type 1 diabetes mellitus with diabetic polyneuropathy E10.42 ; Tinea unguium B35.1 ; Other hammer toe(s) (acquired), right foot M20.41 and Other hammer toe(s) (acquired), left foot M20.[address] [address] 10/13/2024 Mendoza Malik Type 1 diabetes mellitus with diabetic polyneuropathy E10.42 ; Tinea unguium B35.1 and Xerosis of skin L85.[address] [address] 01/16/2025 Mendoza Malik Type 1 diabetes mellitus with diabetic polyneuropathy E10.42 ; Tinea unguium B35.1 and Xerosis of skin L85.3 [facility] [address] [place] [address] 07/19/2024 Mendoza Malik Assessments Encounter Date Diagnosis [...] Treatment Pending Test Test Name Order Date 89140-PJXMRPM NAIL, 6 OR MORE 01/14/2024 02030-STEAMTZ NAIL, 6 OR MORE 04/18/2024 79176-MNTNOTL NAIL, 6 OR MORE 10/13/2024 28939-GEQICGV NAIL, 6 OR MORE 01/16/2025 28142-CSLJ SKIN LESIONS, OVER 4 01/17/20 25 53774-VXUD SKIN LESIONS, OVER 4 10/14/19 25 60188-GGLU SKIN LESIONS, OVER 4 04/18/20 24 24520-IPQG SKIN LESIONS, OVER 4 01/14/20 24 22989-GDXK SKIN LESIONS, 2 TO 4 02/28/20 23 95201-JCYP SKIN LESIONS, 2 TO 4 07/28/19 24 Next Appt Details Provider Name:Mendoza Carnes King , 05/03/2025 10:45:00 AM, [address] [facility] [address], [place], [address], Insurance Providers Payer Name Payer Address Payer Phone Subscriber Number Group Number Insured Name Patient Relationship to Insured Coverage Start Date Coverage End Date [facility] [address] [address] [place] [address] [id number] Sunitha Ledesma Self - patient is the insured Medical (General) History Medical History History ICD Code Back,Hip,and Knee pain Dementia Diabetic type 1 Glaucoma High blood pressure Chicken pox Fall Risk Dyslipidemia Uterine Prolaspse Diabetic retinopathy Surgical History Surgery Date(Month/Year) breast biopsy colonoscopy
--- OUTSIDE RECORDS SUMMARY | 2025-03-01 11:49 | XMS_ITS ---
Author Name Jacob SARA, MS. Florecita Fiore Address [address] [place] [address] Phone [phone] [facility] Care Team Providers Care Trade Union Official Name Role Phone Florecita James Unavailable [phone] MehranMateusz augustin Unavailable [phone] Reason for Referral Not Available Allergies, adverse [...] EVERY DAY 2020-12-21 No Data Available Creon 6000-34299 UNIT Cap delayed rel TAKE 1 CAPSULE [...] 2022-03-21 BD JEWELS 2 GEN PEN NDL [id number] USE 5 TIMES A DAY 2021-05-29 No [...] once daily 2023-06-23 No Data Available Nystatin 356705 UNIT/GM Powder APPLY TO AFFECTED AREA TWICE [...] use of insulin, glaucoma Active 2022-03 N/A [facility] 07/01/24On Helene Arevalo on regular injectables (Q6 mos) during doctor's visits- daughters does not have name Under ophthalmology careHas f/u 08/10/24Stable Dementia Active 2022-03 N/A [facility] 07/01/24Pt. isnt taking any meds.Relatively mild. Has intermittent lapses of memory per daughter. Stable overall Has Life Alert at all times POA/guardian/Advance Directives- daughter is proxyLives with daughter Safety precautions reviewed with patient and caregiver.No driving motor vehicleTake medications as prescribedKeep medications and guns and other dangerous equipment/objects under lock and vogt for safety reasons Chronic pancreatitis Active 2022-03 N/A [facility] 07/01/24Was on Creon, no w [...] at least annually. Hypertension Active 2022-03 N/A [facility] 07/01/24On Amlodipine, Atenolol, Valsartan, furosemideControlledRecommend [...] type 2 diabetes mellitus Active 2022-03 N/A [facility] 07/01/24HLD Rx Lovastati nDM rx Toujeo, LisproDaily FS.183- this A.MLast a1c- 9% Pending updated labs (missed labs in April) but overall improved after insulin adjustment. Typically FBS within goal of 80-140. Pt has a f/u appt with PCP next month. 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 on proper BP monitoring technique and reassess/ [...] - NO pain present (1126F) [facility] [place] [place] Pain Assessment - NO pain present (1126F) [facility] [place] Pain Assessment - NO pain present (1126F) [facility] [place] Pain Assessment - NO pain present (1126F) [facility] [place] Pain Assessment - NO pain present (1126F) [facility] [place]20[place] Pain Assessment - NO pain present (1126F) [facility] 03[place]20[place] Pain Assessment - NO pain present (1126F) [facility] [place]20[place] Type 2 diabetes mellitus [...] - NO pain present (1126F) [facility] [place] Pain Assessment - NO pain present (1126F) [facility] [place] Pain Assessment - NO pain present (1126F) [facility] [place] Estab. patient 30-39min; chronic exacerbation, 2 stable chronic or 1 acute illness add add modifier 95 for video, (do not use for phone, instead use 65296-99) [facility] [place] 02[place]2023 Other chronic pancreatitisTy pe [...] (do not use for phone, instead use 06991-47) [facility] [place] Estab. patient 30-39min; chronic exacerbation, 2 stable chronic or 1 acute illness add add modifier 95 for video, (do not use for phone, instead use 57778-23) [facility] [place]18[place]23 Estab. patient 30-39min; chronic exacerbation, 2 stable chronic or 1 acute illness add add modifier 95 for video, (do not use for phone, instead use 90755-37) [facility] [place] 02/18/2023 Estab. patient 30-39min; chronic exacerbation, 2 stable chronic or 1 acute illness add add modifier 95 for video, (do not use for phone, instead use 30903-20) [facility] [place]23 Estab. patient 30-39min; chronic exacerbation, 2 stable chronic or 1 acute illness add add modifier 95 for video, (do not use for phone, instead use 12169-19) [facility] [place]23 Estab. patient 30-39min; chronic exacerbation, 2 stable chronic or 1 acute illness add add modifier 95 for video, (do not use for phone, instead use 52009-28) [facility] [place] 02[place]18[place]23 Estab. patient 30-39min; chronic exacerbation, 2 stable chronic or 1 acute illness add add modifier 95 for video, (do not use for phone, instead use 95788-21) [facility] [place] 02[place]18[place]2023 No Data Available [facility] [place] 05[place]2023 Type 2 diabetes mellitus wit h other specified complicationHyperlipidemia, unspecified No Data Available [facility] [place] 05[place]/2023 Estab. patient 30-39min; chronic exacerbation, 2 stable chronic or 1 acute illness add add modifier 95 for video, (do not use for phone, instead use 86117-03) [facility] [place]2023 Other chronic pancreatitisEssential (primary) hypertensionType 2 diabetes mellitus with other specified complicationHyperlipidemia, unspecifiedUnspecified dementia without behavioral disturbanceMajor depressive disorder, recurrent, unspecifiedBilateral primary osteoarthritis of knee Estab. patient 30-39min; chronic exacerbation, 2 stable chronic or 1 acute illness add add modifier 95 for video, (do not use for phone, instead use 88146-67) [facility] [place] 06[place] Estab. patient 30-39min; chronic exacerbation, 2 stable chronic or 1 acute illness add add modifier 95 for video, (do not use for phone, instead use 95726-45) [facility] [place] 06[place] Estab. patient 30-39min; chronic exacerbation, 2 stable chronic or 1 acute illness add add modifier 95 for video, (do not use for phone, instead use 41105-60) [facility] [place] 06/23/2023 Estab. patient 30-39min; chronic exacerbation, 2 stable chronic or 1 acute illness add add modifier 95 for video, (do not use for phone, instead use 45202-07) [facility] [place] 06/23/2023 Estab. patient 30-39min; chronic exacerbation, 2 stable chronic or 1 acute illness add add modifier 95 for video, (do not use for phone, instead use 24522-76) [facility] [place] 06/23/2023 Estab. patient 30-39min; chronic exacerbation, 2 stable chronic or 1 acute illness add add modifier 95 for video, (do not use for phone, instead use 84970-38) [facility] [place] 06/23/2023 Estab. patient 30-39min; chronic exacerbation, 2 stable chronic or 1 acute illness add add modifier 95 for video, (do not use for phone, instead use 86624-15) [facility] [place] 06/23/2023 Estab. patient 30-39min; chronic exacerbation, 2 stable chronic or 1 acute illness add add modifier 95 for video, (do not use for phone, instead use 70750-51) [facility] [place] 06/23/2023 Estab. patient 30-39min; chronic exacerbation, 2 stable chronic or 1 acute illness add add modifier 95 for video, (do not use for phone, instead use 65419-59) [facility] [place] 06/23/2023 Estab. patient 20-29min; 1 stable chronic or 2 minor; add add modifier 95 for video, modifier 93 for phone [facility] [place] 07/01/2024 Other chronic pancreatitisEssential (primary) hypertensionType 2 [...] tive Time Current Smoking Status Never smoker 2025-02-07 4 Sex Female History of Procedures Procedures Service [...] (do not use for phone, instead use 12470-88) 55099 2022-03-21 No Data Available No Data Availa [...] (do not use for phone, instead use 68229-92) 25138 2023-02-18 No Data Available No Data Availa [...] Available No Data Available No Data Available 32957 2023-05-31 No Data Available No Data Available Medication List Documented (1159F) 1159F 2023-05-31 No Data Available No Data Luna ilable Estab. 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 Will recheck [id number] CG/PT that the a1c is <7%Encouraged regular [...] appt with PCP next month. Will recheck [id number] CG/PT that the a1c goal is <7%Encouraged [...] appt with PCP next month. Will recheck [id number] CG/PT that the a1c goal is <7%Encouraged [...] appt with PCP next month. Will recheck [id number] CG/PT that the a1c goal is <7%Encouraged [...] appt with PCP next month. Will recheck [id number] CG/PT that the a1c goal is <8%Encouraged [...] organ damage (headache, vision changes, chest pain)/ Drop Hammer Set Up Operator on proper BP monitoring technique and reassess/ [...]
== END 2025-03-01 10:14 | disposition home or self-care (01) ==
LOC: HO.HCS 09:45
PROVIDERS: Visit Provider Internal Medicine
DX: I45.5 Other specified heart block (principal); R00.1 Bradycardia, unspecified; R00.2 Palpitations
CPT/HCPCS: 99204

== ENCOUNTER → 2025-03-01 09:44 | Outpatient (BNVA) | payer OTHER, SELFPAY | PROVIDERS: Visit Provider Internal Medicine | DX: I45.5 Other specified heart block (principal); R00.1 Bradycardia, unspecified; R00.2 Palpitations; Z79.82 Long term (current) use of aspirin; R53.83 Other fatigue; R42 Dizziness and giddiness | CPT/HCPCS: 99202 ==

== ENCOUNTER 2025-03-03 08:31 | Outpatient (REF) | payer OTHER, SELFPAY ==
--- OUTSIDE RECORDS SUMMARY | 2024-07-21 07:30 | XMS_ITS ---
[facility] Address [address] [place] [address] Care Team Providers Care Radioactivity Technician Name Role Phone Christel Green Primary Care Provider Unavailab Mendoza Rizzo Unavailable [phone] Encounters Encounter Location Date [facility] [address] 07/21/2024 Mendoza Malik Plan Of Treatment Next Appt Details Provider Name:Mendoza Malik , 05/03/2025 10:45:00 AM, [address], [address], Progress Notes * Minna DICKEYasterjoslynDOB:1935 (89 yo F)Acc No.[id number]:07/21/2024 Progress Note Patient: Sunitha MCCORMICK Provider: Shelly Malik DPM :1935 A ge:88 Y S ex:Female Date:07/21/2024 Address:[address] [place] [address] Pcp:Christel Green Subjective: * Chief Complaints: * [...] 07/21/2024 Generated for Unruly parr/Bernardo/Sissy on: 0 03/03/2025 08:50 AM EDT
--- NOTE | ~2025-03-03 | US_ITS ---
CLINICAL HISTORY: N18.9 - Chronic kidney disease, unspecified US of kidneys Comparison: None provided Findings: Right kidney is lower normal in size, 9.1 cm in length, left kidney is mildly small, 8.3 cm length. Bilateral renal parenchyma are mildly echogenic, mild cortical thinning noted, no calculus or hydronephrosis, no abnormal vascular flow. Several simple cysts bilaterally, right renal dominant cyst is 2.5 cm in the upper pole, left renal dominant cyst is also in the upper pole 2.1 cm. Impression: 1. Mildly atrophic left kidney, bilateral echogenic renal parenchyma, suggestive of medical renal disease. 2. Bilateral renal cysts. This document has been electronically signed by: Maia Fowler MD on 03/03/2025 17:08:24
--- OUTSIDE RECORDS SUMMARY | 2025-03-03 08:50 | XMS_ITS ---
Author Name Jacob SARA, MS. Florecita Fiore Address [address] [place] [address] Phone [phone] [facility] Care Team Providers Care Supervisor Coin Machine Name Role Phone Florecita James Unavailable [phone] MehranMateusz augustin Unavailable [phone] Reason for Referral Not Available Allergies, adverse [...] EVERY DAY 2020-12-21 No Data Available Creon [id number] UNIT Cap delayed rel TAKE 1 CAPSULE [...] 2022-03-21 BD JEWELS 2 GEN PEN NDL [id number] USE 5 TIMES A DAY 2021-05-29 No [...] once daily 2023-06-23 No Data Available Nystatin 950690 UNIT/GM Powder APPLY TO AFFECTED AREA TWICE [...] use of insulin, glaucoma Active 2022-03 N/A [facility] 07/01/24On Helene Arevalo on regular injectables (Q6 mos) during doctor's visits- daughters does not have name Under ophthalmology careHas f/u 08/10/24Stable Dementia Active 2022-03 N/A [facility] 07/01/24Pt. isnt taking any meds.Relatively mild. Has intermittent lapses of memory per daughter. Stable overall Has Life Alert at all times POA/guardian/Advance Directives- daughter is proxyLives with daughter Safety precautions reviewed with patient and caregiver.No driving motor vehicleTake medications as prescribedKeep medications and guns and other dangerous equipment/objects under lock and vogt for safety reasons Chronic pancreatitis Active 2022-03 N/A [facility] 07/01/24Was on Creon, no w [...] at least annually. Hypertension Active 2022-03 N/A [facility] 07/01/24On Amlodipine, Atenolol, Valsartan, furosemideControlledRecommend [...] type 2 diabetes mellitus Active 2022-03 N/A [facility] 07/01/24HLD Rx Lovastati nDM rx Toujeo, LisproDaily FS.183- this A.MLast a1c- 9% Pending updated labs (missed labs in April) but overall improved after insulin adjustment. Typically FBS within goal of 80-140. Pt has a f/u appt with PCP next month. 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 [place] Pain Assessment - NO pain present (1126F) [facility] [place] Pain Assessment - NO pain present (1126F) [facility] [place] Pain Assessment - NO pain present (1126F) [facility] [place] Pain Assessment - NO pain present (1126F) [facility] [place] Pain Assessment - NO pain present (1126F) [facility] [place] Pain Assessment - NO pain present (1126F) [facility] [place]20[place] Type 2 diabetes mellitus [...] Assessment - NO pain present (1126F) [facility] [place] Pain Assessment - NO pain present (1126F) [facility] [place] Pain Assessment - NO pain present (1126F) [facility] [place] Estab. patient 30-39min; chronic exacerbation, 2 stable chronic or 1 acute illness add add modifier 95 for video, (do not use for phone, instead use 44446-34) [facility] [place]2023 Other chronic pancreatitisTy pe [...] (do not use for phone, instead use 91551-41) [facility] [place] Estab. patient 30-39min; chronic exacerbation, 2 stable chronic or 1 acute illness add add modifier 95 for video, (do not use for phone, instead use 61691-03) [facility] [place] Estab. patient 30-39min; chronic exacerbation, 2 stable chronic or 1 acute illness add add modifier 95 for video, (do not use for phone, instead use 01772-49) [facility] [place] 02[place]18/20[place] Estab. patient 30-39min; chronic exacerbation, 2 stable chronic or 1 acute illness add add modifier 95 for video, (do not use for phone, instead use 28716-13) [facility] [place] Estab. patient 30-39min; chronic exacerbation, 2 stable chronic or 1 acute illness add add modifier 95 for video, (do not use for phone, instead use 71096-45) [facility] [place] Estab. patient 30-39min; chronic exacerbation, 2 stable chronic or 1 acute illness add add modifier 95 for video, (do not use for phone, instead use 27206-39) [facility] [place] Estab. patient 30-39min; chronic exacerbation, 2 stable chronic or 1 acute illness add add modifier 95 for video, (do not use for phone, instead use 52332-62) [facility] [place] 02[place] [facility] [place]2023 Type 2 diabetes mellitus wit h other specified complicationHyperlipidemia, unspecified No Data Available [facility] [place]/2023 Estab. patient 30-39min; chronic exacerbation, 2 stable chronic or 1 acute illness add add modifier 95 for video, (do not use for phone, instead use 56613-95) [facility] [place] 06[place]2023 Other chronic pancreatitisEssential (primary) hypertensionType 2 diabetes mellitus with other specified complicationHyperlipidemia, unspecifiedUnspecified dementia without behavioral disturbanceMajor depressive disorder, recurrent, unspecifiedBilateral primary osteoarthritis of knee Estab. patient 30-39min; chronic exacerbation, 2 stable chronic or 1 acute illness add add modifier 95 for video, (do not use for phone, instead use 22247-36) [facility] [place]20[place] Estab. patient 30-39min; chronic exacerbation, 2 stable chronic or 1 acute illness add add modifier 95 for video, (do not use for phone, instead use 11827-36) [facility] [place] 06[place]20[place] Estab. patient 30-39min; chronic exacerbation, 2 stable chronic or 1 acute illness add add modifier 95 for video, (do not use for phone, instead use 51226-99) [facility] [place] 06/23/2023 Estab. patient 30-39min; chronic exacerbation, 2 stable chronic or 1 acute illness add add modifier 95 for video, (do not use for phone, instead use 05034-40) [facility] [place] 06[place]23/2023 Estab. patient 30-39min; chronic exacerbation, 2 stable chronic or 1 acute illness add add modifier 95 for video, (do not use for phone, instead use 16101-32) [facility] [place] 06/23/2023 Estab. patient 30-39min; chronic exacerbation, 2 stable chronic or 1 acute illness add add modifier 95 for video, (do not use for phone, instead use 69702-95) [facility] [place] 06/23/2023 Estab. patient 30-39min; chronic exacerbation, 2 stable chronic or 1 acute illness add add modifier 95 for video, (do not use for phone, instead use 48565-09) [facility] [place] 06/23/2023 Estab. patient 30-39min; chronic exacerbation, 2 stable chronic or 1 acute illness add add modifier 95 for video, (do not use for phone, instead use 12562-46) [facility] [place] 06/23/2023 Estab. patient 30-39min; chronic exacerbation, 2 stable chronic or 1 acute illness add add modifier 95 for video, (do not use for phone, instead use 88543-39) [facility] [place] 06/23/2023 Estab. patient 20-29min; 1 stable chronic or 2 minor; add add modifier 95 for video, modifier [address] [facility] [place] 07/01/2024 Other chronic pancreatitisEssential (primary) hypertensionType 2 [...] Time Current Smoking Status Never smoker 2025-02-07 7 Sex Female History of Procedures Procedures Service [...] (do not use for phone, instead use 35474-02) 07350 2022-03-21 No Data Available No Data Availa [...] (do not use for phone, instead use 74656-75) 16073 2023-02-18 No Data Available No Data Availa [...] Available No Data Available No Data Available 39716 2023-05-31 No Data Available No Data Available Medication List Documented (1159F) 1159F 2023-05-31 No Data Available No Data Luna ilable Estab. 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 Will recheck [id number] CG/PT that the a1c is <7%Encouraged regular [...] appt with PCP next month. Will recheck [id number] CG/PT that the a1c goal is <7%Encouraged [...] appt with PCP next month. Will recheck [id number] CG/PT that the a1c goal is <7%Encouraged [...] appt with PCP next month. Will recheck a0sZqtvsxox CG/PT that the a1c goal is <7%Encouraged [...] appt with PCP next month. Will recheck [id number] CG/PT that the a1c goal is <8%Encouraged [...] organ damage (headache, vision changes, chest pain)/ Industrial Hygiene Engineer on proper BP monitoring technique and reassess/ [...]
--- OUTSIDE RECORDS SUMMARY | 2025-03-03 08:51 | XMS_ITS | Patient Health Record ---
[facility] Address [address] [facility] [address] Care Team Providers Care Cadd Instructor Name Role Phone Christel Green Primary Care Provider Unavailab Mendoza Rizzo Unavailable [phone] Allergies Allergen (clinical drug ingredient) Drug/Non Drug [...] Not -Taking Polyethylene Glycol 3350 Active Creon 6000-12889 UNIT as directed Orally Not-Taking Meloxicam 7.5 [...] Problem Acquired hammer toe of right foot (4547987076780667 ) Other hammer toe(s) (acquired), right foot (M20.41) Active confirmed Response to treatment, Improvemen t Problem Acquired hammer toe of left foot (5402790322084022 ) Other hammer toe(s) (acquired), left foot (M20.42) Active confirmed Response to treatment, Improvemen t Problem Polyneuropathy due to diabetes mellitus type I (115334218) Type 1 diabetes mellitus with diabetic polyneuropathy (E10.42) Active confirmed Vital Signs Heart Rate 52 /min 10/13/2024 Blood pressure diastolic 81 mm Hg 01/16/2025 Height 5ft 2in in 01/16/2025 Blood pressure systolic 142 mm Hg 01/16/2025 Weight 137 lbs 01/16/2025 BMI 25.05 kg/m2 01/16/2025 Procedures Procedure Date Ordered Date Performed Result Body Sit e 97428-DAWDBWS NAIL, 6 OR MORE 04/18/2024 N/A 12915-QEJB SKIN LESIONS, OVER 4 04/18/2024 N/A 50925-OQMQDWC NAIL, 6 OR MORE 10/13/2024 N/A 74846-JNAW SKIN LESIONS, OVER 4 10/13/2024 N/A 40767-ILVHVHQ NAIL, 6 OR MORE 01/16/2025 N/A 86893-BDKB SKIN LESIONS, OVER 4 01/16/2025 N/A Encounters Encounter Location Date Provider Diagnosis [address] [address] 04/18/2024 Mendoza Malik Type 1 diabetes mellitus with diabetic polyneuropathy E10.42 ; Tinea unguium B35.1 ; Other hammer toe(s) (acquired), right foot M20.41 and Other hammer toe(s) (acquired), left foot M20.[address] [address] 10/13/2024 Mendoza Malik Type 1 diabetes mellitus with diabetic polyneuropathy E10.42 ; Tinea unguium B35.1 and Xerosis of skin L85.[address] [address] 01/16/2025 Mendoza Malik Type 1 diabetes mellitus with diabetic polyneuropathy E10.42 ; Tinea unguium B35.1 and Xerosis of skin L85.3 [facility] [address] [place] [address] 07/19/2024 Mendoza Malik Assessments Encounter Date Diagnosis [...] Treatment Pending Test Test Name Order Date 79916-HOMSWRD NAIL, 6 OR MORE 01/14/2024 46912-OLILUKS NAIL, 6 OR MORE 04/18/2024 01890-QLCADKL NAIL, 6 OR MORE 10/13/2024 83229-DVUMQTT NAIL, 6 OR MORE 01/16/2025 20268-HZRY SKIN LESIONS, OVER 4 01/17/20 25 34675-MCIP SKIN LESIONS, OVER 4 10/14/19 25 63371-HFOY SKIN LESIONS, OVER 4 04/18/20 24 52010-EWWV SKIN LESIONS, OVER 4 01/14/20 24 95112-CSZU SKIN LESIONS, 2 TO 4 02/28/20 23 01472-AIIY SKIN LESIONS, 2 TO 4 07/28/19 24 Next Appt Details Provider Name:Mendoza Carnes King , 05/03/2025 10:45:00 AM, [address] [facility] [address], [place], [address], Insurance Providers Payer Name Payer Address Payer Phone Subscriber Number Group Number Insured Name Patient Relationship to Insured Coverage Start Date Coverage End Date [id number] [address] [address] [place] [address] [id number] Sunitha Ledesma Self - patient is the insured Medical (General) History Medical History History ICD Code Back,Hip,and Knee pain Dementia Diabetic type 1 Glaucoma High blood pressure Chicken pox Fall Risk Dyslipidemia Uterine Prolaspse Diabetic retinopathy Surgical History Surgery Date(Month/Year) breast biopsy colonoscopy
[2025-03-03 09:58] LABS: Hematocrit 36.1 % (37.0-47.0); Hemoglobin 11.8 g/dl (12.0-16.0); Mean Corpuscular HGB Conc 32.7 g/dl (31.0-35.0); Mean Corpuscular Hemoglobin 28.3 pg (27.0-33.0); Mean Corpuscular Volume 86.6 fL (80.0-98.0); NRBC Abs Auto 0.000 X10*3/uL (0.0-0.012); NRBC Pct Auto 0.0 /100WBC (0.0-0.2); Platelet Count 186 X10*3/uL (160-400); Red Blood Count 4.17 X10*6/uL (4.20-5.50); White Blood Count 6.0 X10*3/uL (4.8-10.8)
[2025-03-03 10:27] LABS: Anion Gap 12 (12-20); Blood Urea Nitrogen 19 mg/dL (9-16); Calcium 9.8 mg/dL (8.4-10.2); Carbon Dioxide 28 mmol/L (22-29); Chloride 100 mmol/L (96-108); Estimated Glomerular Filt Rate 46; Potassium 3.8 mmol/L (3.3-5.1); Sodium 136 mmol/L (135-145)
== END 2025-03-03 08:32 | disposition home or self-care (01) ==
LOC: HO.US 08:31
PROVIDERS: Visit Provider Internal Medicine Hypertension Specialist
DX: N18.9 Chronic kidney disease, unspecified (principal)
CPT/HCPCS: 36415; 76775; 80048; 85027

== ENCOUNTER → 2025-03-03 08:33 | Outpatient (BNV) | payer OTHER, SELFPAY | PROVIDERS: Visit Provider Radiology Diagnostic Radiology | DX: N28.1 Cyst of kidney, acquired (principal) | CPT/HCPCS: 76775 ==

== ENCOUNTER 2025-03-07 13:31 | Outpatient (REF) | payer OTHER, SELFPAY ==
--- OUTSIDE RECORDS SUMMARY | 2024-07-21 07:30 | XMS_ITS ---
[facility] Address [address] [place] [address] Care Team Providers Care Manager Film Name Role Phone Christel Green Primary Care Provider Unavailab Mendoza Rizzo Unavailable [phone] Encounters Encounter Location Date [facility] [address] 07/21/2024 Mendoza Malik Plan Of Treatment Next Appt Details Provider Name:Mendoza Malik , 05/03/2025 10:45:00 AM, [address], [address], Progress Notes * Minna DICKEYasterjoslynDOB:1935 (89 yo F)Acc No.[id number]:07/21/2024 Progress Note Patient: Sunitha MCCORMICK Provider: Shelly Malik DPM :1935 A ge:88 Y S ex:Female Date:07/21/2024 Address:[address] [place] [address] Pcp:Christel Green Subjective: * Chief Complaints: * [...] 07/21/2024 Generated for Unruly parr/Bernardo/Sissy on: 0 03/07/2025 02:48 PM EDT
[2025-03-07 13:51] LABS: Appearance Urine Clear; Glucose Urine UA Negative (Negative); PH 7.0 (5.0-9.0); Specific Gravity - Urine 1.010 (1.005-1.025); UMIC TRIGGER UA YES
[2025-03-07 14:28] LABS: Total Protein Urine Random < 7 mg/dL (<12)
--- OUTSIDE RECORDS SUMMARY | 2025-03-07 14:48 | XMS_ITS ---
Author Name Jacob SARA, MS. Florecita Fiore Address [address] [place] [address] Phone [phone] [facility] Care Team Providers Care Channeler Outsole Name Role Phone Florecita James Unavailable [phone] MehranMateusz augustin Unavailable [phone] Reason for Referral Not Available Allergies, adverse [...] EVERY DAY 2020-12-21 No Data Available Creon 6000-46271 UNIT Cap delayed rel TAKE 1 CAPSULE [...] 2022-03-21 BD JEWELS 2 GEN PEN NDL [id number] USE 5 TIMES A DAY 2021-05-29 No [...] once daily 2023-06-23 No Data Available Nystatin 860691 UNIT/GM Powder APPLY TO AFFECTED AREA TWICE [...] use of insulin, glaucoma Active 2022-03 N/A [facility] 07/01/24On Helene Arevalo on regular injectables (Q6 mos) during doctor's visits- daughters does not have name Under ophthalmology careHas f/u 08/10/24Stable Dementia Active 2022-03 N/A [facility] 07/01/24Pt. isnt taking any meds.Relatively mild. Has intermittent lapses of memory per daughter. Stable overall Has Life Alert at all times POA/guardian/Advance Directives- daughter is proxyLives with daughter Safety precautions reviewed with patient and caregiver.No driving motor vehicleTake medications as prescribedKeep medications and guns and other dangerous equipment/objects under lock and vogt for safety reasons Chronic pancreatitis Active 2022-03 N/A [facility] 07/01/24Was on Creon, no w off medicationCurrently c/o of abdominal bloating and gas but pt had constipation yesterday and took Miralax and that gave her some loose stools, which left her feeling weak and gassy. No looses stools today. Pt advised Gax-X, bland diet today, plenty of fluids including Pedialyte. Follow up with GI recommended at least annually. Hypertension Active 2022-03 N/A [facility] 07/01/24On Amlodipine, Atenolol, Valsartan, furosemideControlledRecommend DASH [...] type 2 diabetes mellitus Active 2022-03 N/A [facility] 07/01/24HLD Rx Lovastati nDM rx Toujeo, LisproDaily FS.183- this A.MLast a1c- 9% Pending updated labs (missed labs in April) but overall improved after insulin adjustment. Typically FBS within goal of 80-140. Pt has a f/u appt with PCP next month. Will recheck [id number] CG/PT that the a1c goal is <8%Encouraged [...] organ damage (headache, vision changes, chest pain)/ Primary Grade Teacher on proper BP monitoring technique and reassess/ [...] Pain Assessment - NO pain present (1126F) [facility] [place] Pain Assessment - NO pain present (1126F) [facility] [place] Pain Assessment - NO pain present (1126F) [facility] [place] Pain Assessment - NO pain present (1126F) [facility] [place] Pain Assessment - NO pain present (1126F) [facility] [place] Pain Assessment - NO pain present (1126F) [facility] [place] Pain Assessment - NO pain present (1126F) [facility] [place]20[place] Type 2 diabetes mellitus [...] Pain Assessment - NO pain present (1126F) [facility] [place] Pain Assessment - NO pain present (1126F) [facility] [place] Pain Assessment - NO pain present (1126F) [facility] [place] Estab. patient 30-39min; chronic exacerbation, 2 stable chronic or 1 acute illness add add modifier 95 for video, (do not use for phone, instead use 09862-31) [facility] [place] 02[place]2023 Other chronic pancreatitisTy pe [...] (do not use for phone, instead use 77898-23) [facility] [place]20[place] Estab. patient 30-39min; chronic exacerbation, 2 stable chronic or 1 acute illness add add modifier 95 for video, (do not use for phone, instead use 47782-20) [facility] [place] 02[place]18[place]20[place] Estab. patient 30-39min; chronic exacerbation, 2 stable chronic or 1 acute illness add add modifier 95 for video, (do not use for phone, instead use 35439-70) [facility] ([place] 02/18/2023 Estab. patient 30-39min; chronic exacerbation, 2 stable chronic or 1 acute illness add add modifier 95 for video, (do not use for phone, instead use 92388-20) [facility] [place] Estab. patient 30-39min; chronic exacerbation, 2 stable chronic or 1 acute illness add add modifier 95 for video, (do not use for phone, instead use 55373-72) [facility] [place] 02[place]18[place] Estab. patient 30-39min; chronic exacerbation, 2 stable chronic or 1 acute illness add add modifier 95 for video, (do not use for phone, instead use 71580-69) [facility] [place] 02[place]18[place] Estab. patient 30-39min; chronic exacerbation, 2 stable chronic or 1 acute illness add add modifier 95 for video, (do not use for phone, instead use 34410-42) [facility] [place] 02[place]18/2023 No Data Available [facility] [place]2023 Type 2 diabetes mellitus wit h other specified complicationHyperlipidemia, unspecified No Data Available [facility] [place] 05[place]/2023 Estab. patient 30-39min; chronic exacerbation, 2 stable chronic or 1 acute illness add add modifier 95 for video, (do not use for phone, instead use 59628-64) [facility] [place]2023 Other chronic pancreatitisEssential (primary) hypertensionType 2 diabetes mellitus with other specified complicationHyperlipidemia, unspecifiedUnspecified dementia without behavioral disturbanceMajor depressive disorder, recurrent, unspecifiedBilateral primary osteoarthritis of knee Estab. patient 30-39min; chronic exacerbation, 2 stable chronic or 1 acute illness add add modifier 95 for video, (do not use for phone, instead use 34013-88) [facility] [place] 06[place]20[place] Estab. patient 30-39min; chronic exacerbation, 2 stable chronic or 1 acute illness add add modifier 95 for video, (do not use for phone, instead use 73645-71) [facility] [place] 06[place]/20[place] Estab. patient 30-39min; chronic exacerbation, 2 stable chronic or 1 acute illness add add modifier 95 for video, (do not use for phone, instead use 78729-19) [facility] [place] 06/23/20[place] Estab. patient 30-39min; chronic exacerbation, 2 stable chronic or 1 acute illness add add modifier 95 for video, (do not use for phone, instead use 85792-10) [facility] [place] 06/23/2023 Estab. patient 30-39min; chronic exacerbation, 2 stable chronic or 1 acute illness add add modifier 95 for video, (do not use for phone, instead use 33097-51) [facility] [place] 06/23/2023 Estab. patient 30-39min; chronic exacerbation, 2 stable chronic or 1 acute illness add add modifier 95 for video, (do not use for phone, instead use 80421-50) [facility] [place] 06/23/2023 Estab. patient 30-39min; chronic exacerbation, 2 stable chronic or 1 acute illness add add modifier 95 for video, (do not use for phone, instead use 45316-22) [facility] [place] 06/23/2023 Estab. patient 30-39min; chronic exacerbation, 2 stable chronic or 1 acute illness add add modifier 95 for video, (do not use for phone, instead use 07597-30) [facility] [place] 06/23/2023 Estab. patient 30-39min; chronic exacerbation, 2 stable chronic or 1 acute illness add add modifier 95 for video, (do not use for phone, instead use 29214-34) [facility] [place] 06/23/2023 Estab. patient 20-29min; 1 stable chronic or 2 minor; add add modifier 95 for video, modifier 93 for phone [facility] [place] 07[place]/2024 Other chronic pancreatitisEssential (primary) hypertensionType 2 [...] tive Time Current Smoking Status Never smoker 2025-02-08 0 Sex Female History of Procedures Procedures Service [...] (do not use for phone, instead use 53093-74) 07985 2022-03-21 No Data Available No Data Availa [...] (do not use for phone, instead use 70137-75) 15933 2023-02-18 No Data Available No Data Availa [...] Available No Data Available No Data Available [id number] 2023-05-31 No Data Available No Data Available Medication List Documented (1159F) 1159F 2023-05-31 No Data Available No Data Luna ilable Estab. patient 30-39min; chronic exacerbation, 2 stable chronic or 1 acute illness add add modifier 95 for video, (do not use for phone, instead use 20023-60) 18525 2023-06-23 No Data Available No Data Availa [...] 95 for video, modifier 93 for phone 69655 2024-07-01 No Data Available No Data Availa [...] MONTHS:- no 2023-06-23 walks with walker 2023-06-23 charge nurse 2023-06-23 Mental Status Status Date coax2 2023-06-23 [...] appt with PCP next month. Will recheck [id number] CG/PT that the a1c is <7%Encouraged regular [...] appt with PCP next month. Will recheck d6pDydnlukc CG/PT that the a1c goal is <7%Encouraged [...] appt with PCP next month. Will recheck q2zRculbsgu CG/PT that the a1c goal is <7%Encouraged [...] appt with PCP next month. Will recheck p4mPvtimuje CG/PT that the a1c goal is <7%Encouraged [...] appt with PCP next month. Will recheck u1rMndcgxek CG/PT that the a1c goal is <8%Encouraged [...] organ damage (headache, vision changes, chest pain)/ Primary Grade Teacher on proper BP monitoring technique and reassess/ [...]
--- OUTSIDE RECORDS SUMMARY | 2025-03-07 14:48 | XMS_ITS | Patient Health Record ---
[facility] Address [address] [place] [address] Care Team Providers Care Side Laster Name Role Phone Christel Green Primary Care Provider Unavailab Mendoza Rizzo Unavailable [phone] Allergies Allergen (clinical drug ingredient) Drug/Non Drug [...] Not -Taking Polyethylene Glycol 3350 Active Creon 6000-22080 UNIT as directed Orally Not-Taking Meloxicam 7.5 [...] Problem Acquired hammer toe of right foot (6469251195467102 ) Other hammer toe(s) (acquired), right foot (M20.41) Active confirmed Response to treatment, Improvemen t Problem Acquired hammer toe of left foot (1729080155962716 ) Other hammer toe(s) (acquired), left foot (M20.42) Active confirmed Response to treatment, Improvemen t Problem Polyneuropathy due to diabetes mellitus type I (067681632) Type 1 diabetes mellitus with diabetic polyneuropathy (E10.42) Active confirmed Vital Signs Heart Rate 52 /min 10/13/2024 Blood pressure diastolic 81 mm Hg 01/16/2025 Height 5ft 2in in 01/16/2025 Blood pressure systolic 142 mm Hg 01/16/2025 Weight 137 lbs 01/16/2025 BMI 25.05 kg/m2 01/16/2025 Procedures Procedure Date Ordered Date Performed Result Body Sit e 52861-PVYPFQZ NAIL, 6 OR MORE 04/18/2024 N/A 62905-GOBV SKIN LESIONS, OVER 4 04/18/2024 N/A 23818-PMLFXRJ NAIL, 6 OR MORE 10/13/2024 N/A 11935-AQSD SKIN LESIONS, OVER 4 10/13/2024 N/A 39989-HAEQFHD NAIL, 6 OR MORE 01/16/2025 N/A 32530-LAEL SKIN LESIONS, OVER 4 01/16/2025 N/A Encounters Encounter Location Date Provider Diagnosis [address] [address] 04/18/2024 Mendoza Malik Type 1 diabetes mellitus with diabetic polyneuropathy E10.42 ; Tinea unguium B35.1 ; Other hammer toe(s) (acquired), right foot M20.41 and Other hammer toe(s) (acquired), left foot M20.[address] [address] 10/13/2024 Mnedoza Malik Type 1 diabetes mellitus with diabetic polyneuropathy E10.42 ; Tinea unguium B35.1 and Xerosis of skin L85.[address] [address] 01/16/2025 Mendoza Malik Type 1 diabetes mellitus with diabetic polyneuropathy E10.42 ; Tinea unguium B35.1 and Xerosis of skin L85.3 [facility] [address] [place] [address] 07/19/2024 Mendoza Malik Assessments Encounter Date Diagnosis [...] Treatment Pending Test Test Name Order Date 37839-FPSQIJQ NAIL, 6 OR MORE 01/14/2024 09196-PCUSAQQ NAIL, 6 OR MORE 04/18/2024 58856-ARTXHOV NAIL, 6 OR MORE 10/13/2024 34289-PSZOPIA NAIL, 6 OR MORE 01/16/2025 43420-XSHJ SKIN LESIONS, OVER 4 01/17/20 25 44144-OQSN SKIN LESIONS, OVER 4 10/14/19 25 53082-YQYJ SKIN LESIONS, OVER 4 04/18/20 24 78385-RGNU SKIN LESIONS, OVER 4 01/14/20 24 73254-HALU SKIN LESIONS, 2 TO 4 02/28/20 23 14514-SMTG SKIN LESIONS, 2 TO 4 07/28/19 24 Next Appt Details Provider Name:Mendoza Carnes King , 05/03/2025 10:45:00 AM, [address] [facility] [address], [place], [address], Insurance Providers Payer Name Payer Address Payer Phone Subscriber Number Group Number Insured Name Patient Relationship to Insured Coverage Start Date Coverage End Date [facility] [address] [address] [place] [address] [id number] Sunitha Ledesma Self - patient is the insured Medical (General) History Medical History History ICD Code Back,Hip,and Knee pain Dementia Diabetic type 1 Glaucoma High blood pressure Chicken pox Fall Risk Dyslipidemia Uterine Prolaspse Diabetic retinopathy Surgical History Surgery Date(Month/Year) breast biopsy colonoscopy
== END 2025-03-07 13:32 | disposition home or self-care (01) ==
LOC: HO.LNP 13:31
PROVIDERS: Visit Provider Internal Medicine Hypertension Specialist
DX: N18.9 Chronic kidney disease, unspecified (principal)
CPT/HCPCS: 81001; 82570; 84156

== ENCOUNTER 2025-03-09 11:24 | Outpatient (AMB) | payer OTHER, SELFPAY ==
--- OUTSIDE RECORDS SUMMARY | 2024-07-21 07:30 | XMS_ITS ---
Author Organization [facility] Address [address] [place] [address] Care Team Providers Care Grant Writer Name Role Phone Christel Green Primary Care Provider Unavailab Mendoza Rizzo Unavailable [phone] Encounters Encounter Location Date [facility] [address] 07/21/2024 Mendoza Malik Plan Of Treatment Next Appt Details Provider Name:Mendoza Malik , 05/03/2025 10:45:00 AM, [address], [address], Progress Notes * Minna DICKEYasterjoslynDOB:1935 (89 yo F)Acc No.[id number]:07/21/2024 Progress Note Patient: Sunitha MCCORMICK Provider: Shelly Malik DPM :1935 A ge:88 Y S ex:Female Date:07/21/2024 Address:[address] [place] [address] Pcp:Christel Green Subjective: * Chief Complaints: * [...] 0 07/21/2024 Generated for Unruly parr/Bernardo/Sissy on: 1 01:16 PM EDT
--- NOTE | 2025-03-09 11:27 | HO.NEPHOV_ITS ---
Vital Signs 3 03/09/25 11:28 Height 5 ft 2 in Weight 129 lb BMI 23.6 BP 172/74 H Blood Pressure Location Rt brachial Position Sitting Pulse 64 Pulse Source Pulse Oximeter Pulse Oximetry (%) 97 Oxygen Delivery Method Room Air Intake Visit Reasons: 3wk f/u w/labs Market Research Specialist Required: No Accompanied by: Daughter Allergies brimonidine (From ALPHAGAN P) Allergy (Unknown, Verified 03/09/25 11:31) UNKNOWN alphagan Allergy (Unknown, Uncoded 12/23/24 11:21) allergy reaction Fluoxetine Allergy (Unknown, Uncoded 12/23/24 11:21) Unknown Medication List - Last Reconciled 03/09/25 by Caden Ledbetter MD acetaminophen (Tylenol) 650 mg PO Q6H PRN blood-glucose sensor (Robot App StoreStyle Aditya 3 Plus Sensor device) As directed change every 14 days blood-glucose,net lead architect,cont (FreeStyle Aditya 3 [place]) As directed furosemide 20 mg PO DAILY insulin glargine U-300 conc (Toujeo SoloStar U-300 Insulin) 12 units subcut BEDTIME insulin lispro (Humalog KwikPen (U-100) Insulin) 6 units with breakfast , 6 units lunch lunch, 6-8 units with dinner and 2 units with snacks subcut. 4 times a day SLIDING SCALE 90 days lidocaine 5% 1 patch topical DAILY lovastatin 40 mg PO BEDTIME nystatin 1 appl topical BID pen needle, diabetic 5 times a day polyethylene glycol 3350 (Gavilax) 17 grams PO DAILY PRN timolol maleate 0.5% 1 drp ophthalmic (eye) DAILY [transfer chair As directed] valsartan 160 mg See Protocol PO DAILY walker As directed HPI Comments Details: The patient is an 89-year-old female presenting with chronic kidney disease. Kidney function is between 40% and 50%, with efforts to prevent further decline. Diabetes mellitus is long-standing and sub optimally controlled,per daughter, with high blood glucose levels. Hypertension is treated and reportedly controlled, though not checked today. Polyuria is noted, with frequent urination, especially outside the home. h/o uterine prolapse Peripheral edema led to the resumption of furosemide after previous discontinuation. Medical History: - Chronic Kidney Disease - Diabetes Mellitus - Hypertension Surgical History: - No prior surgical procedures reported Medications: - Valsartan for hypertension - Furosemide for peripheral edema - Meloxicam for pain (to be discontinued) - Baby aspirin Social History: - Lives with daughter, who assists with care serum Creatinine eGFR 03/09/25 - The patient is an 89-year-old female presenting with chronic kidney disease and hypertension. - Chronic Kidney Disease: Improved kidney function, age-related changes, simple cysts noted on USG. - Hypertension: Elevated blood pressure during visits, home monitoring was acceptable - Atenolol was stopped by cardiology [facility] Medical History Dementia Uterine prolapse Dyslipidemia Hypertension 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 Mother No problems noted. Social History Household Members: Family Housing: Apartment Housing Other:: With Daughter. Do you presently have visiting nurse or other home services: Yes Alcohol intake: never Patient Tobacco Use Status: Never used Tobacco e-Cigarette/Vaping Use: Never Used Second Hand Smoke Exposure: No service: No Current occupational status: retired and disabled Cognitive needs: Yes (cane/walker) Hearing needs: No Vision needs: Yes (glasses) Physical Exam Vital Signs: Last Vital Signs Pulse 64 03/09/25 11:28 BP 172/74 H 03/09/25 11:28 Pulse Ox 97 03/09/25 11:28 Oxygen Delivery Method Room Air 03/09/25 11:28 BMI result Body Mass Index 23.6 Comfortable Neck supple no JVD. Lungs entry equal no rales. Heart S1-S2 heard no gallop or rub. Abdomen soft nontender. Neuro alert awake oriented. No asterixis. Extremities no edema. Results Reviewed Results Reviewed: 03/03/25 USG Right kidney is lower normal in size, 9.1 cm in length, left kidney is mildly small, 8.3 cm length. Bilateral renal parenchyma are mildly echogenic, mild cortical thinning noted, no calculus or hydronephrosis, no abnormal vascular flow. Several simple cysts bilaterally, right renal dominant cyst is 2.5 cm in the upper pole, left renal dominant cyst is also in the upper pole 2.1 cm. Impression: 1. Mildly atrophic left kidney, bilateral echogenic renal parenchyma, suggestive of medical renal disease. 2. Bilateral renal cysts. Nephrology Results: 2 Hgb, (12.0-16.0) 11.8 g/dl L 03/03/25 WBC, (4.8-10.8) 6.0 X10*3/uL 03/03/25 Plt Count, (160-400) 186 X10*3/uL 03/03/25 Sodium, (135-145) 136 mmol/L 03/03/25 Potassium, (3.3-5.1) 3.8 mmol/L 03/03/25 Chloride, (96-108) 100 mmol/L 03/03/25 Carbon Dioxide, (22-29) 28 mmol/L 03/03/25 BUN, (9-16) 19 mg/dL H 03/03/25 Creatinine, (0.5-1.4) 1.12 mg/dL 03/03/25 Calcium, (8.4-10.2) 9.8 mg/dL 03/03/25 Urine Protein, (Neg-Trace) Negative mg/dL 03/07/25 Urine Creatinine 40.52 mg/dL 03/07/25 Renal US 03/03/25 Assessment & Plan Assessment & Plan (1) CKD (chronic kidney disease): Code(s): N18.9 - Chronic kidney disease, unspecified Category: Medical Plan 1. Chronic Kidney Disease Most likely due to hypertensive diabetic kidney disease Miloxicam induced hypoperfusion in combination with ARB is likely No obstruction on USG Urine - [place] - No evidence of AGN/Ain Cr down to 1.12 ( Feb 2025) Probably her baseline 2. Diabetes Mellitus - Monitor glucose levels. Maintain A1C < 7% 3. Hypertension usually well controlled at home as per family Possible superimposed white coat effect She has an auscultatory gap between 140 and 120 - Continue valsartan. Low salt diet Follow BP at home If SBP stays > 140 at home, will consider adding Amlodipine 2.5 mg QD Orders: Orders 2 Basic Metabolic Panel 6 Months N18.9 - Chronic kidney disease, unspecified Coding Level of Care Code Est Pt Level 4 (72256) Diagnoses CKD (chronic kidney disease) N18.9
[2025-03-09 11:28] VITALS: BP 172/74; PULSE 64; O2SAT 97; BMI 23.6
--- OUTSIDE RECORDS SUMMARY | 2025-03-09 13:16 | XMS_ITS ---
Author Name Jacob SARA, MS. Florecita Fiore Address [address] [place] [address] Phone [phone] [facility] [place] Care Team Providers Care Baton Twirler Name Role Phone Florecita James Unavailable [phone] MehranMateusz augustin Unavailable [phone] Reason for Referral Not Available Allergies, adverse [...] EVERY DAY 2020-12-21 No Data Available Creon 6000-15091 UNIT Cap delayed rel TAKE 1 CAPSULE [...] 2022-03-21 BD JEWELS 2 GEN PEN NDL [id number] USE 5 TIMES A DAY 2021-05-29 No [...] once daily 2023-06-23 No Data Available Nystatin 015143 UNIT/GM Powder APPLY TO AFFECTED AREA TWICE [...] use of insulin, glaucoma Active 2022-03 N/A [facility] 07/01/24On Helene Arevalo on regular injectables (Q6 mos) during doctor's visits- daughters does not have name Under ophthalmology careHas f/u 08/10/24Stable Dementia Active 2022-03 N/A [facility] 07/01/24Pt. isnt taking any meds.Relatively mild. Has intermittent lapses of memory per daughter. Stable overall Has Life Alert at all times POA/guardian/Advance Directives- daughter is proxyLives with daughter Safety precautions reviewed with patient and caregiver.No driving motor vehicleTake medications as prescribedKeep medications and guns and other dangerous equipment/objects under lock and vogt for safety reasons Chronic pancreatitis Active 2022-03 N/A [facility] 07/01/24Was on Creon, no [...] at least annually. Hypertension Active 2022-03 N/A [facility] 07/01/24On Amlodipine, Atenolol, Valsartan, [...] type 2 diabetes mellitus Active 2022-03 N/A [facility] 07/01/24HLD Rx Lovastati nDM rx Toujeo, LisproDaily FS.183- this A.MLast a1c- 9% Pending updated labs (missed labs in April) but overall improved after insulin adjustment. Typically FBS within goal of 80-140. Pt has a f/u appt with PCP next month. Will recheck [id number] CG/PT that the a1c goal is <8%Encouraged [...] organ damage (headache, vision changes, chest pain)/ Consumer Affairs Manager on proper BP monitoring technique and [...] Pain Assessment - NO pain present (1126F) [facility] [place] Pain Assessment - NO pain present (1126F) [facility] [place] Pain Assessment - NO pain present (1126F) [facility] [place] Pain Assessment - NO pain present (1126F) [facility] [place]20[place] Pain Assessment - NO pain present (1126F) [facility] [place]20[place] Pain Assessment - NO pain present (1126F) [facility] [place] 03[place]2022 Pain Assessment - NO pain present (1126F) [facility] [place]2022 Type 2 [...] Pain Assessment - NO pain present (1126F) [facility] [place]20[place] Pain Assessment - NO pain present (1126F) [facility] [place]2022 Pain Assessment - NO pain present (1126F) [facility] [place]20[place] Estab. patient 30-39min; chronic exacerbation, 2 stable chronic or 1 acute illness add add modifier 95 for video, (do not use for phone, instead use 49810-19) [facility] [place] 02/18/2023 Other chronic [...] (do not use for phone, instead use 20600-18) [facility] [place] 02[place]18[place]2023 Estab. patient 30-39min; chronic exacerbation, 2 stable chronic or 1 acute illness add add modifier 95 for video, (do not use for phone, instead use 20820-79) [facility] [place] 02/18/2023 Estab. patient 30-39min; chronic exacerbation, 2 stable chronic or 1 acute illness add add modifier 95 for video, (do not use for phone, instead use 72901-83) [facility] [place] 02/18/2023 Estab. patient 30-39min; chronic exacerbation, 2 stable chronic or 1 acute illness add add modifier 95 for video, (do not use for phone, instead use 61641-13) [facility] [place] 02/18/2023 Estab. patient 30-39min; chronic exacerbation, 2 stable chronic or 1 acute illness add add modifier 95 for video, (do not use for phone, instead use 42490-00) [facility] [place] 02/18/2023 Estab. patient 30-39min; chronic exacerbation, 2 stable chronic or 1 acute illness add add modifier 95 for video, (do not use for phone, instead use 58529-21) [facility] [place] 02/18/2023 Estab. patient 30-39min; chronic exacerbation, 2 stable chronic or 1 acute illness add add modifier 95 for video, (do not use for phone, instead use 90739-90) [facility] [place] 02/18/2023 No Data Available [facility] [place] 05[place]2023 Type 2 diabetes mellitus wit h other specified complicationHyperlipidemia, unspecified No Data Available [facility] [place] 05/31/2023 Estab. patient 30-39min; chronic exacerbation, 2 stable chronic or 1 acute illness add add modifier 95 for video, (do not use for phone, instead use 01456-78) [facility] [place] 06[place]/2023 Other chronic pancreatitisEssential (primary) hypertensionType 2 diabetes mellitus with other specified complicationHyperlipidemia, unspecifiedUnspecified dementia without behavioral disturbanceMajor depressive disorder, recurrent, unspecifiedBilateral primary osteoarthritis of knee Estab. patient 30-39min; chronic exacerbation, 2 stable chronic or 1 acute illness add add modifier 95 for video, (do not use for phone, instead use 42888-42) [facility] [place] 06/23/2023 Estab. patient 30-39min; chronic exacerbation, 2 stable chronic or 1 acute illness add add modifier 95 for video, (do not use for phone, instead use 51308-45) [facility] [place] 06/23/2023 Estab. patient 30-39min; chronic exacerbation, 2 stable chronic or 1 acute illness add add modifier 95 for video, (do not use for phone, instead use 99029-34) [facility] [place] 06/23/2023 Estab. patient 30-39min; chronic exacerbation, 2 stable chronic or 1 acute illness add add modifier 95 for video, (do not use for phone, instead use 01106-94) [facility] [place] 06/23/2023 Estab. patient 30-39min; chronic exacerbation, 2 stable chronic or 1 acute illness add add modifier 95 for video, (do not use for phone, instead use 81483-66) [facility] [place] 06/23/2023 Estab. patient 30-39min; chronic exacerbation, 2 stable chronic or 1 acute illness add add modifier 95 for video, (do not use for phone, instead use 64121-24) [facility] [place] 06/23/2023 Estab. patient 30-39min; chronic exacerbation, 2 stable chronic or 1 acute illness add add modifier 95 for video, (do not use for phone, instead use 63987-69) [facility] [place] 06/23/2023 Estab. patient 30-39min; chronic exacerbation, 2 stable chronic or 1 acute illness add add modifier 95 for video, (do not use for phone, instead use 53651-11) [facility] [place] 06/23/2023 Estab. patient 30-39min; chronic exacerbation, 2 stable chronic or 1 acute illness add add modifier 95 for video, (do not use for phone, instead use 51415-85) [facility] [place] 06/23/2023 Estab. patient 20-29min; 1 stable chronic or 2 minor; add add modifier 95 for video, modifier 93 for phone [facility] [place] 07/01/2024 Other chronic pancreatitisEssential (primary) hypertensionType 2 [...] tive Time Current Smoking Status Never smoker 2 Sex Female History of Procedures Procedures Service [...] (do not use for phone, instead use 10438-57) 70607 2022-03-21 No Data Available No Data Availa [...] (do not use for phone, instead use 06442-73) 24753 2023-02-18 No Data Available No Data Availa [...] Available No Data Available No Data Available 67568 2023-05-31 No Data Available No Data Available Medication List Documented (1159F) 1159F 2023-05-31 No Data Available No Data Luna ilable Estab. patient 30-39min; chronic exacerbation, 2 stable chronic or 1 acute illness add add modifier 95 for video, (do not use for phone, instead use 09390-56) 42525 2023-06-23 No Data Available No Data Availa [...] 95 for video, modifier 93 for phone 16280 2024-07-01 No Data Available No Data Availa [...] MONTHS:- no 2023-06-23 walks with walker 2023-06-23 liaison planner 2023-06-23 Mental Status Status Date coax2 2023-06-23 [...] appt with PCP next month. Will recheck [id number] CG/PT that the a1c is <7%Encouraged regular [...] appt with PCP next month. Will recheck [id number] CG/PT that the a1c goal is <7%Encouraged [...] appt with PCP next month. Will recheck [id number] CG/PT that the a1c goal is <7%Encouraged [...] appt with PCP next month. Will recheck [id number] CG/PT that the a1c goal is <7%Encouraged [...] appt with PCP next month. Will recheck [id number] CG/PT that the a1c goal is <8%Encouraged [...] organ damage (headache, vision changes, chest pain)/ Consumer Affairs Manager on proper BP monitoring technique and [...]
--- OUTSIDE RECORDS SUMMARY | 2025-03-09 13:16 | XMS_ITS | Patient Health Record ---
Author Organization [facility] Address [address] [place] [address] Care Team Providers Care Instrument And Control Technician Name Role Phone Christel Green Primary Care Provider Unavailab Mendoza Rizzo Unavailable [phone] Allergies Allergen (clinical drug ingredient) Drug/Non Drug [...] Not -Taking Polyethylene Glycol 3350 Active Creon 6000-52698 UNIT as directed Orally Not-Taking Meloxicam 7.5 [...] Problem Acquired hammer toe of right foot (2045326787231836 ) Other hammer toe(s) (acquired), right foot (M20.41) Active confirmed Response to treatment, Improvemen t Problem Acquired hammer toe of left foot (6641796426357031 ) Other hammer toe(s) (acquired), left foot (M20.42) Active confirmed Response to treatment, Improvemen t Problem Polyneuropathy due to diabetes mellitus type I (180659294) Type 1 diabetes mellitus with diabetic polyneuropathy (E10.42) Active confirmed Vital Signs Heart Rate 52 /min 10/13/2024 Blood pressure diastolic 81 mm Hg 01/16/2025 Height 5ft 2in in 01/16/2025 Blood pressure systolic 142 mm Hg 01/16/2025 Weight 137 lbs 01/16/2025 BMI 25.05 kg/m2 01/16/2025 Procedures Procedure Date Ordered Date Performed Result Body Sit e 48978-JPOISTV NAIL, 6 OR MORE 04/18/2024 N/A 07342-UPVL SKIN LESIONS, OVER 4 04/18/2024 N/A 03525-NEQCBXY NAIL, 6 OR MORE 10/13/2024 N/A 61760-LSLU SKIN LESIONS, OVER 4 10/13/2024 N/A 19894-VPAFBKY NAIL, 6 OR MORE 01/16/2025 N/A 48706-SCYA SKIN LESIONS, OVER 4 01/16/2025 N/A Encounters Encounter Location Date Provider Diagnosis [address] [address] 04/18/2024 Mendoza Malik Type 1 diabetes mellitus with diabetic polyneuropathy E10.42 ; Tinea unguium B35.1 ; Other hammer toe(s) (acquired), right foot M20.41 and Other hammer toe(s) (acquired), left foot M20.[address] [address] 10/13/2024 Mendoza Malik Type 1 diabetes mellitus with diabetic polyneuropathy E10.42 ; Tinea unguium B35.1 and Xerosis of skin L85.[address] [address] 01/16/2025 Mendoza Malik Type 1 diabetes mellitus with diabetic polyneuropathy E10.42 ; Tinea unguium B35.1 and Xerosis of skin L85.3 [facility] [address] [place] [address] 07/19/2024 Mendoza Malik Assessments Encounter Date Diagnosis [...] Treatment Pending Test Test Name Order Date 92148-ENVWBLO NAIL, 6 OR MORE 01/14/2024 33889-GGUEZIQ NAIL, 6 OR MORE 04/18/2024 91798-ITHAKBG NAIL, 6 OR MORE 10/13/2024 91698-SSLXGDM NAIL, 6 OR MORE 01/16/2025 92216-QFYN SKIN LESIONS, OVER 4 01/17/20 25 08685-WTPD SKIN LESIONS, OVER 4 10/14/19 25 33702-TWNC SKIN LESIONS, OVER 4 04/18/20 24 35543-ISRP SKIN LESIONS, OVER 4 01/14/20 24 12022-BYGJ SKIN LESIONS, 2 TO 4 02/28/20 23 23380-VUJC SKIN LESIONS, 2 TO 4 07/28/19 24 Next Appt Details Provider Name:Mendoza Carnes King , 05/03/2025 10:45:00 AM, [address] [facility] [address], [place], [address], Insurance Providers Payer Name Payer Address Payer Phone Subscriber Number Group Number Insured Name Patient Relationship to Insured Coverage Start Date Coverage End Date [facility] [address] [address] [place] [address] [id number] Sunitha Ledesma Self - patient is the insured Medical (General) History Medical History History ICD Code Back,Hip,and Knee pain Dementia Diabetic type 1 Glaucoma High blood pressure Chicken pox Fall Risk Dyslipidemia Uterine Prolaspse Diabetic retinopathy Surgical History Surgery Date(Month/Year) breast biopsy colonoscopy
== END 2025-03-09 11:45 | disposition home or self-care (01) ==
LOC: HO.HKA 11:25
PROVIDERS: Visit Provider Internal Medicine Hypertension Specialist
DX: N18.9 Chronic kidney disease, unspecified (principal)
CPT/HCPCS: 99214

== ENCOUNTER → 2025-03-09 11:24 | Outpatient (BNVA) | payer OTHER, SELFPAY | PROVIDERS: Visit Provider Internal Medicine Hypertension Specialist | DX: E11.22 Type 2 diabetes mellitus with diabetic chronic kidney disease (principal); I12.9 Hypertensive chronic kidney disease with stage 1 through stage 4 chronic kidney disease, or unspecified chronic kidney disease; N18.9 Chronic kidney disease, unspecified; Z79.4 Long term (current) use of insulin | CPT/HCPCS: 99212 ==

== ENCOUNTER 2025-03-29 10:52 | Outpatient (AMB) | payer OTHER, SELFPAY ==
[2025-03-29 10:55] VITALS: BP 118/80; PULSE 70; O2SAT 98; BMI 23.4
--- NOTE | 2025-03-29 10:55 | MHC.PC.OV ---
Vital Signs 03/29/25 10:55 Height 5 ft 2 in Weight 128 lb 1.417 oz BMI 23.4 BP 118/80 Blood Pressure Location Lt brachial Position Sitting Pulse 70 Pulse Source Pulse Oximeter Pulse Oximetry (%) 98 Oxygen Delivery Method Room Air Intake Visit Reasons: annual exam - see comments Drafter Heating And Ventilating Required: No Accompanied by: Self / Same As Patient Allergies brimonidine (From ALPHAGAN P) Allergy (Unknown, Verified 03/29/25 11:00) UNKNOWN alphagan Allergy (Unknown, Uncoded 03/29/25 11:00) allergy reaction Fluoxetine Allergy (Unknown, Uncoded 03/29/25 11:00) Unknown Medication List - Last Reconciled 03/29/25 by Christel Green PA-C acetaminophen (Tylenol) 650 mg PO Q6H PRN blood-glucose sensor ([employer] International[employer] Aditya 3 Plus Sensor device) As directed change every 14 days blood-glucose,liner installer,cont (FreeStyle Aditya 3 [place]) As directed furosemide 20 mg PO DAILY insulin glargine U-300 conc (Toujeo SoloStar U-300 Insulin) 12 units subcut BEDTIME insulin lispro (Humalog KwikPen (U-100) Insulin) 6 units with breakfast , 6 units lunch lunch, 6-8 units with dinner and 2 units with snacks subcut. 4 times a day SLIDING SCALE 90 days lidocaine 5% 1 patch topical DAILY lovastatin 40 mg PO BEDTIME nystatin 1 appl topical BID pen needle, diabetic 5 times a day polyethylene glycol 3350 (Gavilax) 17 grams PO DAILY PRN timolol maleate 0.5% 1 drp ophthalmic (eye) DAILY [transfer chair As directed] valsartan 160 mg See Protocol PO DAILY walker As directed Tobacco use date assessed: 03/29/25 Fall risk assessment: No Falls in past year Last assessed Fall Risk: 03/29/25 Dental Screening Dental Screen Date: 03/29/25 Did you have a dental visit in the last 12 months?: No Did you have a dental problem in the last 6 months where you did not have access to dental care?: No Was dental information given to patient?: Patient has dentist HPI annual exam - see comments HPI Details 89-year-old female with past medical history of type 1 diabetes uncontrolled with retinopathy and polyneuropathy, GERD and hypertension last seen 12/2024 coming in for annual exam. In review of the notes, patient was seen by kidney specialist 03/2025 continue to monitor blood pressure and continue on valsartan with A1c goal of less than 7%. She was seen by Cardiology 03/02 advised to hold atenolol with repeat Holter monitor and plan to obtain echocardiogram. Patient tells us today she has been following with Dr. Hawkins in endocrinology for her type 1 diabetes and has been managing her insulin. She did miss her most recent appointment but has a follow up in 2 weeks with him. She does not typically eat in the mornings and so her typical 1st dose of insulin is not until the afternoon after her 1st meal. She is complaining of bilateral knee and anterior leg pain which has been going on for several months and worsened with movement. She does have tenderness to palpation of bilateral anterior aspect of the lower extremities. She reports feeling wobbly on her feet however she does not routinely walk or exercise. Per her daughter she does not believe the patient would want to engage in physical therapy as she often refuses to leave the house. DEXA: declined mammogram: declined colonoscopy: declined eye doctor: Dr. 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 Mother No problems noted. Social History Household Members: Family Housing: Apartment Housing Other:: With Daughter. Do you presently have visiting nurse or other home services: Yes Alcohol intake: never Patient Tobacco Use Status: Never used Tobacco e-Cigarette/Vaping Use: Never Used Second Hand Smoke Exposure: No service: No Current occupational status: retired and disabled Cognitive needs: Yes (cane/walker) Hearing needs: No Vision needs: Yes (glasses) Questionnaire PHQ-9 Over the last 2 weeks, how often have you been bothered by any of the following problems? 1. Little interest or pleasure in doing things: nearly every day 2. Feeling down, depressed, or hopeless: not at all 4. Feeling tired or having little energy: nearly every day 5. Poor appetite or overeating: not at all 6. Feeling bad about yourself - or that you are a failure or have let yourself or your family down: not at all 7. Trouble concentrating on things, such as reading the newspaper or watching television: nearly every day 8. Moving or speaking so slowly that other people could have noticed. Or the opposite - being so fidgety or restless that you have been moving around a lot more than usual: not at all 9. Thoughts that you would be better off or of hurting yourself in some way: not at all Depression Screening Interpretation: Negative Depression Screening Done: Yes Source: Developed by Drs. Harris Puente, Breonna Galindo, Dank Chan and colleagues, with an educational madhav from [employer]. Thrive Questionnaire Date Thrive assessed: 08/05/24 AUDIT C Alcohol Use Questionnaire (AUDIT-C) 1. How often do you have a drink containing alcohol?: Never 3. How often do you have six or more drinks on one occasion?: Never Total Score: 0 MARKOS-7 AMB Questionnaire MARKOS-7 Date MARKOS - 7 assessed: 12/23/24 Source: Developed by Drs. Harris Puente, Dank Evans and colleagues, with an educational madhav from [employer]. Review of Systems Const Denies body aches, Denies chills, Denies fever(s), Denies headache(s) and Denies poor appetite Eyes Reports no additional complaints ENT Denies dysphagia, Denies dizziness and Denies headache(s) Card Denies chest pain, Denies syncope, Denies edema, Denies irregular heart rhythm, Denies lightheadedness and Denies dyspnea Resp Denies cough and Denies dyspnea GI Denies abdominal pain, Denies constipation, Denies dysphagia, Denies diarrhea, Denies nausea and Denies vomiting Denies dysuria, Denies urinary hesitancy and Denies urinary urgency Musc Details: mai knee pain Reports no additional complaints and Reports abnormal gait (ambulates with cane ) Skin/Breast Reports system reviewed and no additional complaints, except as documented Neuro Reports abnormal gait (ambulates with cane ), Denies dizziness, Denies syncope and Denies headache(s) Psych Reports no additional complaints Physical exam (Primary Care) Vital Signs: Last Vital Signs Pulse 70 03/29/25 10:55 BP 118/80 03/29/25 10:55 Pulse Ox 98 03/29/25 10:55 Oxygen Delivery Method Room Air 03/29/25 10:55 BMI result Body Mass Index 23.4 Tobacco/Smoking Status: Tobacco use Status Tobacco use date assessed 03/29/25 03/29/25 10:57 Patient Tobacco Use Status Never used Tobacco 03/29/25 10:57 e-Cigarette/Vaping Use Never Used 03/29/25 10:57 Depression Screening Interpretation: Negative Thrive Assessment: Date of Thrive Assessment Date Thrive assessed 08/05/24 03/29/25 10:57 Const General: cooperative, healthy appearing, comfortable and no acute distress Orientation/consciousness: patient oriented x3 HENMT Head: Yes normocephalic Ears: hearing grossly normal bilaterally General nose exam: Normal external nose present Eyes General: appearance normal, both eyes and all related structures Conjunctivae: conjunctivae normal Neck Neck: Yes full ROM and Yes no lymphadenopathy Resp Effort & Inspection: normal respiratory effort Auscultation: clear to auscultation bilaterally, no crackles, no rales, no rhonchi and no wheezes Cardio Rate: regular rate Rhythm: regular rhythm Skin General skin exam: no rashes or lesions noted Neuro General: patient oriented x3 Gait exam (Neuro): Normal gait present Extrem Other: Very mild Tenderness to palpation over anterior aspect of bilateral lower extremities without calf swelling, pain, redness or warmth. Intact sensation and pulses in bilateral lower extremities. No tenderness to palpation over bilateral feet and no edema General: Yes normal to inspection, Yes full ROM and No edema Psych Affect: normal affect Attitude: cooperative Office Procedures Flu Questionnaire Does the patient have a severe egg allergy?: No Does the patient have severe life threatening allergies?: No Does the patient have a fever or illness today?: No Has the patient ever had Guillain-[place] Syndrome?: No Has the patient ever had any past reaction to a flu shot?: No Results AMB Hemoglobin A1c AMB Hemoglobin A1c 10.4 % Last Edit by MARYCARMEN Ricketts on 03/29/25 11:29 Immunizations Fluarix [id number] (PF) 45 mcg (15 mcg x 3)/0.5 mL IM syringe Performing Provider: Christel Green PA-C Performing Location: [facility] [place] [facility] Administered by: MARYCARMEN Mccain on 03/29/25 11:41 Dose Route Admin Location Dispensed Lot Number Expiration Date NDC [place] 0.5 mL IM Right Deltoid 0.5 mL [id number] 12/05/25 [id number] Switch Identity Governance VIS Given Date VIS Provided VIS Publication Date 03/29/25 Single Vaccine 24 Eligibility Eligibility Date Funding Source Not [facility] Eligible 03/29/25 Private Results Reviewed Results Reviewed: Laboratory Last Values Hgb A1c (Clinic) 10.4 % (4.0-6.0) H 03/29/25 11:16 Coding Level of Care Code Est Pt Prev Care >65y(06730) Diagnoses Physical exam Z00.00 Hypertension I10 Sinus pause I45.5 Bradycardia R00.1 Diabetes type 1, uncontrolled E10.65 Proliferative diabetic retinopathy E11.3599 Gastroesophageal reflux disease, unspecified whether esophagitis present K21.9 Esophagitis presence: esophagitis presence not specified CKD (chronic kidney disease) N18.9 Diabetic 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 She is declining several screening recommendations and understands the risks of not having these performed. She did receive the flu shot today. Healthy diet and regular exercise is encouraged. Blood work is up-to-date has been reviewed with the patient and I did order for additional blood work to be completed prior next visit (2) Hypertension: Code(s): I10 - Essential (primary) hypertension Category: Medical Plan: Continue on current blood pressure medication. Avoid salt intake and encourage healthy diet and regular exercise. (3) Sinus pause: Comment: 3.1 seconds on Holter unknown time Code(s): I45.5 - Other specified heart block Category: Medical Plan: Recently seen by Cardiology atenolol was discontinued plan for echocardiogram and repeat Holter monitor without atenolol. And continue to follow with Cardiology (4) Bradycardia: Code(s): R00.1 - Bradycardia, unspecified Category: Medical Plan: See above plan (5) Diabetes type 1, uncontrolled: Code(s): E10.65 - Type 1 diabetes mellitus with hyperglycemia Category: Medical Plan: Decrease the amount of carbohydrates such as pasta, bread, rice, and potatoes and limit the amount of sweets. Although fruits are generally healthy they should be eaten in moderation as they are still high in sugar. Hemoglobin A1c goal of less than 7%. Continue to follow with endocrinology. A1c in the office today is above 10% and message was sent to patient's cardiac cath rn. She has been experiencing occasional lows thus we will defer to endocrinology for further adjustment of her insulin. We did also discuss about dietary and lifestyle modification (6) Proliferative diabetic retinopathy: Code(s): E11.3599 - Type 2 diabetes mellitus with proliferative diabetic retinopathy without macular edema, unspecified eye Category: Medical Plan: She will continue to follow with her eye doctor. She was previously seeing a retina specialist and receiving injections in the eyes which she is now declining. (7) Gastroesophageal reflux disease: Code(s): K21.9 - Gastro-esophageal reflux disease without esophagitis Category: Medical Qualifiers: Esophagitis presence: esophagitis presence not specified Qualified Code(s): K21.9 - Gastro-esophageal reflux disease without esophagitis Plan: Avoid trigger foods such as citrus, tomato products, soda, caffeine, spicy foods and other foods that may be irritating to your stomach. Avoid laying flat 3-4 hours after eating and elevate the head of the bed 30 degrees to prevent acid from moving into the esophagus. (8) CKD (chronic kidney disease): Code(s): N18.9 - Chronic kidney disease, unspecified Category: Medical Plan: Recently seen by Nephrology advised to avoid kidney irritants and stay well hydrated. A1c goal less than 7% and continue with blood pressure management with valsartan. 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 Good control of blood sugars with A1c goal less than 7%. (10) Dyslipidemia: Code(s): E78.5 - Hyperlipidemia, unspecified Category: Medical Plan: Avoid foods that are high in cholesterol such as red meat, fried foods, eggs and baked goods. Triglyceride goal of less than 150 and LDL goal of less than 100. Last LDL within normal limits (11) Leg pain, anterior: Code(s): M79.606 - Pain in leg, unspecified Category: Medical Plan: I believe her leg pain may be related to deconditioning and muscle tightness. He has been encouraged the patient to engage in gentle stretching and light weight-bearing exercises such as walking. I do think she would benefit from physical therapy however I do not believe she will attend her appointments. She is likely not a candidate for in-home physical therapy and she agrees to reach out if this changes. I did review red flag symptoms and when to present for re-evaluation. Low suspicion for claudication or DVT at this time. Plan This note was constructed using voice recognition software. While every effort has been made to ensure accuracy and bingo checker, still areas may have been included sometimes these areas may affect the content or meeting of the given symptoms. Total time spent caring for the patient today was 30 minutes. This includes time spent before the visit reviewing the chart, time spent during the visit, and time spent after the visit and documentation. Patient was informed and verbally consented to the use of an ambient scribe for clinic note documentation during this visit. Orders: Orders TSH reflex Free T4 3 Months Z13.29 - Encounter for screening for other suspected endocrine disorder Vitamin B12 and Folate 3 Months Z13.21 - Encounter for screening for nutritional disorder Lipid Panel 3 Months E78.00 - Pure hypercholesterolemia, unspecified Influenza [id number] Immunization Today Z23 - Encounter for immunization AMB Hemoglobin A1c Today E10.65 - Type 1 diabetes mellitus with hyperglycemia Vitamin D 25-OH Total 3 Months Z13.21 - Encounter for screening for nutritional disorder Complete Blood Count Auto Diff 3 Months E10.65 - Type 1 diabetes mellitus with hyperglycemia, Z13.0 - Encounter for screening for diseases of the blood and blood-forming organs and certain disorders involving the immune mechanism Comprehensive Met. Panel 3 Months E10.65 - Type 1 diabetes mellitus with hyperglycemia, Z00.00 - Encounter for general adult medical examination without abnormal findings Hemoglobin A1c 3 Months E11.65 - Type 2 diabetes mellitus with hyperglycemia Medications: New fluocinolone acetonide oil 0.01% (DermOtic Oil) 3 drps otic (ears) BID PRN 20 mL 0RF itching 7 days
== END 2025-03-29 11:46 | disposition home or self-care (01) ==
LOC: HO.HMCH 10:53
PROVIDERS: PCP Internal Medicine
DX: Z00.00 Encounter for general adult medical examination without abnormal findings (principal); I12.9 Hypertensive chronic kidney disease with stage 1 through stage 4 chronic kidney disease, or unspecified chronic kidney disease; E10.65 Type 1 diabetes mellitus with hyperglycemia; E10.42 Type 1 diabetes mellitus with diabetic polyneuropathy; N18.9 Chronic kidney disease, unspecified; I45.5 Other specified heart block; R00.1 Bradycardia, unspecified; K21.9 Gastro-esophageal reflux disease without esophagitis; E78.5 Hyperlipidemia, unspecified; M79.606 Pain in leg, unspecified; Z23 Encounter for immunization

== ENCOUNTER → 2025-03-29 10:52 | Outpatient (BNVA) | payer OTHER, SELFPAY | PROVIDERS: PCP Internal Medicine | DX: Z00.00 Encounter for general adult medical examination without abnormal findings (principal); E10.65 Type 1 diabetes mellitus with hyperglycemia; E10.3599 Type 1 diabetes mellitus with proliferative diabetic retinopathy without macular edema, unspecified eye; E10.42 Type 1 diabetes mellitus with diabetic polyneuropathy; E10.319 Type 1 diabetes mellitus with unspecified diabetic retinopathy without macular edema; E10.22 Type 1 diabetes mellitus with diabetic chronic kidney disease; I12.9 Hypertensive chronic kidney disease with stage 1 through stage 4 chronic kidney disease, or unspecified chronic kidney disease; K21.9 Gastro-esophageal reflux disease without esophagitis; N18.9 Chronic kidney disease, unspecified; M25.561 Pain in right knee; M25.562 Pain in left knee; M79.605 Pain in left leg; M79.604 Pain in right leg; I45.5 Other specified heart block; R00.1 Bradycardia, unspecified; E78.5 Hyperlipidemia, unspecified; Z23 Encounter for immunization; Z79.4 Long term (current) use of insulin | CPT/HCPCS: 83036; 90471; 90656; 99397 ==

== ENCOUNTER 2025-04-10 13:08 | Outpatient (AMB) | payer OTHER, SELFPAY ==
--- NOTE | 2025-04-10 13:20 | MHC.OFFVIS ---
Vital Signs 04/10/25 13:25 Height 5 ft 2 in Weight 128 lb 8.472 oz BMI 23.5 BP 152/74 H Blood Pressure Location Rt brachial Position Sitting Pulse 71 Pulse Source Pulse Oximeter Pulse Oximetry (%) 98 Oxygen Delivery Method Room Air Intake Visit Reasons: f/u Type 1 DM Intake Note: Patient present today for T1DM. 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 [place] Claudia Sutton Information Interpreted: non-clinical & clinical Accompanied by: Self / Same As Patient Allergies brimonidine (From ALPHAGAN P) Allergy (Unknown, Verified 04/10/25 13:28) UNKNOWN alphagan Allergy (Unknown, Uncoded 04/10/25 13:28) allergy reaction Fluoxetine Allergy (Unknown, Uncoded 04/10/25 13:28) Unknown Medication List - Last Reconciled 04/10/25 by Harris Hawkins MD acetaminophen (Tylenol) 650 mg PO Q6H PRN blood-glucose sensor (FreeStyle Aditya 3 Plus Sensor device) As directed change every 14 days blood-glucose,artificial cherry maker,cont (FreeStyle Aditya 3 [place]) As directed fluocinolone acetonide oil 0.01% (DermOtic Oil) 3 drps otic (ears) BID PRN 7 days furosemide 20 mg PO DAILY insulin glargine U-300 conc (Toujeo SoloStar U-300 Insulin) 12 units subcut BEDTIME insulin lispro (Humalog KwikPen (U-100) Insulin) 6 units with breakfast , 6 units lunch lunch, 6-8 units with dinner and 2 units with snacks subcut. 4 times a day SLIDING SCALE 90 days lidocaine 5% 1 patch topical DAILY lovastatin 40 mg PO BEDTIME nystatin 1 appl topical BID pen needle, diabetic 5 times a day polyethylene glycol 3350 (Gavilax) 17 grams PO DAILY PRN timolol maleate 0.5% 1 drp ophthalmic (eye) DAILY [transfer chair As directed] valsartan 160 mg See Protocol PO DAILY walker As directed HPI Comments Details: Patient is an 89-year-old female with DM type 1 diagnosed the age of 41 who presents for management of diabetes Past medical history: DM1, Raynaud's syndrome, hypertension, hyperlipidemia, Micro and macrovascular complications: proliferative retinopathy, nephropathy, Diabetes medications: Toujeo 12 units and Humalog 6-10 units for breakfast, for lunch and dinner, 2-3 units with snack. Plus Correction scale starting 100-200 6 units 200-299 mg/dL 1 unit 300-399 mg/dL 2 units 400+ mg/dL 3 units Symptoms reported: Cramping at night in lower extremities Hypoglycemia: in AM Hyperglycemia: denies urinary frequency, occassional nocturia, polydypsia Blood glucose monitoring: Moat 2 download show the sensor is active 87% of the time. Average glucose is 223 with G mi of 8.6% and variability 31.4%. 29% range with 38% hyperglycemia and 33% very hyperglycemia and 0% hypoglycemia which is occurring primarily overnight. 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: denies Dental exam: long time ago Ophthalmology evaluation: 03/2025 Laboratory Tests 03/07/21 05/10/21 11:24 Unknown Creatinine 1.24 Estimated GFR 41 Hgb A1c (Clinic) 9.3 H 11/29/20 11/29/20 11/29/20 08:46 08:46 08:46 Creatinine Estimated GFR Hgb A1c (Clinic) Hemoglobin A1c % 8.0 Triglycerides 97 Cholesterol 154 LDL Cholesterol Direct 68 LDL Cholesterol, Calc 76 HDL Cholesterol 59 TSH 3.78 Free T4 0.95 Microalb/Creat Ratio 11/29/20 11/29/20 02/22/21 08:46 08:49 19:38 Creatinine 1.12 Estimated GFR 46 Hgb A1c (Clinic) 7.8 H Hemoglobin A1c % Triglycerides Cholesterol LDL Cholesterol Direct LDL Cholesterol, Calc HDL Cholesterol TSH Free T4 Microalb/Creat Ratio 93.2 PFSH Medical History Dementia Uterine prolapse Dyslipidemia Hypertension 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 Mother No problems noted. Social History Household Members: Family Housing: Apartment Housing Other:: With Daughter. Do you presently have visiting nurse or other home services: Yes Alcohol intake: never Patient Tobacco Use Status: Never used Tobacco e-Cigarette/Vaping Use: Never Used Second Hand Smoke Exposure: No service: No Current occupational status: retired and disabled Cognitive needs: Yes (cane/walker) Hearing needs: No Vision needs: Yes (glasses) Physical Exam Vital Signs: Last Vital Signs Pulse 71 04/10/25 13:25 BP 152/74 H 04/10/25 13:25 Pulse Ox 98 04/10/25 13:25 Oxygen Delivery Method Room Air 04/10/25 13:25 BMI result Body Mass Index 23.5 Absence of Cushingoid features. Absence of acromegalic features. Neck exam reveals nl size thyroid about 15 gms. No thyroid nodules palpable. No carotid bruits present. Lungs CTA. Heart S1 S2, Reg R/R. No M/R/ G. Skin exam reveals absence of vitiligo or acanthosis nigricans. Abdominal exam reveals Soft NT/ND with NA BS. No organomegaly present. Extrem Other: Visual exam of foot performed. No ulcerations or open lesions. No onchomycosis, no callouses.Pulses 2 + distally. Sensation intact to monofilament exam. Vibratory sensation sensed 10 seconds in right, 10 seconds in left with 128 Hz tuning fork Assessment & Plan Assessment & Plan (1) Diabetes type 1, uncontrolled: Code(s): E10.65 - Type 1 diabetes mellitus with hyperglycemia Category: Medical Plan: This 89-year-old female with a history of longstanding type 1 diabetes being treated with basal-bolus insulin with poor glycemic control and known microvascular complications namely neuropathy, nephropathy and retinopathy. Goal hemoglobin A1c should be up at 8.5% considering patient's age and comorbidities Plan is to decrease the Toujeo to 10 units Humalog scale changed for lunch and dinner 80-150 8 units, 151-249 9 units and >250 10 units . F/u with CDE in 2 mos and with me in 4 mos Coding Level of Care Code Est Pt Level 4 (65374) Complex EM visit Add On G2211 Diagnoses Diabetes type 1, uncontrolled E10.65
[2025-04-10 13:25] VITALS: BP 152/74; PULSE 71; O2SAT 98; BMI 23.5
[2025-04-10 13:34] LABS: Glucose, Whole Blood 222 mg/dL (60-115)
== END 2025-04-10 13:59 | disposition home or self-care (01) ==
LOC: HO.ENCR 13:09
PROVIDERS: Visit Provider Internal Medicine Endocrinology, Diabetes & Metabolism
DX: E10.65 Type 1 diabetes mellitus with hyperglycemia (principal)
CPT/HCPCS: 99214; G2211

== ENCOUNTER → 2025-04-10 13:08 | Outpatient (BNVA) | payer OTHER, SELFPAY | PROVIDERS: Visit Provider Internal Medicine Endocrinology, Diabetes & Metabolism | DX: E10.65 Type 1 diabetes mellitus with hyperglycemia (principal) | CPT/HCPCS: 82947; 99212 ==

== ENCOUNTER → 2025-04-20 11:22 | Outpatient (REF) | payer OTHER, SELFPAY ==
--- OUTSIDE RECORDS SUMMARY | 2023-11-20 06:15 | XMS_ITS ---
Author [facility] Address [address] [place] [address] Care Team Providers Care Hr Administrative Assistant Name Role Phone AugustoChristel rabago Primary Care Provider Unavailab Mendoza Rizzo Unavailable [phone] Andrea Loredo Unavailable [phone] REASON FOR VISIT Painful nail(s) aggrevated by shoes and causing difficulty standing/walking. Encounters Encounter Location Date Provider [facility] [address] [facility] [place] [address] 11/20/2023 Andrea Loredo Type 1 diabetes mellitus with diabetic polyneuropathy E10.42 ; Pain in right toe(s) M79.674 ; Tinea unguium B35.1 ; Pain in left toe(s) M79.675 and Xerosis cutis L85.3 Assessments Encounter Date Diagnosis (ICD Code) Assessment Notes Treatment Notes Treatment Clinical Notes Section Notes 11/20/2023 Type 1 diabetes mellitus with diabetic polyneuropathy (ICD-10 - E10.42) 11/20/2023 Pain in right toe(s) (ICD-10 - M79.674) 11/20/2023 Tinea unguium (ICD-10 - B35.1) 11/20/2023 Pain in left toe(s) (ICD-10 - M79.675) 11/20/2023 Xerosis cutis (ICD-10 - L85.3) Plan Of Treatment Next Appt Details Follow Up: 4 Months, Reason: Provider Name:Perla rucker, 05/12/2025 12:30:00 PM, [address], [place], [address], Procedure Notes * Category Sub-Category Detail Notes Debride Nail 6-10 Nail debridement Nail debridem ent performed extensively to reduce/remove overall nail length and girth, subungual debris, and necrotic tissue, by manual and electrical means with use of a nail nipper and/or dremel, to more viable healthy nail plate or bed tissue 6-10. Silver nitrate used for any petechial bleeding as necessary. Patient chooses, no pharmaceutical tx (46577) Keratoma Treatment Parring or Cutting o f Benign Hyperkeratotic Lesion(s) 88338 ( 2-4 Lesions ) - The Benign hyperkeratotic lesions, as described above were pared, and/or cut utilizing a sterile 15 blade, tissue nippers, and/or dremel Progress Notes * Sunitha DICKEYDOB:1935 (89 yo F)Acc No.[id number]:11/20/2023 Progress Note Patient: Sunitha MCCORMICK Provider: Annabelle Foster DPM :1935 A ge:88 Y S ex:Female Date:11/20/2023 Address:[address] [place], [place] [id number] Pcp:Christel Green Subjective: * Chief Complaints: * 1 . Painful nail(s) aggrevated by shoes and causing difficulty standing/walking.. * HPI: A t Risk footcare: Pt States Last PCP Visit: D ate 1 06/08/2022 F oot Pain: Nature: s welling, throbbing, loss of balance/falling. Location B /L. Duration: s everal months. Onset/Cause: d pn. Course: w orse. Aggrevated: e specially at night. Treatments: c ane/walker. Quality/Severity m oderate. P ainful Nails: Misc: D is present and is both histoiran and int. * ROS: G eneral/Constitutional: Nausea d enies, denies. V omiting d enies, denies.?Hunger Thirst d enies, denies. L oss appetite d enies, denies. C hills d enies, denies. F atigue d enies, denies. F ever d enies, denies. N ight Sweats denies, denies. U nexplained weight loss d enies, denies. U nexplained weight gain?denies. O phthalmologic: Blurred vision d enies. R ed eye d enies. ? H EENTM: Dentures d enies, denies. D izziness d enies, denies. G lasses/contacts a dmits, denies. R etinopathy d enies, denies. B lurred/double vision d enies, denies. T MJ d enies, denies. D ischarge/drainage d enies, denies. I mplants d enies, denies. S ore throat d enies. D ental implants a dmits. H juan of hearing d enies, denies. D ifficulty chewing/swallowing/speaking d enies, denies. N ose bleeds d enies, denies. S ore mouth d enies, denies. S wollen glands d enies. R espiratory: On Oxygen d enies, denies. P neumonia/pleurisy d enies, denies. B ronchitis d enies, denies. E mphysema d enies, denies. C oughing?denies, denies. C ough blood d enies, denies. S hortness of breath d enies, denies. W heezing d enies, denies. C ardiovascular: Pacemaker d enies, denies. M COMPUTER TYPESETTER d enies, denies.?WPW d enies, denies. C HF d enies, denies. H eart attack d enies, denies.?Septal defect d enies, denies. R apid beat d enies, denies. C hest pain d enies, denies. A trial Fib. d enies, denies. M urmur/Palpitations d enies, denies. G astrointestinal: Hemorrhoids d enies, denies. S tomach/Abdominal pain?denies, denies. D ark blood stool d enies, denies. I rritable bowel d enies, denies. C onstipation d enies, denies. D iarrhea d enies, denies. V omiting d enies. H ematology: Swelling a dmits, denies. C lots d enies. V aricose Veins d enies. B ruising d enies, denies. B leeding problem d enies, denies. G enitourinary: Blood urine d enies, denies. F requent/Painfu/urination/bladder control d enies, denies. K idney stones d enies, denies. I nfection (UTI)?denies, denies. N ephropathy d enies, denies. s ex trans dis (STD) d enies. P rostate d enies. M usculoskeletal: Hammertoes d enies, denies. B unions d enies, denies. S coliosis/kyphosis d enies. B ack Pain a dmits. M uscle Cramps/ Resting d enies. M uscle cramps / walking a dmits, denies. G eneralized aches and pains a dmits, denies. W eakness d enies, denies. I nteg.: Lee d enies, denies. S cars d enies, denies. C orns/calluses d enies, denies. I ngrown nails a dmits, denies. P ainful nails d enies, denies. O pen Sores d enies. R ashes d enies, denies. N eurologic: Difficulty sleeping a dmits, denies. B ipolar d enies. B rain disorder d enies, denies. N umbness d enies. B alance trouble d enies, denies. C onfusion d enies, denies. F ainting/blackouts d enies, denies. H eadache d enies. T ingling d enies. T remors d enies, denies. * Medical History: Objective: * Vitals: * Examination: O phthalmology Referral: DIABETES EYE EXAM F indings of Diabetic Eye Exam: r etinopathy N eurological: SENSORY: N eurological exam demonstrates, reduced vibration sensation, B/L, at Forefoot, 5.07 monofilament test performed at plantar aspects of 5 varied sites per foot shows sensation, reduced , B/L. TINEL'S COMPRESSION: N egative tarsal tunnel, shaun pedis, and medial calcaneal nerves B/L. BABINSKI REFLEX: a bsent. V ascular: DP PULSES (B): 1/4, B/L. PT PULSES (B): 1/4, B/L. PIGMENTATION: brawny, B/L. EDEMA (C): 1/4, B/L, Ankle(s), Leg(s). ? N ails: NAILS are: Elongated, overgrown, dystrophic, lytic, greater than 3mm thick, discolored and friable with crumbly malodorous subungual debris, with dull to no pain on palpation due to neuropathy, 1-5 B/L. D ermatologic: SKIN FINDINGS: Skin exam reveals Keratotic lesion(s) located at, Plantar, Heel(s), B/L, Skin shows sign(s) of, dryness, scaling, in a stocking fashion, no fissure(s) present, B/L. G eneral Examination: GENERAL APPEARANCE: p leasant, alert, well nourished, well developed, well hydrated, with good attention to hygene/body habitus, and in no acute distress. ORIENTED: p erson,place, and time. N euroma Pain: PALPATION: N o interspace pain noted on palpation. ? O rthopedic: MUSCLE STRENGTH: 5 /5 all groups in a symmetrical fashion , B/L. GAIT ABNORMALITY: p ronated, abducted, B/L. ? Assessment: * Assessment: 1. T ype 1 diabetes mellitus with diabetic polyneuropathy - E10.42 2 . P ain in right toe(s) - M79.674 3 . T inea unguium - B35.1 (Primary) ?4. P ain in left toe(s) - M79.675 5 . X erosis cutis - L85.3 ? Plan: * Treatment: * Procedures: D ebride Nail 6-10: Nail debridement N ail debridement performed extensively to reduce/remove overall nail length and girth, subungual debris, and necrotic tissue, by manual and electrical means with use of a nail nipper and/or dremel, to more viable healthy nail plate or bed tissue 6-10. Silver nitrate used for any petechial bleeding as necessary. Patient chooses, no pharmaceutical tx (75249). K eratoma Treatment: Parring or Cutting of Benign Hyperkeratotic Lesion(s) 1 1056 ( 2-4 Lesions ) - The Benign hyperkeratotic lesions, as described above were pared, and/or cut utilizing a sterile 15 blade, tissue nippers, and/or dremel. * Procedure Codes: 1 1721 DEBRIDE NAIL, 6 OR MORE, Modifiers: XS , 11091 TRIM SKIN LESIONS, 2 TO 4, Modifiers: XS * Follow Up: 4 Months * Images: * The named appointment provid er may or may not be the originator of this progress note, and it is not deemed complete until electronically signed by the appointment provider. Sign off status: Pending * Provider: Annabelle Foster DPM Date: 0 11/20/2023 Generated for Unruly parr/Bernardo/Sissy on: 1 06/20/2024 02:35 PM EST History and Physical Notes * HPI (History of Present Illness) Category Sub-Category Detail Notes Category Not es Painful Nails Misc: D is present and is both histoiran and int At Risk footcare Pt States Last PCP Visit: Date: 3 Foot Pain Aggrevated: especially at night Onset/Cause: dpn Course: worse Duration: several months Nature: swelling, throbbing, loss of balance/falling Treatments: cane/walker Quality/Severity moderate Location B/L Examination Category Sub-Category Detail Notes Category Not es Neuroma Pain PALPATION: No interspace pain noted on palpation Neurological SENSORY: Neurological exa m demonstrates, reduced vibration sensation, B/L, at Forefoot, 5.07 monofilament test performed at plantar aspects of 5 varied sites per foot shows sensation, reduced , B/L BABINSKI REFLEX: absent TINEL'S COMPRESSION: Negative tarsal alice luiz, shaun pedis, and medial calcaneal nerves B/L Dermatologic SKIN FINDINGS: Skin exam reveal s Keratotic lesion(s) located at, Plantar, Heel(s), B/L, Skin shows sign(s) of, dryness, scaling, in a stocking fashion, no fissure(s) present, B/L Orthopedic GAIT ABNORMALITY: pronated, abducted, B/L MUSCLE STRENGTH: 5/5 all groups in a symmetrical fashion , B/L General Examination GENERAL APPEARANCE: pleasant , alert, well nourished, well developed, well hydrated, with good attention to hygene/body habitus, and in no acute distress ORIENTED: person,place, and ti me Ophthalmology Referral DIABETES EYE EXAM Finding s of Diabetic Eye Exam:: retinopathy Vascular DP PULSES (B): 06/11, B/L PT PULSES (B): 4, B/L EDEMA (C): 06/11, B/L, Ankle(s), Leg(s) PIGMENTATION: brawny, B/L Nails NAILS are: Elongated, overg rown, dystrophic, lytic, greater than 3mm thick, discolored and friable with crumbly malodorous subungual debris, with dull to no pain on palpation due to neuropathy, 1-5 B/L
--- OUTSIDE RECORDS SUMMARY | 2024-07-21 06:30 | XMS_ITS ---
Author Organization [facility] Address [address] [place] [address] Care Team Providers Care Meteorology Teacher Name Role Phone Christel Green Primary Care Provider Unavailab Mendoza Rizzo Unavailable [phone] Encounters Encounter Location Date [facility] [address] 07/21/2024 Mendoza Malik Plan Of Treatment Next Appt Details Provider Name:Perla rucker, 05/12/2025 12:30:00 PM, [address] [place] [address], [phone], Progress Notes * Sunitha DICKEYDOB:1935 (89 yo F)Acc No.[id number]:07/21/2024 Progress Note Patient: Sunitha MCCORMICK Provider: Shelly Malik DPM :1935 A ge:88 Y S ex:Female Date:07/21/2024 Address:[address] [place] [address] Pcp:Christel Green Subjective: * Chief Complaints: * * Medical History: Objective: * Vitals: Assessment: Plan: * Treatment: * Images: * The named appointment provid er may or may not be the originator of this progress note, and it is not deemed complete until electronically signed by the appointment provider. Sign off status: Pending * Provider: Shelly Malik DPM Date: 0 07/21/2024 Generated for Unruly parr/Maggie on: 1 06/20/2024 02:35 PM EST
--- NOTE | 2025-04-20 11:26 | HM_ITS ---
* Total monitoring time 3 days. * Underlying rhythm is sinus with an average rate of 65/Min. * Supraventricular ectopy with a burden of 1%. * Very rare ventricular ectopy. * No significant pauses or high-grade AV blocks. * No patient markers or diary events. MTDD
--- OUTSIDE RECORDS SUMMARY | 2025-04-20 14:35 | XMS_ITS ---
Author Name Jacob SARA, MS. Florecita Fiore Address [address] [place] [address] Phone [phone] [facility] Care Team Providers Care Liquor Bridge Operator Name Role Phone Florecita James Unavailable [phone] MehranMateusz augustin Unavailable [phone] Reason for Referral Not Available Allergies, adverse [...] EVERY DAY 2020-12-21 No Data Available Creon [id number] UNIT Cap delayed rel TAKE 1 CAPSULE [...] 2022-03-21 BD JEWELS 2 GEN PEN NDL [id number] USE 5 TIMES A DAY 2021-05-29 No [...] once daily 2023-06-23 No Data Available Nystatin [id number] UNIT/GM Powder APPLY TO AFFECTED AREA TWICE [...] appt with PCP next month. Will recheck [id number] CG/PT that the a1c goal is <8%Encouraged [...] organ damage (headache, vision changes, chest pain)/ Dry Can Tender on proper BP monitoring technique and reassess/ [...] (do not use for phone, instead use 31702-26) [facility] Other [...] (do not use for phone, instead use 34413-20) [facility] Estab. patient 30-39min; chronic exacerbation, 2 stable chronic or 1 acute illness add add modifier 95 for video, (do not use for phone, instead use 11446-29) [facility] Estab. patient 30-39min; chronic exacerbation, 2 stable chronic or 1 acute illness add add modifier 95 for video, (do not use for phone, instead use 81287-58) [facility] 02/18/20[place] Estab. patient 30-39min; chronic exacerbation, 2 stable chronic or 1 acute illness add add modifier 95 for video, (do not use for phone, instead use 98836-58) [facility] Estab. patient 30-39min; chronic exacerbation, 2 stable chronic or 1 acute illness add add modifier 95 for video, (do not use for phone, instead use 69270-75) [facility]20[place] Estab. patient 30-39min; chronic exacerbation, 2 stable chronic or 1 acute illness add add modifier 95 for video, (do not use for phone, instead use 93766-74) [facility]18[place]2023 Estab. patient 30-39min; chronic exacerbation, 2 stable chronic or 1 acute illness add add modifier 95 for video, (do not use for phone, instead use 85564-46) [facility]2023 No Data Available [facility]/2023 Type 2 diabetes mellitus wit h other specified complicationHyperlipidemia, unspecified No Data Available [facility] 05[place]/2023 Estab. patient 30-39min; chronic exacerbation, 2 stable chronic or 1 acute illness add add modifier 95 for video, (do not use for phone, instead use 07185-00) [facility]2023 Other chronic pancreatitisEssential (primary) hypertensionType 2 diabetes mellitus with other specified complicationHyperlipidemia, unspecifiedUnspecified dementia without behavioral disturbanceMajor depressive disorder, recurrent, unspecifiedBilateral primary osteoarthritis of knee Estab. patient 30-39min; chronic exacerbation, 2 stable chronic or 1 acute illness add add modifier 95 for video, (do not use for phone, instead use 95289-93) [facility]20[place] Estab. patient 30-39min; chronic exacerbation, 2 stable chronic or 1 acute illness add add modifier 95 for video, (do not use for phone, instead use 31547-77) [facility] 06[place]/20[place] Estab. patient 30-39min; chronic exacerbation, 2 stable chronic or 1 acute illness add add modifier 95 for video, (do not use for phone, instead use 42640-39) [facility] 06[place]23/20[place] Estab. patient 30-39min; chronic exacerbation, 2 stable chronic or 1 acute illness add add modifier 95 for video, (do not use for phone, instead use 32807-52) [facility] 06[place]23/20[place] Estab. patient 30-39min; chronic exacerbation, 2 stable chronic or 1 acute illness add add modifier 95 for video, (do not use for phone, instead use 24720-28) [facility] 06[place]23/2023 Estab. patient 30-39min; chronic exacerbation, 2 stable chronic or 1 acute illness add add modifier 95 for video, (do not use for phone, instead use 74800-88) [facility] 06[place]/20[place] Estab. patient 30-39min; chronic exacerbation, 2 stable chronic or 1 acute illness add add modifier 95 for video, (do not use for phone, instead use 94190-39) [facility] 06[place]23/20[place] Estab. patient 30-39min; chronic exacerbation, 2 stable chronic or 1 acute illness add add modifier 95 for video, (do not use for phone, instead use 59883-91) [facility] 06[place]/2023 Estab. patient 30-39min; chronic exacerbation, 2 stable chronic or 1 acute illness add add modifier 95 for video, (do not use for phone, instead use 04541-09) [facility] 06[place]/20[place] Estab. patient 20-29min; 1 stable chronic or 2 minor; add add modifier 95 for video, modifier 93 for phone [facility] 07/[place]/2024 Other chronic pancreatitisEssential (primary) hypertensionType 2 [...] tive Time Current Smoking Status Never smoker 2025-04-08 3 Sex Female History of Procedures Procedures Service [...] (do not use for phone, instead use 85727-21) 61079 2022-03-21 No Data Available No Data Availa [...] (do not use for phone, instead use 08779-14) 54601 2023-02-18 No Data Available No Data Availa [...] Available No Data Available No Data Available 12088 2023-05-31 No Data Available No Data Available Medication List Documented (1159F) 1159F 2023-05-31 No Data Available No Data Luna ilable Estab. 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 Will recheck [id number] CG/PT that the a1c is <7%Encouraged regular [...] appt with PCP next month. Will recheck t4xIdujkijr CG/PT that the a1c goal is <7%Encouraged [...] appt with PCP next month. Will recheck f5dOoydolde CG/PT that the a1c goal is <7%Encouraged [...] appt with PCP next month. Will recheck n0cJgbbzxyp CG/PT that the a1c goal is <7%Encouraged [...] appt with PCP next month. Will recheck b2nPqtzxelq CG/PT that the a1c goal is <8%Encouraged [...] organ damage (headache, vision changes, chest pain)/ Dry Can Tender on proper BP monitoring technique and reassess/ [...]
--- OUTSIDE RECORDS SUMMARY | 2025-04-20 14:35 | XMS_ITS | Patient Health Record ---
[facility] Address [address] [place] [address] Care Team Providers Care Armament Mechanic Name Role Phone Christel Green Primary Care Provider Unavailab Mendoza Rizzo Unavailable [phone] Allergies Allergen (clinical drug ingredient) Drug/Non Drug [...] Shamika test strips No t-Taking Lancets Not-Taking Ammonium Lactate 12 % APPLY EXTERNALLY T O AFFECTED AREAS OF DRY SKIN TO FEET EXCEPT FOR BETWEEN TOES TWICE A DAY 30 DAYS; Duration: 30 Active Ibuprofen prn Active Furosemide 20 MG 1 tablet Orally [...] Not -Taking Polyethylene Glycol 3350 Active Creon [id number] UNIT as directed Orally Not-Taking Meloxicam 7.5 [...] Problem Acquired hammer toe of right foot (6237898910450153 ) Other hammer toe(s) (acquired), right foot (M20.41) Active confirmed Response to treatment, Improvemen t Problem Acquired hammer toe of left foot (2104898737666738 ) Other hammer toe(s) (acquired), left foot (M20.42) Active confirmed Response to treatment, Improvemen t Problem Polyneuropathy due to diabetes mellitus type I (716411997) Type 1 diabetes mellitus with diabetic polyneuropathy (E10.42) Active confirmed Vital Signs Heart Rate 52 /min 10/13/2024 Blood pressure diastolic 81 mm Hg 01/16/2025 Height 5ft 2in in 01/16/2025 Blood pressure systolic 142 mm Hg 01/16/2025 Weight 137 lbs 01/16/2025 BMI 25.05 kg/m2 01/16/2025 Procedures Procedure Date Ordered Date Performed Result Body Sit e 46144-GMGUKWI NAIL, 6 OR MORE 10/13/2024 N/A 72919-MTMU SKIN LESIONS, OVER 4 10/13/2024 N/A 88089-HPMOPJQ NAIL, 6 OR MORE 01/16/2025 N/A 72026-LFXT SKIN LESIONS, OVER 4 01/16/2025 N/A Encounters Encounter Location Date Provider Diagnosis [address] [address] 10/13/2024 Mendoza Malik Type 1 diabetes mellitus with diabetic polyneuropathy E10.42 ; Tinea unguium B35.1 and Xerosis of skin L85.[address] [address] 01/16/2025 Mendoza Malik Type 1 diabetes mellitus with diabetic polyneuropathy E10.42 ; Tinea unguium B35.1 and Xerosis of skin L85.3 [facility] [address] [place] [address] 07/19/2024 Mendoza Malik Assessments Encounter Date Diagnosis (ICD Code) Assessment Notes Treatment Notes Treatment Clinical Notes Section Notes 10/13/2024 Type 1 diabetes mellitus with diabetic polyneuropathy (ICD-10 - E10.42) 10/13/2024 Tinea unguium (ICD-10 - B35.1) 01/16/2025 Type 1 diabetes mellitus with diabetic polyneuropathy (ICD-10 - E10.42) 01/16/2025 Tinea unguium (ICD-10 - B35.1) 01/16/2025 Xerosis of skin (ICD-10 - L85.3) 10/13/2024 Xerosis of skin (ICD-10 - L85.3) Plan Of Treatment Pending Test Test Name Order Date 33390-DPNHHUH NAIL, 6 OR MORE 01/14/2024 53388-GGXRNDK NAIL, 6 OR MORE 04/18/2024 74980-QOBPKPN NAIL, 6 OR MORE 10/13/2024 70862-FXXEFWH NAIL, 6 OR MORE 01/16/2025 16637-CYNQ SKIN LESIONS, OVER 4 01/17/20 25 81827-QMQZ SKIN LESIONS, OVER 4 10/14/19 25 74401-RIHP SKIN LESIONS, OVER 4 04/18/20 24 35911-GAXJ SKIN LESIONS, OVER 4 01/14/20 24 41584-WSAB SKIN LESIONS, 2 TO 4 02/28/20 23 68601-CIZH SKIN LESIONS, 2 TO 4 07/28/19 24 Next Appt Details Provider Name:Perla Wyatt alka, 05/12/2025 12:30:00 PM, [address] [address], [place], [address], Insurance Providers Payer Name Payer Address Payer Phone Subscriber Number Group Number Insured Name Patient Relationship to Insured Coverage Start Date Coverage End Date [id number] [address] [address] [place] [address] [id number] Sunitha Ledesma Self - patient is the insured Medical (General) History Medical History History ICD Code Back,Hip,and Knee pain Dementia Diabetic type 1 Glaucoma High blood pressure Chicken pox Fall Risk Dyslipidemia Uterine Prolaspse Diabetic retinopathy Surgical History Surgery Date(Month/Year) breast biopsy colonoscopy
== END ==
LOC: HO.CARD 11:22
PROVIDERS: Visit Provider Internal Medicine
DX: R00.2 Palpitations (principal); I45.5 Other specified heart block
CPT/HCPCS: 93242

== ENCOUNTER → 2025-04-20 11:26 | Outpatient (BNV) | payer OTHER, SELFPAY | PROVIDERS: Visit Provider Internal Medicine | DX: I49.3 Ventricular premature depolarization (principal); I49.49 Other premature depolarization | CPT/HCPCS: 93244 ==